=== PATIENT | male | born 1930 | race Caucasian/White ===

== ENCOUNTER → 2017-01-29 | Outpatient (CLI) | payer MEDICARE, OTHER, BC ==
[~2017-01-29] MED LIST: ASPI1TAB69 PO; ATEN50TA PO; FURO1TAB62 PO; IMDU60TA PO; NITR400A5 SL; PLAV75TA29 PO; PROS5TAB PO; ROSU40 PO; TAMS5CAP PO; ZETI10TA5 PO
[2017-01-29 17:28] LABS: HEMATOCRIT 41.2 % (39.0-51.0); MEAN CELL VOLUME 83.6 FL (80.0-100.0); MEAN CORPUSCULAR HEMOGLOBIN 26.5 PG (27.0-34.0); MEAN CORPUSCULAR HGB CONC 31.7 % (32.0-36.0); PLATELET COUNT 149 TH/MM3 (150-450); RED BLOOD COUNT 4.93 MIL/MM3 (4.50-5.90); RED CELL DISTRIBUTION WIDTH 15.9 % (11.6-17.2); REVIEW FLAG FINAL; WHITE BLOOD COUNT 8.9 TH/MM3 (4.0-11.0)
[2017-01-29 17:52] LABS: ALKALINE PHOSPHATASE 72 U/L (45-117); ALT (GPT) 33 U/L (12-78); ANION GAP 9 MEQ/L (5-15); AST (GOT) 29 U/L (15-37); BICARBONATE 31.2 MEQ/L (21.0-32.0); BLOOD UREA NITROGEN 16 MG/DL (7-18); CHLORIDE 101 MEQ/L (98-107); GLOMERULAR FILTRATION RATE 66 ML/MIN (>89); GLUCOSE,FASTING 76 MG/DL (74-99); HDL CHOLESTEROL 45.6 MG/DL (40.0-60.0); LDL CHOLESTEROL 113 MG/DL (0-99); LDL CHOLESTEROL DIRECT 117 MG/DL (0-99); POTASSIUM 4.6 MEQ/L (3.5-5.1); SODIUM (NA) 141 MEQ/L (136-145); TOTAL BILIRUBIN ADULT 0.5 MG/DL (0.2-1.0)
== END ==
LOC: PLAB 11:47
PROVIDERS: ATTEND Internal Medicine
DX: Z13.9 Encounter for screening, unspecified (principal)
CPT/HCPCS: 36415; 80053; 80061; 83721; 85027

== ENCOUNTER → 2017-05-28 | Outpatient (CLI) | payer MEDICARE, OTHER, BC ==
[2017-05-28 13:33] LABS: ALT (GPT) 29 U/L (12-78); ANION GAP 9 MEQ/L (5-15); AST (GOT) 25 U/L (15-37); BICARBONATE 29.9 MEQ/L (21.0-32.0); BLOOD UREA NITROGEN 19 MG/DL (7-18); CHLORIDE 101 MEQ/L (98-107); GLOMERULAR FILTRATION RATE 57 ML/MIN (>89); GLUCOSE,FASTING 76 MG/DL (74-99); MEAN CELL VOLUME 85.9 FL (80.0-100.0); MEAN CORPUSCULAR HEMOGLOBIN 28.2 PG (27.0-34.0); MEAN CORPUSCULAR HGB CONC 32.8 % (32.0-36.0); PLATELET COUNT 164 TH/MM3 (150-450); POTASSIUM 4.2 MEQ/L (3.5-5.1); RED BLOOD COUNT 4.19 MIL/MM3 (4.50-5.90); RED CELL DISTRIBUTION WIDTH 16.8 % (11.6-17.2); REVIEW FLAG FINAL; SODIUM (NA) 140 MEQ/L (136-145); WHITE BLOOD COUNT 9.3 TH/MM3 (4.0-11.0)
[2017-05-28 13:35] LABS: ALKALINE PHOSPHATASE 64 U/L (45-117); HDL CHOLESTEROL 47.8 MG/DL (40.0-60.0); LDL CHOLESTEROL 80 MG/DL (0-99); LDL CHOLESTEROL DIRECT 94 MG/DL (0-99); TOTAL BILIRUBIN ADULT 0.5 MG/DL (0.2-1.0)
== END ==
LOC: PLAB 10:18
PROVIDERS: ATTEND Internal Medicine
DX: I25.10 Atherosclerotic heart disease of native coronary artery without angina pectoris (principal); I10 Essential (primary) hypertension; E78.5 Hyperlipidemia, unspecified
CPT/HCPCS: 36415; 80053; 80061; 83721; 85027

== ENCOUNTER 2017-09-26 20:44 | Inpatient (IN) | payer MEDICARE, BC ==
[~2017-09-26] VITALS: Ht 190.5 cm; Wt 70.5 kg
[~2017-09-26 20:44] MED LIST changes: +EZET10 PO; -ZETI10TA5 PO
[2017-09-26 20:48] VITALS: BP 170/70; PULSE 80; RESP 16; O2SAT 95
[2017-09-26 20:59] VITALS: O2SAT 95
[2017-09-26 21:00] VITALS: BP 142/63; PULSE 78; RESP 16; O2SAT 95
[2017-09-26] MEDS ORDERED: ceFAZolin 2 GM PREMIX 50 ML IV ONE (21:00)
[2017-09-26] MEDS ORDERED: DIPHTH/TETANUS/ACEL PERTUSSIS (BOOSTER) 0.5 ML VIAL/PFS IM ONE (21:00)
[2017-09-26] MEDS ORDERED: SODIUM CHLORIDE 0.9% FLUSH 10 ML FLUSH IVF PRN (21:00)
[2017-09-26] MEDS ORDERED: ASPI-516 CHEW (21:06)
[2017-09-26] MEDS ORDERED: OMEP10CA PO (21:06)
[2017-09-26] MEDS ORDERED: ISOS120T PO (21:06)
[2017-09-26] MEDS ORDERED: AMLO2.5T PO (21:06)
[2017-09-26] MEDS ORDERED: RANE1000 PO (21:06)
[2017-09-26] MEDS ORDERED: METO1TAB43 PO (21:06)
--- NOTE | 2017-09-26 21:10 | PD ---
HPI Chief Complaint: Neuro Symptoms/ Deficits Time Seen by Provider: 20:54 Travel History International Travel<30 days: No Contact w/Intl Traveler<30days: No Traveled to known affect area: No History of Present Illness HPI The patient is an 87 year old male who presents to the [facility] emergency department with a history of reportedly falling on Saturday evening. The patient reports that he tripped and fell. The patient hit the right side of his head. The patient denies having a loss of consciousness. The patient's son -in-law is a physician and did examine him and Steri-Strip a laceration along the right mosque. The patient is on Plavix due to a history of coronary artery disease. The patient developed significant bruising along the right side of his face. The patient also has developed bruising to the right shoulder and medial left leg. According to the family the patient was last seen normal this morning. The patient this afternoon seemed to be more sleepy than usual. Then in the early evening the patient began to have slurred speech. The patient refused transport to this facility initially, however finally he did agree to be transported. The patient en route to this facility reportedly had an episode of what appeared to be seizure activity with twitching of the right sided of his mouth and decreased level of consciousness, with inability to communicate for approximate 45 seconds. The patient had no reported postictal state. No loss of bowel or bladder control. No tongue biting. The patient's blood sugar prior to arrival was 126. The patient's family reports that his gait appears to be unsteady, however he has not had any other focal weakness. The patient's heart rate was reportedly in the 80s and a sinus rhythm. On review of systems otherwise, the patient arrives awake and alert. The patient denies having any recent fevers, cough, congestion, neck pain, chest pain, shortness of breath, abdominal pain, vomiting, diarrhea, urinary symptoms, one- sided weakness, numbness or tingling to his extremities. [facility] Past Medical History Narrative Medical The patient's past medical history is significant for spinal stenosis, history of coronary artery disease, history of arthritis, hypertension, hyperlipidemia, history of atrial fibrillation, history of prior myocardial infarction, history of prostate hypertrophy Arthritis: Yes (SP. 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) Headaches: No Hepatitis: No Hiatal Hernia: No Hypertension: Yes Immune Disorder: No Implanted Vascular Access Dvce: Yes Musculoskeletal: Yes (ARTHRITIS) Neurologic: No Psychiatric: No Reproductive: No Respiratory: No Integumentary: No Immunizations Current: No Migraines: No Myocardial Infarction: Yes Radiation Therapy: No Seizures: No Thyroid Disease: No Past Surgical History Narrative Surgical The patient's past surgical history is significant for an appendectomy, cholecystectomy, TURP, coronary artery bypass grafting 2, cardiac catheterization with stent placement, carotid endarterectomy, cataract surgery, inguinal hernia repair. Abdominal Surgery: Yes (CHOLECYSTECTOMY, APPY) AICD: No Appendectomy: Yes Cardiac Surgery: Yes (CABG X2, CARDIAC STENT PLACEMENT 2008) Cholecystectomy: Yes Coronary Artery Bypass Graft: Yes (1997, 1981) Ear Surgery: No Endocrine Surgery: No Eye Surgery: Yes (CATARACT X2) Genitourinary Surgery: Yes (RIGHT INGUNIAL HERNIA REPAIR) Gynecologic Surgery: No Joint Replacement: No Neurologic Surgery: No Oral Surgery: No Pacemaker: No Thoracic Surgery: Yes (CABG) Other Surgery: Yes (RIGHT CAROTIC ENDARTERECTOMY 2008) Social History Alcohol Use: No Tobacco Use: No (QUIT 40 YRS. AGO) Substance Use: No Allergies-Medications (Allergen,Severity, Reaction): Coded Allergies: acetaminophen (Unverified Allergy, Severe, VOMITING, 05/14/17) oxycodone (Unverified Allergy, Severe, VOMITING, 05/14/17) zolpidem (Unverified Allergy, Severe, 09/26/17) Reported Meds & Prescriptions Reported Meds & Active Scripts Active Proscar (Finasteride) 5 Mg Tab 5 Mg PO DAILY Do not crush. Reported Omeprazole 10 Mg Cap 10 Mg PO DAILY Amlodipine (Amlodipine Besylate) 2.5 Mg Tab 2.5 Mg PO DAILY Ranexa ER 12 HR (Ranolazine) 1,000 Mg Tab 1,000 Mg PO BID Aspirin 81 Mg Chew 81 Mg CHEW DAILY Metoprolol Succinate ER 24 HR (Metoprolol Succinate) 100 Mg Tab 100 Mg PO DAILY Zetia (Ezetimibe) 10 Mg Tab 10 Mg PO DAILY Plavix (Clopidogrel Bisulfate) 75 Mg Tab 75 Mg PO DAILY Lasix (Furosemide) 20 Mg Tab 20 Mg PO DAILY Imdur (Isosorbide Mononitrate) 60 Mg Tab 60 Mg PO BID Crestor (Rosuvastatin Calcium) 40 Mg Tab 40 Mg PO DAILY Nitroglycerin Lingual [place] (Nitroglycerin) 400 Mcg/Act [place] 1 [place] SL DIRECTED PRN ONE SPRAY NEEDED FOR CHEST PAIN, MAY REPEAT EVERY FIVE MINUTES FOR A TOTAL OF 3 DOSES OR CALL 911 IF NO RELIEF Review of Systems Except as stated in HPI: all other systems reviewed are Neg General / Constitutional: No: Fever Eyes: No: Visual changes HENT: Positive: Headaches, No: Neck Stiffness, Neck Pain Cardiovascular: No: Chest Pain or Discomfort Respiratory: No: Shortness of Breath Gastrointestinal: No: Abdominal Pain Genitourinary: No: Dysuria Musculoskeletal: No: Pain Skin: No Rash Neurologic: Positive: Coordination Problem, Headache, Change in Mentation, Slurred Speech, Seizures, No: Weakness, Focal Abnormalities, Sensory Disturbance Psychiatric: No: Depression Endocrine: No: Polydipsia Hematologic/Lymphatic: No: Easy Bruising Physical Exam Narrative General: The patient is a well-developed well-nourished male that appears to be in no acute distress. Head and Neck exam: Head is noted to have Steri-Strips in place along the right mosque. The patient is noted to have ecchymosis along the right mosque and down the right side of his face. Eyes: EOMI, pupils are equal round and reactive to light. The patient is noted to have a small subconjunctival hemorrhage involving the right thigh. Nose: Midline septum with pink mucous membranes Mouth: Dentition unremarkable. Moist mucus membranes. Posterior oropharynx is not erythematous. No tonsillar hypertrophy. Uvula midline. Airway patent. Neck: No palpable lymphadenopathy. No nuchal rigidity. No thyromegaly. No spinous process tenderness to palpation. No step-off or crepitus. Cardiovascular: Regular rate and rhythm without murmurs, gallops, or rubs. Lungs: Clear to auscultation bilaterally. No wheezes, rhonchi, or rales. Abdomen: Soft, without tenderness to palpation in all 4 quadrants of the abdomen. No guarding, rebound, or rigidity. Negative [place] sign. Extremities: No clubbing, cyanosis, or edema. 2+ pulses in all 4 extremities. The patient is noted to have bruising over the right lateral deltoid area. Patient has no tenderness on palpation. No crepitus. Full range of motion of the shoulder and arm. The patient additionally is noted to have a hematoma that is warm to the medial aspect of the left leg above the ankle. The patient denies having any ankle pain. The patient denies having any bony tenderness on palpation. There is no crepitus. There is no other deformity. Back: No spinous process tenderness to palpation. No costovertebral angle tenderness to palpation. Neurologic Exam: The patient appears to have some deviation of his tongue to the left side that is mild, mild left sided facial droop. The patient has no slurred speech initially on arrival on my examination. The patient has no evidence of aphasia and is able to name areas objects around the room. Strength is 5/5 in all 4 extremities. No sensory deficits noted. Skin Exam: No rashes are noted. Skin is warm and dry. Data Data Last Documented VS Vital Signs Date Time Temp Pulse Resp B/P (MAP) Pulse Ox O2 Delivery O2 Flow Rate FiO2 09/26/17 21:40 16 09/26/17 21:34 82 178/78 (111) 95 Room Air Orders Orders Ct Brain W/O Iv Contrast(Rout) (09/26/17 20:55) Ct Cerv Spine W/O Contrast (09/26/17 20:55) Ct Facial Bones W/O Iv Cont (09/26/17 20:55) I-Stat Profile (09/26/17 20:56) I-Stat Creatinine (09/26/17 20:56) Complete Blood Count With Diff (09/26/17 20:56) Prothrombin Time / Inr (Pt) (09/26/17 20:56) Act Partial Throm Time (Ptt) (09/26/17 20:56) Type And Screen (09/26/17 20:56) Fibrinogen (09/26/17 20:56) Urinalysis - C+S If Indicated (09/26/17 20:56) Chest, Single Ap (09/26/17 20:56) Iv Access Insert/Monitor (09/26/17 20:56) Ecg Monitoring (09/26/17 20:56) Oximetry (09/26/17 20:56) Oxygen Administration (09/26/17 20:56) Cefazolin 2 Gm Premix (Ancef 2 Gm Premix (09/26/17 21:00) Ywpb-Qpf-Qowzmw (Booster) Inj (Boostrix (09/26/17 21:00) Sodium Chloride 0.9% Flush (Ns Flush) (09/26/17 21:00) Nitroglycerin Sl (Nitrostat Sl) (09/26/17 21:30) Nitroglycerin 2% Oint (Nitroglycerin 2% (09/26/17 21:30) Ondansetron Inj (Zofran Inj) (09/26/17 21:30) Admit Order (Ed Use Only) (09/26/17 21:38) Ckmb (Isoenzyme) Profile (09/26/17 21:20) Hepatic Functional Panel (09/26/17 21:20) Magnesium (Mg) (09/26/17 21:20) Troponin I (09/26/17 21:20) Labs Laboratory Tests Test 09/26/17 21:20 White Blood Count 11.8 TH/MM3 Red Blood Count 4.77 MIL/MM3 Hemoglobin 12.7 GM/DL Bedside Hemoglobin 12.9 G/DL Hematocrit 39.2 % Bedside Hematocrit 38.0 % Mean Corpuscular Volume 82.0 FL Mean Corpuscular Hemoglobin 26.7 PG Mean Corpuscular Hemoglobin Concent 32.6 % Red Cell Distribution Width 16.8 % Platelet Count 168 TH/MM3 Mean Platelet Volume 7.9 FL Neutrophils (%) (Auto) 82.5 % Lymphocytes (%) (Auto) 10.2 % Monocytes (%) (Auto) 6.9 % Eosinophils (%) (Auto) 0.1 % Basophils (%) (Auto) 0.3 % Neutrophils # (Auto) 9.8 TH/MM3 Lymphocytes # (Auto) 1.2 TH/MM3 Monocytes # (Auto) 0.8 TH/MM3 Eosinophils # (Auto) 0.0 TH/MM3 Basophils # (Auto) 0.0 TH/MM3 CBC Comment DIFF FINAL Differential Comment Prothrombin Time 10.9 SEC Prothromb Time International Ratio 1.1 RATIO Activated Partial Thromboplast Time 31.7 SEC Fibrinogen 496 mg/dL Bedside Sodium 139 MMOL/L Bedside Potassium 4.4 MMOL/L Bedside Chloride 102 MMOL/L Bedside Blood Urea Nitrogen 19 MG/DL Bedside Creatinine 1.0 MG/DL Bedside Glucose 128 MG/DL Magnesium Level 1.9 MG/DL Total Bilirubin 0.6 MG/DL Direct Bilirubin 0.2 MG/DL Indirect Bilirubin 0.4 MG/DL Aspartate Amino Transf (AST/SGOT) 27 U/L Alanine Aminotransferase (ALT/SGPT) 29 U/L Alkaline Phosphatase 78 U/L Total Creatine Kinase 39 U/L Troponin I LESS THAN 0.02 NG/ML Total Protein 7.6 GM/DL Albumin 3.1 GM/DL MDM Medical Decision Making Medical Screen Exam Complete: Yes Emergency Medical Condition: Yes Medical Record Reviewed: Yes Interpretation(s) Last Impressions Chest X-Ray 09/26/[id number] Signed Impressions: Service Date/Time: August 21:37 - CONCLUSION: Slight opacity at the lateral left lung base may be postoperative scarring. Awaiting comparison exams to be retrieved from the archive Laurent Stanley MD Head CT [id number] Signed Impressions: Service Date/Time: August 21:08 - CONCLUSION: Right- sided subdural hematoma with slight subfalcine midline shift and ventricular compression. No evidence of bony calvarial or facial injury. Laurent Stanley MD Differential Diagnosis Intracranial hemorrhage, versus cervical spine injury, versus facial bone fracture Narrative Course During the course of the patients emergency department visit, the patients history, examination, and differential diagnosis were reviewed with the patient. The patient was placed on a bus driver/monitor with oximetry and frequent blood pressure monitoring. The patient had IV access obtained and blood work sent for analysis. A CT scan of the head, neck, facial bones was ordered. The patient had an ECG done on arrival. The patient's ECG reveals a sinus rhythm heart rate of 80, voltage criteria are met for LVH, QRS duration is 89 ms, QTC [address] segment elevation. The patient was initially provided Ancef 2 g IV. The patient reports that his tetanus was last updated within the last year. While the patient was over in CT obtaining a CT scan of the head, neck, facial bones, the patient began to have chest pain. The patient was given sublingual nitroglycerin every 5 minutes 3 when necessary chest pain, nitroglycerin 1 inch to the chest wall. The patients laboratory studies were reviewed and remarkable for a white count of 11.8, hemoglobin 12.7, platelets 168 with 82.5 neutrophils, i-STAT reveals a sodium of 139, potassium 4.4, BUN 19, creatinine 1.0, glucose 128, liver function tests within normal limits, CPK 79, troponin I less than 0.02, PT 10.9 , PTT 31.7, fibrinogen 496. Radiology studies were reviewed and remarkable for a chest x-ray that shows slight opacity at the lateral left lung base which may be postoperative scarring , awaiting comparison exams to be retrieved from archives according to the reading radiologist. CT scan of the brain shows a right-sided subdural hematoma with slight subfalcine midline shift intraventricular compression, no evidence of bony calvarial or facial injury. A call was urgently placed out to the neurosurgeon on-call.To regarding this patient's case. He will see the patient in consultation. I additionally spoke to the chief medical physicist on-call, regarding this patient's case, Dr. Vilchis. She did come down and see the patient in the emergency department. The patients results were discussed with the patient, including the plan of care. I explained that further testing and/ or monitoring is indicated based on the patients history, examination, and/ or laboratory findings. Therefore, I recommended admission for additional evaluation. The patient expressed understanding and was agreeable with this plan. The patient was admitted to the hospital in critical condition and sent to a bed under the care of the chief medical physicist service. Critical Care Narrative Aggregate critical care time was 35 minutes. Time to perform other separately billable procedures was not included in the critical care time. My time did not include minutes spent treating any other patients simultaneously or on activities that did not directly contribute to the patient's treatment. The services I provided to this patient were to treat and/or prevent clinically significant deterioration that could result in: Respiratory failure requiring intubation, versus progressive neurologic disability I provided critical care services requiring my management, as noted below: Chart data review, documentation time, medication orders and management, vital sign assessments/reviewing monitor data, ordering and reviewing lab tests, ordering and interpreting/reviewing x-rays and diagnostic studies, care of the patient and discussion of the patient with the admitting physicians. Physician Communication Physician Communication The patient's case including history, pertinent physical examination findings, and laboratory studies were discussed with Dr. Grady at approximately 9:[address] Vilchis at approximately 9:45 PM. It was agreed that the patient would be admitted to the chief medical physicist service. Diagnosis Primary Impression: Subdural hematoma, post-traumatic Qualified Codes: S06.5X0A - Traumatic subdural hemorrhage without loss of consciousness, initial encounter Admitting Information Admitting Physician Requests: Admit Yary Neves MD Sep 26, 2017 21:10
[2017-09-26] MEDS ORDERED: NITROGLYCERIN 2% OINT 1 GM PACKET TOPICAL ONE (21:30)
[2017-09-26] MEDS ORDERED: ONDANSETRON HCL 4 MG/2 ML VIAL IV ONE (21:30)
[2017-09-26] MEDS: NITROGLYCERIN 0.4 MG SL 25 TABS/BTL SL PRN ×2 (21:32→21:37)
[2017-09-26 21:34] VITALS: BP 178/78; PULSE 82; RESP 16; O2SAT 95
--- NOTE | 2017-09-26 21:38 | RADRPT ---
EXAM DATE/TIME: 09/26/2017 21:08 [facility] COMPARISON: No previous studies available for comparison. INDICATIONS : Trauma fall two days ago. Patient altered. RADIATION DOSE: 56.35 CTDIvol (mGy) MEDICAL HISTORY : Cardiovascular disease. SURGICAL HISTORY : None. ENCOUNTER: Initial ACUITY: 2 days PAIN SCALE: 6/10 LOCATION: cranial TECHNIQUE: Multiple contiguous axial images were obtained of the head. Using automated exposure control and adj ustment of the mA and/or kV according to patient size, radiation dose was kept as low as reasonably a chievable to obtain optimal diagnostic quality images. DICOM format image data is available electro nically for review and comparison. FINDINGS: There is a thin subdural hematoma layering over the convexities on the right with maximum thickness i n the temporal region of about 14 mm. There is peritentorial blood also present, more abundant on the right than the left. There slight compressive deformity of the right lateral ventricle and slight kumar bfalcine midline shift on the order of 4-5 mm. The basal cisterns and foramen magnum are patent. Ther e is no evidence of parenchymal hematoma or parenchymal edema present. There is no evidence of subara chnoid hemorrhage. There is nothing to suggest acute infarction or underlying brain mass. The calvarium is intact. The orbits are seen in their entirety and much of the facial bony structures are visualized and there is no evidence of injury. The sinuses and mastoids are clear. CONCLUSION: Right-sided subdural hematoma with slight subfalcine midline shift and ventricular compression. No evidence of bony calvarial or facial injury. Laurent Stanley MD on September 26, 2017 at 21:32 Board Certified Radiologist. This report was verified electronically.
[2017-09-26 21:42] VITALS: BP 120/58; PULSE 82; RESP 16; O2SAT 96
[2017-09-26 21:51] LABS: AUTOMATED NEUTROPHIL # 9.8 TH/MM3 (1.8-7.7); BASOPHIL % 0.3 % (0.0-2.0); EOSINOPHIL % 0.1 % (0.0-4.0); HEMATOCRIT 39.2 % (39.0-51.0); HEMOGLOBIN 12.7 GM/DL (13.0-17.0); LYMPH % 10.2 % (9.0-44.0); LYMPHOCYTE # 1.2 TH/MM3 (1.0-4.8); MEAN CORPUSCULAR HEMOGLOBIN 26.7 PG (27.0-34.0); MEAN CORPUSCULAR HGB CONC 32.6 % (32.0-36.0); MEAN PLATELET VOLUME 7.9 FL (7.0-11.0); MONO % 6.9 % (0.0-8.0); MONOCYTE # 0.8 TH/MM3 (0-0.9); NEUT % 82.5 % (16.0-70.0); PLATELET COUNT 168 TH/MM3 (150-450); RED BLOOD COUNT 4.77 MIL/MM3 (4.50-5.90); RED CELL DISTRIBUTION WIDTH 16.8 % (11.6-17.2); WHITE BLOOD COUNT 11.8 TH/MM3 (4.0-11.0)
--- NOTE | 2017-09-26 21:56 | RADRPT ---
EXAM DATE/TIME: 09/26/2017 21:37 [facility] COMPARISON: No previous studies available for comparison. INDICATIONS : Shortness of breath after fall. MEDICAL HISTORY : Cardiovascular disease. SURGICAL HISTORY : CABG. ENCOUNTER: Initial ACUITY: 1 day PAIN SCORE: 0/10 LOCATION: Bilateral chest FINDINGS: There is slight parenchymal opacity at the lateral left lung base. Right lung is grossly clear. There is no evidence of hemothorax or pneumothorax. Cardiomediastinal contours are satisfactory. There is been previous sternotomy and CABG. Skeletal structures appear grossly intact. CONCLUSION: Slight opacity at the lateral left lung base may be postoperative scarring. Awaiting comparison exams to be retrieved from the archive Laurent Stanley MD on September 26, 2017 at 21:52 Board Certified Radiologist. This report was verified electronically.
[2017-09-26] MEDS ORDERED: CALCIUM GLUCONATE INJ 1 GM in SODIUM CHLORIDE 0.9% INJ 100 ML IV PRN (22:00)
[2017-09-26] MEDS ORDERED: BISACODYL 10 MG SUPP RECTAL PRN ×2 (22:00)
[2017-09-26] MEDS ORDERED: SENNOSIDES 8.6 MG TAB PO PRN ×2 (22:00)
[2017-09-26] MEDS ORDERED: CHLORHEXIDINE GLUCONATE 2 % 1 PACK (2 CLOTHS) TOP PRN (22:00)
[2017-09-26] MEDS ORDERED: levETIRAcetam INJ 100 ML IV ONE ×2 (22:00)
[2017-09-26] MEDS ORDERED: RESP: ALBUTEROL 2.5 MG/3 ML NEB (PRN) INH (22:00)
[2017-09-26] MEDS ORDERED: LACTULOSE SYRUP 20 GM/30 ML CUP PO PRN ×2 (22:00)
[2017-09-26] MEDS ORDERED: MAGNESIUM SULFATE INJ 2 GM in SODIUM CHLORIDE 0.9% INJ 100 ML IV PRN (22:00)
[2017-09-26] MEDS ORDERED: ALUMINUM/MAGNESIUM/SIMETH 30 ML CUP PO PRN (22:00)
[2017-09-26] MEDS ORDERED: POTASSIUM CHLOR 20 MEQ PREMIX 100 ML IV PRN (22:00)
[2017-09-26] MEDS ORDERED: LABETALOL HCL 100 MG/20 ML VIAL IV PUSH PRN ×2 (22:00→22:30)
[2017-09-26] MEDS ORDERED: SODIUM CHLORIDE 0.9% FLUSH 10 ML FLUSH IV FLUSH PRN ×2 (22:00)
[2017-09-26] MEDS ORDERED: MAGNESIUM HYDROXIDE SUSP 30 ML CUP PO PRN ×2 (22:00)
[2017-09-26] MEDS ORDERED: levETIRAcetam INJ 500 MG in SODIUM CHLORIDE 0.9% INJ 100 ML IV SCH (22:00)
[2017-09-26] MEDS ORDERED: ONDANSETRON HCL 4 MG/2 ML VIAL IV PUSH PRN ×2 (22:00)
[2017-09-26] MEDS ORDERED: cloNIDine HCL 0.1 MG TAB PO PRN (22:00)
[2017-09-26] MEDS ORDERED: MISCELLANEOUS NURSING INFORMATION XX SCH (22:00)
[2017-09-26 22:04] VITALS: BP 140/63; PULSE 80; RESP 16; O2SAT 98
[2017-09-26 22:08] LABS: INTERNATIONAL NORMALIZED RATIO 1.1 RATIO; PROTHROMBIN TIME - PATIENT 10.9 SEC (9.8-11.6)
[2017-09-26 22:14] LABS: ALBUMIN 3.1 GM/DL (3.4-5.0); ALT (GPT) 29 U/L (12-78); AST (GOT) 27 U/L (15-37); DIRECT BILIRUBIN ADULT 0.2 MG/DL (0.0-0.2); MAGNESIUM 1.9 MG/DL (1.5-2.5)
--- NOTE | 2017-09-26 22:15 | HHI.HP ---
HPI Service Critical Care Medicine Primary Care Physician Ezekiel Toribio MD Admission Diagnosis Subdural hematoma s/p fall Diagnosis: (1) Subdural hematoma, post-traumatic (2) Lumbar spinal stenosis Diagnosis: Secondary (3) Leukocytosis Diagnosis: Secondary (4) BPH (benign prostatic hypertrophy) with urinary obstruction Diagnosis: Secondary (5) PAD (peripheral artery disease) (6) CAD (coronary artery disease) (7) S/P CABG x 2 Diagnosis: Secondary (8) HTN (hypertension) Diagnosis: Secondary (9) HLD (hyperlipidemia) Diagnosis: Secondary (10) Simple partial seizures Diagnosis: Principal Travel History International Travel<30 Days: No Contact w/Intl Traveler <30 Da: No Traveled to Known Affected Are: No History of Present Illness 87-year-old male with past medical history of hypertension, hyperlipidemia, coronary artery disease with prior CABG and PCI with ongoing daily angina, carotid artery stenosis with bilat CEA, PAD, prior tobacco abuse who presents to [facility] ED after a fall that occurred the evening of 09/24/17. He hit his head on a wooden walkaway. There was no LOC and mental status was normal afterwards. He did have a R forehead laceration and immediately developed bruising of his forehead, R orbit, right lower face. Steristrips were applied to laceration by son-in-law. This afternoon pt became more confused and had slurred speech. EVAC was called and he was felt to have some mild tongue deviation to the left. He had about 45 seconds of left sided facial twitching that resolved spontaneously.He had several additional episodes of this while I was assessing him in the ED. He is alert and able to follow commands during this, appears c/w simple partial seizure. CT brain demonstrates Right sided subdural hematoma. The maximal thickness is 1.4 cm. He is on ASA/Plavix but did not take them today. Not on anticoagulation. He has h/ o CAD with prior stent and CABG that is not amenable to further intervention. He has ongoing angina and uses NTG spray numerous times a day. He was complaining of chest pressure and requesting NTG. He now states chest pain is resolved after NTG patch and NTG SL. Review of Systems Constitutional: DENIES: Fever Respiratory: DENIES: Wheezing Cardiovascular: DENIES: Chest pain Gastrointestinal: DENIES: Abdominal pain, Vomiting Hematologic/lymphatic: COMPLAINS OF: Bruising Neurologic: COMPLAINS OF: Headache Psychiatric: COMPLAINS OF: Anxiety Past Family Social History Allergies: Coded Allergies: oxycodone (Unverified Allergy, Severe, VOMITING, 05/14/17) zolpidem (Unverified Allergy, Severe, 09/26/17) ibuprofen (Verified Allergy, Mild, 09/27/17) Past Medical History Hypertension HLD Coronary artery disease with prior CABG and PTCA Angina GERD PAD with bilateral iliac stenosis Spinal stenosis BPH Bilateral Carotid stenosis He had a prior cardiac 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 Past Surgical History TURP x2 Dr. 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 Physical Exam Vital Signs Vital Signs Date Time Temp Pulse Resp B/P (MAP) Pulse Ox O2 Delivery O2 Flow Rate FiO2 09/26/17 21:34 82 16 178/78 (111) 95 Room Air 09/26/17 21:00 78 16 142/63 (89) 95 Room Air 09/26/17 20:59 95 Room Air 09/26/17 20:54 79 16 95 Room Air 09/26/17 20:48 80 16 170/70 (103) 95 Physical Exam GENERAL: Elderly male who is sitting up in ED stretcher, alert and talkative. Makes jokes but it's at times confused. SKIN: Warm and dry. Steri-Strips in place on right forehead. Ecchymosis overlying right forehead, right orbit, right cheek HEAD: Normocephalic. EYES: Pupils equal and round, 3 mm reactive.. Subconjunctival hemorrhage of lateral bulbar conjunctiva of the right eye. ENT: No nasal bleeding or discharge. Mucous membranes pink and moist. NECK: Trachea midline. No JVD. CARDIOVASCULAR: Regular rate and rhythm. 2/6 systolic murmur LLSB/apex. RESPIRATORY: No accessory muscle use. Clear to auscultation. Breath sounds equal bilaterally. GASTROINTESTINAL: Abdomen soft, non-tender, nondistended. bowel sounds present. MUSCULOSKELETAL: Extremities without clubbing, cyanosis, or edema. Ecchymosis over left anterior tibia. NEUROLOGICAL: Awake and alert, confused at times but oriented x4. L facial droop. Dysarthric speech. Intermittent twitching of left side of face, mouth and chin. EOMI. Tongue midline. No pronator drift. Sensation intact. Strength 5/ 5. No clonus Laboratory Laboratory Tests Test 09/26/17 21:20 White Blood Count 11.8 Red Blood Count 4.77 Hemoglobin 12.7 Bedside Hemoglobin 12.9 Hematocrit 39.2 Bedside Hematocrit 38.0 Mean Corpuscular Volume 82.0 Mean Corpuscular Hemoglobin 26.7 Mean Corpuscular Hemoglobin Concent 32.6 Red Cell Distribution Width 16.8 Platelet Count 168 Mean Platelet Volume 7.9 Neutrophils (%) (Auto) 82.5 Lymphocytes (%) (Auto) 10.2 Monocytes (%) (Auto) 6.9 Eosinophils (%) (Auto) 0.1 Basophils (%) (Auto) 0.3 Neutrophils # (Auto) 9.8 Lymphocytes # (Auto) 1.2 Monocytes # (Auto) 0.8 Eosinophils # (Auto) 0.0 Basophils # (Auto) 0.0 CBC Comment DIFF FINAL Differential Comment Bedside Sodium 139 Bedside Potassium 4.4 Bedside Chloride 102 Bedside Blood Urea Nitrogen 19 Bedside Creatinine 1.0 Bedside Glucose 128 Magnesium Level 1.9 Direct Bilirubin 0.2 Aspartate Amino Transf (AST/SGOT) 27 Alanine Aminotransferase (ALT/SGPT) 29 Albumin 3.1 Caprini VTE Risk Assessment Caprini VTE Risk Assessment: Mod/High Risk (score >= 2) VTE Pharm Contraindication: Intracranial lesions (subdural) Caprini Risk Assessment Model Point Value = 1 Point Value = 2 Point Value = 3 Point Value = 5 Age 41-60 Minor surgery BMI > 25 kg/m2 Swollen legs Varicose veins or History of unexplained or recurrent spontaneous Oral contraceptives or hormone replacement Sepsis (< 1 month) Serious lung disease, including pneumonia (< 1 month) Abnormal pulmonary function Acute myocardial infarction Congestive heart failure (< 1 month) History of inflammatory bowel disease Medical patient at bed rest Age 61-74 Arthroscopic surgery Major open surgery (> 45 min) Laparoscopic surgery (> 45 min) Malignancy Confined to bed (> 72 hours) Immobilizing plaster cast Central venous access Age >= 75 History of VTE Family history of VTE Factor V Leiden Prothrombin [id number] Lupus anticoagulant Anticardiolipin antibodies Elevated serum homocysteine Heparin-induced thrombocytopenia Other congenital or acquired thrombophilia Stroke (< 1 month) Elective arthroplasty Hip, pelvis, or leg fracture Acute spinal cord injury (< 1 month) Prophylaxis Regimen Total Risk Factor Score Risk Level Prophylaxis Regimen 0-1 Low Early ambulation 2 Moderate Order ONE of the following: *Sequential Compression Device (SCD) *Heparin 5000 units SQ BID 3-4 Higher Order ONE of the following medications: *Heparin 5000 units SQ TID *Enoxaparin/Lovenox 40 mg SQ daily (WT < 150 kg, CrCl > 30 mL/min) *Enoxaparin/Lovenox 30 mg SQ daily (WT < 150 kg, CrCl > 10-29 mL/min) *Enoxaparin/Lovenox 30 mg SQ BID (WT < 150 kg, CrCl > 30 mL/min) AND/OR *Sequential Compression Device (SCD) 5 or more Highest Order ONE of the following medications: *Heparin 5000 units SQ TID (Preferred with Epidurals) *Enoxaparin/Lovenox 40 mg SQ daily (WT < 150 kg, CrCl > 30 mL/min) *Enoxaparin/Lovenox 30 mg SQ daily (WT < 150 kg, CrCl > 10-29 mL/min) *Enoxaparin/Lovenox 30 mg SQ BID (WT < 150 kg, CrCl > 30 mL/min) AND *Sequential Compression Device (SCD) Assessment and Plan Problem List: (1) Subdural hematoma, post-traumatic ICD Code: S06.5X9A - Traumatic subdural hemorrhage with loss of consciousness of unspecified duration, initial encounter Status: Acute (2) CAD (coronary artery disease) ICD Code: I25.10 - Atherosclerotic heart disease of [place] coronary artery without angina pectoris Status: Chronic (3) HTN (hypertension) ICD Code: I10 - Essential (primary) hypertension Status: Chronic (4) HLD (hyperlipidemia) ICD Code: E78.5 - Hyperlipidemia, unspecified Status: Chronic (5) Simple partial seizures ICD Code: G40.109 - Localization-related (focal) (partial) symptomatic epilepsy and epileptic syndromes with simple partial seizures, not intractable, without status epilepticus Status: Acute (6) PAD (peripheral artery disease) ICD Code: I73.9 - Peripheral vascular disease, unspecified Status: Chronic (7) Lumbar spinal stenosis ICD Code: M48.06 - Spinal stenosis of lumbar region Status: Acute (8) BPH (benign prostatic hypertrophy) with urinary obstruction ICD Code: N13.8 - Other obstructive and reflux uropathy; N40.1 - Benign prostatic hyperplasia with urinary obstruction Status: Chronic (9) S/P CABG x 2 ICD Code: Z95.1 - Presence of aortocoronary bypass graft Status: Chronic (10) GERD (gastroesophageal reflux disease) ICD Code: K21.9 - Gastro-esophageal reflux disease without esophagitis Status: Chronic Assessment and Plan NEURO: R subdural hematoma, maximum 1.4 cm, 2-3 mm shift Simple partial seizure Fall Lumbar spinal stenosis Monitor neurocheck q1 hour Keppra 1 gram IV and then [address] brain in morning. Hopefully will improve while avoiding operative intervention as his multiple medical comorbidities pose risk. Fentanyl prn pain Obtain EEG Neurology consulted. Neurosurgery consulted, Dr. Grady CT Cspine - negative fracture CT face - neg fracture. RESP: Prior history of tobacco abuse Incentive spirometry every hour awake Check chest x-ray CV: CAD with prior CABG and PTCA HTN Hyperlipidemia Patient has chronic angina and habitual use of NTG spray. Obtain NTG spray from pharmacy. NTG patch. Resume home meds when able to swallow, nurse unable to do eval so far due to Imdur 60 mg po bid , Ranexa 1000 mg po bid when able to swallow Metoprolol succinate 100 daily Norvasc 2.5 mg daily. Statin/Zetia EKG no acute changes. Troponin is negative, we'll trend. S[employer] R[employer] Le[employer] Repairer is Dr. Chavez. GI: GERD h/o cholecystectomy, appendectomy h/o inguinal hernia repair NPO. Bedside swallow eval and advanced diet when appropriate. Continue PPI FEN/RENAL: BPH Urinary retention Patient had difficulty voiding. Urinary retention 1100, Howard placed. Renal function normal. Monitor BMP. Monitor electrolytes Proscar 5 mg po daily when able to take po. ID: Mild leukocytosis is likely reactive. Afebrile. UA negative. Monitor for signs and symptoms of infection. HEME: Mild chronic anemia Does not require transfusion at this time. He was not on any anticoagulant therapy. ENDO: Glucose is at target <185. PROPH: SCDs for DVT prophylaxis. Pharmacologic DVT prophylaxis is contraindicated due to acute subdural hematoma. Protonix 40 mg IV daily for stress ulcer prophylaxis and history of GERD on PPI at home. ACCESS: Peripheral IV providing adequate access at this time Patient's daughter and Dr. Gonzales updated. Discussed with Dr. Nevse. Level 3 H and P Problem Qualifiers (1) Subdural hematoma, post-traumatic: Qualified Codes: S06.5X0A - Traumatic subdural hemorrhage without loss of consciousness, initial encounter (2) HTN (hypertension): Qualified Codes: I10 - Essential (primary) hypertension La Vilchis MD Sep 26, 2017 22:15
[2017-09-26 22:18] LABS: ALKALINE PHOSPHATASE 78 U/L (45-117); INDIRECT BILIRUBIN 0.4 MG/DL (0.0-0.8); TOTAL BILIRUBIN ADULT 0.6 MG/DL (0.2-1.0); TOTAL PROTEIN 7.6 GM/DL (6.4-8.2); TROPONIN I LESS THAN 0.02 NG/ML (0.02-0.05)
[2017-09-26] MEDS ORDERED: hydrALAZINE HCL 20 MG/ML VIAL IV PUSH PRN (22:30)
[2017-09-26] MEDS: SODIUM CHLOR 0.9% 1000 ML INJ 1,000 ML IV SCH (22:32)
[2017-09-26] MEDS ORDERED: NITROGLYCERIN 0.4 MG SL 25 TABS/BTL SL ONE (23:00)
[2017-09-26] MEDS: NITROGLYCERIN 400 MCG/SPRAY 4.9 GM BOTTLE SL PRN (23:28)
[2017-09-26] MEDS: CHLORHEXIDINE GLUCONATE 2 % 1 PACK (2 CLOTHS) TOP SCH (23:38)
[2017-09-27] VITALS (14 sets, daily range): BP systolic 120–165; BP diastolic 56–75; PULSE 64–92; RESP 21–29; TEMP 97.7–101.5; O2SAT 92–100
[2017-09-27 03:29] LABS: BILIRUBIN, URINE NEG (NEG); BLOOD, URINE NEG (NEG); CALCIUM OXALATE CRYSTALS,URINE RARE /hpf; GLUCOSE,URINE NEG (NEG); KETONE, URINE TRACE mg/dL (NEG); MUCUS URINE FEW /lpf (OCC); NITRITE,URINE NEG (NEG); PH, URINE 5.5 (5.0-8.5); URINE COLOR YELLOW (YELLW/STRAW); URINE LEUKOCYTE ESTERASE NEG (NEG)
[2017-09-27 03:41] LABS: AUTOMATED NEUTROPHIL # 9.4 TH/MM3 (1.8-7.7); BASOPHIL # 0.1 TH/MM3 (0-0.2); BASOPHIL % 0.5 % (0.0-2.0); EOSINOPHIL % 0.1 % (0.0-4.0); HEMOGLOBIN 12.2 GM/DL (13.0-17.0); LYMPH % 11.4 % (9.0-44.0); LYMPHOCYTE # 1.4 TH/MM3 (1.0-4.8); MEAN CORPUSCULAR HEMOGLOBIN 26.2 PG (27.0-34.0); MEAN PLATELET VOLUME 7.3 FL (7.0-11.0); MONO % 9.4 % (0.0-8.0); MONOCYTE # 1.1 TH/MM3 (0-0.9); NEUT % 78.6 % (16.0-70.0); PLATELET COUNT 157 TH/MM3 (150-450); RED BLOOD COUNT 4.64 MIL/MM3 (4.50-5.90); RED CELL DISTRIBUTION WIDTH 16.6 % (11.6-17.2)
[2017-09-27 04:24] LABS: BICARBONATE 27.6 MEQ/L (21.0-32.0); CALCIUM 9.2 MG/DL (8.5-10.1); CREATININE 1.03 MG/DL (0.60-1.30)
--- NOTE | 2017-09-27 05:03 | RADRPT ---
EXAM DATE/TIME: 09/27/2017 04:12 [facility] COMPARISON: No previous studies available for comparison. INDICATIONS : Trauma, fall. RADIATION DOSE: 25.38 CTDIvol (mGy) MEDICAL HISTORY : Non-responsive. SURGICAL HISTORY : Non-responsive. ENCOUNTER: Initial ACUITY: 1 day PAIN SCALE: Non-responsive LOCATION: neck TECHNIQUE: Volumetric scanning of the cervical spine was performed. Multiplanar reconstructions in the sagittal, coronal and oblique axial planes were performed. Using automated exposure control and adjustment o f the mA and/or kV according to patient size, radiation dose was kept as low as reasonably achievable to obtain optimal diagnostic quality images. DICOM format image data is available electronically f or review and comparison. FINDINGS: VERTEBRAE: Normal vertebral body height. ALIGNMENT: No evidence of subluxation. C2-C3: The bony spinal canal is normal in size. No evidence of disc bulge or herniation. The neural forami na are bilaterally patent. C3-C4: Bilateral facet arthrosis. No evidence of focal disc protrusion. Central canal normal diameter. Neura l foraminal diameters within normal limits. C4-C5: Moderate right-sided facet arthrosis. Mild right neural foraminal narrowing. Central canal diameter w ithin normal limits. C5-C6: Moderate bilateral facet arthrosis with mild bilateral neural foraminal narrowing. Central canal diam eter within normal limits. C6-C7: The bony spinal canal is normal in size. No evidence of disc bulge or herniation. The neural forami na are bilaterally patent. C7-T1: The bony spinal canal is normal in size. No evidence of disc bulge or herniation. The neural forami na are bilaterally patent. CONCLUSION: No evidence of fracture. Multilevel degenerative findings. Caden Guadarrama MD on September 27, 2017 at 4:57 Board Certified Radiologist. This report was verified electronically.
--- NOTE | 2017-09-27 05:07 | RADRPT ---
EXAM DATE/TIME: 09/27/2017 04:13 [facility] COMPARISON: CT BRAIN W/O CONTRAST, September 26, 2017, 21:08. INDICATIONS : Trauma, fall. Follow up subdural. RADIATION DOSE: 56.35 CTDIvol (mGy) ; Patient motion MEDICAL HISTORY : Non-responsive. SURGICAL HISTORY : Non-responsive. ENCOUNTER: Initial ACUITY: 1 day PAIN SCALE: Non-responsive LOCATION: cranial TECHNIQUE: Multiple contiguous axial images were obtained of the head. Using automated exposure control and adj ustment of the mA and/or kV according to patient size, radiation dose was kept as low as reasonably a chievable to obtain optimal diagnostic quality images. DICOM format image data is available electro nically for review and comparison. FINDINGS: Right-sided frontal, parietal, temporal extra-axial hemorrhage is again seen. No significant interval change. Again measuring 9 mm in thickness at the parietal level and 14 mm at the temporal level. Ext ra-axial hemorrhage also seen along the tentorium. 4 mm right to left midline shift. No new areas of hemorrhage identified. CONCLUSION: No significant interval change in prominent right-sided subdural extra-axial hemorrhage. Caden Guadarrama MD on September 27, 2017 at 5:01 Board Certified Radiologist. This report was verified electronically.
--- NOTE | 2017-09-27 05:12 | RADRPT ---
EXAM DATE/TIME: 09/27/2017 04:14 [facility] COMPARISON: CT BRAIN W/O CONTRAST, November 30, 2013, 9:44. INDICATIONS : Trauma, fall. RADIATION DOSE: 26.35 CTDIvol (mGy) ; Patient motion MEDICAL HISTORY : Non-responsive. SURGICAL HISTORY : Non-responsive. ENCOUNTER: Initial ACUITY: 1 day PAIN SCORE: Non-responsive LOCATION: facial TECHNIQUE: Volumetric scanning of the facial bones was performed. Using automated exposure control and adjustme nt of the mA and/or kV according to patient size, radiation dose was kept as low as reasonably achiev able to obtain optimal diagnostic quality images. DICOM format image data is available electronicall y for review and comparison. FINDINGS: No evidence of fracture. Mild mucosal thickening of the right maxillary sinus, bilateral ethmoid sinuses, and right sphenoid s inus. Bilateral intraorbital masses are identified adjacent to the extraocular muscles. This finding is als o seen on the prior CT brain of 11/30/2013. Globes are round and symmetric. Orbits are intact. CONCLUSION: 1. No evidence of fracture. 2. Bilateral mass like soft tissue densities in the orbits bilaterally may represent dilated veins. T his is a chronic finding as it was also present on the prior study of 11/30/2013. 3. Mild maxillary, ethmoid, and sphenoid sinusitis. Caden Guadarrama MD on September 27, 2017 at 5:06 Board Certified Radiologist. This report was verified electronically.
[2017-09-27] MEDS: PANTOPRAZOLE SODIUM 40 MG VIAL IV PUSH SCH (06:00)
[2017-09-27 06:06] LABS: TROPONIN I 0.2 NG/ML (0.02-0.05)
[2017-09-27] MEDS ORDERED: DOCUSATE SODIUM 50 MG/SENNA 8.6 MG TAB PO SCH (09:00)
[2017-09-27] MEDS: ISOSORBIDE MONONITRATE 60 MG TAB PO SCH ×2 (09:00→20:21)
[2017-09-27] MEDS: RANOLAZINE 500 MG EXTENDED RELEASE TAB PO SCH ×2 (09:00→20:22)
[2017-09-27] MEDS ORDERED: SODIUM CHLORIDE 0.9% FLUSH 10 ML FLUSH IV FLUSH SCH (09:00)
[2017-09-27] MEDS: SODIUM CHLORIDE 0.9% FLUSH 10 ML FLUSH IV FLUSH SCH ×2 (09:00→20:21)
[2017-09-27] MEDS ORDERED: FAMOTIDINE 20 MG TAB PO SCH (09:00)
[2017-09-27] MEDS ORDERED: FAMOTIDINE 20 MG/2 ML VIAL IV PUSH SCH (09:00)
[2017-09-27] MEDS: FUROSEMIDE 20 MG TAB PO SCH (09:14)
[2017-09-27] MEDS: EZETIMIBE 10 MG TAB PO SCH (09:14)
[2017-09-27] MEDS: ATORVASTATIN 80 MG TAB PO SCH (09:14)
[2017-09-27] MEDS: amLODIPine BESYLATE 5 MG TAB PO SCH (09:15)
[2017-09-27] MEDS: DOCUSATE SODIUM 50 MG/SENNA 8.6 MG TAB PO SCH ×2 (09:15→20:22)
[2017-09-27] MEDS: levETIRAcetam INJ 500 MG in SODIUM CHLORIDE 0.9% INJ 100 ML IV SCH ×2 (09:15→20:21)
[2017-09-27] MEDS: FINASTERIDE 5 MG TAB PO SCH (09:15)
--- NOTE | 2017-09-27 09:39 | MB ---
cc: ESPINOZA BURGESS M.D., SOUHIEL MD BLACK,BLUE MILLER DATE OF CONSULTATION 09/27/2017 REASON FOR CONSULTATION Right subdural hemorrhage. HISTORY OF PRESENT ILLNESS This is an 87-year-old gentleman who apparently fell on 09/24/2017 and suffered a right forehead area laceration which was Steri-Stripped at home. Yesterday afternoon he started noticing slurred speech and also was more confused and noticed a left-sided facial twitching which resolved spontaneously. He was brought into the emergency room and work-up including a CT scan of the head revealed a right hemisphere acute subdural hemorrhage, maximal thickness in the middle fossa 1.4 cm, and lesser thickness in the frontoparietal area. There is a mild midline shift of about 3 mm [id number]. The patient was started on Keppra and overnight did not have any further seizures. He is lethargic but arouses and verbalizes his name and follows simple commands. A follow-up CT scan this morning does not reveal any progression of this right-sided subdural hemorrhage and no re-bleed is noted. CT of the cervical spine is negative for any fractures with positive multilevel degenerative changes. PAST MEDICAL HISTORY 1. Coronary artery disease with a history of coronary artery bypass grafting and angioplasty. 2. Angina. 3. Peripheral vaso-occlusive disease with bilateral iliac stenosis. 4. Bilateral carotid stenosis. 5. Spinal stenosis which limits his ambulatory status and contributes to his unsteadiness according to his son-in-law, Dr. Gonzales. 6. Hyperlipidemia. 7. Gastroesophageal reflux. 8. TURP x2. 9. Bilateral carotid endarterectomy. 10.Cholecystectomy. 11.Bilateral hernia repair. SOCIAL HISTORY He is a former smoker, quit 20 years ago; prior to that smoked a pack a day for 40 years. He quit alcohol 35 years ago. ALLERGIES 1. ACETAMINOPHEN. 2. OXYCODONE. 3. ZOLPIDEM. MEDICATIONS Medications prior to admission include: 1. Amlodipine. 2. Aspirin. 3. Plavix. 4. Zetia. 5. Proscar. 6. Lasix. 7. Isosorbide. 8. Metoprolol. 9. Nitroglycerin sublingual tablets p.r.n. 10.Omeprazole. 11.Ranexa. 12.Crestor. REVIEW OF SYSTEMS A review of systems cannot be reliably obtained since he is lethargic and only responds to simple commands; cannot relate much of a history. FAMILY HISTORY Unremarkable. LABORATORY STUDIES White blood cell count 12, hemoglobin 12.2, platelet count 157. PT 10.9, INR 1.1, PTT 31.7. Fibrinogen 496. Sodium 140, potassium 4.1, BUN 17, creatinine 1.03, glucose 121. PHYSICAL EXAMINATION VITAL SIGNS: Temperature 97.7, pulse 92, respiratory rate 24, blood pressure 145/66. Oxygen saturation is 92% on three liters nasal cannula. HEAD: He has right forehead and periorbital extensive ecchymosis along with involving the face. Steri-Strips are in place on the eyebrow area. NECK: No significant guarding, rigidity or tenderness with movement. CHEST: Clear to auscultation bilaterally. HEART: Regular rate and rhythm. Systolic ejection murmur. ABDOMEN: Soft, nontender. No hepatosplenomegaly with positive bowel sounds. EXTREMITIES: No cyanosis or edema. There is some ecchymosis noted on the left lower extremity. SKIN: Warm and dry with Steri-Strips in place on the right forehead. Right periorbital and cheek ecchymosis along with left strickland ecchymosis. GENERAL: This is an elderly gentleman who is lying in bed and prefers to keep his eyes closed but will open them to verbal stimulation temporarily. He has dysarthric speech but will verbalize his name and follow simple commands. EARS, NOSE, AND THROAT: No nasal drainage with moist mucous membranes. NEUROLOGIC: He is lethargic but arouses verbally. He will state his name, but not oriented to date or location. Pupils are equal and reactive. He has a mild left facial droop. There is dysarthric speech. Follows simple commands. He moves all four extremities with relatively good strength. Equivocal Babinski. IMPRESSION Moderate right hemisphere acute subdural hemorrhage with mild mass effect and midline shift. Follow-up CT scan is stable with no further progression of this subdural hemorrhage overnight. This is an elderly patient with significant medical co-morbidities, in particular cardiac and peripheral vascular disease and a poor baseline functional status related to spinal stenosis and peripheral vascular disease. PLAN I reviewed the CT scan findings with Dr. Gonzales last evening and given that the patient's follow-up CT scan is stable we have recommended continued nonsurgical management. Will need to have another discussion with the patient's family whether he has any advanced directives and how aggressive we need to be with his care should his neurologic symptoms decline further and whether they would want to proceed with ventilator support or surgical intervention. At this point the plan is for conservative management and supportive care. He has been started on Keppra for seizure prophylaxis and will also order an EEG to rule out any epileptic focus. His condition obviously is critical with a guarded prognosis. MD FELICE Resendiz/CHAGO /8:10 AM /8:56 AM REYNA
[2017-09-27] MEDS: METOPROLOL SUCCINATE 50 MG EXTENDED RELEASE TAB PO SCH (10:28)
[2017-09-27] MEDS: SODIUM CHLOR 0.9% 1000 ML INJ 1,000 ML IV SCH (13:53)
[2017-09-27] MEDS: ACETAMINOPHEN 1000 MG/100 ML 100 ML IV PRN (13:53)
[2017-09-27] MEDS: METOPROLOL TARTRATE 5 MG/5 ML VIAL IV PUSH SCH ×2 (13:57→20:21)
[2017-09-27] MEDS ORDERED: METOPROLOL TARTRATE 5 MG/5 ML VIAL IV PUSH ONE (18:15)
--- NOTE | 2017-09-27 18:22 | HHI.CCPN ---
Subjective Remarks/Hospital Course Diagnosis: (1) Subdural hematoma, post-traumatic (2) Lumbar spinal stenosis Diagnosis: Secondary (3) Leukocytosis Diagnosis: Secondary (4) BPH (benign prostatic hypertrophy) with urinary obstruction Diagnosis: Secondary (5) PAD (peripheral artery disease) (6) CAD (coronary artery disease) (7) S/P CABG x 2 Diagnosis: Secondary (8) HTN (hypertension) Diagnosis: Secondary (9) HLD (hyperlipidemia) Diagnosis: Secondary (10) Simple partial seizures Diagnosis: Principal History of Present Illness 87-year-old male with past medical history of hypertension, hyperlipidemia, coronary artery disease with prior CABG and PCI with ongoing daily angina, carotid artery stenosis with bilat CEA, PAD, prior tobacco abuse who presents to [facility] after a fall that occurred the evening of 09/24/17. He hit his head on a wooden walkaway. There was no LOC and mental status was normal afterwards. He did have a R forehead laceration and immediately developed bruising of his forehead, R orbit, right lower face. Steristrips were applied to laceration by son-in-law. This afternoon pt became more confused and had slurred speech. EVAC was called and he was felt to have some mild tongue deviation to the left. He had about 45 seconds of left sided facial twitching that resolved spontaneously.He had several additional episodes of this while I was assessing him in the ED. He is alert and able to follow commands during this, appears c/w simple partial seizure. CT brain demonstrates Right sided subdural hematoma. The maximal thickness is 1.4 cm. He is on ASA/Plavix but did not take them today. Not on anticoagulation. He has h/ o CAD with prior stent and CABG that is not amenable to further intervention. He has ongoing angina and uses NTG spray numerous times a day. He was complaining of chest pressure and requesting NTG. He now states chest pain is resolved after NTG patch and NTG SL. 09/27: Chest pain has resolved. Lengthy discussion with his . Trop elevated , clearly NSTEMI. Well documented history of diffuse coronary artery disease. At this point he is not a candidate for anticoagulation or intervention due to acute subdural bleed. We will slow his heart rate with additional beta jennifer and try to ride this episode out. No perfect solutions but he is pain free now with heart rate control. Objective Vital Signs Date Time Temp Pulse Resp B/P (MAP) Pulse Ox O2 Delivery O2 Flow Rate FiO2 09/27/17 16:00 100.6 76 25 120/58 (78) 95 09/27/17 08:44 Nasal Cannula 2.00 09/27/17 07:00 100 Intake and Output 09/27/17 09/27/17 09/28/17 08:00 16:00 00:00 Intake Total 450 ml Output Total 1150 ml 750 ml Balance -700 ml -750 ml Result Diagram: 09/27/17 0321 09/27/17 0321 Other Results Laboratory Tests Test 09/27/17 06:05 Blood Gas Puncture Site RT RADIAL Blood Gas Patient Temperature 98.6 Blood Gas HCO3 25 mmol/L (22-26) Blood Gas Base Excess 1.3 mmol/L (-2-2) Blood Gas Oxygen Saturation 95 % (90-100) Arterial Blood pH 7.42 (7.380-7.420) Arterial Blood Partial Pressure CO2 39 mmHg (38-42) Arterial Blood Partial Pressure O2 96 mmHg (61-120) Arterial Blood Oxygen Content 16.1 Vol % (12.0-20.0) Arterial Blood Carboxyhemoglobin 1.6 % (0-4) Arterial Blood Methemoglobin 1.4 % (0-2) Blood Gas Hemoglobin 12.1 G/DL (12.0-16.0) Oxygen Delivery Device NASAL CANNULA Blood Gas Liter Flow 3 L/M Objective Remarks GENERAL: Elderly male. SKIN: Warm and dry. Steri-Strips in place on right forehead. Ecchymosis overlying right forehead, right orbit, right cheek HEAD: Normocephalic. EYES: Pupils equal and round, 3 mm reactive.. Subconjunctival hemorrhage of lateral bulbar conjunctiva of the right eye. ENT: No nasal bleeding or discharge. Mucous membranes pink and moist. NECK: Trachea midline. No JVD. CARDIOVASCULAR: Regular rate and rhythm. 2/6 systolic murmur LLSB/apex. Rtae 72. RESPIRATORY: No accessory muscle use. Clear to auscultation. Breath sounds equal bilaterally. GASTROINTESTINAL: Abdomen soft, non-tender, nondistended. bowel sounds present. MUSCULOSKELETAL: Extremities without clubbing, cyanosis, or edema. Ecchymosis over left anterior tibia. NEUROLOGICAL: Confused. L facial droop. Dysarthric speech. Intermittent twitching of left side of face has stopped. EOMI. Tongue midline. Strength 5/5. Protects airway well. A/P Problem List: (1) Subdural hematoma, post-traumatic ICD Code: S06.5X9A - Traumatic subdural hemorrhage with loss of consciousness of unspecified duration, initial encounter Status: Acute (2) CAD (coronary artery disease) ICD Code: I25.10 - Atherosclerotic heart disease of [place] coronary artery without angina pectoris Status: Chronic (3) HTN (hypertension) ICD Code: I10 - Essential (primary) hypertension Status: Chronic (4) HLD (hyperlipidemia) ICD Code: E78.5 - Hyperlipidemia, unspecified Status: Chronic (5) Simple partial seizures ICD Code: G40.109 - Localization-related (focal) (partial) symptomatic epilepsy and epileptic syndromes with simple partial seizures, not intractable, without status epilepticus Status: Acute (6) PAD (peripheral artery disease) ICD Code: I73.9 - Peripheral vascular disease, unspecified Status: Chronic (7) Lumbar spinal stenosis ICD Code: M48.06 - Spinal stenosis of lumbar region Status: Acute (8) BPH (benign prostatic hypertrophy) with urinary obstruction ICD Code: N13.8 - Other obstructive and reflux uropathy; N40.1 - Benign prostatic hyperplasia with urinary obstruction Status: Acute (9) S/P CABG x 2 ICD Code: Z95.1 - Presence of aortocoronary bypass graft Status: Chronic (10) GERD (gastroesophageal reflux disease) ICD Code: K21.9 - Gastro-esophageal reflux disease without esophagitis Status: Chronic Assessment and Plan NEURO: R subdural hematoma, maximum 1.4 cm, 2-3 mm shift Simple partial seizure Fall Lumbar spinal stenosis Monitor neurocheck q1 hour Keppra 1 gram IV and then [address] brain in morning. Hopefully will improve while avoiding operative intervention as his multiple medical comorbidities pose risk. Fentanyl prn pain Obtain EEG Neurology consulted. Neurosurgery consulted, Dr. Grady CT Cspine - negative fracture CT face - neg fracture. RESP: Prior history of tobacco abuse Incentive spirometry every hour awake Check chest x-ray CV: CAD with prior CABG and PTCA HTN Hyperlipidemia Patient has chronic angina and habitual use of NTG spray. Obtain NTG spray from pharmacy. NTG patch. Resume home meds when able to swallow, nurse unable to do eval so far due to Imdur 60 mg po bid , Ranexa 1000 mg po bid when able to swallow Metoprolol succinate 100 daily Norvasc 2.5 mg daily. Statin/Zetia EKG no acute changes. Troponin is negative, we'll trend. Manager Testing is Dr. Chavez. GI: GERD h/o cholecystectomy, appendectomy h/o inguinal hernia repair NPO. Bedside swallow eval and advanced diet when appropriate. Continue PPI FEN/RENAL: BPH Urinary retention Patient had difficulty voiding. Urinary retention 1100, Howard placed. Renal function normal. Monitor BMP. Monitor electrolytes Proscar 5 mg po daily when able to take po. ID: Mild leukocytosis is likely reactive. Afebrile. UA negative. Monitor for signs and symptoms of infection. HEME: Mild chronic anemia Does not require transfusion at this time. He was not on any anticoagulant therapy. ENDO: Glucose is at target <185. PROPH: SCDs for DVT prophylaxis. Pharmacologic DVT prophylaxis is contraindicated due to acute subdural hematoma. Protonix 40 mg IV daily for stress ulcer prophylaxis and history of GERD on PPI at home. ACCESS: Peripheral IV providing adequate access at this time Overall impression: Difficult situation. Medical management for angina. Follow neurological exam closely. High risk patient for any procedure. Problem Qualifiers (1) Subdural hematoma, post-traumatic: Qualified Codes: S06.5X0A - Traumatic subdural hemorrhage without loss of consciousness, initial encounter (2) HTN (hypertension): Qualified Codes: I10 - Essential (primary) hypertension Tra Hopper MD Sep 27, 2017 18:22
--- NOTE | 2017-09-27 21:14 | MG ---
cc: VERONICA COMER M.D. Lab No: [id number] Date: 1930 Age: 87 Sex: M Race: REFERRING: Ysabel. ROOM: 1301. Awake at times with photic done. CT right sided subdural hematoma. An 87-year-old who fell and hit his head on Keppra, Norvasc, Imdur, Zetia, Lipitor, Toprol, Protonix. DESCRIPTION OF RECORD: Some minor artifact seen but overall 4 Hz background. There is a lot of eye movement artifact. EKG looks to be sinus. Photic stimulation, questionable driving response. IMPRESSION: Abnormal EEG due to moderate slowing noted with encephalopathic process. No gross epileptiform features were observed. Clinical correlation. MD JAH Quinones/LIZANDRO /7:40 PM /8:57 PM
[2017-09-28] VITALS (11 sets, daily range): BP systolic 103–131; BP diastolic 54–88; PULSE 62–98; RESP 18–26; TEMP 98.2–99.9; O2SAT 96–100
[2017-09-28] MEDS: METOPROLOL TARTRATE 5 MG/5 ML VIAL IV PUSH SCH ×4 (03:20→20:04)
[2017-09-28] MEDS: SODIUM CHLOR 0.9% 1000 ML INJ 1,000 ML IV SCH ×2 (03:20→16:48)
[2017-09-28] MEDS: CHLORHEXIDINE GLUCONATE 2 % 1 PACK (2 CLOTHS) TOP SCH (03:20)
[2017-09-28] MEDS: PANTOPRAZOLE SODIUM 40 MG VIAL IV PUSH SCH (05:59)
[2017-09-28] MEDS: SODIUM CHLORIDE 0.9% FLUSH 10 ML FLUSH IV FLUSH SCH ×2 (09:00→20:04)
[2017-09-28] MEDS: levETIRAcetam INJ 500 MG in SODIUM CHLORIDE 0.9% INJ 100 ML IV SCH ×2 (09:06→20:03)
--- NOTE | 2017-09-28 09:30 | HHI.NSPN ---
(Power Dickerson) History Chief Complaint: Slight headache (Power Dickerson) Interval History 09/27: This is an 87-year-old gentleman who apparently fell on 2016 and suffered a right forehead area laceration which was Steri-Stripped at home. Yesterday afternoon he started noticing slurred speech and also was more confused and noticed a left-sided facial twitching which resolved spontaneously. He was brought into the emergency room and work-up including a CT scan of the head revealed a right hemisphere acute subdural hemorrhage, maximal thickness in the middle fossa 1.4 cm, and lesser thickness in the frontoparietal area. There is a mild midline shift of about 3 mm right-to- left. The patient was started on Keppra and overnight did not have any further seizures. He is lethargic but arouses and verbalizes his name and follows simple commands. A follow-up CT scan this morning does not reveal any progression of this right-sided subdural hemorrhage and no re-bleed is noted. CT of the cervical spine is negative for any fractures with positive multilevel degenerative changes. 09/28: When seen this morning the patient has his eyes closed but opens them to voice. His speech is essentially clear and he interacts. After answering the first orientation question he adds "for the 50th time" to his response to the remainder of the questions. He does say he has a slight headache but had no other complaints. He moves all extremities without any difficulty and his muscle strength and sensation are normal. Nursing states that the patient is doing better than yesterday. Nursing also reports that the patient does become agitated and curses at staff because he wants to drink but failed his swallow exam yesterday. He is to have another swallow evaluation today. (Power Dickerson) Exam Results 09/26/17 09/26/17 09/27/17 09/27/17 09/28/17 09/28/17 06:00 18:00 06:00 18:00 06:00 18:00 Intake Total 500 ml 840 ml Output Total 1150 ml 750 ml 425 ml Balance -650 ml -750 ml 415 ml Intake IV Total 500 ml 840 ml Output Urine Total 1150 ml 750 ml 425 ml Bladder Scan Volume Amount 660 ml Vital Signs Date Time Temp Pulse Resp B/P (MAP) Pulse Ox O2 Delivery O2 Flow Rate FiO2 09/28/17 07:00 Nasal Cannula 2.00 09/28/17 04:00 66 09/28/17 04:00 99.5 64 21 120/57 (78) 100 09/28/17 00:00 99.9 62 19 117/54 (75) 100 09/27/17 21:02 98 Nasal Cannula 3.00 09/27/17 20:00 66 09/27/17 20:00 Nasal Cannula 2.00 09/27/17 20:00 100.2 64 21 121/56 (77) 97 09/27/17 18:00 65 09/27/17 16:00 100.6 76 25 120/58 (78) 95 09/27/17 16:00 76 09/27/17 14:00 75 09/27/17 12:00 71 09/27/17 12:00 101.5 71 21 146/63 (90) 97 09/27/17 10:00 92 09/27/17 08:44 100 Nasal Cannula 2.00 09/27/17 08:00 71 09/27/17 08:00 100.0 71 29 165/73 (103) 100 09/27/17 07:00 3.00 100 09/27/17 06:00 89 09/27/17 04:00 92 09/27/17 04:00 97.7 92 24 145/66 (92) 92 09/27/17 03:35 90 09/27/17 02:00 89 09/27/17 00:00 99.2 87 21 144/75 (98) 94 09/27/17 00:00 87 09/27/17 00:00 87 09/26/17 23:18 09/26/17 22:04 80 16 140/63 (88) 98 Nasal Cannula 2.00 09/26/17 21:43 92 Nasal Cannula 2.00 09/26/17 21:42 82 16 120/58 (78) 96 Nasal Cannula 2.00 09/26/17 21:40 16 09/26/17 21:34 82 16 178/78 (111) 95 Room Air 09/26/17 21:00 78 16 142/63 (89) 95 Room Air 09/26/17 20:59 95 Room Air 09/26/17 20:54 79 16 95 Room Air 09/26/17 20:48 80 16 170/70 (103) 95 (Power Dickerson) Physical Examination GENERAL: Eyes closed but opens to voice, interacts but does become somewhat agitated (adds "for the 50th time" when asked questions), affect somewhat flat, no apparent distress. SKIN: Right-sided facial & periorbital ecchymosis, abrasion/laceration w/intact steri-strips right lateral orbit. HEENT: Right-sided facial & periorbital ecchymosis, abrasion/laceration w/ intact steri-strips right lateral orbit. Face appears symmetrical. PERRLA 2 mm brisk, EOMI. No otorrhea or rhinorrhea. MMM & pink, tongue midline to protrusion. MUSCULOSKELETAL: MARAVILLA w/o difficulty, no evident clubbing or deformity. NEUROLOGICAL: Initially eyes closed but opens to voice, after that awake & alert. Oriented to person & year, states September and at [facility]. Speech clear & essentially appropriate. Follows simple commands w/o difficulty. CN II-XII grossly intact. Sensation intact to light touch. Motor strength is 5/5 to all major flexion & extension muscle groups. (Power Dickerson) Lab, Micro, Other Results Recent Impressions Head CT 09/27/17 0600 Signed Impressions: Service Date/Time: Wednesday, September 27, 2017 04:13 - CONCLUSION: No significant interval change in prominent right-sided subdural extra-axial hemorrhage. Caden Guadarrama MD Chest X-Ray [id number] Signed Impressions: Service Date/Time: August 21:37 - CONCLUSION: Slight opacity at the lateral left lung base may be postoperative scarring. Awaiting comparison exams to be retrieved from the archive Laurent Stanley MD Maxillofacial CT [id number] Signed Impressions: Service Date/Time: Wednesday, September 27, 2017 04:14 - CONCLUSION: 1. No evidence of fracture. 2. Bilateral mass like soft tissue densities in the orbits bilaterally may represent dilated veins. This is a chronic finding as it was also present on the prior study of 11/30/2013. 3. Mild maxillary, ethmoid, and sphenoid sinusitis. Caden Guadarrama MD Head CT [id number] Signed Impressions: Service Date/Time: August 21:08 - CONCLUSION: Right- sided subdural hematoma with slight subfalcine midline shift and ventricular compression. No evidence of bony calvarial or facial injury. Laurent Stanley MD Cervical Spine CT [id number] Signed Impressions: Service Date/Time: Wednesday, September 27, 2017 04:12 - CONCLUSION: No evidence of fracture. Multilevel degenerative findings. Caden Guadarrama MD Laboratory Tests Test 09/26/17 21:20 09/27/17 02:52 09/27/17 03:21 09/27/17 05:23 White Blood Count 11.8 TH/MM3 12.0 TH/MM3 Red Blood Count 4.77 MIL/MM3 4.64 MIL/MM3 Hemoglobin 12.7 GM/DL 12.2 GM/DL Bedside Hemoglobin 12.9 G/DL Hematocrit 39.2 % 38.0 % Bedside Hematocrit 38.0 % Mean Corpuscular Volume 82.0 FL 82.0 FL Mean Corpuscular Hemoglobin 26.7 PG 26.2 PG Mean Corpuscular Hemoglobin Concent 32.6 % 32.0 % Red Cell Distribution Width 16.8 % 16.6 % Platelet Count 168 TH/MM3 157 TH/MM3 Mean Platelet Volume 7.9 FL 7.3 FL Neutrophils (%) (Auto) 82.5 % 78.6 % Lymphocytes (%) (Auto) 10.2 % 11.4 % Monocytes (%) (Auto) 6.9 % 9.4 % Eosinophils (%) (Auto) 0.1 % 0.1 % Basophils (%) (Auto) 0.3 % 0.5 % Neutrophils # (Auto) 9.8 TH/MM3 9.4 TH/MM3 Lymphocytes # (Auto) 1.2 TH/MM3 1.4 TH/MM3 Monocytes # (Auto) 0.8 TH/MM3 1.1 TH/MM3 Eosinophils # (Auto) 0.0 TH/MM3 0.0 TH/MM3 Basophils # (Auto) 0.0 TH/MM3 0.1 TH/MM3 CBC Comment DIFF FINAL DIFF FINAL Differential Comment Prothrombin Time 10.9 SEC Prothromb Time International Ratio 1.1 RATIO Activated Partial Thromboplast Time 31.7 SEC Fibrinogen 496 mg/dL Bedside Sodium 139 MMOL/L Bedside Potassium 4.4 MMOL/L Bedside Chloride 102 MMOL/L Bedside Blood Urea Nitrogen 19 MG/DL Bedside Creatinine 1.0 MG/DL Bedside Glucose 128 MG/DL Magnesium Level 1.9 MG/DL Total Bilirubin 0.6 MG/DL Direct Bilirubin 0.2 MG/DL Indirect Bilirubin 0.4 MG/DL Aspartate Amino Transf (AST/SGOT) 27 U/L Alanine Aminotransferase (ALT/SGPT) 29 U/L Alkaline Phosphatase 78 U/L Total Creatine Kinase 39 U/L Troponin I LESS THAN 0.02 NG/ML 0.20 NG/ML Total Protein 7.6 GM/DL Albumin 3.1 GM/DL Urine Color YELLOW Urine Turbidity CLEAR Urine pH 5.5 Urine Specific [place] 1.020 Urine Protein 30 mg/dL Urine Glucose (UA) NEG mg/dL Urine Ketones TRACE mg/dL Urine Occult Blood NEG Urine Nitrite NEG Urine Bilirubin NEG Urine Urobilinogen LESS THAN 2.0 MG/DL Urine Leukocyte Esterase NEG Urine WBC 1 /hpf Urine Calcium Oxalate Crystals RARE /hpf Urine Mucus FEW /lpf Microscopic Urinalysis Comment CULT NOT INDICATED Blood Urea Nitrogen 17 MG/DL Creatinine 1.03 MG/DL Random Glucose 121 MG/DL Calcium Level 9.2 MG/DL Sodium Level 140 MEQ/L Potassium Level 4.1 MEQ/L Chloride Level 103 MEQ/L Carbon Dioxide Level 27.6 MEQ/L Anion Gap 9 MEQ/L Estimat Glomerular Filtration Rate 69 ML/MIN Nasal Screen MRSA (PCR) MRSA NOT DETECTED Test 09/27/17 06:05 09/27/17 11:11 09/27/17 16:57 Blood Gas Puncture Site RT RADIAL Blood Gas Patient Temperature 98.6 Blood Gas HCO3 25 mmol/L Blood Gas Base Excess 1.3 mmol/L Blood Gas Oxygen Saturation 95 % Arterial Blood pH 7.42 Arterial Blood Partial Pressure CO2 39 mmHg Arterial Blood Partial Pressure O2 96 mmHg Arterial Blood Oxygen Content 16.1 Vol % Arterial Blood Carboxyhemoglobin 1.6 % Arterial Blood Methemoglobin 1.4 % Blood Gas Hemoglobin 12.1 G/DL Oxygen Delivery Device NASAL CANNULA Blood Gas Liter Flow 3 L/M Troponin I 6.46 NG/ML 11.90 NG/ML (Power Dickerson) Medical Decision Making Impression and Plan Impression: Moderate right hemisphere acute subdural hemorrhage with mild mass effect and midline shift. Follow-up CT scan is stable with no further progression of this subdural hemorrhage overnight. This is an elderly patient with significant medical co-morbidities, in particular cardiac and peripheral vascular disease and a poor baseline functional status related to spinal stenosis and peripheral vascular disease. Patient is doing well overall and with improved neurological status. EEG abnormal due to moderate slowing w/encephalopathic process but no gross epileptiform features. Plan: Plan of care discussed with patient & Nursing. Primary management per Employee Development Manager. Conservative management since repeat CT brain yesterday was stable. Neuro checks. Stat CT brain for any worsening of neuro status. Mechanical DVT prophylaxis. Hold pharmacologic DVT prophylaxis. Stress ulcer prophylaxis. Levetiracetam for seizure prophylaxis. (Power Dickerson) Attending Statement The exam, history, and the medical decision-making described in the above note were completed with the assistance of the mid-level provider. I reviewed and agree with the findings presented. I attest that I had a [id number] encounter with the patient on the same day, and personally performed and documented my assessment and findings in the medical record. On my examination this morning, the patient remains awake and alert. distress Respirations clear to auscultation Cardiac regular without murmur Abdomen soft nontender Moderate right facial and periorbital ecchymosis with minimal edema Awake and alert Oriented X 3 Speech is somewhat slow but clear Conversant and appropriate Follow simple commands well Answers questions appropriately Reasonable judgment and insight Recent and remote memory are intact No evidence of anxiety or depression Pupils are equal and reactive to accommodation. Extra-ocular movements, visual kunz to confrontation, facial sensorimotor, tongue, palate, sternocleidomastoid testing, hearing to finger rub testing, and bilateral shoulder shrug are all intact. Sensation is intact to light touch in all extremities Strength normal major flexion and extension groups all extremities Fabian's absent bilaterally No ankle clonus Plantar responses absent bilateral Fine motor movements intact upper extremities 09/27/17 CT scan head images reviewed by the undersigned. The study reveals approximately 9 mm acute right frontotemporal subdural hematoma with 3 mm midline shift. Relatively stable from prior study. Discussed with patient Treatment options discussed. He wishes to continue conservative treatment and observation for the subdural hematoma. 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 Continue intensive care neurologic checks On Keppra for seizure prophylaxis (Jorje Rhodes MD) Power Dickerson Sep 28, 2017 09:30 Jorje Rhodes MD Sep 28, 2017 14:19
--- NOTE | 2017-09-28 10:00 | HHI.CCPN ---
Subjective Remarks/Hospital Course Diagnosis: (1) Subdural hematoma, post-traumatic (2) Lumbar spinal stenosis Diagnosis: Secondary (3) Leukocytosis Diagnosis: Secondary (4) BPH (benign prostatic hypertrophy) with urinary obstruction Diagnosis: Secondary (5) PAD (peripheral artery disease) (6) CAD (coronary artery disease) (7) S/P CABG x 2 Diagnosis: Secondary (8) HTN (hypertension) Diagnosis: Secondary (9) HLD (hyperlipidemia) Diagnosis: Secondary (10) Simple partial seizures Diagnosis: Principal History of Present Illness 87-year-old male with past medical history of hypertension, hyperlipidemia, coronary artery disease with prior CABG and PCI with ongoing daily angina, carotid artery stenosis with bilat CEA, PAD, prior tobacco abuse who presents to [facility] after a fall that occurred the evening of 09/24/17. He hit his head on a wooden walkaway. There was no LOC and mental status was normal afterwards. He did have a R forehead laceration and immediately developed bruising of his forehead, R orbit, right lower face. Steristrips were applied to laceration by son-in-law. This afternoon pt became more confused and had slurred speech. EVAC was called and he was felt to have some mild tongue deviation to the left. He had about 45 seconds of left sided facial twitching that resolved spontaneously.He had several additional episodes of this while I was assessing him in the ED. He is alert and able to follow commands during this, appears c/w simple partial seizure. CT brain demonstrates Right sided subdural hematoma. The maximal thickness is 1.4 cm. He is on ASA/Plavix but did not take them today. Not on anticoagulation. He has h/ o CAD with prior stent and CABG that is not amenable to further intervention. He has ongoing angina and uses NTG spray numerous times a day. He was complaining of chest pressure and requesting NTG. He now states chest pain is resolved after NTG patch and NTG SL. 09/27: Chest pain has resolved. Lengthy discussion with his . Trop elevated , clearly NSTEMI. Well documented history of diffuse coronary artery disease. At this point he is not a candidate for anticoagulation or intervention due to acute subdural bleed. We will slow his heart rate with additional beta jennifer and try to ride this episode out. No perfect solutions but he is pain free now with heart rate control. 12/30: No chest pain for > 24 hours. More alert and conversant today. Will get PT to start working with him. Objective Vital Signs Date Time Temp Pulse Resp B/P (MAP) Pulse Ox O2 Delivery O2 Flow Rate FiO2 09/28/17 08:00 99.3 84 18 131/88 (102) 99 09/28/17 07:00 Nasal Cannula 2.00 09/27/17 07:00 100 Intake and Output 09/28/17 09/28/17 09/29/17 08:00 16:00 00:00 Intake Total 840 ml Output Total 425 ml Balance 415 ml Result Diagram: 09/27/17 0321 09/27/17 0321 Objective Remarks GENERAL: Elderly male. SKIN: Warm and dry. Steri-Strips in place on right forehead. Ecchymosis overlying right forehead, right orbit, right cheek HEAD: Normocephalic. EYES: Pupils equal and round, 3 mm reactive.. Subconjunctival hemorrhage of lateral bulbar conjunctiva of the right eye. ENT: No nasal bleeding or discharge. Mucous membranes pink and moist. NECK: Trachea midline. No JVD. CARDIOVASCULAR: Regular rate and rhythm. 2/6 systolic murmur LLSB/apex. Rate 70s. RESPIRATORY: No accessory muscle use. Clear to auscultation. Breath sounds equal bilaterally. GASTROINTESTINAL: Abdomen soft, non-tender, nondistended. bowel sounds present. MUSCULOSKELETAL: Extremities without clubbing, cyanosis, or edema. Resolving ecchymosis over left anterior tibia. NEUROLOGICAL: Less confused. Mild L facial droop. Improved speech. Intermittent twitching of left side of face has stopped. EOMI. Tongue midline. Strength 5/5. Protects airway well. A/P Problem List: (1) Subdural hematoma, post-traumatic ICD Code: S06.5X9A - Traumatic subdural hemorrhage with loss of consciousness of unspecified duration, initial encounter Status: Acute (2) CAD (coronary artery disease) ICD Code: I25.10 - Atherosclerotic heart disease of [place] coronary artery without angina pectoris Status: Chronic (3) HTN (hypertension) ICD Code: I10 - Essential (primary) hypertension Status: Chronic (4) HLD (hyperlipidemia) ICD Code: E78.5 - Hyperlipidemia, unspecified Status: Chronic (5) Simple partial seizures ICD Code: G40.109 - Localization-related (focal) (partial) symptomatic epilepsy and epileptic syndromes with simple partial seizures, not intractable, without status epilepticus Status: Acute (6) PAD (peripheral artery disease) ICD Code: I73.9 - Peripheral vascular disease, unspecified Status: Chronic (7) Lumbar spinal stenosis ICD Code: M48.06 - Spinal stenosis of lumbar region Status: Acute (8) BPH (benign prostatic hypertrophy) with urinary obstruction ICD Code: N13.8 - Other obstructive and reflux uropathy; N40.1 - Benign prostatic hyperplasia with urinary obstruction Status: Acute (9) S/P CABG x 2 ICD Code: Z95.1 - Presence of aortocoronary bypass graft Status: Chronic (10) GERD (gastroesophageal reflux disease) ICD Code: K21.9 - Gastro-esophageal reflux disease without esophagitis Status: Chronic Assessment and Plan NEURO: R subdural hematoma, maximum 1.4 cm, 2-3 mm shift Simple partial seizure Fall Lumbar spinal stenosis Monitor neurocheck q1 hour Keppra 1 gram IV and then [address] brain in morning. Hopefully will improve while avoiding operative intervention as his multiple medical comorbidities pose risk. Fentanyl prn pain Obtain EEG Neurology consulted. Neurosurgery consulted, Dr. Grady CT Cspine - negative fracture CT face - neg fracture. RESP: Prior history of tobacco abuse Incentive spirometry every hour awake Check chest x-ray CV: CAD with prior CABG and PTCA HTN Hyperlipidemia Patient has chronic angina and habitual use of NTG spray. Obtain NTG spray from pharmacy. NTG patch. Resume home meds when able to swallow, nurse unable to do eval so far due to Imdur 60 mg po bid , Ranexa 1000 mg po bid when able to swallow Metoprolol succinate 100 daily Norvasc 2.5 mg daily. Statin/Zetia EKG no acute changes. Troponin is negative, we'll trend. Technology Sales Representative is Dr. Chavez. GI: GERD h/o cholecystectomy, appendectomy h/o inguinal hernia repair NPO. Bedside swallow eval and advanced diet when appropriate. Continue PPI FEN/RENAL: BPH Urinary retention Patient had difficulty voiding. Urinary retention 1100, Howard placed. Renal function normal. Monitor BMP. Monitor electrolytes Proscar 5 mg po daily when able to take po. ID: Mild leukocytosis is likely reactive. Afebrile. UA negative. Monitor for signs and symptoms of infection. HEME: Mild chronic anemia Does not require transfusion at this time. He was not on any anticoagulant therapy. ENDO: Glucose is at target <185. PROPH: SCDs for DVT prophylaxis. Pharmacologic DVT prophylaxis is contraindicated due to acute subdural hematoma. Protonix 40 mg IV daily for stress ulcer prophylaxis and history of GERD on PPI at home. ACCESS: Peripheral IV providing adequate access at this time Overall impression: Difficult situation. Medical management for angina. Follow neurological exam closely. High risk patient for any procedure. No chest pain and improved mentation. Problem Qualifiers (1) Subdural hematoma, post-traumatic: Qualified Codes: S06.5X0A - Traumatic subdural hemorrhage without loss of consciousness, initial encounter (2) HTN (hypertension): Qualified Codes: I10 - Essential (primary) hypertension Tra Hopper MD Sep 28, 2017 10:00
[2017-09-28 10:55] LABS: INTERNATIONAL NORMALIZED RATIO 1.1 RATIO; PROTHROMBIN TIME - PATIENT 11.4 SEC (9.8-11.6)
[2017-09-28] MEDS: DOCUSATE SODIUM 50 MG/SENNA 8.6 MG TAB PO SCH ×2 (12:07→20:04)
[2017-09-28] MEDS: FINASTERIDE 5 MG TAB PO SCH (12:07)
[2017-09-28] MEDS: RANOLAZINE 500 MG EXTENDED RELEASE TAB PO SCH ×2 (12:07→20:03)
[2017-09-28] MEDS: EZETIMIBE 10 MG TAB PO SCH (12:07)
[2017-09-28] MEDS: ISOSORBIDE MONONITRATE 60 MG TAB PO SCH ×2 (12:07→20:03)
[2017-09-28] MEDS: amLODIPine BESYLATE 5 MG TAB PO SCH (12:07)
[2017-09-28] MEDS: FUROSEMIDE 20 MG TAB PO SCH (12:08)
[2017-09-28] MEDS: METOPROLOL SUCCINATE 50 MG EXTENDED RELEASE TAB PO SCH (12:08)
[2017-09-28] MEDS: ATORVASTATIN 80 MG TAB PO SCH (12:08)
[2017-09-28] MEDS: HALOPERIDOL LACTATE 5 MG/ML AMP IV PUSH PRN ×2 (16:16→23:40)
[2017-09-28 19:56] LABS: MAGNESIUM 1.9 MG/DL (1.5-2.5)
[2017-09-29] VITALS (14 sets, daily range): BP systolic 94–121; BP diastolic 52–62; PULSE 81–102; RESP 15–22; TEMP 98.4–98.9; O2SAT 96–100
[2017-09-29] MEDS: METOPROLOL TARTRATE 5 MG/5 ML VIAL IV PUSH SCH ×4 (01:25→19:27)
[2017-09-29] MEDS: CHLORHEXIDINE GLUCONATE 2 % 1 PACK (2 CLOTHS) TOP SCH (02:20)
[2017-09-29] MEDS: HALOPERIDOL LACTATE 5 MG/ML AMP IV PUSH PRN (04:06)
[2017-09-29] MEDS: NITROGLYCERIN 400 MCG/SPRAY 4.9 GM BOTTLE SL PRN ×2 (04:29→19:21)
[2017-09-29] MEDS: PANTOPRAZOLE SODIUM 40 MG VIAL IV PUSH SCH (05:54)
[2017-09-29 05:57] LABS: BICARBONATE 27.3 MEQ/L (21.0-32.0); CALCIUM 7.9 MG/DL (8.5-10.1); CREATININE 0.96 MG/DL (0.60-1.30)
[2017-09-29] MEDS: SODIUM CHLOR 0.9% 1000 ML INJ 1,000 ML IV SCH ×2 (06:04→21:30)
[2017-09-29] MEDS: levETIRAcetam INJ 500 MG in SODIUM CHLORIDE 0.9% INJ 100 ML IV SCH ×2 (08:28→19:28)
[2017-09-29] MEDS: SODIUM CHLORIDE 0.9% FLUSH 10 ML FLUSH IV FLUSH SCH ×2 (08:29→19:28)
[2017-09-29] MEDS: METOPROLOL SUCCINATE 50 MG EXTENDED RELEASE TAB PO SCH (08:29)
[2017-09-29] MEDS: ATORVASTATIN 80 MG TAB PO SCH (08:30)
[2017-09-29] MEDS: FINASTERIDE 5 MG TAB PO SCH (08:30)
[2017-09-29] MEDS: RANOLAZINE 500 MG EXTENDED RELEASE TAB PO SCH ×2 (08:30→19:28)
[2017-09-29] MEDS: FUROSEMIDE 20 MG TAB PO SCH (08:30)
[2017-09-29] MEDS: EZETIMIBE 10 MG TAB PO SCH (08:30)
[2017-09-29] MEDS: ISOSORBIDE MONONITRATE 60 MG TAB PO SCH ×2 (08:31→19:28)
[2017-09-29] MEDS: DOCUSATE SODIUM 50 MG/SENNA 8.6 MG TAB PO SCH ×2 (08:31→19:28)
[2017-09-29] MEDS: amLODIPine BESYLATE 5 MG TAB PO SCH (08:31)
--- NOTE | 2017-09-29 08:31 | HHI.CCPN ---
Subjective Remarks/Hospital Course Diagnosis: (1) Subdural hematoma, post-traumatic (2) Lumbar spinal stenosis Diagnosis: Secondary (3) Leukocytosis Diagnosis: Secondary (4) BPH (benign prostatic hypertrophy) with urinary obstruction Diagnosis: Secondary (5) PAD (peripheral artery disease) (6) CAD (coronary artery disease) (7) S/P CABG x 2 Diagnosis: Secondary (8) HTN (hypertension) Diagnosis: Secondary (9) HLD (hyperlipidemia) Diagnosis: Secondary (10) Simple partial seizures Diagnosis: Principal History of Present Illness 87-year-old male with past medical history of hypertension, hyperlipidemia, coronary artery disease with prior CABG and PCI with ongoing daily angina, carotid artery stenosis with bilat CEA, PAD, prior tobacco abuse who presents to [facility] after a fall that occurred the evening of 09/24/17. He hit his head on a wooden walkaway. There was no LOC and mental status was normal afterwards. He did have a R forehead laceration and immediately developed bruising of his forehead, R orbit, right lower face. Steristrips were applied to laceration by son-in-law. This afternoon pt became more confused and had slurred speech. EVAC was called and he was felt to have some mild tongue deviation to the left. He had about 45 seconds of left sided facial twitching that resolved spontaneously.He had several additional episodes of this while I was assessing him in the ED. He is alert and able to follow commands during this, appears c/w simple partial seizure. CT brain demonstrates Right sided subdural hematoma. The maximal thickness is 1.4 cm. He is on ASA/Plavix but did not take them today. Not on anticoagulation. He has h/ o CAD with prior stent and CABG that is not amenable to further intervention. He has ongoing angina and uses NTG spray numerous times a day. He was complaining of chest pressure and requesting NTG. He now states chest pain is resolved after NTG patch and NTG SL. 09/27: Chest pain has resolved. Lengthy discussion with his . Trop elevated , clearly NSTEMI. Well documented history of diffuse coronary artery disease. At this point he is not a candidate for anticoagulation or intervention due to acute subdural bleed. We will slow his heart rate with additional beta jennifer and try to ride this episode out. No perfect solutions but he is pain free now with heart rate control. 12/30: No chest pain for > 24 hours. More alert and conversant today. Will get PT to start working with him. 09/29: Agitated again last night. Did not respond to haloperidol, will try Geodon if recurs. Sleeping now. Receiving lopressor PO and IV to keep heart rate down. Episode SVT last night - family concerned because of recent enzyme spill. Again, inoperable diffuse CAD and chronic angina. Objective Vital Signs Date Time Temp Pulse Resp B/P (MAP) Pulse Ox O2 Delivery O2 Flow Rate FiO2 09/29/17 07:49 98 Nasal Cannula 2.00 09/29/17 06:00 98 09/29/17 04:00 98.9 17 94/55 (68) 09/27/17 07:00 100 Intake and Output 09/29/17 09/29/17 09/30/17 08:00 16:00 00:00 Intake Total 1813 ml Output Total 550 ml Balance 1263 ml Result Diagram: 09/27/17 0321 09/29/17 0400 Objective Remarks GENERAL: Elderly male. SKIN: Warm and dry. Steri-Strips in place on right forehead. Ecchymosis overlying right forehead, right orbit, right cheek HEAD: Normocephalic. EYES: Pupils equal and round, 2 mm reactive. Subconjunctival hemorrhage of lateral bulbar conjunctiva of the right eye. ENT: No nasal bleeding or discharge. Mucous membranes pink and moist. NECK: Trachea midline. No JVD. Airway widely patent. CARDIOVASCULAR: Regular rate and rhythm. Rate 90s with frequent PMB. RESPIRATORY: No accessory muscle use. Clear to auscultation. Breath sounds equal bilaterally. GASTROINTESTINAL: Abdomen soft, non-tender, nondistended. bowel sounds present. MUSCULOSKELETAL: Extremities without clubbing, cyanosis, or edema. Resolving ecchymosis over left anterior tibia. NEUROLOGICAL: Sleeping now. Mild L facial droop. Intermittent twitching of left side of face has stopped. Protects airway well. A/P Problem List: (1) Subdural hematoma, post-traumatic ICD Code: S06.5X9A - Traumatic subdural hemorrhage with loss of consciousness of unspecified duration, initial encounter Status: Acute (2) CAD (coronary artery disease) ICD Code: I25.10 - Atherosclerotic heart disease of [place] coronary artery without angina pectoris Status: Chronic (3) HTN (hypertension) ICD Code: I10 - Essential (primary) hypertension Status: Chronic (4) HLD (hyperlipidemia) ICD Code: E78.5 - Hyperlipidemia, unspecified Status: Chronic (5) Simple partial seizures ICD Code: G40.109 - Localization-related (focal) (partial) symptomatic epilepsy and epileptic syndromes with simple partial seizures, not intractable, without status epilepticus Status: Acute (6) PAD (peripheral artery disease) ICD Code: I73.9 - Peripheral vascular disease, unspecified Status: Chronic (7) Lumbar spinal stenosis ICD Code: M48.06 - Spinal stenosis of lumbar region Status: Acute (8) BPH (benign prostatic hypertrophy) with urinary obstruction ICD Code: N13.8 - Other obstructive and reflux uropathy; N40.1 - Benign prostatic hyperplasia with urinary obstruction Status: Acute (9) S/P CABG x 2 ICD Code: Z95.1 - Presence of aortocoronary bypass graft Status: Chronic (10) GERD (gastroesophageal reflux disease) ICD Code: K21.9 - Gastro-esophageal reflux disease without esophagitis Status: Chronic Assessment and Plan NEURO: R subdural hematoma, maximum 1.4 cm, 2-3 mm shift Simple partial seizure Fall Lumbar spinal stenosis Monitor neurocheck q1 hour Keppra 1 gram IV and then [address] brain in morning. Hopefully will improve while avoiding operative intervention as his multiple medical comorbidities pose risk. Fentanyl prn pain Obtain EEG Neurology consulted. Neurosurgery consulted, Dr. Grady CT Cspine - negative fracture CT face - neg fracture. Tolerated thin liquids yesterday but trouble swallowing today. Thick is fine. RESP: Prior history of tobacco abuse Incentive spirometry every hour awake Check chest x-ray CV: CAD with prior CABG and PTCA HTN Hyperlipidemia Patient has chronic angina and habitual use of NTG spray. Obtain NTG spray from pharmacy. NTG patch. Resume home meds when able to swallow, nurse unable to do eval so far due to Imdur 60 mg po bid , Ranexa 1000 mg po bid when able to swallow Metoprolol succinate 100 daily Norvasc 2.5 mg daily. Statin/Zetia EKG no acute changes. Troponin is negative, we'll trend. Distresser is Dr. Chavez -> consulted. GI: GERD h/o cholecystectomy, appendectomy h/o inguinal hernia repair NPO. Bedside swallow eval and advanced diet when appropriate. Continue PPI FEN/RENAL: BPH Urinary retention Patient had difficulty voiding. Urinary retention 1100, Howard placed. Renal function normal. Monitor BMP. Monitor electrolytes Proscar 5 mg po daily when able to take po. ID: Mild leukocytosis is likely reactive. Afebrile. UA negative. Monitor for signs and symptoms of infection. HEME: Mild chronic anemia Does not require transfusion at this time. He was not on any anticoagulant therapy. ENDO: Glucose is at target <185. PROPH: SCDs for DVT prophylaxis. Pharmacologic DVT prophylaxis is contraindicated due to acute subdural hematoma. Protonix 40 mg IV daily for stress ulcer prophylaxis and history of GERD on PPI at home. ACCESS: Peripheral IV providing adequate access at this time Overall impression: Difficult situation. Medical management for angina. Follow neurological exam closely. High risk patient for any procedure. No chest pain and improved mentation, but continued severe agitation at night. Problem Qualifiers (1) Subdural hematoma, post-traumatic: Qualified Codes: S06.5X0A - Traumatic subdural hemorrhage without loss of consciousness, initial encounter (2) HTN (hypertension): Qualified Codes: I10 - Essential (primary) hypertension Tra Hopper MD Sep 29, 2017 08:31
--- NOTE | 2017-09-29 08:54 | HHI.NSPN ---
(Power Dickerson) History Chief Complaint: None (Power Dickerson) Interval History 09/27: This is an 87-year-old gentleman who apparently fell on 2016 and suffered a right forehead area laceration which was Steri-Stripped at home. Yesterday afternoon he started noticing slurred speech and also was more confused and noticed a left-sided facial twitching which resolved spontaneously. He was brought into the emergency room and work-up including a CT scan of the head revealed a right hemisphere acute subdural hemorrhage, maximal thickness in the middle fossa 1.4 cm, and lesser thickness in the frontoparietal area. There is a mild midline shift of about 3 mm right-to- left. The patient was started on Keppra and overnight did not have any further seizures. He is lethargic but arouses and verbalizes his name and follows simple commands. A follow-up CT scan this morning does not reveal any progression of this right-sided subdural hemorrhage and no re-bleed is noted. CT of the cervical spine is negative for any fractures with positive multilevel degenerative changes. 09/28: When seen this morning the patient has his eyes closed but opens them to voice. His speech is essentially clear and he interacts. After answering the first orientation question he adds "for the 50th time" to his response to the remainder of the questions. He does say he has a slight headache but had no other complaints. He moves all extremities without any difficulty and his muscle strength and sensation are normal. Nursing states that the patient is doing better than yesterday. Nursing also reports that the patient does become agitated and curses at staff because he wants to drink but failed his swallow exam yesterday. He is to have another swallow evaluation today. 09/29: The patient is asleep this morning when seen. He does briefly arouse to voice and answers questions and interacts, but quickly dozes back off. He is noted to have multiple unifocal PVCs. Nursing reports that the patient was up all night and did require haloperidol due to agitation. This morning Nursing spoke with the Pulp Maker who changed the patient to ziprasidone. She reported that the digital sales director reported the patient choked and coughed while drinking water but this morning she reported the patient did well with Ensure. Therefore she was going to thicken his thin liquids. She also reported that at shift change last night the patient went into ventricular tachycardia and the patient' s Debrander had been consulted. He is receiving oral and intravenous metoprolol due to the tachycardia. He does deny any headache, dizziness or nausea. (Power Dickerson) Exam Results 09/27/17 09/27/17 09/28/17 09/28/17 09/29/17 09/29/17 06:00 18:00 06:00 18:00 06:00 18:00 Intake Total 500 ml 840 ml 400 ml 1813 ml Output Total 1150 ml 750 ml 425 ml 410 ml 550 ml Balance -650 ml -750 ml 415 ml -10 ml 1263 ml Intake Oral 400 ml 300 ml IV Total 500 ml 840 ml 1513 ml Output Urine Total 1150 ml 750 ml 425 ml 410 ml 550 ml Bladder Scan Volume Amount 660 ml Vital Signs Date Time Temp Pulse Resp B/P (MAP) Pulse Ox O2 Delivery O2 Flow Rate FiO2 09/29/17 07:49 98 Nasal Cannula 2.00 09/29/17 07:00 100 Nasal Cannula 09/29/17 06:00 98 09/29/17 04:00 98.9 101 17 94/55 (68) 99 09/29/17 04:00 94 09/29/17 02:00 99 09/29/17 00:00 93 09/29/17 00:00 98.7 100 18 101/62 (75) 97 09/28/17 22:00 98 09/28/17 20:11 100 2.00 09/28/17 20:00 82 09/28/17 20:00 98.9 82 21 103/56 (72) 100 09/28/17 19:15 100 Nasal Cannula 2.00 09/28/17 18:00 72 09/28/17 16:00 98.2 75 25 112/65 (81) 96 09/28/17 16:00 72 09/28/17 14:00 68 09/28/17 13:40 24 09/28/17 12:00 99.1 86 26 124/61 (82) 98 09/28/17 12:00 86 09/28/17 10:00 84 09/28/17 08:00 99.3 84 18 131/88 (102) 99 09/28/17 08:00 69 09/28/17 07:00 Nasal Cannula 2.00 09/28/17 04:00 66 09/28/17 04:00 99.5 64 21 120/57 (78) 100 09/28/17 00:00 99.9 62 19 117/54 (75) 100 09/27/17 21:02 98 Nasal Cannula 3.00 09/27/17 20:00 66 09/27/17 20:00 Nasal Cannula 2.00 09/27/17 20:00 100.2 64 21 121/56 (77) 97 09/27/17 18:00 65 09/27/17 16:00 100.6 76 25 120/58 (78) 95 09/27/17 16:00 76 09/27/17 14:00 75 09/27/17 12:00 71 09/27/17 12:00 101.5 71 21 146/63 (90) 97 09/27/17 10:00 92 09/27/17 08:44 100 Nasal Cannula 2.00 09/27/17 08:00 71 09/27/17 08:00 100.0 71 29 165/73 (103) 100 09/27/17 07:00 3.00 100 09/27/17 06:00 89 09/27/17 04:00 92 09/27/17 04:00 97.7 92 24 145/66 (92) 92 09/27/17 03:35 90 09/27/17 02:00 89 09/27/17 00:00 99.2 87 21 144/75 (98) 94 09/27/17 00:00 87 09/27/17 00:00 87 09/26/17 23:18 09/26/17 22:04 80 16 140/63 (88) 98 Nasal Cannula 2.00 09/26/17 21:43 92 Nasal Cannula 2.00 09/26/17 21:42 82 16 120/58 (78) 96 Nasal Cannula 2.00 09/26/17 21:40 16 09/26/17 21:34 82 16 178/78 (111) 95 Room Air 09/26/17 21:00 78 16 142/63 (89) 95 Room Air 09/26/17 20:59 95 Room Air 09/26/17 20:54 79 16 95 Room Air 09/26/17 20:48 80 16 170/70 (103) 95 (Power Dickerson) Physical Examination GENERAL: Asleep but briefly awakens to voice and interacts. Quickly drifts back off to sleep. No apparent distress. SKIN: Right-sided facial & periorbital ecchymosis, abrasion/laceration w/intact steri-strips right lateral orbit. HEENT: Right-sided facial & periorbital ecchymosis, abrasion/laceration w/ intact steri-strips right lateral orbit. Face appears symmetrical. PERRLA 2 mm brisk, EOMI. MUSCULOSKELETAL: MARAVILLA w/o difficulty, no evident clubbing or deformity. NEUROLOGICAL: Asleep, briefly opens eyes to voice and interacts briefly but quickly drifts back off to sleep. Does appear to be appropriate. Speech clear. Follows simple commands w/o difficulty. Motor strength appears to be 5/5 to all major flexion & extension muscle groups but limited evaluation due to patient being sleepy and not participating fully. (Power Dickerson) Lab, Micro, Other Results Recent Impressions Head CT 09/27/17 0600 Signed Impressions: Service Date/Time: Wednesday, September 27, 2017 04:13 - CONCLUSION: No significant interval change in prominent right-sided subdural extra-axial hemorrhage. Caden Guadarrama MD Chest X-Ray 09/26/172055 Signed Impressions: Service Date/Time: August 21:37 - CONCLUSION: Slight opacity at the lateral left lung base may be postoperative scarring. Awaiting comparison exams to be retrieved from the archive Laurent Stanley MD Maxillofacial CT 09/26/172054 Signed Impressions: Service Date/Time: Wednesday, September 27, 2017 04:14 - CONCLUSION: 1. No evidence of fracture. 2. Bilateral mass like soft tissue densities in the orbits bilaterally may represent dilated veins. This is a chronic finding as it was also present on the prior study of 11/30/2013. 3. Mild maxillary, ethmoid, and sphenoid sinusitis. Caden Guadarrama MD Head CT [id number]/26/172054 Signed Impressions: Service Date/Time: August 21:08 - CONCLUSION: Right- sided subdural hematoma with slight subfalcine midline shift and ventricular compression. No evidence of bony calvarial or facial injury. Laurent Stanley MD Cervical Spine CT 09/26/172054 Signed Impressions: Service Date/Time: Wednesday, September 27, 2017 04:12 - CONCLUSION: No evidence of fracture. Multilevel degenerative findings. Caden Guadarrama MD Laboratory Tests Test 09/26/17 21:20 09/27/17 02:52 09/27/17 03:21 09/27/17 05:23 White Blood Count 11.8 TH/MM3 12.0 TH/MM3 Red Blood Count 4.77 MIL/MM3 4.64 MIL/MM3 Hemoglobin 12.7 GM/DL 12.2 GM/DL Bedside Hemoglobin 12.9 G/DL Hematocrit 39.2 % 38.0 % Bedside Hematocrit 38.0 % Mean Corpuscular Volume 82.0 FL 82.0 FL Mean Corpuscular Hemoglobin 26.7 PG 26.2 PG Mean Corpuscular Hemoglobin Concent 32.6 % 32.0 % Red Cell Distribution Width 16.8 % 16.6 % Platelet Count 168 TH/MM3 157 TH/MM3 Mean Platelet Volume 7.9 FL 7.3 FL Neutrophils (%) (Auto) 82.5 % 78.6 % Lymphocytes (%) (Auto) 10.2 % 11.4 % Monocytes (%) (Auto) 6.9 % 9.4 % Eosinophils (%) (Auto) 0.1 % 0.1 % Basophils (%) (Auto) 0.3 % 0.5 % Neutrophils # (Auto) 9.8 TH/MM3 9.4 TH/MM3 Lymphocytes # (Auto) 1.2 TH/MM3 1.4 TH/MM3 Monocytes # (Auto) 0.8 TH/MM3 1.1 TH/MM3 Eosinophils # (Auto) 0.0 TH/MM3 0.0 TH/MM3 Basophils # (Auto) 0.0 TH/MM3 0.1 TH/MM3 CBC Comment DIFF FINAL DIFF FINAL Differential Comment Prothrombin Time 10.9 SEC Prothromb Time International Ratio 1.1 RATIO Activated Partial Thromboplast Time 31.7 SEC Fibrinogen 496 mg/dL Bedside Sodium 139 MMOL/L Bedside Potassium 4.4 MMOL/L Bedside Chloride 102 MMOL/L Bedside Blood Urea Nitrogen 19 MG/DL Bedside Creatinine 1.0 MG/DL Bedside Glucose 128 MG/DL Magnesium Level 1.9 MG/DL Total Bilirubin 0.6 MG/DL Direct Bilirubin 0.2 MG/DL Indirect Bilirubin 0.4 MG/DL Aspartate Amino Transf (AST/SGOT) 27 U/L Alanine Aminotransferase (ALT/SGPT) 29 U/L Alkaline Phosphatase 78 U/L Total Creatine Kinase 39 U/L Troponin I LESS THAN 0.02 NG/ML 0.20 NG/ML Total Protein 7.6 GM/DL Albumin 3.1 GM/DL Urine Color YELLOW Urine Turbidity CLEAR Urine pH 5.5 Urine Specific [place] 1.020 Urine Protein 30 mg/dL Urine Glucose (UA) NEG mg/dL Urine Ketones TRACE mg/dL Urine Occult Blood NEG Urine Nitrite NEG Urine Bilirubin NEG Urine Urobilinogen LESS THAN 2.0 MG/DL Urine Leukocyte Esterase NEG Urine WBC 1 /hpf Urine Calcium Oxalate Crystals RARE /hpf Urine Mucus FEW /lpf Microscopic Urinalysis Comment CULT NOT INDICATED Blood Urea Nitrogen 17 MG/DL Creatinine 1.03 MG/DL Random Glucose 121 MG/DL Calcium Level 9.2 MG/DL Sodium Level 140 MEQ/L Potassium Level 4.1 MEQ/L Chloride Level 103 MEQ/L Carbon Dioxide Level 27.6 MEQ/L Anion Gap 9 MEQ/L Estimat Glomerular Filtration Rate 69 ML/MIN Nasal Screen MRSA (PCR) MRSA NOT DETECTED Test 09/27/17 06:05 09/27/17 11:11 09/27/17 16:57 09/28/17 10:30 Blood Gas Puncture Site RT RADIAL Blood Gas Patient Temperature 98.6 Blood Gas HCO3 25 mmol/L Blood Gas Base Excess 1.3 mmol/L Blood Gas Oxygen Saturation 95 % Arterial Blood pH 7.42 Arterial Blood Partial Pressure CO2 39 mmHg Arterial Blood Partial Pressure O2 96 mmHg Arterial Blood Oxygen Content 16.1 Vol % Arterial Blood Carboxyhemoglobin 1.6 % Arterial Blood Methemoglobin 1.4 % Blood Gas Hemoglobin 12.1 G/DL Oxygen Delivery Device NASAL CANNULA Blood Gas Liter Flow 3 L/M Troponin I 6.46 NG/ML 11.90 NG/ML Prothrombin Time 11.4 SEC Prothromb Time International Ratio 1.1 RATIO Test 09/28/17 19:00 09/29/17 04:00 Potassium Level 3.7 MEQ/L 4.0 MEQ/L Magnesium Level 1.9 MG/DL Blood Urea Nitrogen 25 MG/DL Creatinine 0.96 MG/DL Random Glucose 176 MG/DL Calcium Level 7.9 MG/DL Sodium Level 142 MEQ/L Chloride Level 107 MEQ/L Carbon Dioxide Level 27.3 MEQ/L Anion Gap 8 MEQ/L Estimat Glomerular Filtration Rate 74 ML/MIN (Power Dickerson) Medical Decision Making Impression and Plan Impression: Moderate right hemisphere acute subdural hemorrhage with mild mass effect and midline shift. Follow-up CT scan is stable with no further progression of this subdural hemorrhage overnight. This is an elderly patient with significant medical co-morbidities, in particular cardiac and peripheral vascular disease and a poor baseline functional status related to spinal stenosis and peripheral vascular disease. Patient seems to be doing well but is very drowsy secondary to being up all night and medication. Reviewed labs for today. Interval improvement in GFR. EEG abnormal due to moderate slowing w/encephalopathic process but no gross epileptiform features. Plan: Plan of care discussed with Nursing. Primary management per Pulp Maker. Conservative management since repeat CT brain yesterday was stable. Neuro checks. Stat CT brain for any worsening of neuro status. Mechanical DVT prophylaxis. Hold pharmacologic DVT prophylaxis. Stress ulcer prophylaxis. Levetiracetam for seizure prophylaxis. (Power Dickerson) Attending Statement The exam, history, and the medical decision-making described in the above note were completed with the assistance of the mid-level provider. I reviewed and agree with the findings presented. I attest that I had a [id number] encounter with the patient on the same day, and personally performed and documented my assessment and findings in the medical record. On my examination: 11/28/2016, patient awake and relatively alert Exhibits mild to moderate agitation and confusion. Follows a few simple commands Moderate extraocular movements-conjugate Moves all extremities with moderate strength, intermittent to command Overall no significant change in mental status or neurologic function over the past couple of days Stable right subdural hematoma with mild mass effect on most recent imaging study Plan follow-up CT scan (Jorje Rhodes MD) Power Dickerson Sep 29, 2017 08:54 Jorje Rhodes MD Oct 03, 2017 19:53
[2017-09-29] MEDS ORDERED: POTASSIUM CHLOR 20 MEQ PREMIX 100 ML IV ONE (09:00)
[2017-09-29] MEDS ORDERED: MAGNESIUM SULFATE 1 GM PREMIX 100 ML IV ONE (09:00)
[2017-09-29] MEDS: ZIPRASIDONE MESYLATE 20 MG VIAL IM PRN ×2 (09:35→19:30)
--- NOTE | 2017-09-29 12:47 | EKG ---
Date Performed: 09/27/2017 Time Performed: 15:53:12 PTAGE: 87 years EKG: Sinus rhythm with PAC(s). Lead(s) unsuitable for analysis: V3 Inferior/lateral ST-T changes may be due to myocard ial ischemia Compared to prior tracing no significant change Abnormal ECG PREVIOUS TRACING : 08/31/2014 07.47 DOCTOR: Kelton Neves Interpretating Date/Time 09/29/2017 12:45:07
--- NOTE | 2017-09-29 13:29 | EKG ---
Date Performed: 09/28/2017 Time Performed: 19:22:24 PTAGE: 87 years EKG: Atrial fibrillation with paroxysmal idioventricular rhythm or aberrant ventricular conducti on. Left ventricular hypertrophy Extensive ST-T changes are probably due to ventricular hypertrophy A bnormal ECG PREVIOUS TRACING : 09/27/2017 15.53 Compared to the previous tracing, now appears to have RBBB other than the cheesh-na beats DOCTOR: Naldo Garcia Interpretating Date/Time 09/29/2017 13:27:59
--- NOTE | 2017-09-29 14:32 | MB ---
cc: ELSI OSHEA DO DATE OF CONSULTATION: 09/29/2017. IMPRESSION: 1. Traumatic right-sided subdural hematoma. 2. Questionable history of seizures, now on Keppra. 3. Atherosclerotic heart disease, history of coronary bypass grafting surgery in the 1980s with redo in the . He has also had percutaneous coronary intervention since that time with intracoronary stents. 4. Peripheral vascular disease. 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 5. He has chronic angina. According to his daughter, he uses sublingual nitroglycerin daily. According to his , he uses multiple doses when he is in bed at night. 6. Esophageal reflux disease. 7. Spinal stenosis. 8. Prostatism. 9. Advanced age. 10. Gait instability. 11. Hypertension. 12. Dyslipidemia. RECOMMENDATIONS: 1.Continue home medications. 2. Continue neurosurgical evaluation and follow-up. 3. At this point in time, he is not a candidate for any invasive procedures from a cardiac point of view, I would recommend medical therapy. CLINICAL DATA: Mr. Velázquez is an 87-year-old male who was admitted on the with apparently slurred speech, altered mental status and confusion. Paramedics were called. He was diagnosed as having a right subdural hematoma. Apparently over the holiday, he tripped and fell on the evening of September 24 and hit his head on a walkway. He had no loss of consciousness. He had no palpitations or chest pain at the time. He apparently had Steri-Strips applied but then developed neurological changes two days later. He has no previous history of seizure or stroke. He has a history of atherosclerotic heart disease as noted above. He has chronic angina which sounds as if it may be unstable in pattern and risk factors include hypertension, dyslipidemia, peripheral vascular disease and no definite history of diabetes. He has no definite history of congestive heart failure or cardiac arrhythmias according to his family. It is unclear if he has had recent followup. PAST SURGICAL HISTORY: His past surgical history includes: 1. A transurethral resection of the prostate. 2. Bilateral carotid endarterectomies. 3. Cholecystectomy. 4. Bilateral herniorrhaphies. 5. Coronary artery bypass grafting surgery with redo. 6. No previous history of seizure, stroke, TIA. There is no history of COPD or significant lung disease. 7. He does have a history of reflux esophagitis. 8. No history of liver disease. 9. No history of any renal failure. 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 MEDICATIONS: His medications at the time of admission included : 1. Plavix 75 daily. 2. Ranexa 1 gram twice a day. 3. 10 milligrams daily. 4. Rosuvastatin 40 daily. 5. Imdur 60 twice a day. 6. Nitro spray which he uses daily. 7. Metoprolol 100 daily. 8. Norvasc 2.5 daily. 9. Aspirin 81 daily. 10. Furosemide 20 daily. 11. Omeprazole dosage unknown. 12. Finasteride 5 milligrams daily. REVIEW OF SYSTEMS: A review of systems is not obtainable. He apparently is sedentary, has gait instability and has daily anginal symptoms. PHYSICAL EXAMINATION: GENERAL: The physical exam demonstrates a sedated male who does not wake up as I examine him. VITAL SIGNS: The patient is in sinus rhythm with frequent ectopy. Last blood pressure 116/58, afebrile, heart rate is in the 80 range. HEAD, EYES, EARS, NOSE, THROAT: He has as large ecchymotic area over his right forehead which is dissecting down to his right lower jaw. Anicteric sclerae, bilateral carotid bruits. LUNGS: Auscultation of the lungs demonstrates rhonchi anteriorly and laterally. CARDIAC: Regular rate and rhythm with frequent extrasystoles. No S3 noted. There is a 2/6 systolic ejection murmur. ABDOMEN: The abdomen is soft and nontender. EXTREMITIES: Free of cyanosis, clubbing, edema. Peripheral pulses are faintly palpable. EKGs: A 12-lead electrocardiogram demonstrates atrial fibrillation with complete right bundle branch block and diffuse S-T-T changes. EKG is dated 09/28/2017. An EKG on 09/27 demonstrated apparent sinus rhythm and sinus arrhythmia with artifact. EKG on the demonstrated a normal sinus rhythm with a left ventricular hypertrophy. The patient has subsequently developed a new right bundle branch block. PERTINENT LABORATORY DATA: White cell count of 11,800, hematocrit 39%, platelet count 168. Most recent lytes: 144.1, 328 with a BUN of 17 and creatinine of 1, random glucose of 121. Troponin is elevated at 0.2 to as high as 11.9 suggesting a NSTEMI. DISCUSSION: This is an 87-year-old with a traumatic subdural hematoma. He has a new onset right bundle branch block, new onset of atrial fibrillation, elevated troponins with a history of previous coronary artery bypass grafting surgery and percutaneous coronary intervention. At this point in time, the patient will be treated medically. His aspirin should be restarted as soon as this is acceptable to neurosurgery. DO MERLE Ramirez/LIZANDRO /1:24 PM /2:03 PM
[2017-09-30] VITALS (15 sets, daily range): BP systolic 112–134; BP diastolic 55–79; PULSE 75–153; RESP 18–24; TEMP 97.8–98.9; O2SAT 95–99
[2017-09-30] MEDS: METOPROLOL TARTRATE 5 MG/5 ML VIAL IV PUSH SCH ×4 (02:32→20:37)
[2017-09-30] MEDS: METOPROLOL TARTRATE 5 MG/5 ML VIAL IV PUSH PRN ×3 (03:20→03:30)
[2017-09-30] MEDS: CHLORHEXIDINE GLUCONATE 2 % 1 PACK (2 CLOTHS) TOP SCH ×2 (04:00→22:13)
[2017-09-30] MEDS: PANTOPRAZOLE SODIUM 40 MG VIAL IV PUSH SCH (05:31)
[2017-09-30 05:37] LABS: BICARBONATE 25.6 MEQ/L (21.0-32.0); CREATININE 0.75 MG/DL (0.60-1.30)
[2017-09-30] MEDS: FUROSEMIDE 20 MG TAB PO SCH (08:08)
[2017-09-30] MEDS: ISOSORBIDE MONONITRATE 60 MG TAB PO SCH ×2 (08:08→20:37)
[2017-09-30] MEDS: RANOLAZINE 500 MG EXTENDED RELEASE TAB PO SCH ×2 (08:09→20:37)
[2017-09-30] MEDS: METOPROLOL SUCCINATE 50 MG EXTENDED RELEASE TAB PO SCH (08:09)
[2017-09-30] MEDS: FINASTERIDE 5 MG TAB PO SCH (08:09)
[2017-09-30] MEDS: DOCUSATE SODIUM 50 MG/SENNA 8.6 MG TAB PO SCH ×2 (08:09→20:37)
[2017-09-30] MEDS: EZETIMIBE 10 MG TAB PO SCH (08:09)
[2017-09-30] MEDS: ATORVASTATIN 80 MG TAB PO SCH (08:09)
[2017-09-30] MEDS: amLODIPine BESYLATE 5 MG TAB PO SCH (08:09)
[2017-09-30] MEDS: SODIUM CHLORIDE 0.9% FLUSH 10 ML FLUSH IV FLUSH SCH ×2 (08:10→20:36)
[2017-09-30] MEDS: levETIRAcetam INJ 500 MG in SODIUM CHLORIDE 0.9% INJ 100 ML IV SCH ×2 (08:10→20:36)
--- NOTE | 2017-09-30 09:47 | HHI.CCPN ---
Subjective Remarks/Hospital Course 87-year-old male with past medical history of hypertension, hyperlipidemia, coronary artery disease with prior CABG and PCI with ongoing daily angina, carotid artery stenosis with bilat CEA, PAD, prior tobacco abuse who [place] [facility] [place] that occurred the evening of 09/24/17. He hit his head on a wooden walkaway. There was no LOC and mental status was normal afterwards. He did have a R forehead laceration and immediately developed bruising of his forehead, R orbit, right lower face. Steristrips were applied to laceration by son-in-law. This afternoon pt became more confused and had slurred speech. EVAC was called and he was felt to have some mild tongue deviation to the left. He had about 45 seconds of left sided facial twitching that resolved spontaneously.He had several additional episodes of this while I was assessing him in the ED. He is alert and able to follow commands during this, appears c/w simple partial seizure. CT brain demonstrates Right sided subdural hematoma. The maximal thickness is 1.4 cm. He is on ASA/Plavix but did not take them today. Not on anticoagulation. He has h/ o CAD with prior stent and CABG that is not amenable to further intervention. He has ongoing angina and uses NTG spray numerous times a day. He was complaining of chest pressure and requesting NTG. He now states chest pain is resolved after NTG patch and NTG SL. 09/27: Chest pain has resolved. Lengthy discussion with his . Trop elevated , clearly NSTEMI. Well documented history of diffuse coronary artery disease. At this point he is not a candidate for anticoagulation or intervention due to acute subdural bleed. We will slow his heart rate with additional beta jennifer and try to ride this episode out. No perfect solutions but he is pain free now with heart rate control. 09/28: No chest pain for > 24 hours. More alert and conversant today. Will get PT to start working with him. 09/29: Agitated again last night. Did not respond to haloperidol, will try Geodon if recurs. Sleeping now. Receiving lopressor PO and IV to keep heart rate down. Episode SVT last night - family concerned because of recent enzyme spill. Again, inoperable diffuse CAD and chronic angina. 09/30: Placed on Precedex for agitation. Responds to Geodon. Episode of SVT overnight. Oriented to person and place. CT head 09/27: Prominent right subdural hemorrhage. Cleared by Dr. Head for ASA 81 mg day Objective Vital Signs Date Time Temp Pulse Resp B/P (MAP) Pulse Ox O2 Delivery O2 Flow Rate FiO2 09/30/17 08:40 99 Nasal Cannula 2.00 09/30/17 06:00 89 09/30/17 04:00 97.8 20 117/76 (90) 09/27/17 07:00 100 Intake and Output 09/30/17 09/30/17 10/01/17 08:00 16:00 00:00 Output Total 550 ml Balance -550 ml Result Diagram: 09/27/17 0321 09/30/17 0509 Objective Remarks GENERAL: Elderly male. SKIN: Warm and dry. Steri-Strips in place on right forehead. Ecchymosis overlying right forehead, right orbit, right cheek HEAD: Normocephalic. EYES: Pupils equal and round, 2 mm reactive. Subconjunctival hemorrhage of lateral bulbar conjunctiva of the right eye. ENT: No nasal bleeding or discharge. NECK: Trachea midline. No JVD. Airway widely patent. CARDIOVASCULAR: Regular rate and rhythm. RBBB on monitor RESPIRATORY: No accessory muscle use. Clear to auscultation. Breath sounds equal bilaterally. GASTROINTESTINAL: Abdomen soft, non-tender, nondistended. bowel sounds present. MUSCULOSKELETAL: Extremities without clubbing, cyanosis, or edema. Resolving ecchymosis over left anterior tibia. NEUROLOGICAL: Mild L facial droop. Moving all extremities. Intermittent twitching of left side of face has stopped. Protecting airway well. A/P Problem List: (1) Subdural hematoma, post-traumatic ICD Code: S06.5X9A - Traumatic subdural hemorrhage with loss of consciousness of unspecified duration, initial encounter Status: Acute (2) CAD (coronary artery disease) ICD Code: I25.10 - Atherosclerotic heart disease of [place] coronary artery without angina pectoris Status: Chronic (3) HTN (hypertension) ICD Code: I10 - Essential (primary) hypertension Status: Chronic (4) HLD (hyperlipidemia) ICD Code: E78.5 - Hyperlipidemia, unspecified Status: Chronic (5) Simple partial seizures ICD Code: G40.109 - Localization-related (focal) (partial) symptomatic epilepsy and epileptic syndromes with simple partial seizures, not intractable, without status epilepticus Status: Acute (6) PAD (peripheral artery disease) ICD Code: I73.9 - Peripheral vascular disease, unspecified Status: Chronic (7) Lumbar spinal stenosis ICD Code: M48.06 - Spinal stenosis of lumbar region Status: Acute (8) BPH (benign prostatic hypertrophy) with urinary obstruction ICD Code: N13.8 - Other obstructive and reflux uropathy; N40.1 - Benign prostatic hyperplasia with urinary obstruction Status: Acute (9) S/P CABG x 2 ICD Code: Z95.1 - Presence of aortocoronary bypass graft Status: Chronic (10) GERD (gastroesophageal reflux disease) ICD Code: K21.9 - Gastro-esophageal reflux disease without esophagitis Status: Chronic Assessment and Plan NEURO: R subdural hematoma, maximum 1.4 cm, 2-3 mm shift Encephalopathy/delirium Simple partial seizure Fall Lumbar spinal stenosis Monitor neurocheck q1 hour s/p Keppra 1 gram IV and then [address] brain 09/27 Stable SDH Hopefully will improve while avoiding operative intervention as his multiple medical comorbidities pose risk. Fentanyl prn pain, Neurology consulted. EEG 09/27 no sz Neurosurgery consulted, Dr. Grady CT Cspine - negative fracture CT face - neg fracture. Tolerated thin liquids yesterday but trouble swallowing today. Thick is fine. Precedex Geodon for agitation RESP: Prior history of tobacco abuse Incentive spirometry every hour awake Aggressive pulmonary toilet CV: CAD with prior CABG and PTCA NSTEMI HTN Hyperlipidemia Patient has chronic angina and habitual use of NTG spray. Obtain NTG spray from pharmacy. NTG patch. Resume home meds when able to swallow, nurse unable to do eval so far due to Imdur 60 mg po bid , Ranexa 1000 mg po bid when able to swallow Metoprolol succinate 100 daily Norvasc 2.5 mg daily. Statin/Zetia Troponin peaked at 11.[address] Chavez -> consulted. ASA 81 mg day cleared by Dr. Head 09/30/17 GI: GERD h/o cholecystectomy, appendectomy h/o inguinal hernia repair NPO. Bedside swallow eval and advanced diet when appropriate. Continue PPI FEN/RENAL: BPH Urinary retention Patient had difficulty voiding. Urinary retention 1100, Howard placed. Renal function normal. Monitor BMP. Monitor electrolytes Proscar 5 mg po daily when able to take po. ID: Mild leukocytosis is likely reactive. Afebrile. UA negative. Monitor for signs and symptoms of infection. HEME: Mild chronic anemia Does not require transfusion at this time. He was not on any anticoagulant therapy. ENDO: Glucose is at target <185. PROPH: SCDs for DVT prophylaxis. Pharmacologic DVT prophylaxis is contraindicated due to acute subdural hematoma. Protonix 40 mg IV daily for stress ulcer prophylaxis and history of GERD on PPI at home. ACCESS: Peripheral IV providing adequate access at this time Overall impression: Difficult situation. Medical management for angina. Follow neurological exam closely. High risk patient for any procedure. SVT overnight. Baby aspirin cleared by Dr. Head Problem Qualifiers (1) Subdural hematoma, post-traumatic: Qualified Codes: S06.5X0A - Traumatic subdural hemorrhage without loss of consciousness, initial encounter (2) HTN (hypertension): Qualified Codes: I10 - Essential (primary) hypertension Alejandro Mancilla MD Sep 30, 2017 09:47
--- NOTE | 2017-09-30 10:05 | HHI.NSPN ---
(Ai Mackenzie) Note Status Status: Progress Note (Ai Mackenzie) Interval History Interval History 09/27: This is an 87-year-old gentleman who apparently fell on 2016 and suffered a right forehead area laceration which was Steri-Stripped at home. Yesterday afternoon he started noticing slurred speech and also was more confused and noticed a left-sided facial twitching which resolved spontaneously. He was brought into the emergency room and work-up including a CT scan of the head revealed a right hemisphere acute subdural hemorrhage, maximal thickness in the middle fossa 1.4 cm, and lesser thickness in the frontoparietal area. There is a mild midline shift of about 3 mm right-to- left. The patient was started on Keppra and overnight did not have any further seizures. He is lethargic but arouses and verbalizes his name and follows simple commands. A follow-up CT scan this morning does not reveal any progression of this right-sided subdural hemorrhage and no re-bleed is noted. CT of the cervical spine is negative for any fractures with positive multilevel degenerative changes. 09/28: When seen this morning the patient has his eyes closed but opens them to voice. His speech is essentially clear and he interacts. After answering the first orientation question he adds "for the 50th time" to his response to the remainder of the questions. He does say he has a slight headache but had no other complaints. He moves all extremities without any difficulty and his muscle strength and sensation are normal. Nursing states that the patient is doing better than yesterday. Nursing also reports that the patient does become agitated and curses at staff because he wants to drink but failed his swallow exam yesterday. He is to have another swallow evaluation today. 09/29: The patient is asleep this morning when seen. He does briefly arouse to voice and answers questions and interacts, but quickly dozes back off. He is noted to have multiple unifocal PVCs. Nursing reports that the patient was up all night and did require haloperidol due to agitation. This morning Nursing spoke with the Vibratory Pile Driver who changed the patient to ziprasidone. She reported that the wholesale parts salesperson reported the patient choked and coughed while drinking water but this morning she reported the patient did well with Ensure. Therefore she was going to thicken his thin liquids. She also reported that at shift change last night the patient went into ventricular tachycardia and the patient' s Serology Teacher had been consulted. He is receiving oral and intravenous metoprolol due to the tachycardia. He does deny any headache, dizziness or nausea. 09/30/17: neuro check stable overnight, awake, alert, moves all four extremities. (Ai Mackenzie) Labs, Micro, & Vital Signs Results Date Time Temp Pulse Resp B/P (MAP) Pulse Ox O2 Delivery O2 Flow Rate FiO2 09/30/17 08:40 99 Nasal Cannula 2.00 09/30/17 07:00 98 Nasal Cannula 2.00 09/30/17 06:00 89 09/30/17 04:00 94 09/30/17 04:00 97.8 92 20 117/76 (90) 98 09/30/17 03:13 153 09/30/17 02:00 105 09/30/17 00:00 98 09/30/17 00:00 97.9 102 18 118/55 (76) 95 09/29/17 22:00 94 09/29/17 20:00 98.9 94 15 111/52 (71) 98 09/29/17 20:00 98 09/29/17 19:00 96 Nasal Cannula 2.00 09/29/17 18:00 88 09/29/17 16:00 83 09/29/17 16:00 98.5 81 22 113/61 (78) 99 09/29/17 14:00 99 09/29/17 12:00 91 09/29/17 12:00 98.7 90 18 121/56 (77) 98 Constitutional Vital Signs Date Time Temp Pulse Resp B/P (MAP) Pulse Ox O2 Delivery O2 Flow Rate FiO2 09/30/17 08:40 99 Nasal Cannula 2.00 09/30/17 07:00 98 Nasal Cannula 2.00 09/30/17 06:00 89 09/30/17 04:00 94 09/30/17 04:00 97.8 92 20 117/76 (90) 98 09/30/17 03:13 153 09/30/17 02:00 105 09/30/17 00:00 98 09/30/17 00:00 97.9 102 18 118/55 (76) 95 09/29/17 22:00 94 09/29/17 20:00 98.9 94 15 111/52 (71) 98 09/29/17 20:00 98 09/29/17 19:00 96 Nasal Cannula 2.00 09/29/17 18:00 88 09/29/17 16:00 83 09/29/17 16:00 98.5 81 22 113/61 (78) 99 09/29/17 14:00 99 09/29/17 12:00 91 09/29/17 12:00 98.7 90 18 121/56 (77) 98 (Ai Mackenzie) Review of Systems Neurologic: DENIES: Headache (Ai Mackenzie) Physical Exam Awake, alert, watching TV. Speech is fluent. Follows few simple commands. Oriented to name. Right-sided facial & periorbital ecchymosis CN: pupils 3 mm bilaterally reactive, gross EOMs intact Motor: moves all four extremities against gravity Neck: soft, supple (Ai Mackenzie) Mr Serrano is alert, awake and oriented to place and person. His speech is fluent. Cranial nerve examination: pupils to be equal, round and reactive to light. Extra-ocular movements are intact. Facial motor and sensory function are normal and symmetrical. Gross hearing appears intact. Sternocleidomastoid and trapezius muscles are symmetrical. Other cranial nerves are intact. Neck is soft and supple with a good range of motion without pain. Muscle strength. he moves weakly all muscle groups of both upper and lower extremities. Sensory examination is intact to light touch and pin prick in both the upper and lower extremities. Deep tendon reflexes are symmetrical in both upper and lower extremities. There is a bilateral plantar flexion response. Cerebellar examination is unremarkable (Krishna Head MD) Medications Current Medications Current Medications Medications (Trade) Dose Ordered Sig/Deann Route PRN Reason Start Time Stop Time Status Last Admin Dose Admin Nitroglycerin (Nitrostat Sl) 0.4 mg Q5M PRN SL CHEST PAIN 09/26/17 21:30 09/26/17 21:37 Levetriacetam 500 mg/Sodium Chloride 105 ml @ 420 mls/hr Q12HR IV 09/27/17 09:00 09/30/17 08:10 Lorazepam (Ativan Inj) 1 mg Q1H PRN IV PUSH SEIZURES 09/26/17 22:00 Al Hydrox/Mg Hydrox/Simethicone (Mag-Al Plus Susp Liq) 30 ml Q6H PRN PO DYSPEPSIA 09/26/17 22:00 Calcium Gluconate 1 gm/Sodium Chloride 110 ml @ 110 mls/hr UNSCH PRN IV SEE LABEL COMMENTS 09/26/17 22:00 Potassium Chloride 100 ml @ 50 mls/hr UNSCH PRN IV POTASSIUM LESS THAN 4 09/26/17 22:00 Magnesium Sulfate 2 gm/Sodium Chloride 104 ml @ 100 mls/hr UNSCH PRN IV MAGNESIUM LESS THAN 2 09/26/17 22:00 Clonidine (Catapres) 0.1 mg Q6H PRN PO SYS BP GREATER THAN 170 MMHG 09/26/17 22:00 Senna/Docusate Sodium (Ellie-Colace) 1 tab BID PO 09/27/17 09:00 09/30/17 08:09 Sodium Chloride 1,000 ml @ 70 mls/hr [id number] IV 09/26/17 22:00 09/29/17 21:30 Sodium Chloride (NS Flush) 2 ml UNSCH PRN IV FLUSH FLUSH AFTER USING IV ACCESS 09/26/17 22:00 Sodium Chloride (NS Flush) 2 ml BID IV FLUSH 09/27/17 09:00 09/29/17 19:28 Ondansetron HCl (Zofran Inj) 4 mg Q6H PRN IV PUSH NAUSEA OR VOMITING 09/26/17 22:00 09/28/17 10:32 Albuterol Sulfate (Albuterol Neb) 2.5 mg Q2HR NEB PRN INH SOB/WHEEZING 09/26/17 22:00 Miscellaneous Information 1 Q361D XX 09/26/17 22:00 Chlorhexidine Gluconate (Chlorhexidine 2% Cloth) 3 pack Taper DAILY@04 TOP 09/27/17 04:00 09/23/18 03:59 Chlorhexidine Gluconate (Chlorhexidine 2% Cloth) 3 pack UNSCH PRN TOP HYGIENIC CARE 09/26/17 22:00 Magnesium Hydroxide (Milk Of Magnesia Liq) 30 ml Q12H PRN PO Mild constipation 09/26/17 22:00 Sennosides (Senokot) 17.2 mg Q12H PRN PO Moderate constipation 09/26/17 22:00 Bisacodyl (Dulcolax Supp) 10 mg DAILY PRN RECTAL SEVERE CONSITIPATION 09/26/17 22:00 Lactulose (Lactulose Liq) 30 ml DAILY PRN PO SEVERE CONSITIPATION 09/26/17 22:00 Ranolazine (Ranexa) 1,000 mg BID PO 09/27/17 09:00 09/30/17 08:09 Labetalol HCl (Trandate Inj) 10 mg Q6H PRN IV PUSH SBP >160 09/26/17 22:30 09/28/17 19:01 Hydralazine HCl (Apresoline Inj) 10 mg Q6H PRN IV PUSH SBP >160 09/26/17 22:30 Fentanyl Citrate (fentaNYL INJ) 25 mcg Q2H PRN IV PUSH MOD/SEVERE PAIN 09/26/17 22:45 09/29/17 03:11 Isosorbide Mononitrate (Imdur) 60 mg BID PO 09/27/17 09:00 09/30/17 08:08 Nitroglycerin (Nitrolingual Sl Gypsum) 1 spray Q5M PRN SL CHEST PAIN 09/26/17 23:15 09/29/17 19:21 Finasteride (Proscar) 5 mg DAILY PO 09/27/17 09:00 09/30/17 08:09 Pantoprazole Sodium (Protonix Inj) 40 mg Q24H IV PUSH 09/27/17 06:00 09/30/17 05:31 Amlodipine Besylate (Norvasc) 2.5 mg DAILY PO 09/27/17 09:00 09/30/17 08:09 EZETIMIBE (Zetia) 10 mg DAILY PO 09/27/17 09:00 09/30/17 08:09 Furosemide (Lasix) 20 mg DAILY PO 09/27/17 09:00 09/30/17 08:08 Metoprolol Succinate (Toprol Xl) 100 mg DAILY PO 09/27/17 09:00 09/30/17 08:09 Atorvastatin Calcium (Lipitor) 80 mg DAILY PO 09/27/17 09:00 09/30/17 08:09 Acetaminophen 100 ml @ 400 mls/hr Q6H PRN IV Temp > 100. 09/27/17 13:00 09/27/17 13:53 Metoprolol Tartrate (Lopressor Inj) 5 mg Q6H IV PUSH 09/27/17 14:00 09/30/17 08:08 Ziprasidone (Geodon Inj) 10 mg Q6H PRN IM AGITATION 09/29/17 08:30 09/29/17 19:30 Metoprolol Tartrate (Lopressor Inj) 5 mg Q5M PRN IV PUSH SEE LABEL COMMENTS 09/30/17 03:30 09/30/17 03:30 Aspirin (Aspirin Chew) 81 mg DAILY CHEW 09/30/17 10:00 (Ai Mackenzie) Current Medications Current Medications Cefazolin Sodium/ Dextrose 50 ml @ 100 mls/hr STAT ONCE IV Last administered on 09/26/17 21:11; Start 09/26/17 at 21:00; Stop 09/26/17 at 21:29; Status DC Diphtheria/ Tetanus/Acell Pertussis (Boostrix Inj) 0.5 ml ONCE ONCE IM ; Start 09/26/17 at 21:00; Stop 09/26/17 at 21:01; Status DC Sodium Chloride (NS Flush) 2 ml UNSCH PRN IVF FLUSH AFTER USING IV ACCESS; Start 09/26/17 at 21:00; Stop 09/26/17 at 22:25; Status DC Nitroglycerin (Nitrostat Sl) 0.4 mg Q5M PRN SL CHEST PAIN Last administered on 09/26/17 21:37; Start 09/26/17 at 21:30 Nitroglycerin (Nitroglycerin 2% Oint) 1 inch ONCE ONCE TOPICAL Last administered on 09/26/17 21:32; Start 09/26/17 at 21:30; Stop 09/26/17 at 21 :31; Status DC Ondansetron HCl (Zofran Inj) 4 mg ONCE ONCE IV Last administered on 21:45; Start 09/26/17 at 21:30; Stop 09/26/17 at 21:31; Status DC Levetriacetam 100 ml @ 400 mls/hr BOLUS ONCE IV Last administered on 22:32; Start 09/26/17 at 22:00; Stop 09/26/17 at 22:14; Status DC Levetriacetam 500 mg/Sodium Chloride 105 ml @ 420 mls/hr Q12HR IV Last administered on 09/30/17at 08:10; Start 09/27/17 at 09:00 Sodium Chloride (NS Flush) 2 ml UNSCH PRN IV FLUSH FLUSH AFTER USING IV ACCESS ; Start 09/26/17 at 22:00; Stop 09/26/17 at 22:25; Status DC Sodium Chloride (NS Flush) 2 ml BID IV FLUSH ; Start 09/27/17 at 09:00; Stop 09/27/17 at 09:00; Status DC Levetriacetam 500 mg/Sodium Chloride 105 ml @ 400 mls/hr Q12H IV ; Start 09/26 at 22:00; Status UNV Lorazepam (Ativan Inj) 1 mg Q1H PRN IV PUSH SEIZURES; Start 09/26/17 at 22:00 Al Hydrox/Mg Hydrox/Simethicone (Mag-Al Plus Susp Liq) 30 ml Q6H PRN PO DYSPEPSIA; Start 09/26/17 at 22:00 Ondansetron HCl (Zofran Inj) 4 mg Q6H PRN IV PUSH NAUSEA OR VOMITING; Start at 22:00; Stop 09/26/17 at 22:25; Status DC Calcium Gluconate 1 gm/Sodium Chloride 110 ml @ 110 mls/hr UNSCH PRN IV SEE LABEL COMMENTS; Start 09/26/17 at 22:00 Potassium Chloride 100 ml @ 50 mls/hr UNSCH PRN IV POTASSIUM LESS THAN 4; Start 09/26/17 at 22:00 Magnesium Sulfate 2 gm/Sodium Chloride 104 ml @ 100 mls/hr UNSCH PRN IV MAGNESIUM LESS THAN 2; Start 09/26/17 at 22:00 Labetalol HCl (Trandate Inj) 10 mg Q1H PRN IV PUSH SYS BP GREATER THAN 170 MMHG ; Start 09/26/17 at 22:00; Stop 09/26/17 at 23:14; Status DC Clonidine (Catapres) 0.1 mg Q6H PRN PO SYS BP GREATER THAN 170 MMHG; Start at 22:00 Senna/Docusate Sodium (Ellie-Colace) 1 tab BID PO Last administered on 09/30/17at 08:09; Start 09/27/17 at 09:00 Magnesium Hydroxide (Milk Of Magnesia Liq) 30 ml Q12H PRN PO Mild constipation ; Start 09/26/17 at 22:00; Stop 09/26/17 at 22:25; Status DC Sennosides (Senokot) 17.2 mg Q12H PRN PO Moderate constipation; Start at 22:00; Stop 09/26/17 at 22:25; Status DC Bisacodyl (Dulcolax Supp) 10 mg DAILY PRN RECTAL SEVERE CONSITIPATION; Start 09/26/17 at 22:00; Stop 09/26/17 at 22:25; Status DC Lactulose (Lactulose Liq) 30 ml DAILY PRN PO SEVERE CONSITIPATION; Start 09/26 at 22:00; Stop 09/26/17 at 22:25; Status DC Levetriacetam 100 ml @ 400 mls/hr BOLUS ONCE IV ; Start 09/26/17 at 22:00; Stop 09/26/17 at 22:14; Status UNV Sodium Chloride 1,000 ml @ 70 mls/hr [id number] IV Last administered on 21:30; Start 09/26/17 at 22:00 Sodium Chloride (NS Flush) 2 ml UNSCH PRN IV FLUSH FLUSH AFTER USING IV ACCESS ; Start 09/26/17 at 22:00 Sodium Chloride (NS Flush) 2 ml BID IV FLUSH Last administered on 09/29/17 19 :28; Start 09/27/17 at 09:00 Famotidine (Pepcid Inj) 20 mg Q12HR IV PUSH ; Start 09/27/17 at 09:00; Stop at 09:00; Status DC Famotidine (Pepcid) 20 mg Q12HR PO ; Start 09/27/17 at 09:00; Stop 09/27/17 at 09:00; Status DC Ondansetron HCl (Zofran Inj) 4 mg Q6H PRN IV PUSH NAUSEA OR VOMITING Last administered on 09/28/17 10:32; Start 09/26/17 at 22:00 Albuterol Sulfate (Albuterol Neb) 2.5 mg Q2HR NEB PRN INH SOB/WHEEZING; Start 09/26/17 at 22:00 Miscellaneous Information 1 Q361D XX ; Start 09/26/17 at 22:00 Chlorhexidine Gluconate (Chlorhexidine 2% Cloth) 3 pack Taper DAILY@04 TOP ; Start 09/27/17 at 04:00; Stop 09/23/18 at 03:59 Chlorhexidine Gluconate (Chlorhexidine 2% Cloth) 3 pack UNSCH PRN TOP HYGIENIC CARE; Start 09/26/17 at 22:00 Senna/Docusate Sodium (Ellie-Colace) 1 tab BID PO ; Start 09/27/17 at 09:00; Stop 09/27/17 at 09:00; Status DC Magnesium Hydroxide (Milk Of Magnesia Liq) 30 ml Q12H PRN PO Mild constipation ; Start 09/26/17 at 22:00 Sennosides (Senokot) 17.2 mg Q12H PRN PO Moderate constipation; Start at 22:00 Bisacodyl (Dulcolax Supp) 10 mg DAILY PRN RECTAL SEVERE CONSITIPATION; Start 09/26/17 at 22:00 Lactulose (Lactulose Liq) 30 ml DAILY PRN PO SEVERE CONSITIPATION; Start 09/26 at 22:00 Ranolazine (Ranexa) 1,000 mg BID PO Last administered on 09/30/17at 08:09; Start 09/27/17 at 09:00 Labetalol HCl (Trandate Inj) 10 mg Q6H PRN IV PUSH SBP >160 Last administered on 09/28/17 19:01; Start 09/26/17 at 22:30 Hydralazine HCl (Apresoline Inj) 10 mg Q6H PRN IV PUSH SBP >160; Start at 22:30 Fentanyl Citrate (fentaNYL INJ) 25 mcg Q2H PRN IV PUSH MOD/SEVERE PAIN Last administered on 09/29/17 03:11; Start 09/26/17 at 22:45 Isosorbide Mononitrate (Imdur) 60 mg BID PO Last administered on 09/30/17at 08:08 ; Start 09/27/17 at 09:00 Nitroglycerin (Nitrostat Sl) 0.4 mg ONCE ONCE SL Last administered on 23:05; Start 09/26/17 at 23:00; Stop 09/26/17 at 23:12; Status DC Nitroglycerin (Nitrolingual Sl Gypsum) 1 spray Q5M PRN SL CHEST PAIN Last administered on 09/29/17 19:21; Start 09/26/17 at 23:15 Fentanyl Citrate (fentaNYL INJ) 50 mcg ONCE ONCE IV PUSH ; Start 09/27/17 at 02:45; Stop 09/27/17 at 02:47; Status DC Finasteride (Proscar) 5 mg DAILY PO Last administered on 09/30/17 08:09; Start 09/27/17 at 09:00 Pantoprazole Sodium (Protonix Inj) 40 mg Q24H IV PUSH Last administered on 05:31; Start 09/27/17 at 06:00 Amlodipine Besylate (Norvasc) 2.5 mg DAILY PO Last administered on 09/30/17 08: 09; Start 09/27/17 at 09:00 EZETIMIBE (Zetia) 10 mg DAILY PO Last administered on 09/30/17 08:09; Start at 09:00 Furosemide (Lasix) 20 mg DAILY PO Last administered on 09/30/17 08:08; Start 09/27/17 at 09:00 Metoprolol Succinate (Toprol Xl) 100 mg DAILY PO Last administered on 09/30/17 08:09; Start 09/27/17 at 09:00 Atorvastatin Calcium (Lipitor) 80 mg DAILY PO Last administered on 09/30/17 08: 09; Start 09/27/17 at 09:00 Acetaminophen 100 ml @ 400 mls/hr Q6H PRN IV Temp > 100. Last administered on 09/27/17 13:53; Start 09/27/17 at 13:00 Metoprolol Tartrate (Lopressor Inj) 5 mg Q6H IV PUSH Last administered on 08:08; Start 09/27/17 at 14:00 Metoprolol Tartrate (Lopressor Inj) 5 mg STAT ONCE IV PUSH Last administered on 09/27/17 18:10; Start 09/27/17 at 18:15; Stop 09/27/17 at 18:16; Status DC Haloperidol Lactate (Haldol Inj) 3 mg Q4H PRN IV PUSH Agitation Last administered on 09/29/17 04:06; Start 09/28/17 at 16:00; Stop 09/29/17 at 08 :24; Status DC Ziprasidone (Geodon Inj) 10 mg Q6H PRN IM AGITATION Last administered on 19:30; Start 09/29/17 at 08:30 Potassium Chloride 100 ml @ 50 mls/hr BOLUS ONCE IV Last administered on 10:30; Start 09/29/17 at 09:00; Stop 09/29/17 at 10:59; Status DC Magnesium Sulfate/ Dextrose 100 ml @ 100 mls/hr ONCE ONCE IV Last administered on 09/29/17 09:35; Start 09/29/17 at 09:00; Stop 09/29/17 at 09 :59; Status DC Metoprolol Tartrate (Lopressor Inj) 5 mg Q5M PRN IV PUSH SEE LABEL COMMENTS Last administered on 09/30/17at 03:30; Start 09/30/17 at 03:30 Aspirin (Aspirin Chew) 81 mg DAILY CHEW Last administered on 09/30/17at 11:37; Start 09/30/17 at 10:00 (Krishna Head MD) Medical Decision Making MDM Remarks 87 y/o male with moderate right acute subdural hemorrhage with mild mass effect and midline shift. Follow-up CT scan is stable. Neuro examination stable. EEG abnormal due to moderate slowing w/encephalopathic process but no gross epileptiform features History of CAD with prior CABG and PTCA NSTEMI (Ai Mackenzie) Plan Plan Remarks cont current care ok to start low dose aspirin from NRS standpoint, cont therapy cont neuro checks Dr. Adilene Mancilla (Ai Mackenzie) Attending Statement Neuro. Continue neuro checks in a serial fashion. Continue nonoperative treatment for SDH Myocardial infarction. CAD with prior CABG and PTCA. Continue non interventional treatment. Started on ASA. 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 Continue aggressive pulmonary toilette, nasotracheal suction, and breathing treatments with nebulizers. Daily PT and OT Prior history of tobacco abuse Incentive spirometry every hour awake HTN. he has chronic angina and habitual use of NTG spray. Obtain NTG spray from pharmacy. NTG patch. Imdur 60 mg po bid , Ranexa 1000 mg po bid when able to swallow Metoprolol succinate 100 daily Norvasc 2.5 mg daily. Hyperlipidemia. Continue Statin/Zetia Troponin peaked at 11.[address] Chavez -> consulted. ASA 81 mg day cleared by Dr. Head 09/30/17 GERD, h/o cholecystectomy, appendectomy NPO. Bedside swallow eval and advanced diet when appropriate. Urinary retention. Patient had difficulty voiding. Urinary retention 1100, Howard placed. Renal function normal. Monitor BMP. Monitor electrolytes Proscar 5 mg po daily when able to take po. Renal. Continue to monitor closely urine output, BUN and creatinine Mild chronic anemia. Monitor. Does not require transfusion at this time. Endocrine. Continue to Monitor serial Acu checks and SSI as needed in detail ID Mild leukocytosis is likely reactive. Afebrile. Continue to monitor for signs of infection Continue Protonix for stress ulcer prophylaxis Continue Andrés hose and SCD's for DVT prophylaxis Discussed with Dr Mancilla The exam, history, and the medical decision-making described in the above note were completed with the assistance of the mid-level provider. I reviewed and agree with the findings presented. I attest that I had a [id number] encounter with the patient on the same day, and personally performed and documented my assessment and findings in the medical record. (Krishna Head MD) Ai Mackenzie Sep 30, 2017 10:05 Krishna Head MD Sep 30, 2017 11:53
[2017-09-30] MEDS: ASPIRIN 81 MG CHEW TAB CHEW SCH (11:37)
[2017-09-30] MEDS: ZIPRASIDONE MESYLATE 20 MG VIAL IM PRN ×2 (14:02→20:36)
[2017-09-30] MEDS: SODIUM CHLOR 0.9% 1000 ML INJ 1,000 ML IV SCH (14:57)
[2017-10-01] VITALS (14 sets, daily range): BP systolic 101–155; BP diastolic 60–79; PULSE 77–120; RESP 20–24; TEMP 98–98.9; O2SAT 93–100
[2017-10-01] MEDS: METOPROLOL TARTRATE 5 MG/5 ML VIAL IV PUSH SCH (02:00)
[2017-10-01] MEDS: SODIUM CHLOR 0.9% 1000 ML INJ 1,000 ML IV SCH (02:06)
--- NOTE | 2017-10-01 05:03 | RADRPT ---
EXAM DATE/TIME: 10/01/2017 04:19 [facility] COMPARISON: CT BRAIN W/O CONTRAST, September 27, 2017, 4:13. INDICATIONS : ?Follow up hemorrhage. RADIATION DOSE: 36.84 CTDIvol (mGy) MEDICAL HISTORY : Cardiovascular disease. Hypertension. SURGICAL HISTORY : Carotid endarterectomy. CABGAppendectomy.GB ENCOUNTER: Subsequent ACUITY: 3 days PAIN SCALE: Non-responsive LOCATION: cranial TECHNIQUE: Multiple contiguous axial images were obtained of the head. Using automated exposure control and adj ustment of the mA and/or kV according to patient size, radiation dose was kept as low as reasonably a chievable to obtain optimal diagnostic quality images. DICOM format image data is available electro nically for review and comparison. FINDINGS: Again seen is a subdural hemorrhage involving the right. This extends over all of the cerebral hemisp heres on the right but is thickest overlying the temporal lobe. It measures 14-15 mm at this location . It tracks along the top of the tentorium. No intraparenchymal or subarachnoid hemorrhage observed. No intraventricular hemorrhage. Mass effect is seen upon the right lateral ventricle with 4 mm of rig ht to left midline shift. This is stable. CONCLUSION: 1. Stable large right subdural hematoma with 4 mm of midline shift. Vaughn Rust Jr., MD on October 01, 2017 at 4:59 Board Certified Radiologist. This report was verified electronically.
--- NOTE | 2017-10-01 05:41 | RADRPT ---
EXAM DATE/TIME: 10/01/2017 04:40 [facility] COMPARISON: CHEST SINGLE AP, September 26, 2017, 21:37. INDICATIONS : Shortness of breath. MEDICAL HISTORY : Hypertension. Cardiovascular disease. SURGICAL HISTORY : CABG. ENCOUNTER: Subsequent ACUITY: 4 - 6 days PAIN SCORE: Non-responsive. LOCATION: Bilateral chest FINDINGS: A single portable frontal view of the chest shows development of an infiltrate within the left base. Right lung is clear. No effusions. Heart is at the upper limits of normal in terms of size. Median st ernotomy wires. CONCLUSION: New left lower lobe infiltrate. Vaughn Rust Jr., MD on October 01, 2017 at 5:38 Board Certified Radiologist. This report was verified electronically.
[2017-10-01] MEDS: PANTOPRAZOLE SODIUM 40 MG VIAL IV PUSH SCH (06:10)
--- NOTE | 2017-10-01 07:18 | HHI.CCPN ---
Subjective Remarks/Hospital Course 87-year-old male with past medical history of hypertension, hyperlipidemia, coronary artery disease with prior CABG and PCI with ongoing daily angina, carotid artery stenosis with bilat CEA, PAD, prior tobacco abuse who presents to [facility] after a fall that occurred the evening of 09/24/17. He hit his head on a wooden walkaway. There was no LOC and mental status was normal afterwards. He did have a R forehead laceration and immediately developed bruising of his forehead, R orbit, right lower face. Steristrips were applied to laceration by son-in-law. This afternoon pt became more confused and had slurred speech. EVAC was called and he was felt to have some mild tongue deviation to the left. He had about 45 seconds of left sided facial twitching that resolved spontaneously.He had several additional episodes of this while I was assessing him in the ED. He is alert and able to follow commands during this, appears c/w simple partial seizure. CT brain demonstrates Right sided subdural hematoma. The maximal thickness is 1.4 cm. He is on ASA/Plavix but did not take them today. Not on anticoagulation. He has h/ o CAD with prior stent and CABG that is not amenable to further intervention. He has ongoing angina and uses NTG spray numerous times a day. He was complaining of chest pressure and requesting NTG. He now states chest pain is resolved after NTG patch and NTG SL. 09/27: Chest pain has resolved. Lengthy discussion with his . Trop elevated , clearly NSTEMI. Well documented history of diffuse coronary artery disease. At this point he is not a candidate for anticoagulation or intervention due to acute subdural bleed. We will slow his heart rate with additional beta jennifer and try to ride this episode out. No perfect solutions but he is pain free now with heart rate control. 09/28: No chest pain for > 24 hours. More alert and conversant today. Will get PT to start working with him. 09/29: Agitated again last night. Did not respond to haloperidol, will try Geodon if recurs. Sleeping now. Receiving lopressor PO and IV to keep heart rate down. Episode SVT last night - family concerned because of recent enzyme spill. Again, inoperable diffuse CAD and chronic angina. 09/30: Placed on Precedex for agitation. Responds to Geodon. Episode of SVT overnight. Oriented to person and place. CT head 09/27: Prominent right subdural hemorrhage. Cleared by Dr. Head for ASA 81 mg day 10/01: Oriented to person and place. Intermittent agitation improving, off Precedex. Chest x-ray showed today shows left lower lobe infiltrate which may be chronic. CT of the head shows stable large right subdural hemorrhage with persistent 4 mm midline shift Objective Vital Signs Date Time Temp Pulse Resp B/P (MAP) Pulse Ox O2 Delivery O2 Flow Rate FiO2 10/01/17 06:00 95 10/01/17 04:00 98.9 20 116/68 (84) 99 09/30/17 19:46 Nasal Cannula 2.00 09/27/17 07:00 100 Intake and Output 10/01/17 10/01/17 10/02/17 08:00 16:00 00:00 Intake Total 200 ml Output Total 400 ml Balance -200 ml Result Diagram: 09/27/17 0321 09/30/17 0509 Objective Remarks GENERAL: Elderly male. SKIN: Warm and dry. Steri-Strips in place on right forehead. Ecchymosis overlying right forehead, right orbit, right cheek HEAD: Normocephalic. EYES: Pupils equal and round, 2 mm reactive. Subconjunctival hemorrhage of lateral bulbar conjunctiva of the right eye. ENT: No nasal bleeding or discharge. NECK: Trachea midline. No JVD. Airway widely patent. CARDIOVASCULAR: Atrial fibrillation rate controlled. RBBB on monitor RESPIRATORY: No accessory muscle use. Clear to auscultation. Breath sounds equal bilaterally. GASTROINTESTINAL: Abdomen soft, non-tender, nondistended. bowel sounds present. MUSCULOSKELETAL: Extremities without clubbing, cyanosis, or edema. Resolving ecchymosis over left anterior tibia. NEUROLOGICAL: Mild L facial droop. Moving all extremities. Intermittent twitching of left side of face resolved. Protecting airway well. A/P Problem List: (1) Subdural hematoma, post-traumatic ICD Code: S06.5X9A - Traumatic subdural hemorrhage with loss of consciousness of unspecified duration, initial encounter Status: Acute (2) CAD (coronary artery disease) ICD Code: I25.10 - Atherosclerotic heart disease of [place] coronary artery without angina pectoris Status: Chronic (3) HTN (hypertension) ICD Code: I10 - Essential (primary) hypertension Status: Chronic (4) HLD (hyperlipidemia) ICD Code: E78.5 - Hyperlipidemia, unspecified Status: Chronic (5) Simple partial seizures ICD Code: G40.109 - Localization-related (focal) (partial) symptomatic epilepsy and epileptic syndromes with simple partial seizures, not intractable, without status epilepticus Status: Acute (6) PAD (peripheral artery disease) ICD Code: I73.9 - Peripheral vascular disease, unspecified Status: Chronic (7) Lumbar spinal stenosis ICD Code: M48.06 - Spinal stenosis of lumbar region Status: Acute (8) BPH (benign prostatic hypertrophy) with urinary obstruction ICD Code: N13.8 - Other obstructive and reflux uropathy; N40.1 - Benign prostatic hyperplasia with urinary obstruction Status: Acute (9) S/P CABG x 2 ICD Code: Z95.1 - Presence of aortocoronary bypass graft Status: Chronic (10) GERD (gastroesophageal reflux disease) ICD Code: K21.9 - Gastro-esophageal reflux disease without esophagitis Status: Chronic Assessment and Plan NEURO: R subdural hematoma, maximum 1.4 cm, 2-3 mm shift Encephalopathy/delirium improving Simple partial seizure s/p Fall Lumbar spinal stenosis Monitor neurocheck q1 hour s/p Keppra 1 gram IV and then 500 IV q12 -cahnge to PO Repeat CT brain 09/27, 10/01/17 Stable SDH Fentanyl prn pain, EEG 09/[address] Grady, Dr. Head following CT Cspine - negative fracture, CT face - neg fracture. Off Precedex, Geodon for agitation RESP: Prior history of tobacco abuse Incentive spirometry every hour awake, Add EzPAP q6 DuoNeb q6 ORN Aggressive pulmonary toilet CV: CAD with prior CABG and PTCA NSTEMI Atrial fibrillation rate controlled HTN Hyperlipidemia Patient has chronic angina and habitual use of NTG spray. Obtain NTG spray from pharmacy. NTG patch. Resumed Imdur 60 mg po bid , Ranexa 1000 mg po bid. Metoprolol succinate 100 daily. Norvasc 2.5 mg daily. Statin/Zetia Troponin peaked at 11.[address] Chavez -> consulted. Started ASA 81 mg day cleared by Dr. Head 09/30/17 GI: GERD h/o cholecystectomy, appendectomy h/o inguinal hernia repair NPO. Bedside swallow eval and advanced diet when appropriate. Continue PPI FEN/RENAL: BPH Urinary retention Patient had difficulty voiding. Urinary retention 1100, Howard placed. Renal function normal. Monitor BMP. Monitor electrolytes Proscar 5 mg po daily when able to take po. ID: Mild leukocytosis is likely reactive. Afebrile. UA negative. Monitor for signs and symptoms of infection. HEME: Mild chronic anemia Does not require transfusion at this time. He was not on any anticoagulant therapy. ENDO: Glucose is at target <185. PROPH: SCDs for DVT prophylaxis. Pharmacologic DVT prophylaxis is contraindicated due to acute subdural hematoma. Protonix 40 mg IV daily for stress ulcer prophylaxis and history of GERD on PPI at home. ACCESS: Peripheral IV providing adequate access at this time Overall impression: Medical management for angina/NSTEMI. Follow neurological exam closely. High risk patient for any procedure. Baby aspirin cleared by Dr. Head. Family requesting DC home. Await neurosurgery input, PT/OT input Problem Qualifiers (1) Subdural hematoma, post-traumatic: Qualified Codes: S06.5X0A - Traumatic subdural hemorrhage without loss of consciousness, initial encounter (2) HTN (hypertension): Qualified Codes: I10 - Essential (primary) hypertension Alejandro Mancilla MD Oct 01, 2017 07:18
[2017-10-01 07:26] LABS: AUTOMATED NEUTROPHIL # 7.2 TH/MM3 (1.8-7.7); BASOPHIL # 0.1 TH/MM3 (0-0.2); BASOPHIL % 0.7 % (0.0-2.0); EOSINOPHIL # 0.1 TH/MM3 (0-0.4); EOSINOPHIL % 1.3 % (0.0-4.0); HEMATOCRIT 32.3 % (39.0-51.0); HEMOGLOBIN 10.7 GM/DL (13.0-17.0); LYMPH % 9.8 % (9.0-44.0); LYMPHOCYTE # 0.9 TH/MM3 (1.0-4.8); MEAN CELL VOLUME 81.5 FL (80.0-100.0); MEAN CORPUSCULAR HEMOGLOBIN 26.9 PG (27.0-34.0); MEAN PLATELET VOLUME 7.4 FL (7.0-11.0); MONO % 8.5 % (0.0-8.0); MONOCYTE # 0.8 TH/MM3 (0-0.9); NEUT % 79.7 % (16.0-70.0); PLATELET COUNT 136 TH/MM3 (150-450); RED BLOOD COUNT 3.96 MIL/MM3 (4.50-5.90); RED CELL DISTRIBUTION WIDTH 16.6 % (11.6-17.2)
[2017-10-01 07:32] LABS: INTERNATIONAL NORMALIZED RATIO 1.1 RATIO; PROTHROMBIN TIME - PATIENT 11.6 SEC (9.8-11.6)
[2017-10-01 07:44] LABS: AST (GOT) 181 U/L (15-37); BICARBONATE 29.4 MEQ/L (21.0-32.0); BLOOD UREA NITROGEN 15 MG/DL (7-18); CALCIUM 7.8 MG/DL (8.5-10.1); CHLORIDE 107 MEQ/L (98-107); CREATININE 0.69 MG/DL (0.60-1.30); GLOMERULAR FILTRATION RATE 109 ML/MIN (>89); GLUCOSE,RANDOM 118 MG/DL (74-106); MAGNESIUM 1.9 MG/DL (1.5-2.5); SODIUM (NA) 141 MEQ/L (136-145)
[2017-10-01 07:45] LABS: ALT (GPT) 170 U/L (12-78)
[2017-10-01 07:47] LABS: ALKALINE PHOSPHATASE 136 U/L (45-117); TOTAL BILIRUBIN ADULT 0.8 MG/DL (0.2-1.0)
[2017-10-01] MEDS ORDERED: METOPROLOL TARTRATE 5 MG/5 ML VIAL IV PUSH PRN (08:00)
[2017-10-01] MEDS: RANOLAZINE 500 MG EXTENDED RELEASE TAB PO SCH ×2 (08:04→20:12)
[2017-10-01] MEDS: FUROSEMIDE 20 MG TAB PO SCH (08:04)
[2017-10-01] MEDS: ISOSORBIDE MONONITRATE 60 MG TAB PO SCH ×2 (08:05→20:10)
[2017-10-01] MEDS: PANTOPRAZOLE SOD 40 MG DELAYED RELEASE TAB PO SCH (08:05)
[2017-10-01] MEDS: EZETIMIBE 10 MG TAB PO SCH (08:05)
[2017-10-01] MEDS: levETIRAcetam 500 MG TAB PO SCH ×2 (08:05→20:10)
[2017-10-01] MEDS: ATORVASTATIN 80 MG TAB PO SCH (08:05)
[2017-10-01] MEDS: ASPIRIN 81 MG CHEW TAB CHEW SCH (08:05)
[2017-10-01] MEDS: FINASTERIDE 5 MG TAB PO SCH (08:05)
[2017-10-01] MEDS: amLODIPine BESYLATE 5 MG TAB PO SCH (08:06)
[2017-10-01] MEDS: DOCUSATE SODIUM 50 MG/SENNA 8.6 MG TAB PO SCH ×2 (08:07→20:12)
[2017-10-01] MEDS: SODIUM CHLORIDE 0.9% FLUSH 10 ML FLUSH IV FLUSH SCH ×2 (08:07→20:12)
--- NOTE | 2017-10-01 08:23 | PD.CARD.PN ---
Subjective Subjective Remarks Improving. No major complaints. Stable angina. No SOB. Wants to go home today. Objective Medications Current Medications Medications (Trade) Dose Ordered Sig/Deann Route Start Time Stop Time Status Last Admin (Nitrostat Sl) 0.4 mg Q5M PRN SL 09/26/17 21:30 09/26/17 21:37 (Ativan Inj) 1 mg Q1H PRN IV PUSH 09/26/17 22:00 (Mag-Al Plus Susp Liq) 30 ml Q6H PRN PO 09/26/17 22:00 Calcium Gluconate 1 gm/Sodium Chloride 110 ml @ 110 mls/hr UNSCH PRN IV 09/26/17 22:00 Potassium Chloride 100 ml @ 50 mls/hr UNSCH PRN IV 09/26/17 22:00 Magnesium Sulfate 2 gm/Sodium Chloride 104 ml @ 100 mls/hr UNSCH PRN IV 09/26/17 22:00 (Catapres) 0.1 mg Q6H PRN PO 09/26/17 22:00 (Ellie-Colace) 1 tab BID PO 09/27/17 09:00 09/30/17 20:37 (NS Flush) 2 ml UNSCH PRN IV FLUSH 09/26/17 22:00 (NS Flush) 2 ml BID IV FLUSH 09/27/17 09:00 10/01/17 08:07 (Zofran Inj) 4 mg Q6H PRN IV PUSH 09/26/17 22:00 09/28/17 10:32 Miscellaneous Information 1 Q361D XX 09/26/17 22:00 (Chlorhexidine 2% Cloth) 3 pack Taper DAILY@04 TOP 09/27/17 04:00 09/23/18 03:59 (Chlorhexidine 2% Cloth) 3 pack UNSCH PRN TOP 09/26/17 22:00 (Milk Of Magnesia Liq) 30 ml Q12H PRN PO 09/26/17 22:00 (Senokot) 17.2 mg Q12H PRN PO 09/26/17 22:00 (Dulcolax Supp) 10 mg DAILY PRN RECTAL 09/26/17 22:00 (Lactulose Liq) 30 ml DAILY PRN PO 09/26/17 22:00 (Ranexa) 1,000 mg BID PO 09/27/17 09:00 1/2/18 08:04 (Trandate Inj) 10 mg Q6H PRN IV PUSH 09/26/17 22:30 09/28/17 19:01 (Apresoline Inj) 10 mg Q6H PRN IV PUSH 09/26/17 22:30 (fentaNYL INJ) 25 mcg Q2H PRN IV PUSH 09/26/17 22:45 09/29/17 03:11 (Nitrolingual Sl [place]) 1 spray Q5M PRN SL 09/26/17 23:15 09/29/17 19:21 (Proscar) 5 mg DAILY PO 09/27/17 09:00 10/01/17 08:05 (Norvasc) 2.5 mg DAILY PO 09/27/17 09:00 10/01/17 08:06 (Zetia) 10 mg DAILY PO 09/27/17 09:00 10/01/17 08:05 (Lasix) 20 mg DAILY PO 09/27/17 09:00 10/01/17 08:04 (Lipitor) 80 mg DAILY PO 09/27/17 09:00 10/01/17 08:05 Acetaminophen 100 ml @ 400 mls/hr Q6H PRN IV 09/27/17 13:00 09/27/17 13:53 (Geodon Inj) 10 mg Q6H PRN IM 09/29/17 08:30 09/30/17 20:36 (Aspirin Chew) 81 mg DAILY CHEW 09/30/17 10:00 10/01/17 08:05 (Keppra) 500 mg Q12HR PO 10/01/17 09:00 10/01/17 08:05 (Protonix) 40 mg DAILY PO 10/01/17 09:00 10/01/17 08:05 (Duoneb Neb) 1 ampule Q2HR NEB PRN NEB 10/01/17 07:15 (Lopressor Inj) 5 mg Q6H PRN IV PUSH 10/01/17 08:00 (Tenormin) 100 mg Q12HR PO 10/01/17 09:00 UNV (Imdur) 120 mg BID PO 10/01/17 09:00 UNV Vital Signs / I&O Vital Signs Date Time Temp Pulse Resp B/P (MAP) Pulse Ox O2 Delivery O2 Flow Rate FiO2 10/01/17 06:00 95 10/01/17 04:00 88 10/01/17 04:00 98.9 96 20 116/68 (84) 99 10/01/17 02:00 100 10/01/17 00:00 103 10/01/17 00:00 98.9 103 20 125/79 (94) 93 09/30/17 22:00 99 09/30/17 20:00 88 09/30/17 20:00 98.9 88 20 123/67 (85) 97 09/30/17 19:46 97 Nasal Cannula 2.00 09/30/17 19:00 97 Nasal Cannula 2.00 09/30/17 18:00 90 09/30/17 16:00 100 09/30/17 16:00 98.8 100 24 134/79 (97) 99 09/30/17 14:00 75 09/30/17 12:00 90 09/30/17 12:00 98.3 90 22 112/59 (76) 99 09/30/17 10:00 89 09/30/17 08:40 99 Nasal Cannula 2.00 I/O 09/30/17 09/30/17 09/30/17 10/01/17 10/01/17 10/01/17 07:00 15:00 23:00 07:00 15:00 23:00 Intake Total 600 ml 200 ml 220 ml Output Total 550 ml 675 ml 400 ml Balance -550 ml -75 ml -200 ml 220 ml Intake Oral 600 ml 200 ml IV Total 220 ml Output Urine Total 550 ml 675 ml 400 ml # Bowel Movements 1 0 Physical Exam VSS, afebrile. Eccymosis right side of face and forehead. No JVD Lungs: CTA Heart: Irreg, S1, S2, no murmur. Ext: No C/C/E, well perfused. Neuro: Non-focal. Laboratory Laboratory Tests Test 10/01/17 07:15 White Blood Count 9.0 TH/MM3 Red Blood Count 3.96 MIL/MM3 Hemoglobin 10.7 GM/DL Hematocrit 32.3 % Mean Corpuscular Volume 81.5 FL Mean Corpuscular Hemoglobin 26.9 PG Mean Corpuscular Hemoglobin Concent 33.0 % Red Cell Distribution Width 16.6 % Platelet Count 136 TH/MM3 Mean Platelet Volume 7.4 FL Neutrophils (%) (Auto) 79.7 % Lymphocytes (%) (Auto) 9.8 % Monocytes (%) (Auto) 8.5 % Eosinophils (%) (Auto) 1.3 % Basophils (%) (Auto) 0.7 % Neutrophils # (Auto) 7.2 TH/MM3 Lymphocytes # (Auto) 0.9 TH/MM3 Monocytes # (Auto) 0.8 TH/MM3 Eosinophils # (Auto) 0.1 TH/MM3 Basophils # (Auto) 0.1 TH/MM3 CBC Comment DIFF FINAL Differential Comment Prothrombin Time 11.6 SEC Prothromb Time International Ratio 1.1 RATIO Blood Urea Nitrogen 15 MG/DL Creatinine 0.69 MG/DL Random Glucose 118 MG/DL Total Protein 6.0 GM/DL Albumin 2.0 GM/DL Calcium Level 7.8 MG/DL Magnesium Level 1.9 MG/DL Alkaline Phosphatase 136 U/L Aspartate Amino Transf (AST/SGOT) 181 U/L Alanine Aminotransferase (ALT/SGPT) 170 U/L Total Bilirubin 0.8 MG/DL Sodium Level 141 MEQ/L Potassium Level 4.1 MEQ/L Chloride Level 107 MEQ/L Carbon Dioxide Level 29.4 MEQ/L Anion Gap 5 MEQ/L Estimat Glomerular Filtration Rate 109 ML/MIN Imaging Last [address] 10/01/17599 Signed Impressions: Service Date/Time: Sunday, October 01, 2017 04:19 - CONCLUSION: 1. Stable large right subdural hematoma with 4 mm of midline shift. Vaughn Rust Jr., MD Chest X-Ray 10/01/17599 Signed Impressions: Service Date/Time: Sunday, October 01, 2017 04:40 - CONCLUSION: New left lower lobe infiltrate. Vaughn Rust Jr., MD Assessment and Plan Problem List: (1) Subdural hematoma, post-traumatic ICD Codes: S06.5X9A - Traumatic subdural hemorrhage with loss of consciousness of unspecified duration, initial encounter Status: Acute (2) Type 2 myocardial infarction ICD Codes: I21.A1 - Myocardial infarction type 2 (3) Paroxysmal atrial fibrillation ICD Codes: I48.0 - Paroxysmal atrial fibrillation (4) Hypercholesteremia ICD Codes: E78.00 - Pure hypercholesterolemia, unspecified (5) Statin intolerance ICD Codes: Z78.9 - Other specified health status (6) Family history of class III angina pectoris ICD Codes: Z82.49 - Family history of ischemic heart disease and other diseases of the circulatory system (7) NSTEMI (non-ST elevated myocardial infarction) ICD Codes: I21.4 - Non-ST elevation (NSTEMI) myocardial infarction (8) HTN (hypertension) ICD Codes: I10 - Essential (primary) hypertension Status: Chronic (9) CAD (coronary artery disease) ICD Codes: I25.10 - Atherosclerotic heart disease of [place] coronary artery without angina pectoris Status: Chronic (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 Afib rate controlled. Will switch meds back to his home meds and doses as tolerates. See orders. Code Status Full Discussed Condition With Discussed findings and plans with patient and staffing manager. Would continue conservative management from cardiac standpoint for now. Will avoid more aggressive anticoagulation or antiplatelet therapy for now. Fall risk and currently contraindicated due to ICB. Increase activity as tolerates. Following with you. Problem Qualifiers (1) Subdural hematoma, post-traumatic: Qualified Codes: S06.5X0A - Traumatic subdural hemorrhage without loss of consciousness, initial encounter (2) HTN (hypertension): Qualified Codes: I10 - Essential (primary) hypertension Ariel Wiley MD Oct 01, 2017 08:22
[2017-10-01] MEDS ORDERED: ISOSORBIDE MONONITRATE 60 MG TAB PO ONE (08:30)
--- NOTE | 2017-10-01 08:55 | HHI.NSPN ---
(Power Dickerson) History Chief Complaint: None (Power Dickerson) Interval History 09/27: This is an 87-year-old gentleman who apparently fell on 2016 and suffered a right forehead area laceration which was Steri-Stripped at home. Yesterday afternoon he started noticing slurred speech and also was more confused and noticed a left-sided facial twitching which resolved spontaneously. He was brought into the emergency room and work-up including a CT scan of the head revealed a right hemisphere acute subdural hemorrhage, maximal thickness in the middle fossa 1.4 cm, and lesser thickness in the frontoparietal area. There is a mild midline shift of about 3 mm right-to- left. The patient was started on Keppra and overnight did not have any further seizures. He is lethargic but arouses and verbalizes his name and follows simple commands. A follow-up CT scan this morning does not reveal any progression of this right-sided subdural hemorrhage and no re-bleed is noted. CT of the cervical spine is negative for any fractures with positive multilevel degenerative changes. 09/28: When seen this morning the patient has his eyes closed but opens them to voice. His speech is essentially clear and he interacts. After answering the first orientation question he adds "for the 50th time" to his response to the remainder of the questions. He does say he has a slight headache but had no other complaints. He moves all extremities without any difficulty and his muscle strength and sensation are normal. Nursing states that the patient is doing better than yesterday. Nursing also reports that the patient does become agitated and curses at staff because he wants to drink but failed his swallow exam yesterday. He is to have another swallow evaluation today. 09/29: The patient is asleep this morning when seen. He does briefly arouse to voice and answers questions and interacts, but quickly dozes back off. He is noted to have multiple unifocal PVCs. Nursing reports that the patient was up all night and did require haloperidol due to agitation. This morning Nursing spoke with the Pulp Machine Operator who changed the patient to ziprasidone. She reported that the rn shift mgr reported the patient choked and coughed while drinking water but this morning she reported the patient did well with Ensure. Therefore she was going to thicken his thin liquids. She also reported that at shift change last night the patient went into ventricular tachycardia and the patient' s Software Application Tester had been consulted. He is receiving oral and intravenous metoprolol due to the tachycardia. He does deny any headache, dizziness or nausea. 09/30/17: neuro check stable overnight, awake, alert, moves all four extremities. 10/01: This morning the patient was seen in the [facility] with [facility] Therapy using a wheeled walker for ambulation. He was bent over and had a shuffling gait. When seen he was in the chair and readily interacted. He denied any headache, dizziness or nausea. (Power Dickerson) Exam Results 09/29/17 09/29/17 09/30/17 09/30/17 10/01/17 10/01/17 06:00 18:00 06:00 18:00 06:00 18:00 Intake Total 2733 ml 600 ml 200 ml 220 ml Output Total 1550 ml 1225 ml 400 ml Balance 1183 ml -625 ml -200 ml 220 ml Intake Oral 920 ml 600 ml 200 ml IV Total 1813 ml 220 ml Output Urine Total 1550 ml 1225 ml 400 ml # Bowel Movements 0 1 0 Vital Signs Date Time Temp Pulse Resp B/P (MAP) Pulse Ox O2 Delivery O2 Flow Rate FiO2 10/01/17 06:00 95 10/01/17 04:00 88 10/01/17 04:00 98.9 96 20 116/68 (84) 99 10/01/17 02:00 100 10/01/17 00:00 103 10/01/17 00:00 98.9 103 20 125/79 (94) 93 09/30/17 22:00 99 09/30/17 20:00 88 09/30/17 20:00 98.9 88 20 123/67 (85) 97 09/30/17 19:46 97 Nasal Cannula 2.00 09/30/17 19:00 97 Nasal Cannula 2.00 09/30/17 18:00 90 09/30/17 16:00 100 09/30/17 16:00 98.8 100 24 134/79 (97) 99 09/30/17 14:00 75 09/30/17 12:00 90 09/30/17 12:00 98.3 90 22 112/59 (76) 99 09/30/17 10:00 89 09/30/17 08:40 99 Nasal Cannula 2.00 09/30/17 08:00 98.1 92 18 120/65 (83) 99 09/30/17 08:00 92 09/30/17 07:00 98 Nasal Cannula 2.00 09/30/17 06:00 89 09/30/17 04:00 94 09/30/17 04:00 97.8 92 20 117/76 (90) 98 09/30/17 03:13 153 09/30/17 02:00 105 09/30/17 00:00 98 09/30/17 00:00 97.9 102 18 118/55 (76) 95 09/29/17 22:00 94 09/29/17 20:00 98.9 94 15 111/52 (71) 98 09/29/17 20:00 98 09/29/17 19:00 96 Nasal Cannula 2.00 09/29/17 19:00 96 Nasal Cannula 2.00 09/29/17 18:00 88 09/29/17 16:00 83 09/29/17 16:00 98.5 81 22 113/61 (78) 99 09/29/17 14:00 99 09/29/17 12:00 91 09/29/17 12:00 98.7 90 18 121/56 (77) 98 09/29/17 10:00 85 09/29/17 08:00 98.4 100 20 116/58 (77) 100 09/29/17 08:00 102 09/29/17 07:49 98 Nasal Cannula 2.00 09/29/17 07:00 100 Nasal Cannula 09/29/17 06:00 98 09/29/17 04:00 98.9 101 17 94/55 (68) 99 09/29/17 04:00 94 09/29/17 02:00 99 09/29/17 00:00 93 09/29/17 00:00 98.7 100 18 101/62 (75) 97 09/28/17 22:00 98 09/28/17 20:11 100 2.00 09/28/17 20:00 82 09/28/17 20:00 98.9 82 21 103/56 (72) 100 09/28/17 19:15 100 Nasal Cannula 2.00 09/28/17 18:00 72 09/28/17 16:00 98.2 75 25 112/65 (81) 96 09/28/17 16:00 72 09/28/17 14:00 68 09/28/17 13:40 24 09/28/17 12:00 99.1 86 26 124/61 (82) 98 09/28/17 12:00 86 09/28/17 10:00 84 (Power Dickerson) Physical Examination GENERAL: Awake and readily interacts. Flat affect. No apparent distress. HEENT: Right-sided facial & periorbital ecchymosis, abrasion/laceration & swelling to right lateral orbit. Face appears symmetrical. PERRLA 2 mm brisk, EOMI. MUSCULOSKELETAL: MARAVILLA w/o difficulty, no evident clubbing or deformity. NEUROLOGICAL: Awake & fairly alert, oriented to person, place & time. Speech essentially clear & appropriate. Follows simple commands w/o difficulty. CN II-XII appear grossly intact. Sensation intact to light touch to all extremities. Motor strength appears to be 4+ to 5/5 to all major flexion & extension muscle groups. (Power Dickerson) Lab, Micro, Other Results This practitioner reviewed the CT brain images completed today and compared with those from . The right-sided SDH is essentially stable with a 4 mm midline shift. Recent Impressions Head CT 10/01/17599 Signed Impressions: Service Date/Time: Sunday, October 01, 2017 04:19 - CONCLUSION: 1. Stable large right subdural hematoma with 4 mm of midline shift. Vaughn Rust Jr., MD Chest X-Ray 10/01/17599 Signed Impressions: Service Date/Time: Sunday, October 01, 2017 04:40 - CONCLUSION: New left lower lobe infiltrate. Vaughn Rust Jr., MD Laboratory Tests Test 09/28/17 10:30 09/28/17 19:00 09/29/17 04:00 09/30/17 05:09 Prothrombin Time 11.4 SEC Prothromb Time International Ratio 1.1 RATIO Potassium Level 3.7 MEQ/L 4.0 MEQ/L 4.2 MEQ/L Magnesium Level 1.9 MG/DL Blood Urea Nitrogen 25 MG/DL 19 MG/DL Creatinine 0.96 MG/DL 0.75 MG/DL Random Glucose 176 MG/DL 133 MG/DL Calcium Level 7.9 MG/DL 8.0 MG/DL Sodium Level 142 MEQ/L 140 MEQ/L Chloride Level 107 MEQ/L 108 MEQ/L Carbon Dioxide Level 27.3 MEQ/L 25.6 MEQ/L Anion Gap 8 MEQ/L 6 MEQ/L Estimat Glomerular Filtration Rate 74 ML/MIN 99 ML/MIN Test 10/01/17 07:15 White Blood Count 9.0 TH/MM3 Red Blood Count 3.96 MIL/MM3 Hemoglobin 10.7 GM/DL Hematocrit 32.3 % Mean Corpuscular Volume 81.5 FL Mean Corpuscular Hemoglobin 26.9 PG Mean Corpuscular Hemoglobin Concent 33.0 % Red Cell Distribution Width 16.6 % Platelet Count 136 TH/MM3 Mean Platelet Volume 7.4 FL Neutrophils (%) (Auto) 79.7 % Lymphocytes (%) (Auto) 9.8 % Monocytes (%) (Auto) 8.5 % Eosinophils (%) (Auto) 1.3 % Basophils (%) (Auto) 0.7 % Neutrophils # (Auto) 7.2 TH/MM3 Lymphocytes # (Auto) 0.9 TH/MM3 Monocytes # (Auto) 0.8 TH/MM3 Eosinophils # (Auto) 0.1 TH/MM3 Basophils # (Auto) 0.1 TH/MM3 CBC Comment DIFF FINAL Differential Comment Prothrombin Time 11.6 SEC Prothromb Time International Ratio 1.1 RATIO Blood Urea Nitrogen 15 MG/DL Creatinine 0.69 MG/DL Random Glucose 118 MG/DL Total Protein 6.0 GM/DL Albumin 2.0 GM/DL Calcium Level 7.8 MG/DL Magnesium Level 1.9 MG/DL Alkaline Phosphatase 136 U/L Aspartate Amino Transf (AST/SGOT) 181 U/L Alanine Aminotransferase (ALT/SGPT) 170 U/L Total Bilirubin 0.8 MG/DL Sodium Level 141 MEQ/L Potassium Level 4.1 MEQ/L Chloride Level 107 MEQ/L Carbon Dioxide Level 29.4 MEQ/L Anion Gap 5 MEQ/L Estimat Glomerular Filtration Rate 109 ML/MIN (Power Dickerson) Medical Decision Making Impression and Plan Impression: Moderate right hemisphere acute subdural hemorrhage with mild mass effect and midline shift. Follow-up CT scan is stable with no further progression of this subdural hemorrhage overnight. This is an elderly patient with significant medical co-morbidities, in particular cardiac and peripheral vascular disease and a poor baseline functional status related to spinal stenosis and peripheral vascular disease. Patient doing well and appears neurologically intact. Reviewed labs for today. Resolution of leukocytosis. Interval drop in haemoglobin. Thrombocytopenia. Elevated transaminases & alk phos. EEG abnormal due to moderate slowing w/encephalopathic process but no gross epileptiform features. CT brain images today demonstrates that the right-sided SDH is essentially stable with a 4 mm midline shift. Plan: Plan of care discussed with Nursing. Primary management per Pulp Machine Operator. Conservative management since repeat CT brain yesterday was stable. Neuro checks. Stat CT brain for any worsening of neuro status. Mechanical DVT prophylaxis. Hold pharmacologic DVT prophylaxis. Stress ulcer prophylaxis. Levetiracetam for seizure prophylaxis. Okay for aspirin 81 mg daily from NSGY's perspective. Cardiology recommends continuing conservative management and avoid aggressive anticoagulation or antiplatelet therapy due to fall risk and ICH. (Power Dickerson) Attending Statement The exam, history, and the medical decision-making described in the above note were completed with the assistance of the mid-level provider. I reviewed and agree with the findings presented. I attest that I had a [id number] encounter with the patient on the same day, and personally performed and documented my assessment and findings in the medical record. On my examination 10/01/2017, the patient is relatively awake and alert. He ambulates for short distance with moderate assistance. Speech is somewhat slow but clear. Exhibits mild agitation and mild to moderate effusion Follows a few simple commands Extraocular movements intact Moves all extremities well 10/01/17 CT scan head was stable right frontotemporal region subdural hematoma with mild mass effect. Continuing intensive care neuro checks Discussed with family (Jorje Rhodes MD) Power Dickerson Oct 01, 2017 08:55 Jorje Rhodes MD Oct 03, 2017 19:55
[2017-10-01] MEDS ORDERED: ATENOLOL 100 MG TAB PO SCH (09:00)
[2017-10-01] MEDS ORDERED: METOPROLOL SUCCINATE 50 MG EXTENDED RELEASE TAB PO SCH (09:00)
[2017-10-01] MEDS: RESP: ALBUTEROL 2.5 MG/IPRATROPIUM 0.5 MG NEB (PRN) NEB ×2 (10:18→20:43)
[2017-10-01] MEDS ORDERED: FUROSEMIDE 40 MG/4 ML VIAL IV PUSH ONE (10:30)
[2017-10-01] MEDS ORDERED: ALBUMIN 25% INJ 100 ML IV ONE (11:00)
[2017-10-01] MEDS ORDERED: LORazepam 0.5 MG TAB PO ONE (13:00)
[2017-10-01] MEDS: LORazepam 2 MG/ML VIAL IV PUSH PRN ×2 (15:02→21:00)
[2017-10-01] MEDS: ATENOLOL 50 MG TAB PO SCH (20:12)
[2017-10-01] MEDS ORDERED: ISOSORBIDE MONONITRATE 60 MG TAB PO SCH (21:00)
[2017-10-01] MEDS: ZIPRASIDONE MESYLATE 20 MG VIAL IM PRN ×2 (21:30→23:00)
[2017-10-02] VITALS (13 sets, daily range): BP systolic 90–141; BP diastolic 51–71; PULSE 63–86; RESP 18–24; TEMP 97.6–100.7; O2SAT 94–100
[2017-10-02] MEDS: CHLORHEXIDINE GLUCONATE 2 % 1 PACK (2 CLOTHS) TOP SCH (03:21)
[2017-10-02] MEDS: NITROGLYCERIN 0.4 MG SL 25 TABS/BTL SL PRN (08:30)
--- NOTE | 2017-10-02 08:56 | PD.CARD.PN ---
Subjective Subjective Remarks Lethargic today. No major complaints. Stable angina. No SOB. Wants to go home. Objective Medications Current Medications Medications (Trade) Dose Ordered Sig/Deann Route Start Time Stop Time Status Last Admin (Nitrostat Sl) 0.4 mg Q5M PRN SL 09/26/17 21:30 09/26/17 21:37 (Ativan Inj) 1 mg Q1H PRN IV PUSH 09/26/17 22:00 10/01/17 21:00 (Mag-Al Plus Susp Liq) 30 ml Q6H PRN PO 09/26/17 22:00 Calcium Gluconate 1 gm/Sodium Chloride 110 ml @ 110 mls/hr UNSCH PRN IV 09/26/17 22:00 Potassium Chloride 100 ml @ 50 mls/hr UNSCH PRN IV 09/26/17 22:00 Magnesium Sulfate 2 gm/Sodium Chloride 104 ml @ 100 mls/hr UNSCH PRN IV 09/26/17 22:00 (Catapres) 0.1 mg Q6H PRN PO 09/26/17 22:00 (Ellie-Colace) 1 tab BID PO 09/27/17 09:00 10/01/17 20:12 (NS Flush) 2 ml UNSCH PRN IV FLUSH 09/26/17 22:00 (NS Flush) 2 ml BID IV FLUSH 09/27/17 09:00 10/01/17 20:12 (Zofran Inj) 4 mg Q6H PRN IV PUSH 09/26/17 22:00 09/28/17 10:32 Miscellaneous Information 1 Q361D XX 09/26/17 22:00 (Chlorhexidine 2% Cloth) Taper DAILY@04 TOP 09/27/17 04:00 09/23/18 03:59 (Chlorhexidine 2% Cloth) 3 pack UNSCH PRN TOP 09/26/17 22:00 (Milk Of Magnesia Liq) 30 ml Q12H PRN PO 09/26/17 22:00 (Senokot) 17.2 mg Q12H PRN PO 09/26/17 22:00 (Dulcolax Supp) 10 mg DAILY PRN RECTAL 09/26/17 22:00 (Lactulose Liq) 30 ml DAILY PRN PO 09/26/17 22:00 (Ranexa) 1,000 mg BID PO 09/27/17 09:00 10/01/17 20:12 (Apresoline Inj) 10 mg Q6H PRN IV PUSH 09/26/17 22:30 (fentaNYL INJ) 25 mcg Q2H PRN IV PUSH 09/26/17 22:45 09/29/17 03:11 (Nitrolingual Sl [place]) 1 spray Q5M PRN SL 09/26/17 23:15 09/29/17 19:21 (Proscar) 5 mg DAILY PO 09/27/17 09:00 10/01/17 08:05 (Norvasc) 2.5 mg DAILY PO 09/27/17 09:00 10/01/17 08:06 (Zetia) 10 mg DAILY PO 09/27/17 09:00 10/01/17 08:05 (Lasix) 20 mg DAILY PO 09/27/17 09:00 10/01/17 08:04 (Lipitor) 80 mg DAILY PO 09/27/17 09:00 10/01/17 08:05 Acetaminophen 100 ml @ 400 mls/hr Q6H PRN IV 09/27/17 13:00 09/27/17 13:53 (Geodon Inj) 10 mg Q6H PRN IM 09/29/17 08:30 10/01/17 23:00 (Aspirin Chew) 81 mg DAILY CHEW 09/30/17 10:00 10/01/17 08:05 (Keppra) 500 mg Q12HR PO 10/01/17 09:00 10/01/17 20:10 (Protonix) 40 mg DAILY PO 10/01/17 09:00 10/01/17 08:05 (Duoneb Neb) 1 ampule Q2HR NEB PRN NEB 10/01/17 07:15 10/01/17 20:43 (Lopressor Inj) 5 mg Q6H PRN IV PUSH 10/01/17 08:00 10/01/17 13:41 (Tenormin) 50 mg Q12HR PO 10/01/17 21:00 10/01/17 20:12 (Imdur) 60 mg BID PO 10/01/17 21:00 10/01/17 20:10 Vital Signs / I&O Vital Signs Date Time Temp Pulse Resp B/P (MAP) Pulse Ox O2 Delivery O2 Flow Rate FiO2 10/02/17 08:24 94 Nasal Cannula 3.00 10/02/17 07:00 92 Nasal Cannula 3.00 10/02/17 06:00 79 10/02/17 04:00 98.4 79 24 141/71 (94) 97 10/02/17 04:00 79 10/02/17 00:00 72 10/02/17 00:00 98.9 72 24 102/58 (73) 99 10/01/17 22:00 77 10/01/17 20:00 98.0 100 23 155/72 (99) 100 10/01/17 19:50 95 Nasal Cannula 3.00 10/01/17 19:33 Nasal Cannula 3.00 10/01/17 18:00 95 10/01/17 16:00 120 10/01/17 16:00 98.0 120 24 118/76 (90) 97 10/01/17 14:00 98 10/01/17 12:00 98.1 96 21 101/60 (74) 95 10/01/17 12:00 96 10/01/17 10:18 96 Nasal Cannula 2.00 10/01/17 10:00 84 I/O 10/01/17 10/01/17 10/01/17 10/02/17 10/02/17 10/02/17 07:00 15:00 23:00 07:00 15:00 23:00 Intake Total 200 ml 320 ml 400 ml Output Total 400 ml 2125 ml 500 ml Balance -200 ml 320 ml -1725 ml -500 ml Intake Oral 200 ml 400 ml IV Total 320 ml Output Urine Total 400 ml 2125 ml 500 ml Bladder Scan Volume Amount 660 ml # Bowel Movements 0 1 0 Physical Exam VSS, afebrile. Eccymosis right side of face and forehead. No JVD Lungs: CTA Heart: Irreg, S1, S2, no murmur. Ext: No C/C/E, well perfused. Neuro: Non-focal. Laboratory Laboratory Tests Test 10/01/17 19:38 Potassium Level 3.8 MEQ/L Magnesium Level 2.0 MG/DL Imaging Telemetry: NSR with PAC's today. Last [address] 10/01/17 0600 Signed Impressions: Service Date/Time: Sunday, October 01, 2017 04:19 - CONCLUSION: 1. Stable large right subdural hematoma with 4 mm of midline shift. Vaughn Rust Jr., MD Chest X-Ray 10/01/17 0600 Signed Impressions: Service Date/Time: Sunday, October 01, 2017 04:40 - CONCLUSION: New left lower lobe infiltrate. Vaughn Rust Jr., MD Assessment and Plan Problem List: (1) Subdural hematoma, post-traumatic ICD Codes: S06.5X9A - Traumatic subdural hemorrhage with loss of consciousness of unspecified duration, initial encounter Status: Acute (2) Type 2 myocardial infarction ICD Codes: I21.A1 - Myocardial infarction type 2 (3) Paroxysmal atrial fibrillation ICD Codes: I48.0 - Paroxysmal atrial fibrillation Status: Resolved (4) Hypercholesteremia ICD Codes: E78.00 - Pure hypercholesterolemia, unspecified (5) Statin intolerance ICD Codes: Z78.9 - Other specified health status (6) Family history of class III angina pectoris ICD Codes: Z82.49 - Family history of ischemic heart disease and other diseases of the circulatory system (7) NSTEMI (non-ST elevated myocardial infarction) ICD Codes: I21.4 - Non-ST elevation (NSTEMI) myocardial infarction (8) HTN (hypertension) ICD Codes: I10 - Essential (primary) hypertension Status: Chronic (9) CAD (coronary artery disease) ICD Codes: I25.10 - Atherosclerotic heart disease of [place] coronary artery without angina pectoris Status: Chronic (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 NSR today. CV stable. Continue ASA but witholding anticoagulation for now due to recent ICB. Increase activity. OK for discharge from cardiac standpoint. May need interval inpatient rehab vs home health. Code Status Full Discussed Condition With Patient and full time staff interpreter. Problem Qualifiers (1) Subdural hematoma, post-traumatic: Qualified Codes: S06.5X0A - Traumatic subdural hemorrhage without loss of consciousness, initial encounter (2) HTN (hypertension): Qualified Codes: I10 - Essential (primary) hypertension Ariel Wiley MD Oct 02, 2017 08:56
[2017-10-02] MEDS: SODIUM CHLORIDE 0.9% FLUSH 10 ML FLUSH IV FLUSH SCH ×2 (09:00→21:20)
[2017-10-02] MEDS: amLODIPine BESYLATE 5 MG TAB PO SCH (09:00)
[2017-10-02] MEDS: levETIRAcetam 500 MG TAB PO SCH ×3 (09:00→22:11)
[2017-10-02] MEDS: ATENOLOL 50 MG TAB PO SCH (09:00)
[2017-10-02] MEDS: RANOLAZINE 500 MG EXTENDED RELEASE TAB PO SCH ×3 (09:01→21:20)
[2017-10-02] MEDS: PANTOPRAZOLE SOD 40 MG DELAYED RELEASE TAB PO SCH (09:01)
[2017-10-02] MEDS: FUROSEMIDE 20 MG TAB PO SCH (09:01)
[2017-10-02] MEDS: FINASTERIDE 5 MG TAB PO SCH (09:01)
[2017-10-02] MEDS: EZETIMIBE 10 MG TAB PO SCH (09:01)
[2017-10-02] MEDS: ISOSORBIDE MONONITRATE 60 MG TAB PO SCH (09:01)
[2017-10-02] MEDS: ASPIRIN 81 MG CHEW TAB CHEW SCH (09:01)
[2017-10-02] MEDS: ATORVASTATIN 80 MG TAB PO SCH (09:02)
[2017-10-02] MEDS: DOCUSATE SODIUM 50 MG/SENNA 8.6 MG TAB PO SCH ×3 (09:02→21:20)
[2017-10-02 09:25] LABS: AUTOMATED NEUTROPHIL # 9.9 TH/MM3 (1.8-7.7); BASOPHIL % 0.3 % (0.0-2.0); EOSINOPHIL % 0.3 % (0.0-4.0); HEMATOCRIT 32.7 % (39.0-51.0); HEMOGLOBIN 10.7 GM/DL (13.0-17.0); LYMPH % 6.3 % (9.0-44.0); LYMPHOCYTE # 0.7 TH/MM3 (1.0-4.8); MEAN CELL VOLUME 81.5 FL (80.0-100.0); MEAN CORPUSCULAR HEMOGLOBIN 26.7 PG (27.0-34.0); MEAN CORPUSCULAR HGB CONC 32.8 % (32.0-36.0); MEAN PLATELET VOLUME 7.7 FL (7.0-11.0); MONO % 8.2 % (0.0-8.0); MONOCYTE # 0.9 TH/MM3 (0-0.9); NEUT % 84.9 % (16.0-70.0); PLATELET COUNT 173 TH/MM3 (150-450); RED BLOOD COUNT 4.01 MIL/MM3 (4.50-5.90); RED CELL DISTRIBUTION WIDTH 16.9 % (11.6-17.2); WHITE BLOOD COUNT 11.6 TH/MM3 (4.0-11.0)
--- NOTE | 2017-10-02 09:32 | RADRPT ---
EXAM DATE/TIME: 10/02/2017 08:26 [facility] COMPARISON: CHEST SINGLE AP, October 01, 2017, 4:40. INDICATIONS : Difficulty breathing. MEDICAL HISTORY : Cardiovascular disease. Hypertension. SURGICAL HISTORY : Carotid endarterectomy. CABG. Appendectomy. ENCOUNTER: Subsequent ACUITY: 4 - 6 days PAIN SCORE: Non-responsive. LOCATION: Bilateral chest FINDINGS: Median sternotomy wires are noted status post cardiac surgery. The a small left pleural effusion is n oted. Scattered patchy infiltrates are noted bilaterally and are slightly worse than on the previous examination. The heart is stable. Degenerative changes and scoliosis of the thoracic spine are noted. CONCLUSION: 1. Slight interval worsening of the scattered patchy infiltrates bilaterally. 2. Small left pleural effusion. Marlon Mann MD on October 02, 2017 at 9:28 Board Certified Radiologist. This report was verified electronically.
[2017-10-02 09:45] LABS: ALBUMIN 2.6 GM/DL (3.4-5.0); ALT (GPT) 180 U/L (12-78); AST (GOT) 151 U/L (15-37); BICARBONATE 30.2 MEQ/L (21.0-32.0); BLOOD UREA NITROGEN 23 MG/DL (7-18); CALCIUM 8.2 MG/DL (8.5-10.1); CHLORIDE 104 MEQ/L (98-107); CREATININE 0.99 MG/DL (0.60-1.30); GLOMERULAR FILTRATION RATE 72 ML/MIN (>89); GLUCOSE,RANDOM 122 MG/DL (74-106); MAGNESIUM 2.1 MG/DL (1.5-2.5); SODIUM (NA) 141 MEQ/L (136-145)
[2017-10-02 09:54] LABS: ALKALINE PHOSPHATASE 173 U/L (45-117); TOTAL BILIRUBIN ADULT 1.4 MG/DL (0.2-1.0); TOTAL PROTEIN 6.8 GM/DL (6.4-8.2)
[2017-10-02] MEDS: ACETAMINOPHEN 1000 MG/100 ML 100 ML IV PRN (10:22)
--- NOTE | 2017-10-02 11:40 | HHI.NSPN ---
(iA Mackenzie) Note Status Status: Progress Note (Ai Mackenzie) Interval History Interval History 09/27: This is an 87-year-old gentleman who apparently fell on 2016 and suffered a right forehead area laceration which was Steri-Stripped at home. Yesterday afternoon he started noticing slurred speech and also was more confused and noticed a left-sided facial twitching which resolved spontaneously. He was brought into the emergency room and work-up including a CT scan of the head revealed a right hemisphere acute subdural hemorrhage, maximal thickness in the middle fossa 1.4 cm, and lesser thickness in the frontoparietal area. There is a mild midline shift of about 3 mm right-to- left. The patient was started on Keppra and overnight did not have any further seizures. He is lethargic but arouses and verbalizes his name and follows simple commands. A follow-up CT scan this morning does not reveal any progression of this right-sided subdural hemorrhage and no re-bleed is noted. CT of the cervical spine is negative for any fractures with positive multilevel degenerative changes. 09/28: When seen this morning the patient has his eyes closed but opens them to voice. His speech is essentially clear and he interacts. After answering the first orientation question he adds "for the 50th time" to his response to the remainder of the questions. He does say he has a slight headache but had no other complaints. He moves all extremities without any difficulty and his muscle strength and sensation are normal. Nursing states that the patient is doing better than yesterday. Nursing also reports that the patient does become agitated and curses at staff because he wants to drink but failed his swallow exam yesterday. He is to have another swallow evaluation today. 09/29: The patient is asleep this morning when seen. He does briefly arouse to voice and answers questions and interacts, but quickly dozes back off. He is noted to have multiple unifocal PVCs. Nursing reports that the patient was up all night and did require haloperidol due to agitation. This morning Nursing spoke with the Manager Enrollment who changed the patient to ziprasidone. She reported that the cheesemaker helper reported the patient choked and coughed while drinking water but this morning she reported the patient did well with Ensure. Therefore she was going to thicken his thin liquids. She also reported that at shift change last night the patient went into ventricular tachycardia and the patient' s Welding Process Engineer had been consulted. He is receiving oral and intravenous metoprolol due to the tachycardia. He does deny any headache, dizziness or nausea. 09/30/17: neuro check stable overnight, awake, alert, moves all four extremities. 10/02/17: drowsy following sedation for restless last night. follows simple commands. (Ai Mackenzie) Labs, Micro, & Vital Signs Results Date Time Temp Pulse Resp B/P (MAP) Pulse Ox O2 Delivery O2 Flow Rate FiO2 10/02/17 10:00 70 10/02/17 08:24 94 Nasal Cannula 3.00 10/02/17 08:00 80 10/02/17 08:00 97.9 86 22 130/60 (83) 97 10/02/17 07:00 92 Nasal Cannula 3.00 10/02/17 06:00 79 10/02/17 04:00 98.4 79 24 141/71 (94) 97 10/02/17 04:00 79 10/02/17 00:00 72 10/02/17 00:00 98.9 72 24 102/58 (73) 99 10/01/17 22:00 77 10/01/17 20:00 98.0 100 23 155/72 (99) 100 10/01/17 19:50 95 Nasal Cannula 3.00 10/01/17 19:33 Nasal Cannula 3.00 10/01/17 18:00 95 10/01/17 16:00 120 10/01/17 16:00 98.0 120 24 118/76 (90) 97 10/01/17 14:00 98 10/01/17 12:00 98.1 96 21 101/60 (74) 95 10/01/17 12:00 96 Constitutional Vital Signs Date Time Temp Pulse Resp B/P (MAP) Pulse Ox O2 Delivery O2 Flow Rate FiO2 10/02/17 10:00 70 10/02/17 08:24 94 Nasal Cannula 3.00 10/02/17 08:00 80 10/02/17 08:00 97.9 86 22 130/60 (83) 97 10/02/17 07:00 92 Nasal Cannula 3.00 10/02/17 06:00 79 10/02/17 04:00 98.4 79 24 141/71 (94) 97 10/02/17 04:00 79 10/02/17 00:00 72 10/02/17 00:00 98.9 72 24 102/58 (73) 99 10/01/17 22:00 77 10/01/17 20:00 98.0 100 23 155/72 (99) 100 10/01/17 19:50 95 Nasal Cannula 3.00 10/01/17 19:33 Nasal Cannula 3.00 10/01/17 18:00 95 10/01/17 16:00 120 10/01/17 16:00 98.0 120 24 118/76 (90) 97 10/01/17 14:00 98 10/01/17 12:00 98.1 96 21 101/60 (74) 95 10/01/17 12:00 96 (Ai Mackenzie) Review of Systems ROS Limitations: Clinical Condition Neurologic: DENIES: Headache (Ai Mackenzie) Physical Exam Mildly drowsy, received sedation last night for restlessness. Follows few simple commands. Oriented to name only. Right-sided facial & periorbital ecchymosis CN: pupils 3 mm bilaterally reactive, gross EOMs intact Motor: moves all four extremities against gravity grossly symmetrically Cerebellar: cannot assess due to clinical condition Sensory: reports intact to light touch x 4 Neck: soft, supple (Ai Mackenzie) Mr. Fam is mildly sedated for restlessness. Follows few simple commands. Oriented to name only. Righ facial & periorbital ecchymosis CN: pupils 3 mm bilaterally reactive, gross EOMs intact Motor: moves all four extremities against gravity grossly symmetrically Cerebellar: cannot assess due to clinical condition Sensory: reports intact to light touch x 4 cerebellar exam is very limited (Krishna Head MD) Medications Current Medications Current Medications Medications (Trade) Dose Ordered Sig/Deann Route PRN Reason Start Time Stop Time Status Last Admin Dose Admin Nitroglycerin (Nitrostat Sl) 0.4 mg Q5M PRN SL CHEST PAIN 09/26/17 21:30 10/02/17 08:30 Lorazepam (Ativan Inj) 1 mg Q1H PRN IV PUSH SEIZURES 09/26/17 22:00 10/01/17 21:00 Al Hydrox/Mg Hydrox/Simethicone (Mag-Al Plus Susp Liq) 30 ml Q6H PRN PO DYSPEPSIA 09/26/17 22:00 Calcium Gluconate 1 gm/Sodium Chloride 110 ml @ 110 mls/hr UNSCH PRN IV SEE LABEL COMMENTS 09/26/17 22:00 Potassium Chloride 100 ml @ 50 mls/hr UNSCH PRN IV POTASSIUM LESS THAN 4 09/26/17 22:00 Magnesium Sulfate 2 gm/Sodium Chloride 104 ml @ 100 mls/hr UNSCH PRN IV MAGNESIUM LESS THAN 2 09/26/17 22:00 Clonidine (Catapres) 0.1 mg Q6H PRN PO SYS BP GREATER THAN 170 MMHG 09/26/17 22:00 Senna/Docusate Sodium (Ellie-Colace) 1 tab BID PO 09/27/17 09:00 10/02/17 09:02 Sodium Chloride (NS Flush) 2 ml UNSCH PRN IV FLUSH FLUSH AFTER USING IV ACCESS 09/26/17 22:00 Sodium Chloride (NS Flush) 2 ml BID IV FLUSH 09/27/17 09:00 10/01/17 20:12 Ondansetron HCl (Zofran Inj) 4 mg Q6H PRN IV PUSH NAUSEA OR VOMITING 09/26/17 22:00 09/28/17 10:32 Miscellaneous Information 1 Q361D XX 09/26/17 22:00 Chlorhexidine Gluconate (Chlorhexidine 2% Cloth) Taper DAILY@04 TOP 09/27/17 04:00 09/23/18 03:59 Chlorhexidine Gluconate (Chlorhexidine 2% Cloth) 3 pack UNSCH PRN TOP HYGIENIC CARE 09/26/17 22:00 Magnesium Hydroxide (Milk Of Magnesia Liq) 30 ml Q12H PRN PO Mild constipation 09/26/17 22:00 Sennosides (Senokot) 17.2 mg Q12H PRN PO Moderate constipation 09/26/17 22:00 Bisacodyl (Dulcolax Supp) 10 mg DAILY PRN RECTAL SEVERE CONSITIPATION 09/26/17 22:00 Lactulose (Lactulose Liq) 30 ml DAILY PRN PO SEVERE CONSITIPATION 09/26/17 22:00 Ranolazine (Ranexa) 1,000 mg BID PO 09/27/17 09:00 10/02/17 09:01 Hydralazine HCl (Apresoline Inj) 10 mg Q6H PRN IV PUSH SBP >160 09/26/17 22:30 Fentanyl Citrate (fentaNYL INJ) 25 mcg Q2H PRN IV PUSH MOD/SEVERE PAIN 09/26/17 22:45 09/29/17 03:11 Nitroglycerin (Nitrolingual Sl Townley) 1 spray Q5M PRN SL CHEST PAIN 09/26/17 23:15 09/29/17 19:21 Finasteride (Proscar) 5 mg DAILY PO 09/27/17 09:00 10/02/17 09:01 Amlodipine Besylate (Norvasc) 2.5 mg DAILY PO 09/27/17 09:00 10/02/17 09:00 EZETIMIBE (Zetia) 10 mg DAILY PO 09/27/17 09:00 10/02/17 09:01 Furosemide (Lasix) 20 mg DAILY PO 09/27/17 09:00 10/02/17 09:01 Atorvastatin Calcium (Lipitor) 80 mg DAILY PO 09/27/17 09:00 10/02/17 09:02 Acetaminophen 100 ml @ 400 mls/hr Q6H PRN IV Temp > 100. 09/27/17 13:00 10/02/17 10:22 Ziprasidone (Geodon Inj) 10 mg Q6H PRN IM AGITATION 09/29/17 08:30 10/01/17 23:00 Aspirin (Aspirin Chew) 81 mg DAILY CHEW 09/30/17 10:00 10/02/17 09:01 Levetriacetam (Keppra) 500 mg Q12HR PO 10/01/17 09:00 10/02/17 09:00 Pantoprazole Sodium (Protonix) 40 mg DAILY PO 10/01/17 09:00 10/02/17 09:01 Albuterol/ Ipratropium (Duoneb Neb) 1 ampule Q2HR NEB PRN NEB SHORTNESS OF BREATH 10/01/17 07:15 10/01/17 20:43 Metoprolol Tartrate (Lopressor Inj) 5 mg Q6H PRN IV PUSH RAPID HEART RATE 10/01/17 08:00 10/01/17 13:41 Atenolol (Tenormin) 50 mg Q12HR PO 10/01/17 21:00 10/02/17 09:00 Isosorbide Mononitrate (Imdur) 60 mg BID PO 10/01/17 21:00 10/02/17 09:01 (Ai Mackenzie) Current Medications Current Medications Cefazolin Sodium/ Dextrose 50 ml @ 100 mls/hr STAT ONCE IV Last administered on 09/26/17 21:11; Start 09/26/17 at 21:00; Stop 09/26/17 at 21:29; Status DC Diphtheria/ Tetanus/Acell Pertussis (Boostrix Inj) 0.5 ml ONCE ONCE IM ; Start 09/26/17 at 21:00; Stop 09/26/17 at 21:01; Status DC Sodium Chloride (NS Flush) 2 ml UNSCH PRN IVF FLUSH AFTER USING IV ACCESS; Start 09/26/17 at 21:00; Stop 09/26/17 at 22:25; Status DC Nitroglycerin (Nitrostat Sl) 0.4 mg Q5M PRN SL CHEST PAIN Last administered on 10/02/17 08:30; Start 09/26/17 at 21:30 Nitroglycerin (Nitroglycerin 2% Oint) 1 inch ONCE ONCE TOPICAL Last administered on 09/26/17 21:32; Start 09/26/17 at 21:30; Stop 09/26/17 at 21 :31; Status DC Ondansetron HCl (Zofran Inj) 4 mg ONCE ONCE IV Last administered on 21:45; Start 09/26/17 at 21:30; Stop 09/26/17 at 21:31; Status DC Levetriacetam 100 ml @ 400 mls/hr BOLUS ONCE IV Last administered on 22:32; Start 09/26/17 at 22:00; Stop 09/26/17 at 22:14; Status DC Levetriacetam 500 mg/Sodium Chloride 105 ml @ 420 mls/hr Q12HR IV Last administered on 09/30/17at 20:36; Start 09/27/17 at 09:00; Stop 10/01/17 at 07:12 ; Status DC Sodium Chloride (NS Flush) 2 ml UNSCH PRN IV FLUSH FLUSH AFTER USING IV ACCESS ; Start 09/26/17 at 22:00; Stop 09/26/17 at 22:25; Status DC Sodium Chloride (NS Flush) 2 ml BID IV FLUSH ; Start 09/27/17 at 09:00; Stop 09/27/17 at 09:00; Status DC Levetriacetam 500 mg/Sodium Chloride 105 ml @ 400 mls/hr Q12H IV ; Start 09/26 at 22:00; Status UNV Lorazepam (Ativan Inj) 1 mg Q1H PRN IV PUSH SEIZURES Last administered on at 21:00; Start 09/26/17 at 22:00; Stop 10/02/17 at 12:39; Status DC Al Hydrox/Mg Hydrox/Simethicone (Mag-Al Plus Susp Liq) 30 ml Q6H PRN PO DYSPEPSIA; Start 09/26/17 at 22:00 Ondansetron HCl (Zofran Inj) 4 mg Q6H PRN IV PUSH NAUSEA OR VOMITING; Start at 22:00; Stop 09/26/17 at 22:25; Status DC Calcium Gluconate 1 gm/Sodium Chloride 110 ml @ 110 mls/hr UNSCH PRN IV SEE LABEL COMMENTS; Start 09/26/17 at 22:00 Potassium Chloride 100 ml @ 50 mls/hr UNSCH PRN IV POTASSIUM LESS THAN 4; Start 09/26/17 at 22:00 Magnesium Sulfate 2 gm/Sodium Chloride 104 ml @ 100 mls/hr UNSCH PRN IV MAGNESIUM LESS THAN 2; Start 09/26/17 at 22:00 Labetalol HCl (Trandate Inj) 10 mg Q1H PRN IV PUSH SYS BP GREATER THAN 170 MMHG ; Start 09/26/17 at 22:00; Stop 09/26/17 at 23:14; Status DC Clonidine (Catapres) 0.1 mg Q6H PRN PO SYS BP GREATER THAN 170 MMHG; Start at 22:00 Senna/Docusate Sodium (Ellie-Colace) 1 tab BID PO Last administered on 10/02/17at 09:02; Start 09/27/17 at 09:00 Magnesium Hydroxide (Milk Of Magnesia Liq) 30 ml Q12H PRN PO Mild constipation ; Start 09/26/17 at 22:00; Stop 09/26/17 at 22:25; Status DC Sennosides (Senokot) 17.2 mg Q12H PRN PO Moderate constipation; Start at 22:00; Stop 09/26/17 at 22:25; Status DC Bisacodyl (Dulcolax Supp) 10 mg DAILY PRN RECTAL SEVERE CONSITIPATION; Start 09/26/17 at 22:00; Stop 09/26/17 at 22:25; Status DC Lactulose (Lactulose Liq) 30 ml DAILY PRN PO SEVERE CONSITIPATION; Start 09/26 at 22:00; Stop 09/26/17 at 22:25; Status DC Levetriacetam 100 ml @ 400 mls/hr BOLUS ONCE IV ; Start 09/26/17 at 22:00; Stop 09/26/17 at 22:14; Status UNV Sodium Chloride 1,000 ml @ 70 mls/hr [id number] IV Last administered on 09/30/17at 14:57; Start 09/26/17 at 22:00; Stop 10/01/17 at 07:21; Status DC Sodium Chloride (NS Flush) 2 ml UNSCH PRN IV FLUSH FLUSH AFTER USING IV ACCESS ; Start 09/26/17 at 22:00 Sodium Chloride (NS Flush) 2 ml BID IV FLUSH Last administered on 10/03/17at 21: 00; Start 09/27/17 at 09:00 Famotidine (Pepcid Inj) 20 mg Q12HR IV PUSH ; Start 09/27/17 at 09:00; Stop at 09:00; Status DC Famotidine (Pepcid) 20 mg Q12HR PO ; Start 09/27/17 at 09:00; Stop 09/27/17 at 09:00; Status DC Ondansetron HCl (Zofran Inj) 4 mg Q6H PRN IV PUSH NAUSEA OR VOMITING Last administered on 09/28/17t 10:32; Start 09/26/17 at 22:00 Albuterol Sulfate (Albuterol Neb) 2.5 mg Q2HR NEB PRN INH SOB/WHEEZING; Start 09/26/17 at 22:00; Stop 10/01/17 at 07:32; Status DC Miscellaneous Information 1 Q361D XX ; Start 09/26/17 at 22:00 Chlorhexidine Gluconate (Chlorhexidine 2% Cloth) Taper DAILY@04 TOP ; Start at 04:00; Stop 09/23/18 at 03:59 Chlorhexidine Gluconate (Chlorhexidine 2% Cloth) 3 pack UNSCH PRN TOP HYGIENIC CARE; Start 09/26/17 at 22:00 Senna/Docusate Sodium (Ellie-Colace) 1 tab BID PO ; Start 09/27/17 at 09:00; Stop 09/27/17 at 09:00; Status DC Magnesium Hydroxide (Milk Of Magnesia Liq) 30 ml Q12H PRN PO Mild constipation ; Start 09/26/17 at 22:00 Sennosides (Senokot) 17.2 mg Q12H PRN PO Moderate constipation; Start at 22:00 Bisacodyl (Dulcolax Supp) 10 mg DAILY PRN RECTAL SEVERE CONSITIPATION; Start 09/26/17 at 22:00 Lactulose (Lactulose Liq) 30 ml DAILY PRN PO SEVERE CONSITIPATION; Start 09/26 at 22:00 Ranolazine (Ranexa) 1,000 mg BID PO Last administered on 10/02/17at 09:01; Start 09/27/17 at 09:00 Labetalol HCl (Trandate Inj) 10 mg Q6H PRN IV PUSH SBP >160 Last administered on 09/28/17 19:01; Start 09/26/17 at 22:30; Stop 10/01/17 at 08:14; Status DC Hydralazine HCl (Apresoline Inj) 10 mg Q6H PRN IV PUSH SBP >160; Start at 22:30 Fentanyl Citrate (fentaNYL INJ) 25 mcg Q2H PRN IV PUSH MOD/SEVERE PAIN Last administered on 09/29/17 03:11; Start 09/26/17 at 22:45; Status Future Hold Isosorbide Mononitrate (Imdur) 60 mg BID PO Last administered on 10/01/17at 08:05 ; Start 09/27/17 at 09:00; Stop 10/01/17 at 08:13; Status DC Nitroglycerin (Nitrostat Sl) 0.4 mg ONCE ONCE SL Last administered on 23:05; Start 09/26/17 at 23:00; Stop 09/26/17 at 23:12; Status DC Nitroglycerin (Nitrolingual Sl [place]) 1 spray Q5M PRN SL CHEST PAIN Last administered on 09/29/17 19:21; Start 09/26/17 at 23:15 Fentanyl Citrate (fentaNYL INJ) 50 mcg ONCE ONCE IV PUSH ; Start 09/27/17 at 02:45; Stop 09/27/17 at 02:47; Status DC Finasteride (Proscar) 5 mg DAILY PO Last administered on 10/02/17 09:01; Start 09/27/17 at 09:00 Pantoprazole Sodium (Protonix Inj) 40 mg Q24H IV PUSH Last administered on 06:10; Start 09/27/17 at 06:00; Stop 10/01/17 at 07:14; Status DC Amlodipine Besylate (Norvasc) 2.5 mg DAILY PO Last administered on 10/02/17 09: 00; Start 09/27/17 at 09:00; Status Future Hold EZETIMIBE (Zetia) 10 mg DAILY PO Last administered on 10/02/17 09:01; Start at 09:00 Furosemide (Lasix) 20 mg DAILY PO Last administered on 10/02/17 09:01; Start 09/27/17 at 09:00; Status Future hold Metoprolol Succinate (Toprol Xl) 100 mg DAILY PO Last administered on 09/30/17 08:09; Start 09/27/17 at 09:00; Stop 10/01/17 at 07:51; Status DC Atorvastatin Calcium (Lipitor) 80 mg DAILY PO Last administered on 10/02/17 09: 02; Start 09/27/17 at 09:00 Acetaminophen 100 ml @ 400 mls/hr Q6H PRN IV Temp > 100. Last administered on 10/02/17 10:22; Start 09/27/17 at 13:00 Metoprolol Tartrate (Lopressor Inj) 5 mg Q6H IV PUSH Last administered on 20:37; Start 09/27/17 at 14:00; Stop 10/01/17 at 07:50; Status DC Metoprolol Tartrate (Lopressor Inj) 5 mg STAT ONCE IV PUSH Last administered on 09/27/17 18:10; Start 09/27/17 at 18:15; Stop 09/27/17 at 18:16; Status DC Haloperidol Lactate (Haldol Inj) 3 mg Q4H PRN IV PUSH Agitation Last administered on 09/29/17 04:06; Start 09/28/17 at 16:00; Stop 09/29/17 at 08 :24; Status DC Ziprasidone (Geodon Inj) 10 mg Q6H PRN IM AGITATION Last administered on 22:16; Start 09/29/17 at 08:30; Stop 10/03/17 at 09:06; Status DC Potassium Chloride 100 ml @ 50 mls/hr BOLUS ONCE IV Last administered on 10:30; Start 09/29/17 at 09:00; Stop 09/29/17 at 10:59; Status DC Magnesium Sulfate/ Dextrose 100 ml @ 100 mls/hr ONCE ONCE IV Last administered on 09/29/17 09:35; Start 09/29/17 at 09:00; Stop 09/29/17 at 09 :59; Status DC Metoprolol Tartrate (Lopressor Inj) 5 mg Q5M PRN IV PUSH SEE LABEL COMMENTS Last administered on 09/30/17 03:30; Start 09/30/17 at 03:30; Stop 10/01/17 at 07: 57; Status DC Aspirin (Aspirin Chew) 81 mg DAILY CHEW Last administered on 10/02/17 09:01; Start 09/30/17 at 10:00 Levetriacetam (Keppra) 500 mg Q12HR PO Last administered on 10/02/17 22:11; Start 10/01/17 at 09:00; Status Future Hold Pantoprazole Sodium (Protonix) 40 mg DAILY PO Last administered on 10/02/17 09: 01; Start 10/01/17 at 09:00 Albuterol/ Ipratropium (Duoneb Neb) 1 ampule Q2HR NEB PRN NEB SHORTNESS OF BREATH Last administered on 1/4/18at 01:12; Start 10/01/17 at 07:15 Metoprolol Tartrate (Lopressor Inj) 5 mg Q6H PRN IV PUSH RAPID HEART RATE Last administered on 10/01/17at 13:41; Start 10/01/17 at 08:00; Stop 10/02/17 at 12:39; Status DC Metoprolol Succinate (Toprol Xl) 150 mg DAILY PO Last administered on 10/01/17at 08:07; Start 10/01/17 at 09:00; Stop 10/01/17 at 09:00; Status DC Atenolol (Tenormin) 100 mg Q12HR PO ; Start 10/01/17 at 09:00; Stop 10/01/17 at 10 :19; Status DC Isosorbide Mononitrate (Imdur) 120 mg BID PO ; Start 10/01/17 at 21:00; Stop 10/01 at 21:00; Status DC Isosorbide Mononitrate (Imdur) 60 mg ONCE ONCE PO ; Start 10/01/17 at 08:30; Stop 10/01/17 at 08:31; Status DC Atenolol (Tenormin) 50 mg Q12HR PO Last administered on 10/02/17at 09:00; Start 10/01/17 at 21:00; Stop 10/02/17 at 12:35; Status DC Isosorbide Mononitrate (Imdur) 60 mg BID PO Last administered on 10/02/17at 09:01 ; Start 10/01/17 at 21:00; Stop 10/02/17 at 12:35; Status DC Furosemide (Lasix Inj) 40 mg ONCE ONCE IV PUSH Last administered on 10/01/17at 11:04; Start 10/01/17 at 10:30; Stop 10/01/17 at 10:39; Status DC Albumin Human 100 ml @ 100 mls/hr NOW ONCE IV Last administered on 10/01/17at 11:04; Start 10/01/17 at 11:00; Stop 10/01/17 at 11:59; Status DC Lorazepam (Ativan) 0.25 mg NOW ONCE PO Last administered on 10/01/17at 13:42; Start 10/01/17 at 13:00; Stop 10/01/17 at 13:01; Status DC Piperacillin Sod/ Tazobactam Sod 100 ml @ 200 mls/hr Q6HR IV Last administered on 10/04/17at 05:46; Start 10/02/17 at 13:00 Atenolol (Tenormin) 25 mg Q12HR PO ; Start 10/02/17 at 21:00; Stop 10/03/17 at 08: 34; Status DC Isosorbide Mononitrate (Imdur) 30 mg BID PO ; Start 10/02/17 at 21:00 Lorazepam (Ativan Inj) 1 mg Q2H PRN IV PUSH SEIZURES; Start 10/02/17 at 12:45; Stop 10/03/17 at 09:06; Status DC Metoprolol Tartrate (Lopressor Inj) 2.5 mg Q6H PRN IV PUSH RAPID HEART RATE; Start 10/02/17 at 14:00 Albuterol/ Ipratropium (Duoneb Neb) 1 ampule Q6HR NEB NEB Last administered on 10/04/17at 03:50; Start 10/02/17 at 16:00 Albuterol Sulfate (Albuterol Neb) 2.5 mg Q2HR NEB PRN NEB WHEEZING; Start at 22:00 Furosemide (Lasix Inj) 20 mg ONCE ONCE IV PUSH Last administered on 10/03/17at 02:36; Start 10/03/17 at 02:15; Stop 10/03/17 at 02:16; Status DC Atenolol (Tenormin) 50 mg Q12HR PO ; Start 10/03/17 at 09:00; Status Future Hold Furosemide (Lasix Inj) 20 mg ONCE ONCE IV PUSH Last administered on 10/03/17at 09:53; Start 10/03/17 at 09:00; Stop 10/03/17 at 09:15; Status DC Methylprednisolone Sodium Succinate (SoluMEDROL INJ) 80 mg ONCE ONCE IV PUSH Last administered on 10/03/17at 09:52; Start 10/03/17 at 09:00; Stop 10/03/17 at 09: 15; Status DC Methylprednisolone Sodium Succinate (SoluMEDROL INJ) 40 mg Q12HR IV PUSH Last administered on 10/03/17at 21:51; Start 10/03/17 at 18:00 Budesonide/ Formoterol Fumarate (Symbicort 160-4.5 Mcg Inh) 2 puff Q12HR INH Last administered on 10/03/17at 21:50; Start 10/03/17 at 09:00 Lorazepam (Ativan Inj) 0.5 mg Q2H PRN IV PUSH SEIZURES; Start 10/03/17 at 10:45 Ziprasidone (Geodon Inj) 5 mg Q6H PRN IM AGITATION Last administered on at 01:18; Start 10/03/17 at 14:30 Levetriacetam 500 mg/Sodium Chloride 105 ml @ 420 mls/hr Q12HR IV Last administered on 10/03/17at 21:51; Start 10/03/17 at 21:00 Metoprolol Tartrate (Lopressor Inj) 5 mg Q6H IV PUSH Last administered on at 03:39; Start 10/03/17 at 21:00 (Krishna Head MD) Medical Decision Making MDM Remarks 87 y/o male with moderate right acute subdural hemorrhage with mild mass effect and midline shift. Follow-up CT scan is stable. Neuro examination stable. EEG abnormal due to moderate slowing w/encephalopathic process but no gross epileptiform features History of CAD with prior CABG and PTCA NSTEMI (Ai Mackenzie) Plan Plan Remarks cont current care ok to start low dose aspirin from NRS standpoint, cont therapy cont close neuro checks (Ai Mackenzie) Attending Statement Neuro. Continue neuro checks. Continue nonoperative treatment for SDH. Unchanged. Myocardial infarction. CAD with prior CABG and PTCA. Continue non interventional treatment. Started on ASA. Pulmonary. Continue aggressive pulmonary toilette, nasotracheal suction, and breathing treatments with nebulizers. Daily PT and OT Prior history of tobacco abuse Incentive spirometry every hour awake HTN. he has chronic angina and habitual use of NTG spray. Obtain NTG spray from pharmacy. NTG patch. Imdur 60 mg po bid , Ranexa 1000 mg po bid when able to swallow Metoprolol succinate 100 daily Norvasc 2.5 mg daily. Hyperlipidemia. Continue Statin/Zetia Troponin peaked at 11.[address] Chavez -> consulted. ASA 81 mg day cleared by Dr. Head 09/30/17 GERD, h/o cholecystectomy, appendectomy NPO. Bedside swallow eval and advanced diet when appropriate. Urinary retention. Patient had difficulty voiding. Urinary retention 1100, Howard placed. Renal function normal. Monitor BMP. Monitor electrolytes Proscar 5 mg po daily when able to take po. Renal. Continue to monitor closely urine output, BUN and creatinine Mild chronic anemia. Monitor. Does not require transfusion at this time. Endocrine. Continue to Monitor serial Acu checks and SSI as needed in detail ID Mild leukocytosis is likely reactive. Afebrile. Continue to monitor for signs of infection Continue Protonix for stress ulcer prophylaxis Continue Andrés hose and SCD's for DVT prophylaxis Discussed with Dr Mancilla The exam, history, and the medical decision-making described in the above note were completed with the assistance of the mid-level provider. I reviewed and agree with the findings presented. I attest that I had a [id number] encounter with the patient on the same day, and personally performed and documented my assessment and findings in the medical record. (Krishna Head MD) Ai Mackenzie Oct 02, 2017 11:40 Krishna Head MD Oct 04, 2017 10:05
--- NOTE | 2017-10-02 12:32 | HHI.CCPN ---
Subjective Remarks/Hospital Course 87-year-old male with past medical history of hypertension, hyperlipidemia, coronary artery disease with prior CABG and PCI with ongoing daily angina, carotid artery stenosis with bilat CEA, PAD, prior tobacco abuse who presents to [facility] after a fall that occurred the evening of 09/24/17. He hit his head on a wooden walkaway. There was no LOC and mental status was normal afterwards. He did have a R forehead laceration and immediately developed bruising of his forehead, R orbit, right lower face. Steristrips were applied to laceration by son-in-law. This afternoon pt became more confused and had slurred speech. EVAC was called and he was felt to have some mild tongue deviation to the left. He had about 45 seconds of left sided facial twitching that resolved spontaneously.He had several additional episodes of this while I was assessing him in the ED. He is alert and able to follow commands during this, appears c/w simple partial seizure. CT brain demonstrates Right sided subdural hematoma. The maximal thickness is 1.4 cm. He is on ASA/Plavix but did not take them today. Not on anticoagulation. He has h/ o CAD with prior stent and CABG that is not amenable to further intervention. He has ongoing angina and uses NTG spray numerous times a day. He was complaining of chest pressure and requesting NTG. He now states chest pain is resolved after NTG patch and NTG SL. 09/27: Chest pain has resolved. Lengthy discussion with his . Trop elevated , clearly NSTEMI. Well documented history of diffuse coronary artery disease. At this point he is not a candidate for anticoagulation or intervention due to acute subdural bleed. We will slow his heart rate with additional beta jennifer and try to ride this episode out. No perfect solutions but he is pain free now with heart rate control. 09/28: No chest pain for > 24 hours. More alert and conversant today. Will get PT to start working with him. 09/29: Agitated again last night. Did not respond to haloperidol, will try Geodon if recurs. Sleeping now. Receiving lopressor PO and IV to keep heart rate down. Episode SVT last night - family concerned because of recent enzyme spill. Again, inoperable diffuse CAD and chronic angina. 09/30: Placed on Precedex for agitation. Responds to Geodon. Episode of SVT overnight. Oriented to person and place. CT head 09/27: Prominent right subdural hemorrhage. Cleared by Dr. Head for ASA 81 mg day 10/01: Oriented to person and place. Intermittent agitation improving, off Precedex. Chest x-ray showed today shows left lower lobe infiltrate which may be chronic. CT of the head shows stable large right subdural hemorrhage with persistent 4 mm midline shift 10/02: More lethargic today, low grade fever. Hypotension receiving 1 L normal saline bolus. White count slightly increased chest x-ray showing infiltrates. Panculture Zosyn started Objective Vital Signs Date Time Temp Pulse Resp B/P (MAP) Pulse Ox O2 Delivery O2 Flow Rate FiO2 10/02/17 12:00 100.7 76 23 90/51 (64) 98 10/02/17 08:24 Nasal Cannula 3.00 Intake and Output 10/02/17 10/02/17 10/03/17 08:00 16:00 00:00 Output Total 500 ml Balance -500 ml Result Diagram: 10/02/17 0900 10/02/17 0900 Objective Remarks GENERAL: Elderly male, lethargic SKIN: Warm and dry. Steri-Strips in place on right forehead. Ecchymosis overlying right forehead, right orbit, right cheek HEAD: Normocephalic. EYES: Pupils equal and round, 2 mm reactive. Subconjunctival hemorrhage of lateral bulbar conjunctiva of the right eye. ENT: No nasal bleeding or discharge. NECK: Trachea midline. No JVD. Airway widely patent. CARDIOVASCULAR: Atrial fibrillation rate controlled. RBBB on monitor RESPIRATORY: No accessory muscle use. Breath sounds equal bilaterally. Few basilar crackles GASTROINTESTINAL: Abdomen soft, non-tender, nondistended. bowel sounds present. MUSCULOSKELETAL: Extremities without clubbing, cyanosis, or edema. Resolving ecchymosis over left anterior tibia. NEUROLOGICAL: Lethargic, Mild L facial droop. Moving all extremities. Following commands x4 but very weak A/P Problem List: (1) Subdural hematoma, post-traumatic ICD Code: S06.5X9A - Traumatic subdural hemorrhage with loss of consciousness of unspecified duration, initial encounter Status: Acute (2) CAD (coronary artery disease) ICD Code: I25.10 - Atherosclerotic heart disease of [place] coronary artery without angina pectoris Status: Chronic (3) HTN (hypertension) ICD Code: I10 - Essential (primary) hypertension Status: Chronic (4) HLD (hyperlipidemia) ICD Code: E78.5 - Hyperlipidemia, unspecified Status: Chronic (5) Simple partial seizures ICD Code: G40.109 - Localization-related (focal) (partial) symptomatic epilepsy and epileptic syndromes with simple partial seizures, not intractable, without status epilepticus Status: Acute (6) PAD (peripheral artery disease) ICD Code: I73.9 - Peripheral vascular disease, unspecified Status: Chronic (7) Lumbar spinal stenosis ICD Code: M48.06 - Spinal stenosis of lumbar region Status: Acute (8) BPH (benign prostatic hypertrophy) with urinary obstruction ICD Code: N13.8 - Other obstructive and reflux uropathy; N40.1 - Benign prostatic hyperplasia with urinary obstruction Status: Acute (9) S/P CABG x 2 ICD Code: Z95.1 - Presence of aortocoronary bypass graft Status: Chronic (10) GERD (gastroesophageal reflux disease) ICD Code: K21.9 - Gastro-esophageal reflux disease without esophagitis Status: Chronic Assessment and Plan NEURO: R subdural hematoma, maximum 1.4 cm, 2-3 mm shift Worsening encephalopathy Simple partial seizure s/p Fall Lumbar spinal stenosis Worsening encephalopathy. Most likely metabolic. Monitor neurocheck q1 hour s/p Keppra 1 gram IV and then 500 IV q12. EEG 09/[address] brain 09/27, 10/01/17 Stable SDH Fentanyl prn pain, Neurosurgery Dr. Grady, Dr. Head covering CT C-spine - negative fracture, CT face - neg fracture. Geodon for agitation, Ativan when necessary for seizures RESP: Prior history of tobacco abuse Probable HCAP Panculture, start Zosyn Incentive spirometry every hour awake, EzPAP q6 DuoNeb q6 PRN Aggressive pulmonary toilet CV: NSTEMI Hypotension CAD with prior CABG and PTCA Atrial fibrillation rate controlled HTN Hyperlipidemia Getting 1L NS bolus for hypotension Patient has chronic angina and habitual use of NTG spray. Resumed Imdur 60 mg po bid , Ranexa 1000 mg po bid. Metoprolol succinate 100 daily-changed to atenolol 50 mg BID. Norvasc 2.5 mg daily. ALL ANTIHYPERTENSIVES except beta blockers placed on hold due to hypotension Statin/Zetia Troponin peaked at 11.[address] Barretella Started ASA 81 mg day cleared by Dr. Head 09/30/17 Echo pending GI: GERD h/o cholecystectomy, appendectomy h/o inguinal hernia repair Diet per speech rec Continue PPI FEN/RENAL: BPH Urinary retention Patient had difficulty voiding. Howard placed. Renal function normal. Monitor BMP. Monitor electrolytes Proscar 5 mg po daily when able to take po. ID: Probable HCAP Sepsis Mild leukocytosis Panculture, start Zosyn UA negative. HEME: Mild chronic anemia Does not require transfusion at this time. He was not on any anticoagulant therapy. ENDO: Glucose is at target <185. PROPH: SCDs for DVT prophylaxis. Pharmacologic DVT prophylaxis is contraindicated due to acute subdural hematoma. Protonix 40 mg IV daily for stress ulcer prophylaxis and history of GERD on PPI at home. ACCESS: Peripheral IV providing adequate access at this time Overall impression: Medical management for angina/NSTEMI. Follow neurological exam closely. High risk patient for any procedure. Baby aspirin cleared by Dr. Head. Family requesting DC home. Await neurosurgery input, PT/OT input CCT 35 MIN I discussed extensively with Dr. bae. Patient has acute subdural hemorrhage and acute NV. Now complicated by probable pneumonia and early sepsis. Prognosis is guarded. I recommend continuing aggressive treatment, but I do not think he'll benefit from intubation and CPR. Encouraged family to consider DNR status Problem Qualifiers (1) Subdural hematoma, post-traumatic: Qualified Codes: S06.5X0A - Traumatic subdural hemorrhage without loss of consciousness, initial encounter (2) HTN (hypertension): Qualified Codes: I10 - Essential (primary) hypertension Alejandro Mancilla MD Oct 02, 2017 12:32
[2017-10-02] MEDS ORDERED: LORazepam 2 MG/ML VIAL IV PUSH PRN (12:45)
[2017-10-02] MEDS: RESP: ALBUTEROL 2.5 MG/IPRATROPIUM 0.5 MG NEB (PRN) NEB ×2 (13:30→21:46)
[2017-10-02] MEDS: PIPERACIL-TAZO 4.5 GM PREMIX 100 ML IV SCH ×3 (13:35→23:49)
[2017-10-02] MEDS ORDERED: METOPROLOL TARTRATE 5 MG/5 ML VIAL IV PUSH PRN (14:00)
--- NOTE | 2017-10-02 16:32 | ECHRPT ---
Indication: HEART FAILURE CONCLUSIONS Normal left ventricular size. Wall thickness is measured at the upper limits of normal. The left ventricular systolic function is low normal with an estimated ejection fraction in the rang e of 50%. The left atrial size is xyhm-fk-ulzsaounkz dilated. Moderate thickening of the mitral valve leaflets. Mitral annular calcification is present. Moderate mitral valve regurgitation. Aortic valve sclerosis is present. Mild aortic valve regurgitation. BP: 135 / 60 HR: 84 Rhythm: MEASUREMENTS (Male / Female) Normal Values Technical Quality:Good 2D ECHO LV Diastolic Diameter PLAX 5.0 cm 4.2 - 5.9 / 3.9 - 5.3 cm LV Systolic Diameter PLAX 4.2 cm IVS Diastolic Thickness 1.2 cm 0.6 - 1.0 / 0.6 - 0.9 cm LVPW Diastolic Thickness 0.7 cm 0.6 - 1.0 / 0.6 - 0.9 cm LV Relative Wall Thickness 0.4 LA Systolic Diameter LX 4.2 cm 3.0 - 4.0 / 2.7 - 3.8 cm LA Volume Index 66.5 cm/m 16 - 28 cm/m M-MODE Aortic Root Diameter MM 3.4 cm AV Cusp Separation MM 2.0 cm DOPPLER AI Peak Velocity 288.0 cm/s AI Peak Gradient 33.2 mmHg AI Pressure Half Time 365.0 ms MV Peak Velocity 131.0 cm/s MV Peak Gradient 6.9 mmHg MV Mean Velocity 65.4 cm/s MV Mean Gradient 2.0 mmHg MR Peak Velocity 513.0 cm/s MR Peak Gradient 105.3 mmHg Mitral E Point Velocity 65.6 cm/s Mitral A Point Velocity 56.8 cm/s Mitral E to A Ratio 1.2 TR Peak Velocity 319.0 cm/s TR Peak Gradient 40.7 mmHg FINDINGS LEFT VENTRICLE Normal left ventricular size. Wall thickness is measured at the upper limits of normal. The left ventricular systolic function is low normal with an estimated ejection fraction in the rang e of 50%. RIGHT VENTRICLE Normal right ventricular size and systolic function. LEFT ATRIUM The left atrial size is myve-fv-somzcdiaor dilated. RIGHT ATRIUM The right atrial size is normal. ATRIAL SEPTUM Normal atrial septal thickness without atrial level shunting by limited color doppler interrogation. AORTA The aortic root and proximal ascending aorta are normal in size on limited imaging. MITRAL VALVE Moderate thickening of the mitral valve leaflets. Mitral annular calcification is present. Moderate mitral valve regurgitation. AORTIC VALVE Aortic valve sclerosis is present. Mild aortic valve regurgitation. TRICUSPID VALVE Structurally normal tricuspid valve. No tricuspid valve stenosis or regurgitation. PULMONARY VALVE The pulmonary valve is not well visualized. VESSELS The inferior vena cava is normal in size. PERICARDIUM No pericardial effusion. Alessio Fernandez MD (Electronically Signed) Final Date:02 October 2017 16:31
[2017-10-02] MEDS: RESP: ALBUTEROL 2.5 MG/IPRATROPIUM 0.5 MG NEB (SCH) NEB (19:57)
[2017-10-02] MEDS: ISOSORBIDE MONONITRATE 30 MG TAB PO SCH ×2 (21:00→21:20)
[2017-10-02] MEDS: ATENOLOL 25 MG TAB PO SCH ×2 (21:00→21:21)
[2017-10-02] MEDS ORDERED: RESP: ALBUTEROL 2.5 MG/3 ML NEB (PRN) NEB (22:00)
[2017-10-02] MEDS: ZIPRASIDONE MESYLATE 20 MG VIAL IM PRN (22:16)
[2017-10-03] VITALS (14 sets, daily range): BP systolic 118–161; BP diastolic 58–95; PULSE 76–110; RESP 22–28; TEMP 96.8–98.5; O2SAT 85–97
[2017-10-03] MEDS: RESP: ALBUTEROL 2.5 MG/IPRATROPIUM 0.5 MG NEB (PRN) NEB (01:12)
[2017-10-03] MEDS ORDERED: FUROSEMIDE 20 MG/2 ML VIAL IV PUSH ONE ×2 (02:15→09:00)
[2017-10-03] MEDS: RESP: ALBUTEROL 2.5 MG/IPRATROPIUM 0.5 MG NEB (SCH) NEB ×4 (03:05→19:35)
[2017-10-03] MEDS: CHLORHEXIDINE GLUCONATE 2 % 1 PACK (2 CLOTHS) TOP SCH (04:00)
[2017-10-03] MEDS: PIPERACIL-TAZO 4.5 GM PREMIX 100 ML IV SCH ×3 (05:35→17:42)
--- NOTE | 2017-10-03 06:07 | RADRPT ---
EXAM DATE/TIME: 10/03/2017 04:45 [facility] COMPARISON: CHEST SINGLE AP, October 02, 2017, 8:26. INDICATIONS : Respiratory disease. MEDICAL HISTORY : Cardiovascular disease. Hypertension. SURGICAL HISTORY : Carotid endarterectomy. CABG. Appendectomy. ENCOUNTER: Subsequent ACUITY: 1 week PAIN SCORE: Non-responsive. LOCATION: Bilateral chest FINDINGS: A single portable frontal view of the chest is oblique towards the patient's left. The chin soft tiss ues obscure the left apex. Heart is at the upper limits of normal in terms of size. Small left pleura l effusion with left lower lobe infiltrate is unchanged. Right basilar consolidation is stable. CONCLUSION: Stable exam with left effusion and bibasilar infiltrates. Vaughn Rust Jr., MD on October 03, 2017 at 6:05 Board Certified Radiologist. This report was verified electronically.
[2017-10-03 06:28] LABS: ALBUMIN 2.6 GM/DL (3.4-5.0); ALKALINE PHOSPHATASE 184 U/L (45-117); ALT (GPT) 166 U/L (12-78); AST (GOT) 121 U/L (15-37); BICARBONATE 30.8 MEQ/L (21.0-32.0); BLOOD UREA NITROGEN 24 MG/DL (7-18); CALCIUM 8.5 MG/DL (8.5-10.1); CHLORIDE 104 MEQ/L (98-107); CREATININE 1.07 MG/DL (0.60-1.30); GLOMERULAR FILTRATION RATE 66 ML/MIN (>89); GLUCOSE,RANDOM 140 MG/DL (74-106); MAGNESIUM 2.3 MG/DL (1.5-2.5); SODIUM (NA) 142 MEQ/L (136-145); TOTAL BILIRUBIN ADULT 1.3 MG/DL (0.2-1.0); TOTAL PROTEIN 7.3 GM/DL (6.4-8.2)
[2017-10-03 07:19] LABS: AUTOMATED NEUTROPHIL # 11.9 TH/MM3 (1.8-7.7); BASOPHIL % 0.3 % (0.0-2.0); EOSINOPHIL # 0.1 TH/MM3 (0-0.4); EOSINOPHIL % 0.4 % (0.0-4.0); HEMATOCRIT 38.3 % (39.0-51.0); HEMOGLOBIN 12.2 GM/DL (13.0-17.0); LYMPH % 4.6 % (9.0-44.0); LYMPHOCYTE # 0.6 TH/MM3 (1.0-4.8); MEAN CELL VOLUME 82.8 FL (80.0-100.0); MEAN CORPUSCULAR HEMOGLOBIN 26.4 PG (27.0-34.0); MEAN CORPUSCULAR HGB CONC 31.9 % (32.0-36.0); MEAN PLATELET VOLUME 7.7 FL (7.0-11.0); MONO % 8.3 % (0.0-8.0); MONOCYTE # 1.1 TH/MM3 (0-0.9); NEUT % 86.4 % (16.0-70.0); PLATELET COUNT 178 TH/MM3 (150-450); RED BLOOD COUNT 4.63 MIL/MM3 (4.50-5.90); WHITE BLOOD COUNT 13.7 TH/MM3 (4.0-11.0)
[2017-10-03 08:56] LABS: BANDS 1 % (0-6); LYMPHOCYTES 3 % (9-44); METAMYELOCYTES 1 % (0-1); MONOCYTES 10 % (0-8); NEUTROPHIL # MANUAL DIFF 11.9 TH/MM3 (1.8-7.7); OVALOCYTES 1+ (NORMAL); POLYS (SEG NEUTROPHILS) 85 % (16-70)
[2017-10-03] MEDS: ISOSORBIDE MONONITRATE 30 MG TAB PO SCH ×2 (09:00→21:00)
[2017-10-03] MEDS: BUDESONIDE-FORMOTEROL 160/4.5 MCG INHALER INH SCH ×2 (09:00→21:50)
[2017-10-03] MEDS: SODIUM CHLORIDE 0.9% FLUSH 10 ML FLUSH IV FLUSH SCH ×2 (09:00→21:00)
[2017-10-03] MEDS: ATORVASTATIN 80 MG TAB PO SCH (09:00)
[2017-10-03] MEDS: PANTOPRAZOLE SOD 40 MG DELAYED RELEASE TAB PO SCH (09:00)
[2017-10-03] MEDS: FINASTERIDE 5 MG TAB PO SCH (09:00)
[2017-10-03] MEDS ORDERED: methylPREDNISolone SOD SUCC 125 MG/2 ML VIAL IV PUSH ONE (09:00)
[2017-10-03] MEDS: EZETIMIBE 10 MG TAB PO SCH (09:00)
[2017-10-03] MEDS ORDERED: ATENOLOL 25 MG TAB PO SCH (09:00)
[2017-10-03] MEDS: RANOLAZINE 500 MG EXTENDED RELEASE TAB PO SCH ×2 (09:00→21:00)
[2017-10-03] MEDS: levETIRAcetam 500 MG TAB PO SCH (09:00)
[2017-10-03] MEDS: DOCUSATE SODIUM 50 MG/SENNA 8.6 MG TAB PO SCH ×2 (09:00→21:00)
[2017-10-03] MEDS: ASPIRIN 81 MG CHEW TAB CHEW SCH (09:00)
--- NOTE | 2017-10-03 09:13 | HHI.CCPN ---
Subjective Remarks/Hospital Course 87-year-old male with past medical history of hypertension, hyperlipidemia, coronary artery disease with prior CABG and PCI with ongoing daily angina, carotid artery stenosis with bilat CEA, PAD, prior tobacco abuse who presents to [facility] [place] [facility] after a fall that occurred the evening of 09/24/17. He hit his head on a wooden walkaway. There was no LOC and mental status was normal afterwards. He did have a R forehead laceration and immediately developed bruising of his forehead, R orbit, right lower face. Steristrips were applied to laceration by son-in-law. This afternoon pt became more confused and had slurred speech. EVAC was called and he was felt to have some mild tongue deviation to the left. He had about 45 seconds of left sided facial twitching that resolved spontaneously.He had several additional episodes of this while I was assessing him in the ED. He is alert and able to follow commands during this, appears c/w simple partial seizure. CT brain demonstrates Right sided subdural hematoma. The maximal thickness is 1.4 cm. He is on ASA/Plavix but did not take them today. Not on anticoagulation. He has h/ o CAD with prior stent and CABG that is not amenable to further intervention. He has ongoing angina and uses NTG spray numerous times a day. He was complaining of chest pressure and requesting NTG. He now states chest pain is resolved after NTG patch and NTG SL. 09/27: Chest pain has resolved. Lengthy discussion with his . Trop elevated , clearly NSTEMI. Well documented history of diffuse coronary artery disease. At this point he is not a candidate for anticoagulation or intervention due to acute subdural bleed. We will slow his heart rate with additional beta jennifer and try to ride this episode out. No perfect solutions but he is pain free now with heart rate control. 09/28: No chest pain for > 24 hours. More alert and conversant today. Will get PT to start working with him. 09/29: Agitated again last night. Did not respond to haloperidol, will try Geodon if recurs. Sleeping now. Receiving lopressor PO and IV to keep heart rate down. Episode SVT last night - family concerned because of recent enzyme spill. Again, inoperable diffuse CAD and chronic angina. 09/30: Placed on Precedex for agitation. Responds to Geodon. Episode of SVT overnight. Oriented to person and place. CT head 09/27: Prominent right subdural hemorrhage. Cleared by Dr. Head for ASA 81 mg day 10/01: Oriented to person and place. Intermittent agitation improving, off Precedex. Chest x-ray showed today shows left lower lobe infiltrate which may be chronic. CT of the head shows stable large right subdural hemorrhage with persistent 4 mm midline shift 10/02: More lethargic today, low grade fever. Hypotension receiving 1 L normal saline bolus. White count slightly increased chest x-ray showing infiltrates. Panculture Zosyn started 10/03: Lethargic, chest exam reveals bilateral wheezing. Received Lasix at about 2 AM today, additional 20 mg of Lasix ordered. Start IV Solu-Medrol 60 mg 1 and 40 every 12 along with Symbicort and scheduled DuoNeb. Continue Zosyn. Prognosis guarded, discussed with son -in -law Dr. Gonzales. Echo shows EF 50%, but with moderate MR, actual EF is most likely less likely Objective Vital Signs Date Time Temp Pulse Resp B/P (MAP) Pulse Ox O2 Delivery O2 Flow Rate FiO2 10/03/17 08:00 85 10/03/17 08:00 98.1 24 144/65 (91) 93 10/03/17 07:00 Nasal Cannula 3.00 Intake and Output 10/03/17 10/03/17 10/04/17 08:00 16:00 00:00 Intake Total 250 ml Output Total 1000 ml Balance -750 ml Result Diagram: 10/03/17 0530 10/03/17 0530 Objective Remarks GENERAL: Elderly male, lethargic SKIN: Warm and dry. Steri-Strips in place on right forehead. Ecchymosis overlying right forehead, right orbit, right cheek HEAD: Normocephalic. EYES: Pupils equal and round, 2 mm reactive. Subconjunctival hemorrhage of lateral bulbar conjunctiva of the right eye. ENT: No nasal bleeding or discharge. NECK: Trachea midline. No JVD. Airway widely patent. CARDIOVASCULAR: Atrial fibrillation rate controlled. RBBB on monitor RESPIRATORY: + ve accessory muscle use. Breath sounds equal bilaterally, basilar crackles and bilateral wheezing GASTROINTESTINAL: Abdomen soft, non-tender, nondistended. bowel sounds present. MUSCULOSKELETAL: Extremities without clubbing, cyanosis, or edema. Resolving ecchymosis over left anterior tibia. NEUROLOGICAL: Lethargic, Mild L facial droop. Moving all extremities. Following commands x4 but remains extremely weak A/P Problem List: (1) Subdural hematoma, post-traumatic ICD Code: S06.5X9A - Traumatic subdural hemorrhage with loss of consciousness of unspecified duration, initial encounter Status: Acute (2) CAD (coronary artery disease) ICD Code: I25.10 - Atherosclerotic heart disease of [place] coronary artery without angina pectoris Status: Chronic (3) HTN (hypertension) ICD Code: I10 - Essential (primary) hypertension Status: Chronic (4) HLD (hyperlipidemia) ICD Code: E78.5 - Hyperlipidemia, unspecified Status: Chronic (5) Simple partial seizures ICD Code: G40.109 - Localization-related (focal) (partial) symptomatic epilepsy and epileptic syndromes with simple partial seizures, not intractable, without status epilepticus Status: Acute (6) PAD (peripheral artery disease) ICD Code: I73.9 - Peripheral vascular disease, unspecified Status: Chronic (7) Lumbar spinal stenosis ICD Code: M48.06 - Spinal stenosis of lumbar region Status: Acute (8) BPH (benign prostatic hypertrophy) with urinary obstruction ICD Code: N13.8 - Other obstructive and reflux uropathy; N40.1 - Benign prostatic hyperplasia with urinary obstruction Status: Acute (9) S/P CABG x 2 ICD Code: Z95.1 - Presence of aortocoronary bypass graft Status: Chronic (10) GERD (gastroesophageal reflux disease) ICD Code: K21.9 - Gastro-esophageal reflux disease without esophagitis Status: Chronic Assessment and Plan NEURO: R subdural hematoma, maximum 1.4 cm, 2-3 mm shift Worsening encephalopathy Simple partial seizure s/p Fall Lumbar spinal stenosis Worsening encephalopathy. Most likely metabolic. Patient remains lethargic Monitor neurocheck q1 hour s/p Keppra 1 gram IV and then 500 IV q12. EEG 09/[address] brain 09/27, 10/01/17 Stable SDH Fentanyl prn pain, Geodon for agitation, Ativan when necessary for seizures Neurosurgery Dr. Grady, Dr. Head covering CT C-spine - negative fracture, CT face - neg fracture. RESP: Respiratory insufficiency COPD exacerbation Prior history of tobacco abuse Probable HCAP Continue Zosyn Start IV Solu Medrol 60 mg 1 and 40 every 12, start Symbicort Incentive spirometry every hour awake, EzPAP q6 DuoNeb q6 scheduled and PRN Aggressive pulmonary toilet CV: NSTEMI Hypotension Congestive heart failure CAD with prior CABG and PTCA Atrial fibrillation rate controlled HTN Hyperlipidemia Resume IV Lasix, EF 50%, probably less with moderate MR Patient has chronic angina and habitual use of NTG spray. ALL ANTIHYPERTENSIVES except beta blockers placed on hold due to hypotension ( Imdur 60 mg po bid , Ranexa 1000 mg po bid. Atenolol 50 mg BID. Norvasc 2.5 mg daily) Statin/Zetia Troponin peaked at 11.[address] Chavez ASA 81 mg day cleared by Dr. Head 09/30/17 GI: GERD h/o cholecystectomy, appendectomy h/o inguinal hernia repair Diet per speech rec Continue PPI FEN/RENAL: BPH Urinary retention Patient had difficulty voiding. Howard placed. Renal function normal. Monitor BMP. Monitor electrolytes Proscar 5 mg po daily when able to take po. ID: HCAP Sepsis Mild leukocytosis Continue Zosyn, follow cultures UA negative. HEME: Mild chronic anemia Does not require transfusion at this time. He was not on any anticoagulant therapy. ENDO: Glucose is at target <185. PROPH: SCDs for DVT prophylaxis. Pharmacologic DVT prophylaxis is contraindicated due to acute subdural hematoma. Protonix 40 mg IV daily for stress ulcer prophylaxis and history of GERD on PPI at home. ACCESS: Peripheral IV providing adequate access at this time Overall impression: Medical management for angina/NSTEMI. Follow neurological exam closely. High risk patient for any procedure. Baby aspirin cleared by Dr. Head. Family requesting DC home. Await neurosurgery input, PT/OT input CCT 35 MIN Patient has acute subdural hemorrhage and acute [place]. Now complicated by probable pneumonia and early sepsis. Developing CHF Prognosis is guarded. I recommend continuing aggressive treatment, DNR now. If no improvement in next few days consider comfort measures Problem Qualifiers (1) Subdural hematoma, post-traumatic: Qualified Codes: S06.5X0A - Traumatic subdural hemorrhage without loss of consciousness, initial encounter (2) HTN (hypertension): Qualified Codes: I10 - Essential (primary) hypertension Alejandro Mancilla MD Oct 03, 2017 09:13
--- NOTE | 2017-10-03 09:18 | HHI.NSPN ---
(JaylaPower) History Chief Complaint: Unable to obtain due to patient's clinical condition. (Steve Dickersontorito DUNNE) Interval History 09/27: This is an 87-year-old gentleman who apparently fell on 2016 and suffered a right forehead area laceration which was Steri-Stripped at home. Yesterday afternoon he started noticing slurred speech and also was more confused and noticed a left-sided facial twitching which resolved spontaneously. He was brought into the emergency room and work-up including a CT scan of the head revealed a right hemisphere acute subdural hemorrhage, maximal thickness in the middle fossa 1.4 cm, and lesser thickness in the frontoparietal area. There is a mild midline shift of about 3 mm right-to- left. The patient was started on Keppra and overnight did not have any further seizures. He is lethargic but arouses and verbalizes his name and follows simple commands. A follow-up CT scan this morning does not reveal any progression of this right-sided subdural hemorrhage and no re-bleed is noted. CT of the cervical spine is negative for any fractures with positive multilevel degenerative changes. 09/28: When seen this morning the patient has his eyes closed but opens them to voice. His speech is essentially clear and he interacts. After answering the first orientation question he adds "for the 50th time" to his response to the remainder of the questions. He does say he has a slight headache but had no other complaints. He moves all extremities without any difficulty and his muscle strength and sensation are normal. Nursing states that the patient is doing better than yesterday. Nursing also reports that the patient does become agitated and curses at staff because he wants to drink but failed his swallow exam yesterday. He is to have another swallow evaluation today. 09/29: The patient is asleep this morning when seen. He does briefly arouse to voice and answers questions and interacts, but quickly dozes back off. He is noted to have multiple unifocal PVCs. Nursing reports that the patient was up all night and did require haloperidol due to agitation. This morning Nursing spoke with the Cable Television Technician who changed the patient to ziprasidone. She reported that the nightclub manager reported the patient choked and coughed while drinking water but this morning she reported the patient did well with Ensure. Therefore she was going to thicken his thin liquids. She also reported that at shift change last night the patient went into ventricular tachycardia and the patient' s Hose Maker had been consulted. He is receiving oral and intravenous metoprolol due to the tachycardia. He does deny any headache, dizziness or nausea. 09/30/17: neuro check stable overnight, awake, alert, moves all four extremities. 10/01: This morning the patient was seen in the [facility] with Physical Therapy using a wheeled walker for ambulation. He was bent over and had a shuffling gait. When seen he was in the chair and readily interacted. He denied any headache, dizziness or nausea. 10/02/17: drowsy following sedation for restless last night. follows simple commands. 10/03: Patient with eyes open and appears in moderate distress due to tachypnea. Nursing reports that the patient was made a DNR yesterday by the family and that the Cable Television Technician has seen the patient and ordered medications and treatments for the patient. Nursing reported that yesterday the patient did get up and ambulate to the bathroom with assistance. He looks much worse today per Nursing. The patient did follow commands to squeeze this practitioner's hands but did not follow any other commands. He only moved the lower extremities to noxious stimulation. (Power Dickerson) System Review Comments Unable to obtain due to patient's clinical condition. (Power Dickerson) Exam Results 10/01/17 10/01/17 10/02/17 10/02/17 10/03/17 10/03/17 05:59 17:59 05:59 17:59 05:59 17:59 Intake Total 800 ml 320 ml 400 ml 200 ml 1100 ml 150 ml Output Total 1075 ml 2125 ml 500 ml 350 ml 1000 ml Balance -275 ml 320 ml -1725 ml -300 ml 750 ml -850 ml Intake Oral 800 ml 400 ml 500 ml 50 ml IV Total 320 ml 200 ml 600 ml 100 ml Output Urine Total 1075 ml 2125 ml 500 ml 350 ml 1000 ml Bladder Scan Volume Amount 660 ml # Bowel Movements 1 1 0 1 0 Vital Signs Date Time Temp Pulse Resp B/P (MAP) Pulse Ox O2 Delivery O2 Flow Rate FiO2 10/03/17 08:00 85 10/03/17 08:00 98.1 87 24 144/65 (91) 93 10/03/17 07:00 93 Nasal Cannula 3.00 10/03/17 06:00 82 10/03/17 04:00 82 10/03/17 04:00 98.1 82 28 161/68 (99) 95 10/03/17 02:00 80 10/03/17 00:00 76 10/03/17 00:00 96.8 76 26 118/58 (78) 94 10/02/17 22:00 74 10/02/17 20:00 97.6 64 22 126/59 (81) 99 10/02/17 20:00 64 10/02/17 19:58 100 Nasal Cannula 3.00 10/02/17 19:00 97 Nasal Cannula 3.00 10/02/17 18:00 63 10/02/17 16:00 64 10/02/17 16:00 98.0 68 18 136/60 (85) 98 10/02/17 14:00 68 10/02/17 12:00 100.7 76 23 90/51 (64) 98 10/02/17 12:00 66 10/02/17 10:00 70 10/02/17 08:24 94 Nasal Cannula 3.00 10/02/17 08:00 80 10/02/17 08:00 97.9 86 22 130/60 (83) 97 10/02/17 07:00 92 Nasal Cannula 3.00 10/02/17 06:00 79 10/02/17 04:00 98.4 79 24 141/71 (94) 97 10/02/17 04:00 79 10/02/17 00:00 72 10/02/17 00:00 98.9 72 24 102/58 (73) 99 10/01/17 22:00 77 10/01/17 20:00 98.0 100 23 155/72 (99) 100 10/01/17 19:50 95 Nasal Cannula 3.00 10/01/17 19:33 Nasal Cannula 3.00 10/01/17 18:00 95 10/01/17 16:00 120 10/01/17 16:00 98.0 120 24 118/76 (90) 97 10/01/17 14:00 98 10/01/17 12:00 98.1 96 21 101/60 (74) 95 10/01/17 12:00 96 10/01/17 10:18 96 Nasal Cannula 2.00 10/01/17 10:00 84 10/01/17 08:00 100 10/01/17 08:00 98.4 100 22 135/60 (85) 98 10/01/17 07:00 96 Nasal Cannula 2.00 10/01/17 06:00 95 10/01/17 04:00 88 10/01/17 04:00 98.9 96 20 116/68 (84) 99 10/01/17 02:00 100 10/01/17 00:00 103 10/01/17 00:00 98.9 103 20 125/79 (94) 93 09/30/17 22:00 99 09/30/17 20:00 88 09/30/17 20:00 98.9 88 20 123/67 (85) 97 09/30/17 19:46 97 Nasal Cannula 2.00 09/30/17 19:00 97 Nasal Cannula 2.00 09/30/17 18:00 90 09/30/17 16:00 100 09/30/17 16:00 98.8 100 24 134/79 (97) 99 09/30/17 14:00 75 09/30/17 12:00 90 09/30/17 12:00 98.3 90 22 112/59 (76) 99 09/30/17 10:00 89 (Power Dickerson) Physical Examination GENERAL: Eyes open, moderate distress due to tachypnea. HEENT: Right-sided facial & periorbital ecchymosis evolving, abrasion/ laceration to right lateral orbit. Face appears symmetrical. PERRLA 3 mm brisk. MUSCULOSKELETAL: No evident clubbing or deformity. NEUROLOGICAL: Awake & interacts to command. Nonverbal. Follows some simple commands. Did squeeze this practitioner's hands to command, no other extremity movement to command. Did withdraw BLE to noxious stimulation. (Power Dickerson) Lab, Micro, Other Results Recent Impressions Chest X-Ray 10/03/17 0600 Signed Impressions: Service Date/Time: September 04:45 - CONCLUSION: Stable exam with left effusion and bibasilar infiltrates. Vaughn Rust Jr., MD Chest X-Ray 10/02/17 0000 Signed Impressions: Service Date/Time: Monday, October 02, 2017 08:26 - CONCLUSION: 1. Slight interval worsening of the scattered patchy infiltrates bilaterally. 2. Small left pleural effusion. Marlon Mann MD Head CT 10/01/17 0600 Signed Impressions: Service Date/Time: Sunday, October 01, 2017 04:19 - CONCLUSION: 1. Stable large right subdural hematoma with 4 mm of midline shift. Vaughn Rust Jr., MD Chest X-Ray 10/01/17 0600 Signed Impressions: Service Date/Time: Sunday, October 01, 2017 04:40 - CONCLUSION: New left lower lobe infiltrate. Vaughn Rust Jr., MD Laboratory Tests Test 10/01/17 07:15 10/01/17 19:38 10/02/17 09:00 10/03/17 05:30 White Blood Count 9.0 TH/MM3 11.6 TH/MM3 13.7 TH/MM3 Red Blood Count 3.96 MIL/MM3 4.01 MIL/MM3 4.63 MIL/MM3 Hemoglobin 10.7 GM/DL 10.7 GM/DL 12.2 GM/DL Hematocrit 32.3 % 32.7 % 38.3 % Mean Corpuscular Volume 81.5 FL 81.5 FL 82.8 FL Mean Corpuscular Hemoglobin 26.9 PG 26.7 PG 26.4 PG Mean Corpuscular Hemoglobin Concent 33.0 % 32.8 % 31.9 % Red Cell Distribution Width 16.6 % 16.9 % 17.0 % Platelet Count 136 TH/MM3 173 TH/MM3 178 TH/MM3 Mean Platelet Volume 7.4 FL 7.7 FL 7.7 FL Neutrophils (%) (Auto) 79.7 % 84.9 % 86.4 % Lymphocytes (%) (Auto) 9.8 % 6.3 % 4.6 % Monocytes (%) (Auto) 8.5 % 8.2 % 8.3 % Eosinophils (%) (Auto) 1.3 % 0.3 % 0.4 % Basophils (%) (Auto) 0.7 % 0.3 % 0.3 % Neutrophils # (Auto) 7.2 TH/MM3 9.9 TH/MM3 11.9 TH/MM3 Lymphocytes # (Auto) 0.9 TH/MM3 0.7 TH/MM3 0.6 TH/MM3 Monocytes # (Auto) 0.8 TH/MM3 0.9 TH/MM3 1.1 TH/MM3 Eosinophils # (Auto) 0.1 TH/MM3 0.0 TH/MM3 0.1 TH/MM3 Basophils # (Auto) 0.1 TH/MM3 0.0 TH/MM3 0.0 TH/MM3 CBC Comment DIFF FINAL DIFF FINAL AUTO DIFF Differential Comment Prothrombin Time 11.6 SEC Prothromb Time International Ratio 1.1 RATIO Blood Urea Nitrogen 15 MG/DL 23 MG/DL 24 MG/DL Creatinine 0.69 MG/DL 0.99 MG/DL 1.07 MG/DL Random Glucose 118 MG/DL 122 MG/DL 140 MG/DL Total Protein 6.0 GM/DL 6.8 GM/DL 7.3 GM/DL Albumin 2.0 GM/DL 2.6 GM/DL 2.6 GM/DL Calcium Level 7.8 MG/DL 8.2 MG/DL 8.5 MG/DL Magnesium Level 1.9 MG/DL 2.0 MG/DL 2.1 MG/DL 2.3 MG/DL Alkaline Phosphatase 136 U/L 173 U/L 184 U/L Aspartate Amino Transf (AST/SGOT) 181 U/L 151 U/L 121 U/L Alanine Aminotransferase (ALT/SGPT) 170 U/L 180 U/L 166 U/L Total Bilirubin 0.8 MG/DL 1.4 MG/DL 1.3 MG/DL Sodium Level 141 MEQ/L 141 MEQ/L 142 MEQ/L Potassium Level 4.1 MEQ/L 3.8 MEQ/L 4.0 MEQ/L 4.3 MEQ/L Chloride Level 107 MEQ/L 104 MEQ/L 104 MEQ/L Carbon Dioxide Level 29.4 MEQ/L 30.2 MEQ/L 30.8 MEQ/L Anion Gap 5 MEQ/L 7 MEQ/L 7 MEQ/L Estimat Glomerular Filtration Rate 109 ML/MIN 72 ML/MIN 66 ML/MIN Hematology Comments (Power Dickerson) Medical Decision Making Impression and Plan Impression: Moderate right hemisphere acute subdural hemorrhage with mild mass effect and midline shift. Follow-up CT scan is stable with no further progression of this subdural hemorrhage overnight. This is an elderly patient with significant medical co-morbidities, in particular cardiac and peripheral vascular disease and a poor baseline functional status related to spinal stenosis and peripheral vascular disease. Patient with deterioration, increased respiratory effort with decreased neurological status. . Reviewed labs for today. Interval increases in leukocytosis. Interval improvement in haemoglobin. Interval increase in alk phos w/interval improvement in transaminases. EEG abnormal due to moderate slowing w/encephalopathic process but no gross epileptiform features. CT brain images demonstrates that the right-sided SDH is essentially stable with a 4 mm midline shift. Plan: Plan of care discussed with Nursing. Primary management per Cable Television Technician. Conservative management since repeat CT brain was stable. Neuro checks. Stat CT brain for any worsening of neuro status. Mechanical DVT prophylaxis. Hold pharmacologic DVT prophylaxis. Stress ulcer prophylaxis. Levetiracetam for seizure prophylaxis. Okay for aspirin 81 mg daily from NSGY's perspective. Cardiology recommends continuing conservative management and avoid aggressive anticoagulation or antiplatelet therapy due to fall risk and ICH. (Power Dickerson) Attending Statement The exam, history, and the medical decision-making described in the above note were completed with the assistance of the mid-level provider. I reviewed and agree with the findings presented. I attest that I had a [id number] encounter with the patient on the same day, and personally performed and documented my assessment and findings in the medical record. On my examination 10/03/2017, the patient is in bed. Nursing staff indicates that he has been much less responsive since last night. He was agitated last night and received medication for sedation. However he does not really been any more alert this morning. He has only mild opening of his eyes to voice and sternal rub. Mildly disconjugate oculocephalic movements. He localizes to deep pain with right greater than left upper extremity without significant movement left lower extremity to deep pain. His respirations are a little shallow, upper airway congestion. Irregular cardiac rhythm Abdomen soft without obvious tenderness. I discussed with family today. He seems to have left hemiparesis on examination today, certainly much less alert. I am concerned that he may have had an ischemic event or stroke or possibly some recurrent hemorrhage. I advised an MRI would be most helpful for imaging. This was initially ordered however the nursing staff called prior to initiation of the order, stated that the family did not really want him to go through an MRI, and had decided not to proceed with any further aggressive treatment anyway. (Jorje Rhodes MD) Power Dickerson Oct 03, 2017 09:18 Jorje Rhodes MD Oct 03, 2017 19:59
--- NOTE | 2017-10-03 09:32 | PD.CARD.PN ---
Subjective Subjective Remarks Weaker and more lethargic today. Follows some commands but trouble verbalizing. Mild respiratory distress. Denies CP. Had episode of hypotension yesterday responded to IVF. His PO meds adjusted. Low grade fever. Objective Medications Current Medications Medications (Trade) Dose Ordered Sig/Deann Route Start Time Stop Time Status Last Admin (Nitrostat Sl) 0.4 mg Q5M PRN SL 09/26/17 21:30 10/02/17 08:30 (Mag-Al Plus Susp Liq) 30 ml Q6H PRN PO 09/26/17 22:00 Calcium Gluconate 1 gm/Sodium Chloride 110 ml @ 110 mls/hr UNSCH PRN IV 09/26/17 22:00 Potassium Chloride 100 ml @ 50 mls/hr UNSCH PRN IV 09/26/17 22:00 Magnesium Sulfate 2 gm/Sodium Chloride 104 ml @ 100 mls/hr UNSCH PRN IV 09/26/17 22:00 (Catapres) 0.1 mg Q6H PRN PO 09/26/17 22:00 (Ellie-Colace) 1 tab BID PO 09/27/17 09:00 10/02/17 09:02 (NS Flush) 2 ml UNSCH PRN IV FLUSH 09/26/17 22:00 (NS Flush) 2 ml BID IV FLUSH 09/27/17 09:00 10/02/17 21:20 (Zofran Inj) 4 mg Q6H PRN IV PUSH 09/26/17 22:00 09/28/17 10:32 Miscellaneous Information 1 Q361D XX 09/26/17 22:00 (Chlorhexidine 2% Cloth) Taper DAILY@04 TOP 09/27/17 04:00 09/23/18 03:59 (Chlorhexidine 2% Cloth) 3 pack UNSCH PRN TOP 09/26/17 22:00 (Milk Of Magnesia Liq) 30 ml Q12H PRN PO 09/26/17 22:00 (Senokot) 17.2 mg Q12H PRN PO 09/26/17 22:00 (Dulcolax Supp) 10 mg DAILY PRN RECTAL 09/26/17 22:00 (Lactulose Liq) 30 ml DAILY PRN PO 09/26/17 22:00 (Ranexa) 1,000 mg BID PO 09/27/17 09:00 10/02/17 09:01 (Apresoline Inj) 10 mg Q6H PRN IV PUSH 09/26/17 22:30 (fentaNYL INJ) 25 mcg Q2H PRN IV PUSH 09/26/17 22:45 Future Hold 09/29/17 03:11 (Nitrolingual Sl [place]) 1 spray Q5M PRN SL 09/26/17 23:15 09/29/17 19:21 (Proscar) 5 mg DAILY PO 09/27/17 09:00 10/02/17 09:01 (Norvasc) 2.5 mg DAILY PO 09/27/17 09:00 Future Hold 10/02/17 09:00 (Zetia) 10 mg DAILY PO 09/27/17 09:00 10/02/17 09:01 (Lasix) 20 mg DAILY PO 09/27/17 09:00 Future hold 10/02/17 09:01 (Lipitor) 80 mg DAILY PO 09/27/17 09:00 10/02/17 09:02 Acetaminophen 100 ml @ 400 mls/hr Q6H PRN IV 09/27/17 13:00 10/02/17 10:22 (Aspirin Chew) 81 mg DAILY CHEW 09/30/17 10:00 10/02/17 09:01 (Keppra) 500 mg Q12HR PO 10/01/17 09:00 10/02/17 22:11 (Protonix) 40 mg DAILY PO 10/01/17 09:00 10/02/17 09:01 (Duoneb Neb) 1 ampule Q2HR NEB PRN NEB 10/01/17 07:15 10/03/17 01:12 Piperacillin Sod/ Tazobactam Sod 100 ml @ 200 mls/hr Q6HR IV 10/02/17 13:00 10/03/17 05:35 (Imdur) 30 mg BID PO 10/02/17 21:00 (Lopressor Inj) 2.5 mg Q6H PRN IV PUSH 10/02/17 14:00 (Duoneb Neb) 1 ampule Q6HR NEB NEB 10/02/17 16:00 10/03/17 09:14 (Albuterol Neb) 2.5 mg Q2HR NEB PRN NEB 10/02/17 22:00 (Tenormin) 50 mg Q12HR PO 10/03/17 09:00 (SoluMEDROL INJ) 40 mg Q12HR IV PUSH 10/03/17 18:00 (Symbicort 160-4.5 Mcg Inh) 2 puff Q12HR INH 10/03/17 09:00 (Ativan Inj) 0.5 mg Q2H PRN IV PUSH 10/03/17 10:45 (Geodon Inj) 5 mg Q6H PRN IM 10/03/17 14:30 Vital Signs / I&O Vital Signs Date Time Temp Pulse Resp B/P (MAP) Pulse Ox O2 Delivery O2 Flow Rate FiO2 10/03/17 09:14 92 Nasal Cannula 3.00 10/03/17 08:00 85 10/03/17 08:00 98.1 87 24 144/65 (91) 93 10/03/17 07:00 93 Nasal Cannula 3.00 10/03/17 06:00 82 10/03/17 04:00 82 10/03/17 04:00 98.1 82 28 161/68 (99) 95 10/03/17 02:00 80 10/03/17 00:00 76 10/03/17 00:00 96.8 76 26 118/58 (78) 94 10/02/17 22:00 74 10/02/17 20:00 97.6 64 22 126/59 (81) 99 10/02/17 20:00 64 10/02/17 19:58 100 Nasal Cannula 3.00 10/02/17 19:00 97 Nasal Cannula 3.00 10/02/17 18:00 63 10/02/17 16:00 64 10/02/17 16:00 98.0 68 18 136/60 (85) 98 10/02/17 14:00 68 10/02/17 12:00 100.7 76 23 90/51 (64) 98 10/02/17 12:00 66 10/02/17 10:00 70 I/O 10/02/17 10/02/17 10/02/17 10/03/17 10/03/17 10/03/17 07:00 15:00 23:00 07:00 15:00 23:00 Intake Total 100 ml 1100 ml 250 ml Output Total 500 ml 350 ml 1000 ml Balance -500 ml 100 ml 750 ml -750 ml Intake Oral 500 ml 50 ml IV Total 100 ml 600 ml 200 ml Output Urine Total 500 ml 350 ml 1000 ml # Bowel Movements 0 1 0 Physical Exam VSS, afebrile. Eccymosis right side of face and forehead. No JVD Lungs: scattered rhonchi and wheezes. Heart: Irreg, S1, S2, no murmur. Ext: No C/C/E, well perfused. Neuro: Non-focal. Laboratory Laboratory Tests Test 10/03/17 05:30 White Blood Count 13.7 TH/MM3 Red Blood Count 4.63 MIL/MM3 Hemoglobin 12.2 GM/DL Hematocrit 38.3 % Mean Corpuscular Volume 82.8 FL Mean Corpuscular Hemoglobin 26.4 PG Mean Corpuscular Hemoglobin Concent 31.9 % Red Cell Distribution Width 17.0 % Platelet Count 178 TH/MM3 Mean Platelet Volume 7.7 FL Neutrophils (%) (Auto) 86.4 % Lymphocytes (%) (Auto) 4.6 % Monocytes (%) (Auto) 8.3 % Eosinophils (%) (Auto) 0.4 % Basophils (%) (Auto) 0.3 % Neutrophils # (Auto) 11.9 TH/MM3 Lymphocytes # (Auto) 0.6 TH/MM3 Monocytes # (Auto) 1.1 TH/MM3 Eosinophils # (Auto) 0.1 TH/MM3 Basophils # (Auto) 0.0 TH/MM3 CBC Comment AUTO DIFF Differential Total Cells Counted 100 Neutrophils % (Manual) 85 % Band Neutrophils % 1 % Lymphocytes % 3 % Monocytes % 10 % Neutrophils # (Manual) 11.9 TH/MM3 Metamyelocytes 1 % Differential Comment FINAL DIFF MANUAL Platelet Estimate NORMAL Platelet Morphology Comment NORMAL Ovalocytes 1+ Hematology Comments Blood Urea Nitrogen 24 MG/DL Creatinine 1.07 MG/DL Random Glucose 140 MG/DL Total Protein 7.3 GM/DL Albumin 2.6 GM/DL Calcium Level 8.5 MG/DL Magnesium Level 2.3 MG/DL Alkaline Phosphatase 184 U/L Aspartate Amino Transf (AST/SGOT) 121 U/L Alanine Aminotransferase (ALT/SGPT) 166 U/L Total Bilirubin 1.3 MG/DL Sodium Level 142 MEQ/L Potassium Level 4.3 MEQ/L Chloride Level 104 MEQ/L Carbon Dioxide Level 30.8 MEQ/L Anion Gap 7 MEQ/L Estimat Glomerular Filtration Rate 66 ML/MIN Imaging Last 24 hours Impressions Chest X-Ray 10/03/17 0600 Signed Impressions: Service Date/Time: September 04:45 - CONCLUSION: Stable exam with left effusion and bibasilar infiltrates. Vaughn Rust Jr., MD Assessment and Plan Problem List: (1) Subdural hematoma, post-traumatic ICD Codes: S06.5X9A - Traumatic subdural hemorrhage with loss of consciousness of unspecified duration, initial encounter Status: Acute (2) Type 2 myocardial infarction ICD Codes: I21.A1 - Myocardial infarction type 2 (3) Paroxysmal atrial fibrillation ICD Codes: I48.0 - Paroxysmal atrial fibrillation Status: Resolved (4) Hypercholesteremia ICD Codes: E78.00 - Pure hypercholesterolemia, unspecified (5) Statin intolerance ICD Codes: Z78.9 - Other specified health status (6) Family history of class III angina pectoris ICD Codes: Z82.49 - Family history of ischemic heart disease and other diseases of the circulatory system (7) NSTEMI (non-ST elevated myocardial infarction) ICD Codes: I21.4 - Non-ST elevation (NSTEMI) myocardial infarction (8) HTN (hypertension) ICD Codes: I10 - Essential (primary) hypertension Status: Chronic (9) CAD (coronary artery disease) ICD Codes: I25.10 - Atherosclerotic heart disease of [place] coronary artery without angina pectoris Status: Chronic (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 Increased WBC and low grade fever point to infection. Consider aspiration pneumonia or sepsis. Ech reviewed. EF 50% with moderate MR. He has not had any history of CHF but cannot exclude HFpEF. NSR [facility] PAC's today. Continue ASA but witholding anticoagulation for now due to recent ICB. Family has requested DNR status and I agree with this. I believe that would be the patients wishes. Agree with med adjustments, IV lasix and antibiotic therapy and supportive measures. Maximize his beta blockers and nitrates as tolerated by BP to help reduce chances of recurrent ischemia and rapid afib. Consider repeat swallowing study now. May need re-evaluation from neuro as well. Prognosis guarded. Dr. Whalen is covering me tomorrow. Code Status DNR Discussed Condition With Patient and staffing account manager. Problem Qualifiers (1) Subdural hematoma, post-traumatic: Qualified Codes: S06.5X0A - Traumatic subdural hemorrhage without loss of consciousness, initial encounter (2) HTN (hypertension): Qualified Codes: I10 - Essential (primary) hypertension Ariel Wiley MD Oct 03, 2017 09:32
[2017-10-03] MEDS ORDERED: LORazepam 2 MG/ML VIAL IV PUSH PRN (10:45)
[2017-10-03] MEDS: methylPREDNISolone SOD SUCC 40 MG/1 ML VIAL IV PUSH SCH ×2 (17:42→21:51)
[2017-10-03] MEDS: ZIPRASIDONE MESYLATE 20 MG VIAL IM PRN (19:01)
[2017-10-03] MEDS: METOPROLOL TARTRATE 5 MG/5 ML VIAL IV PUSH SCH (21:51)
[2017-10-03] MEDS: levETIRAcetam INJ 500 MG in SODIUM CHLORIDE 0.9% INJ 100 ML IV SCH (21:51)
[2017-10-04] VITALS (8 sets, daily range): BP systolic 126–167; BP diastolic 57–93; PULSE 76–112; RESP 23–26; TEMP 97.3–98.4; O2SAT 94–100
[2017-10-04] MEDS: PIPERACIL-TAZO 4.5 GM PREMIX 100 ML IV SCH ×3 (00:20→10:54)
[2017-10-04] MEDS: ZIPRASIDONE MESYLATE 20 MG VIAL IM PRN (01:18)
[2017-10-04] MEDS: CHLORHEXIDINE GLUCONATE 2 % 1 PACK (2 CLOTHS) TOP SCH (02:44)
[2017-10-04] MEDS: METOPROLOL TARTRATE 5 MG/5 ML VIAL IV PUSH SCH ×2 (03:39→10:57)
[2017-10-04] MEDS: RESP: ALBUTEROL 2.5 MG/IPRATROPIUM 0.5 MG NEB (SCH) NEB ×3 (03:50→15:44)
--- NOTE | 2017-10-04 05:13 | RADRPT ---
EXAM DATE/TIME: 10/04/2017 04:09 [facility] COMPARISON: CHEST SINGLE AP, October 03, 2017, 4:45. INDICATIONS : Respiratory disease. MEDICAL HISTORY : Cardiovascular disease. Hypertension. SURGICAL HISTORY : Carotid endarterectomy. CABG. Appendectomy. ENCOUNTER: Subsequent ACUITY: 1 week PAIN SCORE: Non-responsive. LOCATION: Bilateral chest FINDINGS: Single AP view of the chest. Bilateral lower lung zone predominant opacity and small bilateral pleura l effusions unchanged. Cardiomediastinal silhouette unchanged. CONCLUSION: No significant interval change. Caden Guadarrama MD on October 04, 2017 at 5:10 Board Certified Radiologist. This report was verified electronically.
[2017-10-04 05:38] LABS: BASOPHIL % 0.4 % (0.0-2.0); HEMATOCRIT 37.4 % (39.0-51.0); HEMOGLOBIN 12.2 GM/DL (13.0-17.0); LYMPH % 4.3 % (9.0-44.0); LYMPHOCYTE # 0.6 TH/MM3 (1.0-4.8); MEAN CELL VOLUME 82.5 FL (80.0-100.0); MEAN CORPUSCULAR HEMOGLOBIN 26.9 PG (27.0-34.0); MEAN CORPUSCULAR HGB CONC 32.6 % (32.0-36.0); MEAN PLATELET VOLUME 7.7 FL (7.0-11.0); MONO % 2.9 % (0.0-8.0); MONOCYTE # 0.4 TH/MM3 (0-0.9); NEUT % 92.4 % (16.0-70.0); PLATELET COUNT 217 TH/MM3 (150-450); RED BLOOD COUNT 4.53 MIL/MM3 (4.50-5.90); RED CELL DISTRIBUTION WIDTH 16.6 % (11.6-17.2)
[2017-10-04 05:55] LABS: ALBUMIN 2.5 GM/DL (3.4-5.0); ALKALINE PHOSPHATASE 168 U/L (45-117); ALT (GPT) 127 U/L (12-78); AST (GOT) 68 U/L (15-37); BICARBONATE 30.8 MEQ/L (21.0-32.0); BLOOD UREA NITROGEN 29 MG/DL (7-18); CALCIUM 9.1 MG/DL (8.5-10.1); CHLORIDE 103 MEQ/L (98-107); CREATININE 0.95 MG/DL (0.60-1.30); GLOMERULAR FILTRATION RATE 75 ML/MIN (>89); GLUCOSE,RANDOM 147 MG/DL (74-106); MAGNESIUM 2.3 MG/DL (1.5-2.5); SODIUM (NA) 144 MEQ/L (136-145); TOTAL BILIRUBIN ADULT 1.3 MG/DL (0.2-1.0); TOTAL PROTEIN 7.2 GM/DL (6.4-8.2)
--- NOTE | 2017-10-04 08:59 | HHI.NSPN ---
(Ai Mackenzie) Note Status Status: Progress Note (Ai Mackenzie) Interval History Interval History 09/27: This is an 87-year-old gentleman who apparently fell on 2016 and suffered a right forehead area laceration which was Steri-Stripped at home. Yesterday afternoon he started noticing slurred speech and also was more confused and noticed a left-sided facial twitching which resolved spontaneously. He was brought into the emergency room and work-up including a CT scan of the head revealed a right hemisphere acute subdural hemorrhage, maximal thickness in the middle fossa 1.4 cm, and lesser thickness in the frontoparietal area. There is a mild midline shift of about 3 mm right-to- left. The patient was started on Keppra and overnight did not have any further seizures. He is lethargic but arouses and verbalizes his name and follows simple commands. A follow-up CT scan this morning does not reveal any progression of this right-sided subdural hemorrhage and no re-bleed is noted. CT of the cervical spine is negative for any fractures with positive multilevel degenerative changes. 09/28: When seen this morning the patient has his eyes closed but opens them to voice. His speech is essentially clear and he interacts. After answering the first orientation question he adds "for the 50th time" to his response to the remainder of the questions. He does say he has a slight headache but had no other complaints. He moves all extremities without any difficulty and his muscle strength and sensation are normal. Nursing states that the patient is doing better than yesterday. Nursing also reports that the patient does become agitated and curses at staff because he wants to drink but failed his swallow exam yesterday. He is to have another swallow evaluation today. 09/29: The patient is asleep this morning when seen. He does briefly arouse to voice and answers questions and interacts, but quickly dozes back off. He is noted to have multiple unifocal PVCs. Nursing reports that the patient was up all night and did require haloperidol due to agitation. This morning Nursing spoke with the Foreign Service Teacher who changed the patient to ziprasidone. She reported that the hourly shift reported the patient choked and coughed while drinking water but this morning she reported the patient did well with Ensure. Therefore she was going to thicken his thin liquids. She also reported that at shift change last night the patient went into ventricular tachycardia and the patient' s Installer Technician had been consulted. He is receiving oral and intravenous metoprolol due to the tachycardia. He does deny any headache, dizziness or nausea. 09/30/17: neuro check stable overnight, awake, alert, moves all four extremities. 10/02/17: drowsy following sedation for restless last night. follows simple commands. 10/04/16: says he is doing well, he denies headaches, chest pain, nausea, vomiting , or focal weakness. (Ai Mackenzie) Labs, Micro, & Vital Signs Results Date Time Temp Pulse Resp B/P (MAP) Pulse Ox O2 Delivery O2 Flow Rate FiO2 10/04/17 08:32 97 Nasal Cannula 2.00 10/04/17 06:00 86 10/04/17 04:00 94 10/04/17 04:00 98.4 94 26 156/67 (96) 100 10/04/17 03:52 100 Nasal Cannula 5.00 10/04/17 02:00 76 10/04/17 00:00 97.3 103 24 167/93 (117) 98 10/04/17 00:00 103 10/03/17 22:00 92 10/03/17 20:00 102 10/03/17 20:00 98.1 102 22 161/95 (117) 85 10/03/17 19:35 97 Nasal Cannula 3.00 10/03/17 19:00 98 Nasal Cannula 3.00 10/03/17 18:00 95 10/03/17 16:00 110 10/03/17 16:00 97.7 99 24 121/67 (85) 93 10/03/17 14:00 96 10/03/17 12:00 78 10/03/17 12:00 98.5 79 22 138/64 (88) 95 10/03/17 10:00 79 10/03/17 09:14 92 Nasal Cannula 3.00 Constitutional Vital Signs Date Time Temp Pulse Resp B/P (MAP) Pulse Ox O2 Delivery O2 Flow Rate FiO2 10/04/17 08:32 97 Nasal Cannula 2.00 10/04/17 06:00 86 10/04/17 04:00 94 10/04/17 04:00 98.4 94 26 156/67 (96) 100 10/04/17 03:52 100 Nasal Cannula 5.00 10/04/17 02:00 76 10/04/17 00:00 97.3 103 24 167/93 (117) 98 10/04/17 00:00 103 10/03/17 22:00 92 10/03/17 20:00 102 10/03/17 20:00 98.1 102 22 161/95 (117) 85 10/03/17 19:35 97 Nasal Cannula 3.00 10/03/17 19:00 98 Nasal Cannula 3.00 10/03/17 18:00 95 10/03/17 16:00 110 10/03/17 16:00 97.7 99 24 121/67 (85) 93 10/03/17 14:00 96 10/03/17 12:00 78 10/03/17 12:00 98.5 79 22 138/64 (88) 95 10/03/17 10:00 79 10/03/17 09:14 92 Nasal Cannula 3.00 (Ai Mackenzie) Review of Systems Neurologic: DENIES: Headache (Ai Mackenzie) Physical Exam Awake, eyes open and watching TV. Confused but mildly converse. Follows few simple commands, slow to follow. Oriented to name only. Right-sided facial & periorbital ecchymosis, ecchymoses to right side of face CN: pupils 3 mm bilaterally reactive, gross EOMs intact Motor: moves all four extremities against gravity grossly symmetrically to command Cerebellar: cannot assess due to clinical condition Sensory: reports intact to light touch x 4 Neck: soft, supple (Ai Mackenzie) Mr. Fam is alert, awake. Follows few simple commands. Oriented to name only. Righ facial & periorbital ecchymosis CN: pupils 3 mm bilaterally reactive, gross EOMs intact Motor: moves all four extremities against gravity grossly symmetrically Cerebellar: cannot assess due to clinical condition Sensory: reports intact to light touch x 4 cerebellar exam is very limited (Krishna Head MD) Medications Current Medications Current Medications Medications (Trade) Dose Ordered Sig/Deann Route PRN Reason Start Time Stop Time Status Last Admin Dose Admin Nitroglycerin (Nitrostat Sl) 0.4 mg Q5M PRN SL CHEST PAIN 09/26/17 21:30 10/02/17 08:30 Al Hydrox/Mg Hydrox/Simethicone (Mag-Al Plus Susp Liq) 30 ml Q6H PRN PO DYSPEPSIA 09/26/17 22:00 Calcium Gluconate 1 gm/Sodium Chloride 110 ml @ 110 mls/hr UNSCH PRN IV SEE LABEL COMMENTS 09/26/17 22:00 Potassium Chloride 100 ml @ 50 mls/hr UNSCH PRN IV POTASSIUM LESS THAN 4 09/26/17 22:00 Magnesium Sulfate 2 gm/Sodium Chloride 104 ml @ 100 mls/hr UNSCH PRN IV MAGNESIUM LESS THAN 2 09/26/17 22:00 Clonidine (Catapres) 0.1 mg Q6H PRN PO SYS BP GREATER THAN 170 MMHG 09/26/17 22:00 Senna/Docusate Sodium (Ellie-Colace) 1 tab BID PO 09/27/17 09:00 10/02/17 09:02 Sodium Chloride (NS Flush) 2 ml UNSCH PRN IV FLUSH FLUSH AFTER USING IV ACCESS 09/26/17 22:00 Sodium Chloride (NS Flush) 2 ml BID IV FLUSH 09/27/17 09:00 10/03/17 21:00 Ondansetron HCl (Zofran Inj) 4 mg Q6H PRN IV PUSH NAUSEA OR VOMITING 09/26/17 22:00 09/28/17 10:32 Miscellaneous Information 1 Q361D XX 09/26/17 22:00 Chlorhexidine Gluconate (Chlorhexidine 2% Cloth) Taper DAILY@04 TOP 09/27/17 04:00 09/23/18 03:59 Chlorhexidine Gluconate (Chlorhexidine 2% Cloth) 3 pack UNSCH PRN TOP HYGIENIC CARE 09/26/17 22:00 Magnesium Hydroxide (Milk Of Magnesia Liq) 30 ml Q12H PRN PO Mild constipation 09/26/17 22:00 Sennosides (Senokot) 17.2 mg Q12H PRN PO Moderate constipation 09/26/17 22:00 Bisacodyl (Dulcolax Supp) 10 mg DAILY PRN RECTAL SEVERE CONSITIPATION 09/26/17 22:00 Lactulose (Lactulose Liq) 30 ml DAILY PRN PO SEVERE CONSITIPATION 09/26/17 22:00 Ranolazine (Ranexa) 1,000 mg BID PO 09/27/17 09:00 10/02/17 09:01 Hydralazine HCl (Apresoline Inj) 10 mg Q6H PRN IV PUSH SBP >160 09/26/17 22:30 Fentanyl Citrate (fentaNYL INJ) 25 mcg Q2H PRN IV PUSH MOD/SEVERE PAIN 09/26/17 22:45 Future Hold 09/29/17 03:11 Nitroglycerin (Nitrolingual Sl [place]) 1 spray Q5M PRN SL CHEST PAIN 09/26/17 23:15 09/29/17 19:21 Finasteride (Proscar) 5 mg DAILY PO 09/27/17 09:00 10/02/17 09:01 Amlodipine Besylate (Norvasc) 2.5 mg DAILY PO 09/27/17 09:00 Future Hold 10/02/17 09:00 EZETIMIBE (Zetia) 10 mg DAILY PO 09/27/17 09:00 10/02/17 09:01 Furosemide (Lasix) 20 mg DAILY PO 09/27/17 09:00 Future hold 10/02/17 09:01 Atorvastatin Calcium (Lipitor) 80 mg DAILY PO 09/27/17 09:00 10/02/17 09:02 Acetaminophen 100 ml @ 400 mls/hr Q6H PRN IV Temp > 100. 09/27/17 13:00 10/02/17 10:22 Aspirin (Aspirin Chew) 81 mg DAILY CHEW 09/30/17 10:00 10/02/17 09:01 Levetriacetam (Keppra) 500 mg Q12HR PO 10/01/17 09:00 Future Hold 10/02/17 22:11 Pantoprazole Sodium (Protonix) 40 mg DAILY PO 10/01/17 09:00 10/02/17 09:01 Albuterol/ Ipratropium (Duoneb Neb) 1 ampule Q2HR NEB PRN NEB SHORTNESS OF BREATH 10/01/17 07:15 10/03/17 01:12 Piperacillin Sod/ Tazobactam Sod 100 ml @ 200 mls/hr Q6HR IV 10/02/17 13:00 10/04/17 05:46 Isosorbide Mononitrate (Imdur) 30 mg BID PO 10/02/17 21:00 Metoprolol Tartrate (Lopressor Inj) 2.5 mg Q6H PRN IV PUSH RAPID HEART RATE 10/02/17 14:00 Albuterol/ Ipratropium (Duoneb Neb) 1 ampule Q6HR NEB NEB 10/02/17 16:00 10/04/17 03:50 Albuterol Sulfate (Albuterol Neb) 2.5 mg Q2HR NEB PRN NEB WHEEZING 10/02/17 22:00 Atenolol (Tenormin) 50 mg Q12HR PO 10/03/17 09:00 Future Hold Methylprednisolone Sodium Succinate (SoluMEDROL INJ) 40 mg Q12HR IV PUSH 10/03/17 18:00 10/03/17 21:51 Budesonide/ Formoterol Fumarate (Symbicort 160-4.5 Mcg Inh) 2 puff Q12HR INH 10/03/17 09:00 10/03/17 21:50 Lorazepam (Ativan Inj) 0.5 mg Q2H PRN IV PUSH SEIZURES 10/03/17 10:45 Ziprasidone (Geodon Inj) 5 mg Q6H PRN IM AGITATION 10/03/17 14:30 10/04/17 01:18 Levetriacetam 500 mg/Sodium Chloride 105 ml @ 420 mls/hr Q12HR IV 10/03/17 21:00 10/03/17 21:51 Metoprolol Tartrate (Lopressor Inj) 5 mg Q6H IV PUSH 10/03/17 21:00 10/04/17 03:39 (Ai Mackenzie) Current Medications Current Medications Cefazolin Sodium/ Dextrose 50 ml @ 100 mls/hr STAT ONCE IV Last administered on 09/26/17t 21:11; Start 09/26/17 at 21:00; Stop 09/26/17 at 21:29; Status DC Diphtheria/ Tetanus/Acell Pertussis (Boostrix Inj) 0.5 ml ONCE ONCE IM ; Start 09/26/17 at 21:00; Stop 09/26/17 at 21:01; Status DC Sodium Chloride (NS Flush) 2 ml UNSCH PRN IVF FLUSH AFTER USING IV ACCESS; Start 09/26/17 at 21:00; Stop 09/26/17 at 22:25; Status DC Nitroglycerin (Nitrostat Sl) 0.4 mg Q5M PRN SL CHEST PAIN Last administered on 10/02/17 08:30; Start 09/26/17 at 21:30 Nitroglycerin (Nitroglycerin 2% Oint) 1 inch ONCE ONCE TOPICAL Last administered on 09/26/17 21:32; Start 09/26/17 at 21:30; Stop 09/26/17 at 21 :31; Status DC Ondansetron HCl (Zofran Inj) 4 mg ONCE ONCE IV Last administered on 21:45; Start 09/26/17 at 21:30; Stop 09/26/17 at 21:31; Status DC Levetriacetam 100 ml @ 400 mls/hr BOLUS ONCE IV Last administered on 22:32; Start 09/26/17 at 22:00; Stop 09/26/17 at 22:14; Status DC Levetriacetam 500 mg/Sodium Chloride 105 ml @ 420 mls/hr Q12HR IV Last administered on 09/30/17at 20:36; Start 09/27/17 at 09:00; Stop 10/01/17 at 07:12 ; Status DC Sodium Chloride (NS Flush) 2 ml UNSCH PRN IV FLUSH FLUSH AFTER USING IV ACCESS ; Start 09/26/17 at 22:00; Stop 09/26/17 at 22:25; Status DC Sodium Chloride (NS Flush) 2 ml BID IV FLUSH ; Start 09/27/17 at 09:00; Stop 09/27/17 at 09:00; Status DC Levetriacetam 500 mg/Sodium Chloride 105 ml @ 400 mls/hr Q12H IV ; Start 09/26 at 22:00; Status UNV Lorazepam (Ativan Inj) 1 mg Q1H PRN IV PUSH SEIZURES Last administered on 21:00; Start 09/26/17 at 22:00; Stop 10/02/17 at 12:39; Status DC Al Hydrox/Mg Hydrox/Simethicone (Mag-Al Plus Susp Liq) 30 ml Q6H PRN PO DYSPEPSIA; Start 09/26/17 at 22:00 Ondansetron HCl (Zofran Inj) 4 mg Q6H PRN IV PUSH NAUSEA OR VOMITING; Start at 22:00; Stop 09/26/17 at 22:25; Status DC Calcium Gluconate 1 gm/Sodium Chloride 110 ml @ 110 mls/hr UNSCH PRN IV SEE LABEL COMMENTS; Start 09/26/17 at 22:00 Potassium Chloride 100 ml @ 50 mls/hr UNSCH PRN IV POTASSIUM LESS THAN 4; Start 09/26/17 at 22:00 Magnesium Sulfate 2 gm/Sodium Chloride 104 ml @ 100 mls/hr UNSCH PRN IV MAGNESIUM LESS THAN 2; Start 09/26/17 at 22:00 Labetalol HCl (Trandate Inj) 10 mg Q1H PRN IV PUSH SYS BP GREATER THAN 170 MMHG ; Start 09/26/17 at 22:00; Stop 09/26/17 at 23:14; Status DC Clonidine (Catapres) 0.1 mg Q6H PRN PO SYS BP GREATER THAN 170 MMHG; Start at 22:00 Senna/Docusate Sodium (Ellie-Colace) 1 tab BID PO Last administered on 10/02/17at 09:02; Start 09/27/17 at 09:00 Magnesium Hydroxide (Milk Of Magnesia Liq) 30 ml Q12H PRN PO Mild constipation ; Start 09/26/17 at 22:00; Stop 09/26/17 at 22:25; Status DC Sennosides (Senokot) 17.2 mg Q12H PRN PO Moderate constipation; Start at 22:00; Stop 09/26/17 at 22:25; Status DC Bisacodyl (Dulcolax Supp) 10 mg DAILY PRN RECTAL SEVERE CONSITIPATION; Start 09/26/17 at 22:00; Stop 09/26/17 at 22:25; Status DC Lactulose (Lactulose Liq) 30 ml DAILY PRN PO SEVERE CONSITIPATION; Start 09/26 at 22:00; Stop 09/26/17 at 22:25; Status DC Levetriacetam 100 ml @ 400 mls/hr BOLUS ONCE IV ; Start 09/26/17 at 22:00; Stop 09/26/17 at 22:14; Status UNV Sodium Chloride 1,000 ml @ 70 mls/hr [id number] IV Last administered on 09/30/17at 14:57; Start 09/26/17 at 22:00; Stop 10/01/17 at 07:21; Status DC Sodium Chloride (NS Flush) 2 ml UNSCH PRN IV FLUSH FLUSH AFTER USING IV ACCESS ; Start 09/26/17 at 22:00 Sodium Chloride (NS Flush) 2 ml BID IV FLUSH Last administered on 10/03/17at 21: 00; Start 09/27/17 at 09:00 Famotidine (Pepcid Inj) 20 mg Q12HR IV PUSH ; Start 09/27/17 at 09:00; Stop at 09:00; Status DC Famotidine (Pepcid) 20 mg Q12HR PO ; Start 09/27/17 at 09:00; Stop 09/27/17 at 09:00; Status DC Ondansetron HCl (Zofran Inj) 4 mg Q6H PRN IV PUSH NAUSEA OR VOMITING Last administered on 09/28/17t 10:32; Start 09/26/17 at 22:00 Albuterol Sulfate (Albuterol Neb) 2.5 mg Q2HR NEB PRN INH SOB/WHEEZING; Start 09/26/17 at 22:00; Stop 10/01/17 at 07:32; Status DC Miscellaneous Information 1 Q361D XX ; Start 09/26/17 at 22:00 Chlorhexidine Gluconate (Chlorhexidine 2% Cloth) Taper DAILY@04 TOP ; Start at 04:00; Stop 09/23/18 at 03:59 Chlorhexidine Gluconate (Chlorhexidine 2% Cloth) 3 pack UNSCH PRN TOP HYGIENIC CARE; Start 09/26/17 at 22:00 Senna/Docusate Sodium (Ellie-Colace) 1 tab BID PO ; Start 09/27/17 at 09:00; Stop 09/27/17 at 09:00; Status DC Magnesium Hydroxide (Milk Of Magnesia Liq) 30 ml Q12H PRN PO Mild constipation ; Start 09/26/17 at 22:00 Sennosides (Senokot) 17.2 mg Q12H PRN PO Moderate constipation; Start at 22:00 Bisacodyl (Dulcolax Supp) 10 mg DAILY PRN RECTAL SEVERE CONSITIPATION; Start 09/26/17 at 22:00 Lactulose (Lactulose Liq) 30 ml DAILY PRN PO SEVERE CONSITIPATION; Start 09/26 at 22:00 Ranolazine (Ranexa) 1,000 mg BID PO Last administered on 10/02/17 09:01; Start 09/27/17 at 09:00 Labetalol HCl (Trandate Inj) 10 mg Q6H PRN IV PUSH SBP >160 Last administered on 09/28/17 19:01; Start 09/26/17 at 22:30; Stop 10/01/17 at 08:14; Status DC Hydralazine HCl (Apresoline Inj) 10 mg Q6H PRN IV PUSH SBP >160; Start at 22:30 Fentanyl Citrate (fentaNYL INJ) 25 mcg Q2H PRN IV PUSH MOD/SEVERE PAIN Last administered on 09/29/17 03:11; Start 09/26/17 at 22:45; Status Future Hold Isosorbide Mononitrate (Imdur) 60 mg BID PO Last administered on 10/01/17 08:05 ; Start 09/27/17 at 09:00; Stop 10/01/17 at 08:13; Status DC Nitroglycerin (Nitrostat Sl) 0.4 mg ONCE ONCE SL Last administered on 23:05; Start 09/26/17 at 23:00; Stop 09/26/17 at 23:12; Status DC Nitroglycerin (Nitrolingual Sl [place]) 1 spray Q5M PRN SL CHEST PAIN Last administered on 09/29/17 19:21; Start 09/26/17 at 23:15 Fentanyl Citrate (fentaNYL INJ) 50 mcg ONCE ONCE IV PUSH ; Start 09/27/17 at 02:45; Stop 09/27/17 at 02:47; Status DC Finasteride (Proscar) 5 mg DAILY PO Last administered on 10/02/17 09:01; Start 09/27/17 at 09:00 Pantoprazole Sodium (Protonix Inj) 40 mg Q24H IV PUSH Last administered on 06:10; Start 09/27/17 at 06:00; Stop 10/01/17 at 07:14; Status DC Amlodipine Besylate (Norvasc) 2.5 mg DAILY PO Last administered on 10/02/17 09: 00; Start 09/27/17 at 09:00; Status Future Hold EZETIMIBE (Zetia) 10 mg DAILY PO Last administered on 10/02/17 09:01; Start at 09:00 Furosemide (Lasix) 20 mg DAILY PO Last administered on 10/02/17 09:01; Start 09/27/17 at 09:00; Status Future hold Metoprolol Succinate (Toprol Xl) 100 mg DAILY PO Last administered on 09/30/17 08:09; Start 09/27/17 at 09:00; Stop 10/01/17 at 07:51; Status DC Atorvastatin Calcium (Lipitor) 80 mg DAILY PO Last administered on 10/02/17 09: 02; Start 09/27/17 at 09:00 Acetaminophen 100 ml @ 400 mls/hr Q6H PRN IV Temp > 100. Last administered on 10/02/17 10:22; Start 09/27/17 at 13:00 Metoprolol Tartrate (Lopressor Inj) 5 mg Q6H IV PUSH Last administered on 20:37; Start 09/27/17 at 14:00; Stop 10/01/17 at 07:50; Status DC Metoprolol Tartrate (Lopressor Inj) 5 mg STAT ONCE IV PUSH Last administered on 09/27/17 18:10; Start 09/27/17 at 18:15; Stop 09/27/17 at 18:16; Status DC Haloperidol Lactate (Haldol Inj) 3 mg Q4H PRN IV PUSH Agitation Last administered on 09/29/17 04:06; Start 09/28/17 at 16:00; Stop 09/29/17 at 08 :24; Status DC Ziprasidone (Geodon Inj) 10 mg Q6H PRN IM AGITATION Last administered on 22:16; Start 09/29/17 at 08:30; Stop 10/03/17 at 09:06; Status DC Potassium Chloride 100 ml @ 50 mls/hr BOLUS ONCE IV Last administered on 10:30; Start 09/29/17 at 09:00; Stop 09/29/17 at 10:59; Status DC Magnesium Sulfate/ Dextrose 100 ml @ 100 mls/hr ONCE ONCE IV Last administered on 09/29/17 09:35; Start 09/29/17 at 09:00; Stop 09/29/17 at 09 :59; Status DC Metoprolol Tartrate (Lopressor Inj) 5 mg Q5M PRN IV PUSH SEE LABEL COMMENTS Last administered on 09/30/17at 03:30; Start 09/30/17 at 03:30; Stop 10/01/17 at 07: 57; Status DC Aspirin (Aspirin Chew) 81 mg DAILY CHEW Last administered on 10/02/17at 09:01; Start 09/30/17 at 10:00 Levetriacetam (Keppra) 500 mg Q12HR PO Last administered on 10/02/17at 22:11; Start 10/01/17 at 09:00; Status Future Hold Pantoprazole Sodium (Protonix) 40 mg DAILY PO Last administered on 10/02/17at 09: 01; Start 10/01/17 at 09:00 Albuterol/ Ipratropium (Duoneb Neb) 1 ampule Q2HR NEB PRN NEB SHORTNESS OF BREATH Last administered on 10/03/17at 01:12; Start 10/01/17 at 07:15 Metoprolol Tartrate (Lopressor Inj) 5 mg Q6H PRN IV PUSH RAPID HEART RATE Last administered on 10/01/17at 13:41; Start 10/01/17 at 08:00; Stop 10/02/17 at 12:39; Status DC Metoprolol Succinate (Toprol Xl) 150 mg DAILY PO Last administered on 10/01/17at 08:07; Start 10/01/17 at 09:00; Stop 10/01/17 at 09:00; Status DC Atenolol (Tenormin) 100 mg Q12HR PO ; Start 10/01/17 at 09:00; Stop 10/01/17 at 10 :19; Status DC Isosorbide Mononitrate (Imdur) 120 mg BID PO ; Start 10/01/17 at 21:00; Stop 10/01 at 21:00; Status DC Isosorbide Mononitrate (Imdur) 60 mg ONCE ONCE PO ; Start 10/01/17 at 08:30; Stop 10/01/17 at 08:31; Status DC Atenolol (Tenormin) 50 mg Q12HR PO Last administered on 10/02/17at 09:00; Start 10/01/17 at 21:00; Stop 10/02/17 at 12:35; Status DC Isosorbide Mononitrate (Imdur) 60 mg BID PO Last administered on 10/02/17at 09:01 ; Start 10/01/17 at 21:00; Stop 10/02/17 at 12:35; Status DC Furosemide (Lasix Inj) 40 mg ONCE ONCE IV PUSH Last administered on 10/01/17at 11:04; Start 10/01/17 at 10:30; Stop 10/01/17 at 10:39; Status DC Albumin Human 100 ml @ 100 mls/hr NOW ONCE IV Last administered on 10/01/17at 11:04; Start 10/01/17 at 11:00; Stop 10/01/17 at 11:59; Status DC Lorazepam (Ativan) 0.25 mg NOW ONCE PO Last administered on 10/01/17at 13:42; Start 10/01/17 at 13:00; Stop 10/01/17 at 13:01; Status DC Piperacillin Sod/ Tazobactam Sod 100 ml @ 200 mls/hr Q6HR IV Last administered on 10/04/17at 05:46; Start 10/02/17 at 13:00 Atenolol (Tenormin) 25 mg Q12HR PO ; Start 10/02/17 at 21:00; Stop 10/03/17 at 08: 34; Status DC Isosorbide Mononitrate (Imdur) 30 mg BID PO ; Start 10/02/17 at 21:00 Lorazepam (Ativan Inj) 1 mg Q2H PRN IV PUSH SEIZURES; Start 10/02/17 at 12:45; Stop 10/03/17 at 09:06; Status DC Metoprolol Tartrate (Lopressor Inj) 2.5 mg Q6H PRN IV PUSH RAPID HEART RATE; Start 10/02/17 at 14:00 Albuterol/ Ipratropium (Duoneb Neb) 1 ampule Q6HR NEB NEB Last administered on 10/04/17at 03:50; Start 10/02/17 at 16:00 Albuterol Sulfate (Albuterol Neb) 2.5 mg Q2HR NEB PRN NEB WHEEZING; Start at 22:00 Furosemide (Lasix Inj) 20 mg ONCE ONCE IV PUSH Last administered on 10/03/17at 02:36; Start 10/03/17 at 02:15; Stop 10/03/17 at 02:16; Status DC Atenolol (Tenormin) 50 mg Q12HR PO ; Start 10/03/17 at 09:00; Status Future Hold Furosemide (Lasix Inj) 20 mg ONCE ONCE IV PUSH Last administered on 10/03/17at 09:53; Start 10/03/17 at 09:00; Stop 10/03/17 at 09:15; Status DC Methylprednisolone Sodium Succinate (SoluMEDROL INJ) 80 mg ONCE ONCE IV PUSH Last administered on 10/03/17at 09:52; Start 10/03/17 at 09:00; Stop 10/03/17 at 09: 15; Status DC Methylprednisolone Sodium Succinate (SoluMEDROL INJ) 40 mg Q12HR IV PUSH Last administered on 10/03/17at 21:51; Start 10/03/17 at 18:00 Budesonide/ Formoterol Fumarate (Symbicort 160-4.5 Mcg Inh) 2 puff Q12HR INH Last administered on 10/03/17at 21:50; Start 10/03/17 at 09:00 Lorazepam (Ativan Inj) 0.5 mg Q2H PRN IV PUSH SEIZURES; Start 10/03/17 at 10:45 Ziprasidone (Geodon Inj) 5 mg Q6H PRN IM AGITATION Last administered on at 01:18; Start 10/03/17 at 14:30 Levetriacetam 500 mg/Sodium Chloride 105 ml @ 420 mls/hr Q12HR IV Last administered on 10/03/17at 21:51; Start 10/03/17 at 21:00 Metoprolol Tartrate (Lopressor Inj) 5 mg Q6H IV PUSH Last administered on at 03:39; Start 10/03/17 at 21:00 (Krishna Head MD) Medical Decision Making MDM Remarks 87 y/o male with moderate right acute subdural hemorrhage with mild mass effect and midline shift. Follow-up CT scan is stable. Neuro examination stable. EEG abnormal due to moderate slowing w/encephalopathic process but no gross epileptiform features History of CAD with prior CABG and PTCA NSTEMI (Ai Mackenzie) MDM Remarks Last 48 hours Impressions Chest X-Ray 10/04/17 0600 Signed Impressions: Service Date/Time: Wednesday, October 04, 2017 04:09 - CONCLUSION: No significant interval change. Caden Guadarrama MD Chest X-Ray 10/03/17 06 Signed Impressions: Service Date/Time: September 04:45 - CONCLUSION: Stable exam with left effusion and bibasilar infiltrates. Vaughn Rust Jr., MD (Krishna Head MD) Plan Plan Remarks stable neurological exam cont current care cont therapy and rehab efforts cont close neuro checks (Ai Mackenzie) Attending Statement Neuro. Continue neuro checks. Continue nonoperative treatmen. He will require impatient rehab Myocardial infarction. CAD with prior CABG and PTCA. Continue non interventional treatment. Started on ASA. Pulmonary. Continue aggressive pulmonary toilette, nasotracheal suction, and breathing treatments with nebulizers. Continue Daily PT and OT Prior history of tobacco abuse. Counseled Incentive spirometry every hour awake HTN. he has chronic angina and habitual use of NTG spray. Obtain NTG spray from pharmacy. NTG patch. Imdur 60 mg po bid , Ranexa 1000 mg po bid when able to swallow Metoprolol succinate 100 daily Norvasc 2.5 mg daily. Hyperlipidemia. Continue Statin/Zetia Troponin peaked at 11.[address] Chavez -> consulted. ASA 81 mg day cleared by Dr. Head 09/30/17 GERD, h/o cholecystectomy, appendectomy NPO. Bedside swallow eval and advanced diet when appropriate. Urinary retention. Patient had difficulty voiding. Urinary retention 1100, Howard placed. Renal function normal. Monitor BMP. Monitor electrolytes Proscar 5 mg po daily when able to take po. Renal. Continue to monitor closely urine output, BUN and creatinine Mild chronic anemia. Monitor. Does not require transfusion at this time. Endocrine. Continue to Monitor serial Acu checks and SSI as needed in detail ID Mild leukocytosis is likely reactive. Afebrile. Continue to monitor for signs of infection Continue Protonix for stress ulcer prophylaxis Continue Andrés hose and SCD's for DVT prophylaxis Discharge planing in progress The exam, history, and the medical decision-making described in the above note were completed with the assistance of the mid-level provider. I reviewed and agree with the findings presented. I attest that I had a [id number] encounter with the patient on the same day, and personally performed and documented my assessment and findings in the medical record. (Krishna Head MD) Ai Mackenzie Oct 04, 2017 08:59 Krishna Head MD Oct 04, 2017 10:05
[2017-10-04] MEDS: EZETIMIBE 10 MG TAB PO SCH (09:00)
[2017-10-04] MEDS: ATORVASTATIN 80 MG TAB PO SCH (09:00)
[2017-10-04] MEDS: FINASTERIDE 5 MG TAB PO SCH (09:00)
[2017-10-04] MEDS: DOCUSATE SODIUM 50 MG/SENNA 8.6 MG TAB PO SCH (09:00)
[2017-10-04] MEDS: PANTOPRAZOLE SOD 40 MG DELAYED RELEASE TAB PO SCH (09:00)
[2017-10-04] MEDS: ASPIRIN 81 MG CHEW TAB CHEW SCH (09:00)
[2017-10-04] MEDS: RANOLAZINE 500 MG EXTENDED RELEASE TAB PO SCH (09:00)
[2017-10-04] MEDS: FUROSEMIDE 20 MG TAB PO SCH (09:00)
[2017-10-04] MEDS: levETIRAcetam INJ 500 MG in SODIUM CHLORIDE 0.9% INJ 100 ML IV SCH (09:00)
[2017-10-04] MEDS: ISOSORBIDE MONONITRATE 30 MG TAB PO SCH (09:00)
[2017-10-04] MEDS ORDERED: MELATONIN 5 MG TAB PO PRN (10:00)
[2017-10-04] MEDS ORDERED: POTASSIUM PHOSPHATE MONOBASIC 500 MG TAB PO PRN (10:15)
[2017-10-04] MEDS ORDERED: MAGNESIUM SULFATE INJ 2 GM in SODIUM CHLORIDE 0.9% INJ 96 ML IV PRN (10:15)
[2017-10-04] MEDS ORDERED: POTASSIUM PHOSPHATE INJ 30 MMOL in SODIUM CHLOR 0.9% 250 ML INJ 250 ML IV PRN (10:15)
[2017-10-04] MEDS ORDERED: SODIUM PHOSPHATE INJ 30 MMOL in SODIUM CHLOR 0.9% 250 ML INJ 240 ML IV PRN (10:15)
[2017-10-04] MEDS ORDERED: POTASSIUM CHLOR 40 MEQ PREMIX 100 ML IV PRN ×2 (10:15)
[2017-10-04] MEDS ORDERED: POTASSIUM PHOSPHATE MONOBASIC 500 MG TAB PO/TUBE PRN (10:15)
[2017-10-04] MEDS ORDERED: POTASSIUM CHLORIDE 25 MEQ EFFERVESCENT TAB PO PRN (10:15)
[2017-10-04] MEDS ORDERED: POTASSIUM CHLOR 20 MEQ PREMIX 100 ML IV PRN ×2 (10:15)
[2017-10-04] MEDS ORDERED: MAGNESIUM OXIDE 400 MG TAB PO PRN (10:15)
[2017-10-04] MEDS ORDERED: FUROSEMIDE 20 MG/2 ML VIAL IV PUSH SCH (10:15)
[2017-10-04] MEDS ORDERED: MAGNESIUM SULFATE INJ 4 GM in SODIUM CHLORIDE 0.9% INJ 92 ML IV PRN (10:15)
[2017-10-04] MEDS: BUDESONIDE-FORMOTEROL 160/4.5 MCG INHALER INH SCH (10:51)
[2017-10-04] MEDS: methylPREDNISolone SOD SUCC 40 MG/1 ML VIAL IV PUSH SCH (10:53)
[2017-10-04] MEDS: SODIUM CHLORIDE 0.9% FLUSH 10 ML FLUSH IV FLUSH SCH (10:59)
[2017-10-04] MEDS: POTASSIUM CHLOR 20 MEQ PREMIX 100 ML IV SCH ×2 (11:00→13:35)
--- NOTE | 2017-10-04 12:36 | HHI.CCPN ---
Subjective Remarks/Hospital Course 87-year-old male with past medical history of hypertension, hyperlipidemia, coronary artery disease with prior CABG and PCI with ongoing daily angina, carotid artery stenosis with bilat CEA, PAD, prior tobacco abuse who presents to [facility] after a fall that occurred the evening of 09/24/17. He hit his head on a wooden walkaway. There was no LOC and mental status was normal afterwards. He did have a R forehead laceration and immediately developed bruising of his forehead, R orbit, right lower face. Steristrips were applied to laceration by son-in-law. This afternoon pt became more confused and had slurred speech. EVAC was called and he was felt to have some mild tongue deviation to the left. He had about 45 seconds of left sided facial twitching that resolved spontaneously.He had several additional episodes of this while I was assessing him in the ED. He is alert and able to follow commands during this, appears c/w simple partial seizure. CT brain demonstrates Right sided subdural hematoma. The maximal thickness is 1.4 cm. He is on ASA/Plavix but did not take them today. Not on anticoagulation. He has h/ o CAD with prior stent and CABG that is not amenable to further intervention. He has ongoing angina and uses NTG spray numerous times a day. He was complaining of chest pressure and requesting NTG. He now states chest pain is resolved after NTG patch and NTG SL. 09/27: Chest pain has resolved. Lengthy discussion with his . Trop elevated , clearly NSTEMI. Well documented history of diffuse coronary artery disease. At this point he is not a candidate for anticoagulation or intervention due to acute subdural bleed. We will slow his heart rate with additional beta jennifer and try to ride this episode out. No perfect solutions but he is pain free now with heart rate control. 09/28: No chest pain for > 24 hours. More alert and conversant today. Will get PT to start working with him. 09/29: Agitated again last night. Did not respond to haloperidol, will try Geodon if recurs. Sleeping now. Receiving lopressor PO and IV to keep heart rate down. Episode SVT last night - family concerned because of recent enzyme spill. Again, inoperable diffuse CAD and chronic angina. 09/30: Placed on Precedex for agitation. Responds to Geodon. Episode of SVT overnight. Oriented to person and place. CT head 09/27: Prominent right subdural hemorrhage. Cleared by Dr. Head for ASA 81 mg day 10/01: Oriented to person and place. Intermittent agitation improving, off Precedex. Chest x-ray showed today shows left lower lobe infiltrate which may be chronic. CT of the head shows stable large right subdural hemorrhage with persistent 4 mm midline shift 10/02: More lethargic today, low grade fever. Hypotension receiving 1 L normal saline bolus. White count slightly increased chest x-ray showing infiltrates. Panculture Zosyn started 10/03: Lethargic, chest exam reveals bilateral wheezing. Received Lasix at about 2 AM today, additional 20 mg of Lasix ordered. Start IV Solu-Medrol 60 mg 1 and 40 every 12 along with Symbicort and scheduled DuoNeb. Continue Zosyn. Prognosis guarded, discussed with son -in -law Dr. Gonzales. Echo shows EF 50%, but with moderate MR, actual EF is most likely less likely 10/04: More awake, alert. Oriented 3. Chest x-ray unchanged breathing more comfortably less wheezing. Initially failed swallow, but second attempt passed. D/W Dr. Gonzales. Will attempt transfer to [facility] today if bed available Objective Vital Signs Date Time Temp Pulse Resp B/P (MAP) Pulse Ox O2 Delivery O2 Flow Rate FiO2 10/04/17 08:32 97 Nasal Cannula 2.00 10/04/17 06:00 86 10/04/17 04:00 98.4 26 156/67 (96) Intake and Output 10/04/17 10/04/17 10/05/17 08:00 16:00 00:00 Intake Total 440 ml Output Total 525 ml Balance -85 ml Result Diagram: 10/04/17 0429 10/04/17 0429 Other Results Microbiology Date/Time Source Procedure Growth Status 10/02/17 13:00 Urine Catheterized Urine Urine Culture - Final NO GROWTH IN 48 HOURS. Complete Objective Remarks GENERAL: Elderly male, more awake SKIN: Warm and dry. Ecchymosis overlying right forehead, right orbit, right cheek HEAD: Normocephalic. EYES: Pupils equal and round, 2 mm reactive. Subconjunctival hemorrhage of lateral bulbar conjunctiva of the right eye. ENT: No nasal bleeding or discharge. NECK: Trachea midline. No JVD. Airway widely patent. CARDIOVASCULAR: Atrial fibrillation rate controlled. RBBB on monitor RESPIRATORY: + ve accessory muscle use. Breath sounds equal bilaterally, basilar crackles and wheezing improved GASTROINTESTINAL: Abdomen soft, non-tender, nondistended. bowel sounds present. MUSCULOSKELETAL: Extremities without clubbing, cyanosis, or edema. Resolving ecchymosis over left anterior tibia. NEUROLOGICAL: Mild L facial droop. Moving all extremities. Following commands x4 Overall improved level of copiousness A/P Problem List: (1) Subdural hematoma, post-traumatic ICD Code: S06.5X9A - Traumatic subdural hemorrhage with loss of consciousness of unspecified duration, initial encounter Status: Acute (2) CAD (coronary artery disease) ICD Code: I25.10 - Atherosclerotic heart disease of [place] coronary artery without angina pectoris Status: Chronic (3) HTN (hypertension) ICD Code: I10 - Essential (primary) hypertension Status: Chronic (4) HLD (hyperlipidemia) ICD Code: E78.5 - Hyperlipidemia, unspecified Status: Chronic (5) Simple partial seizures ICD Code: G40.109 - Localization-related (focal) (partial) symptomatic epilepsy and epileptic syndromes with simple partial seizures, not intractable, without status epilepticus Status: Acute (6) PAD (peripheral artery disease) ICD Code: I73.9 - Peripheral vascular disease, unspecified Status: Chronic (7) Lumbar spinal stenosis ICD Code: M48.06 - Spinal stenosis of lumbar region Status: Acute (8) BPH (benign prostatic hypertrophy) with urinary obstruction ICD Code: N13.8 - Other obstructive and reflux uropathy; N40.1 - Benign prostatic hyperplasia with urinary obstruction Status: Acute (9) S/P CABG x 2 ICD Code: Z95.1 - Presence of aortocoronary bypass graft Status: Chronic (10) GERD (gastroesophageal reflux disease) ICD Code: K21.9 - Gastro-esophageal reflux disease without esophagitis Status: Chronic Assessment and Plan NEURO: R subdural hematoma, maximum 1.4 cm, 2-3 mm shift Worsening encephalopathy Simple partial seizure s/p Fall Lumbar spinal stenosis Improving mentation. Minimize sedation Monitor neurocheck q1 hour s/p Keppra 1 gram IV and then 500 IV q12. EEG 09/27 no sz. Change to PO Repeat CT brain 09/27, 10/01/17 Stable SDH Fentanyl prn pain, Geodon for agitation, Ativan when necessary for seizures Neurosurgery Dr. Grady, Dr. Head covering CT C-spine - negative fracture, CT face - neg fracture. RESP: Respiratory insufficiency COPD exacerbation Prior history of tobacco abuse Probable HCAP Continue Zosyn for 7 days IV Solu Medrol 40 every 12, Continue Symbicort Incentive spirometry every hour awake, EzPAP q6 DuoNeb q6 scheduled and PRN Aggressive pulmonary toilet CV: NSTEMI Hypotension Congestive heart failure CAD with prior CABG and PTCA Atrial fibrillation rate controlled HTN Hyperlipidemia Resumed IV Lasix, EF 50%, probably less with moderate MR Patient has chronic angina and habitual use of NTG spray. ALL ANTIHYPERTENSIVES except beta blockers placed on hold due to hypotension ( Imdur 60 mg po bid , Ranexa 1000 mg po bid. Atenolol 50 mg BID. Norvasc 2.5 mg daily) Statin/Zetia Troponin peaked at 11.5 [facility] [address] [employer]er [address] Dr. Chavez ASA 81 mg day cleared by Dr. Head 09/30/17 GI: GERD h/o cholecystectomy, appendectomy h/o inguinal hernia repair Diet per speech rec Continue PPI FEN/RENAL: BPH Urinary retention Patient had difficulty voiding. Howard placed. Continue Howard for now and plan bladder training at Rehab Renal function normal. Monitor BMP. Monitor electrolytes Proscar 5 mg po daily when able to take po. ID: HCAP Sepsis Mild leukocytosis Continue Zosyn, follow cultures-totla 7days UA negative. HEME: Mild chronic anemia Does not require transfusion at this time. He was not on any anticoagulant therapy. ENDO: Glucose is at target <185. PROPH: SCDs for DVT prophylaxis. Pharmacologic DVT prophylaxis is contraindicated due to acute subdural hematoma. Protonix 40 mg IV daily for stress ulcer prophylaxis and history of GERD on PPI at home. ACCESS: Peripheral IV providing adequate access at this time Overall impression: Medical management for angina/NSTEMI. Follow neurological exam closely. High risk patient for any procedure. Baby aspirin cleared by Dr. Head. Family requesting DC home. Await neurosurgery input, PT/OT input Level 3 Interval improvement in mental status. Passed swallow eval, diet per speech recommendation. Transferred to [facility] Level 2 Problem Qualifiers (1) Subdural hematoma, post-traumatic: Qualified Codes: S06.5X0A - Traumatic subdural hemorrhage without loss of consciousness, initial encounter (2) HTN (hypertension): Qualified Codes: I10 - Essential (primary) hypertension Alejandro Mancilla MD Oct 04, 2017 12:36
[2017-10-04] MEDS ORDERED: POTASSIUM CHLORIDE 25 MEQ EFFERVESCENT TAB PO ONE (13:00)
[2017-10-04] MEDS ORDERED: ZOFR4TAB IV (13:39)
[2017-10-04] MEDS ORDERED: PRED20 PO (13:41)
[2017-10-04] MEDS ORDERED: IPRASOL INH ×2 (13:43)
--- NOTE | 2017-10-04 13:55 | HHI.DS ---
Discharge Summary Admission Date Sep 26, 2017 at 21:41 Admitting Diagnosis Subdural hematoma s/p fall (1) Subdural hematoma, post-traumatic ICD Code: S06.5X9A - Traumatic subdural hemorrhage with loss of consciousness of unspecified duration, initial encounter Diagnosis: Principal Status: Acute (2) NSTEMI (non-ST elevated myocardial infarction) ICD Code: I21.4 - Non-ST elevation (NSTEMI) myocardial infarction Diagnosis: Principal (3) Simple partial seizures ICD Code: G40.109 - Localization-related (focal) (partial) symptomatic epilepsy and epileptic syndromes with simple partial seizures, not intractable, without status epilepticus Diagnosis: Principal Status: Acute (4) Sepsis ICD Code: A41.9 - Sepsis, unspecified organism Diagnosis: Principal (5) HCAP (healthcare-associated pneumonia) ICD Code: J18.9 - Pneumonia, unspecified organism Diagnosis: Principal (6) Lumbar spinal stenosis ICD Code: M48.06 - Spinal stenosis of lumbar region Diagnosis: Secondary Status: Acute (7) Leukocytosis ICD Code: D72.829 - Leukocytosis Diagnosis: Secondary Status: Acute (8) BPH (benign prostatic hypertrophy) with urinary obstruction ICD Code: N13.8 - Other obstructive and reflux uropathy; N40.1 - Benign prostatic hyperplasia with urinary obstruction Diagnosis: Secondary Status: Acute (9) PAD (peripheral artery disease) ICD Code: I73.9 - Peripheral vascular disease, unspecified Diagnosis: Secondary Status: Chronic (10) CAD (coronary artery disease) ICD Code: I25.10 - Atherosclerotic heart disease of [place] coronary artery without angina pectoris Diagnosis: Secondary Status: Chronic (11) S/P CABG x 2 ICD Code: Z95.1 - Presence of aortocoronary bypass graft Diagnosis: Secondary Status: Chronic (12) HTN (hypertension) ICD Code: I10 - Essential (primary) hypertension Diagnosis: Secondary Status: Chronic (13) HLD (hyperlipidemia) ICD Code: E78.5 - Hyperlipidemia, unspecified Diagnosis: Secondary Status: Chronic (14) Hypercholesteremia ICD Code: E78.00 - Pure hypercholesterolemia, unspecified Diagnosis: Secondary (15) Paroxysmal atrial fibrillation ICD Code: I48.0 - Paroxysmal atrial fibrillation Diagnosis: Secondary Status: Resolved Brief History 87-year-old male with past medical history of hypertension, hyperlipidemia, coronary artery disease with prior CABG and PCI with ongoing daily angina, carotid artery stenosis with bilat CEA, PAD, prior tobacco abuse who presents to [facility] after a fall that occurred the evening of 09/24/17. He hit his head on a wooden walkaway. There was no LOC and mental status was normal afterwards. He did have a R forehead laceration and immediately developed bruising of his forehead, R orbit, right lower face. Steristrips were applied to laceration by son-in-law. This afternoon pt became more confused and had slurred speech. EVAC was called and he was felt to have some mild tongue deviation to the left. He had about 45 seconds of left sided facial twitching that resolved spontaneously.He had several additional episodes of this while I was assessing him in the ED. He is alert and able to follow commands during this, appears c/w simple partial seizure. CT brain demonstrates Right sided subdural hematoma. The maximal thickness is 1.4 cm. He is on ASA/Plavix but did not take them today. Not on anticoagulation. He has h/ o CAD with prior stent and CABG that is not amenable to further intervention. He has ongoing angina and uses NTG spray numerous times a day. He was complaining of chest pressure and requesting NTG. He now states chest pain is resolved after NTG patch and NTG SL. CBC/BMP: 10/04/17 0429 10/04/17 0429 Significant Findings Laboratory Tests Test 10/01/17 19:38 10/02/17 09:00 10/03/17 05:30 10/04/17 04:29 White Blood Count 11.6 TH/MM3 (4.0-11.0) 13.7 TH/MM3 (4.0-11.0) 13.0 TH/MM3 (4.0-11.0) Red Blood Count 4.01 MIL/MM3 (4.50-5.90) Hemoglobin 10.7 GM/DL (13.0-17.0) 12.2 GM/DL (13.0-17.0) 12.2 GM/DL (13.0-17.0) Hematocrit 32.7 % (39.0-51.0) 38.3 % (39.0-51.0) 37.4 % (39.0-51.0) Mean Corpuscular Hemoglobin 26.7 PG (27.0-34.0) 26.4 PG (27.0-34.0) 26.9 PG (27.0-34.0) Neutrophils (%) (Auto) 84.9 % (16.0-70.0) 86.4 % (16.0-70.0) 92.4 % (16.0-70.0) Lymphocytes (%) (Auto) 6.3 % (9.0-44.0) 4.6 % (9.0-44.0) 4.3 % (9.0-44.0) Monocytes (%) (Auto) 8.2 % (0.0-8.0) 8.3 % (0.0-8.0) Neutrophils # (Auto) 9.9 TH/MM3 (1.8-7.7) 11.9 TH/MM3 (1.8-7.7) 12.0 TH/MM3 (1.8-7.7) Lymphocytes # (Auto) 0.7 TH/MM3 (1.0-4.8) 0.6 TH/MM3 (1.0-4.8) 0.6 TH/MM3 (1.0-4.8) Blood Urea Nitrogen 23 MG/DL (7-18) 24 MG/DL (7-18) 29 MG/DL (7-18) Random Glucose 122 MG/DL (74-106) 140 MG/DL (74-106) 147 MG/DL (74-106) Albumin 2.6 GM/DL (3.4-5.0) 2.6 GM/DL (3.4-5.0) 2.5 GM/DL (3.4-5.0) Calcium Level 8.2 MG/DL (8.5-10.1) Alkaline Phosphatase 173 U/L (45-117) 184 U/L (45-117) 168 U/L (45-117) Aspartate Amino Transf (AST/SGOT) 151 U/L (15-37) 121 U/L (15-37) 68 U/L (15-37) Alanine Aminotransferase (ALT/SGPT) 180 U/L (12-78) 166 U/L (12-78) 127 U/L (12-78) Total Bilirubin 1.4 MG/DL (0.2-1.0) 1.3 MG/DL (0.2-1.0) 1.3 MG/DL (0.2-1.0) Estimat Glomerular Filtration Rate 72 ML/MIN (>89) 66 ML/MIN (>89) 75 ML/MIN (>89) Mean Corpuscular Hemoglobin Concent 31.9 % (32.0-36.0) Monocytes # (Auto) 1.1 TH/MM3 (0-0.9) Neutrophils % (Manual) 85 % (16-70) Lymphocytes % 3 % (9-44) Monocytes % 10 % (0-8) Neutrophils # (Manual) 11.9 TH/MM3 (1.8-7.7) Ovalocytes 1+ (NORMAL) Potassium Level 2.9 MEQ/L (3.5-5.1) Test 10/04/17 12:[address] brain demonstrates Right sided subdural hematoma. The maximal thickness is 1.4 cm. PE at Discharge GENERAL: Elderly male, more awake SKIN: Warm and dry. Ecchymosis overlying right forehead, right orbit, right cheek HEAD: Normocephalic. EYES: Pupils equal and round, 2 mm reactive. Subconjunctival hemorrhage of lateral bulbar conjunctiva of the right eye. ENT: No nasal bleeding or discharge. NECK: Trachea midline. No JVD. Airway widely patent. CARDIOVASCULAR: Atrial fibrillation rate controlled. RBBB on monitor RESPIRATORY: + ve accessory muscle use. Breath sounds equal bilaterally, basilar crackles and wheezing improved GASTROINTESTINAL: Abdomen soft, non-tender, nondistended. bowel sounds present. MUSCULOSKELETAL: Extremities without clubbing, cyanosis, or edema. Resolving ecchymosis over left anterior tibia. NEUROLOGICAL: Mild L facial droop. Moving all extremities. Following commands x4 Overall improved level of copiousness Transfer Summary 87-year-old male with past medical history of hypertension, hyperlipidemia, coronary artery disease with prior CABG and PCI with ongoing daily angina, carotid artery stenosis with bilat CEA, PAD, prior tobacco abuse who presents to [facility] after a fall that occurred the evening of 09/24/17. He hit his head on a wooden walkaway. There was no LOC and mental status was normal afterwards. He did have a R forehead laceration and immediately developed bruising of his forehead, R orbit, right lower face. Steristrips were applied to laceration by son-in-law. This afternoon pt became more confused and had slurred speech. EVAC was called and he was felt to have some mild tongue deviation to the left. He had about 45 seconds of left sided facial twitching that resolved spontaneously.He had several additional episodes of this while I was assessing him in the ED. He is alert and able to follow commands during this, appears c/w simple partial seizure. CT brain demonstrates Right sided subdural hematoma. The maximal thickness is 1.4 cm. He is on ASA/Plavix but did not take them today. Not on anticoagulation. He has h/ o CAD with prior stent and CABG that is not amenable to further intervention. He has ongoing angina and uses NTG spray numerous times a day. He was complaining of chest pressure and requesting NTG. He now states chest pain is resolved after NTG patch and NTG SL. 09/27: Chest pain has resolved. Lengthy discussion with his . Trop elevated , clearly NSTEMI. Well documented history of diffuse coronary artery disease. At this point he is not a candidate for anticoagulation or intervention due to acute subdural bleed. We will slow his heart rate with additional beta jennifer and try to ride this episode out. No perfect solutions but he is pain free now with heart rate control. 09/28: No chest pain for > 24 hours. More alert and conversant today. Will get PT to start working with him. 09/29: Agitated again last night. Did not respond to haloperidol, will try Geodon if recurs. Sleeping now. Receiving lopressor PO and IV to keep heart rate down. Episode SVT last night - family concerned because of recent enzyme spill. Again, inoperable diffuse CAD and chronic angina. 09/30: Placed on Precedex for agitation. Responds to Geodon. Episode of SVT overnight. Oriented to person and place. CT head 09/27: Prominent right subdural hemorrhage. Cleared by Dr. Head for ASA 81 mg day 10/01: Oriented to person and place. Intermittent agitation improving, off Precedex. Chest x-ray showed today shows left lower lobe infiltrate which may be chronic. CT of the head shows stable large right subdural hemorrhage with persistent 4 mm midline shift 10/02: More lethargic today, low grade fever. Hypotension receiving 1 L normal saline bolus. White count slightly increased chest x-ray showing infiltrates. Panculture Zosyn started 10/03: Lethargic, chest exam reveals bilateral wheezing. Received Lasix at about 2 AM today, additional 20 mg of Lasix ordered. Start IV Solu-Medrol 60 mg 1 and 40 every 12 along with Symbicort and scheduled DuoNeb. Continue Zosyn. Prognosis guarded, discussed with son -in -law Dr. Gonzales. Echo shows EF 50%, but with moderate MR, actual EF is most likely less likely 1/5: More awake, alert. Oriented 3. Chest x-ray unchanged breathing more comfortably less wheezing. Initially failed swallow, but second attempt passed. D/W Dr. Gonzales. Will transfer to [facility] today TREATMENT SUMMARY (SYSTEM SPEARS): NEURO: R subdural hematoma, maximum 1.4 cm, 2-3 mm shift -conservative management in consultation with neurosurgery Worsening encephalopathy-resolved, use Geodon when necessary Simple partial seizure-continue Keppra s/p Fall -PT RESP: Respiratory insufficiency/COPD exacerbation-continue nebulization tapering prednisone Probable HCAP-Continue Zosyn for total 7 days Incentive spirometry every hour awake, EzPAP q6 DuoNeb q6 scheduled and PRN Aggressive pulmonary toilet CV: NSTEMI-continue aspirin, Imdur, beta jennifer statin and zetia Hypotension-resolved Congestive heart failure-continue Lasix CAD with prior CABG and PTCA Atrial fibrillation rate controlled FEN/RENAL: BPH Urinary retention Patient had difficulty voiding. Howard placed. Continue Howard for now and plan bladder training at Rehab Proscar 5 mg po daily when able to take po. ID: [id number] Continue Zosyn total 7days UA negative. PROPH: SCDs for DVT prophylaxis. Pharmacologic DVT prophylaxis is contraindicated due to acute subdural hematoma. Hospital Course See transfer summary Pt Condition on Discharge: Stable Discharge Disposition: Rehab Inpatient Discharge Instructions DIET: Follow Instructions for: Pureed Diet Speech Therapy-Diet Recommends: Pureed Additional Diet Instructions: See speech therpay recommendation Activities you can perform: See Additionl Instruction Other Activity Instructions: Per PT recommendstion Additional Information See Med Rec Alejandro Mancilla MD Oct 04, 2017 13:55
[2017-10-04] MEDS ORDERED: ZIPR20 IM (14:05)
[2017-10-04] MEDS ORDERED: LACT10SO PO (14:05)
[2017-10-04] MEDS ORDERED: PIPE4INJ IV (14:05)
[2017-10-04] MEDS ORDERED: DOCU8.6T PO (14:05)
[2017-10-04] MEDS ORDERED: SENO8.6T5 PO ×2 (14:05→18:25)
[2017-10-04] MEDS ORDERED: MILKSUS PO (14:05)
[2017-10-04] MEDS ORDERED: ATEN25TA PO (14:05)
[2017-10-04] MEDS ORDERED: METO5INJ13 IV (14:05)
[2017-10-04] MEDS ORDERED: ISOS20TA PO (14:05)
[2017-10-04] MEDS ORDERED: SYMB80AE INH (14:05)
[2017-10-04] MEDS ORDERED: DULC10SU3 RECTAL (14:05)
[2017-10-04] MEDS ORDERED: MELA1TAB40 PO (14:05)
[2017-10-04] MEDS ORDERED: LEVE500 PO (14:05)
[2017-10-04] MEDS ORDERED: PROT40TA PO (14:40)
[2017-10-04] MEDS ORDERED: LIPI80TA PO (14:40)
[2017-10-04] MEDS ORDERED: FURO1TAB62 PO (14:40)
[2017-10-04] MEDS ORDERED: ONDA8TAB7 PO (18:25)
[2017-10-04] MEDS ORDERED: ALBU.5I NEB (18:25)
[2017-10-04] MEDS ORDERED: ZOFR4SOL PO (18:25)
[2017-10-04] MEDS ORDERED: ATENOLOL 25 MG TAB PO SCH (21:00)
[2017-10-05] MEDS ORDERED: predniSONE 20 MG TAB PO SCH (09:00)
[2017-10-07] MEDS ORDERED: FINA5TAB2 PO (11:53)
[2017-10-07] MEDS ORDERED: RANO500 PO (11:53)
[2017-10-07] MEDS ORDERED: ATOR80TA45 PO (11:53)
[2017-10-07] MEDS ORDERED: NITR0.4S SL (11:53)
[2017-10-07] MEDS ORDERED: FURO20TA PO (11:53)
[2017-10-07] MEDS ORDERED: CLON.1 PO (11:53)
[2017-10-07] MEDS ORDERED: EZET10 PO (11:53)
[2017-10-07] MEDS ORDERED: Albuterol-Ipratropium Neb NEB ×2 (11:53)
[2017-10-07] MEDS ORDERED: PERI PO (11:53)
[2017-10-07] MEDS ORDERED: PANT40TA3 PO (11:53)
[2017-10-07] MEDS ORDERED: PRED20 PO (11:53)
[2017-10-07] MEDS ORDERED: ONDA4TAB7 PO (11:53)
[2017-10-07] MEDS ORDERED: LEVE500 PO (11:53)
[2017-10-07] MEDS ORDERED: ECASA81 PO (11:53)
[2017-10-07] MEDS ORDERED: Budeson-Formot 160-4.5 Mcg Inh INH (11:53)
[2017-10-07] MEDS ORDERED: ISOS30TA3 PO (11:53)
[2017-10-07] MEDS ORDERED: ATEN50TA PO (11:53)
== END 2017-10-04 16:14 | DRG 85 ==
LOC: NEPE 20:44 → NEDA 21:41 → N03A 23:33
PROVIDERS: ADMIT Emergency Medicine; ATTEND Emergency Medicine
DX: S06.5X0A Traumatic subdural hemorrhage without loss of consciousness, initial encounter (principal); G93.40 Encephalopathy, unspecified; I21.A1 Myocardial infarction type 2; A41.9 Sepsis, unspecified organism; I47.2 Ventricular tachycardia; J18.9 Pneumonia, unspecified organism; I95.9 Hypotension, unspecified; I47.1 Supraventricular tachycardia; G40.89 Other seizures; J44.0 Chronic obstructive pulmonary disease with (acute) lower respiratory infection; J44.1 Chronic obstructive pulmonary disease with (acute) exacerbation; F05 Delirium due to known physiological condition; I11.0 Hypertensive heart disease with heart failure; D69.6 Thrombocytopenia, unspecified; I48.0 Paroxysmal atrial fibrillation; D64.9 Anemia, unspecified; S01.81XA Laceration without foreign body of other part of head, initial encounter; I50.9 Heart failure, unspecified; I34.0 Nonrheumatic mitral (valve) insufficiency; E78.5 Hyperlipidemia, unspecified; I25.118 Atherosclerotic heart disease of native coronary artery with other forms of angina pectoris; S00.83XA Contusion of other part of head, initial encounter; I73.9 Peripheral vascular disease, unspecified; K21.9 Gastro-esophageal reflux disease without esophagitis; M48.061 Spinal stenosis, lumbar region without neurogenic claudication; N40.1 Benign prostatic hyperplasia with lower urinary tract symptoms; R33.8 Other retention of urine; R47.81 Slurred speech; R26.81 Unsteadiness on feet; I45.10 Unspecified right bundle-branch block; I49.3 Ventricular premature depolarization; S05.11XA Contusion of eyeball and orbital tissues, right eye, initial encounter; W01.198A Fall on same level from slipping, tripping and stumbling with subsequent striking against other object, initial encounter; Y95 Nosocomial condition; Z79.82 Long term (current) use of aspirin; Z85.828 Personal history of other malignant neoplasm of skin; Z87.891 Personal history of nicotine dependence; Z95.1 Presence of aortocoronary bypass graft; Z95.5 Presence of coronary angioplasty implant and graft; Z79.02 Long term (current) use of antithrombotics/antiplatelets; Z88.5 Allergy status to narcotic agent; Z88.8 Allergy status to other drugs, medicaments and biological substances
CPT/HCPCS: 36600; 70450; 70486; 71010; 71045; 72125; 80048; 80053; 80076; 81001; 82435; 82550; 82565; 82805; 82947; 83735; 84100; 84132; 84295; 84484; 84520; 85007; 85025; 85027; 85384; 85610; 85730; 86850; 86900; 86901; 87040; 87086; 87641; 93005; 93306; 94150; 94640; 94664; 94667; 94668; 95819; 96365; C9113; J0131; J0690; J1630; J1940; J1953; J2060; J2405; J2543; J2920; J2930; J3010; J3475; J3480; J3486; J7030; P9047

== ENCOUNTER 2017-10-07 12:24 | Inpatient (IN) | payer MEDICARE, BC ==
[2017-10-07] VITALS (9 sets, daily range): BP systolic 108–110; BP diastolic 66–74; PULSE 105–148; RESP 16–30; TEMP 98.4–98.5; O2SAT 93–98
[~2017-10-07] VITALS: Ht 190.5 cm; Wt 72.8 kg
[~2017-10-07 12:24] MED LIST changes: +ALBU.5I NEB; +ASPI-516 CHEW; -ASPI1TAB69 PO; +ATEN25TA PO; +ATOR80TA45 PO; +Albuterol-Ipratropium Neb NEB; +Budeson-Formot 160-4.5 Mcg Inh INH; +CLON.1 PO; +DULC10SU3 RECTAL; +ECASA81 PO; +FINA5TAB2 PO; +FURO20TA PO; -IMDU60TA PO; +IPRASOL INH; +ISOS20TA PO; +ISOS30TA3 PO; +LACT10SO PO; +LEVE500 PO; +LIPI80TA PO; +MELA1TAB40 PO; +NITR0.4S SL; +ONDA4TAB7 PO; +PANT40TA3 PO; +PERI PO; +PIPE4INJ IV; -PLAV75TA29 PO; +PRED20 PO; +PROT40TA PO; +RANE1000 PO; +RANO500 PO; -ROSU40 PO; +SENO8.6T5 PO; +SYMB80AE INH; -TAMS5CAP PO; +ZIPR20 IM; +ZOFR4TAB IV
[2017-10-07] MEDS ORDERED: CHLORHEXIDINE GLUCONATE 2 % 1 PACK (2 CLOTHS) TOP PRN (13:00)
[2017-10-07] MEDS ORDERED: SODIUM CHLORIDE 0.9% FLUSH 10 ML FLUSH IV FLUSH PRN (13:00)
[2017-10-07] MEDS: RESP: ACETYLCYSTEINE 10% 30 ML NEB NEB SCH ×4 (13:00→23:36)
[2017-10-07] MEDS ORDERED: ACETAMINOPHEN 325 MG TAB PO PRN (13:00)
[2017-10-07] MEDS ORDERED: RESP: ALBUTEROL 2.5 MG/IPRATROPIUM 0.5 MG NEB (PRN) INH (13:00)
[2017-10-07] MEDS ORDERED: MISCELLANEOUS NURSING INFORMATION XX SCH (13:00)
[2017-10-07] MEDS ORDERED: RESP: ALBUTEROL 2.5 MG/3 ML NEB (PRN) INH (13:00)
--- NOTE | 2017-10-07 14:31 | HHI.HP ---
HPI Service Critical Care Medicine Primary Care Physician Ezekiel Toribio MD Admission Diagnosis Diagnosis: Chief Complaint: altered mental status Travel History International Travel<30 Days: No Contact w/Intl Traveler <30 Da: No Traveled to Known Affected Are: No Sepsis Criteria SIRS Criteria (2 or more): Heart rate over 90, WBC > 62383, < 4000 or > 10% bands Sepsis Criteria (SIRS+source): Infect source susp/known Criteria Outcome: Meets sepsis criteria History of Present Illness HPI Diagnosis: (1) Dysphagia Diagnosis: Secondary (2) HCAP (healthcare-associated pneumonia) Diagnosis: Principal (3) Impaired mobility and activities of daily living Diagnosis: Secondary (4) NSTEMI (non-ST elevated myocardial infarction) Diagnosis: Secondary (5) Closed TBI (traumatic brain injury) Diagnosis: Secondary (6) Elevated LFTs Diagnosis: Secondary (7) New onset a-fib Diagnosis: Principal (8) HLD (hyperlipidemia) Diagnosis: Secondary (9) HTN (hypertension) Diagnosis: Secondary (10) GERD (gastroesophageal reflux disease) Diagnosis: Secondary History of Present Illness Patient is an 87 year old male with PMHX of HTN, HLD, CAD with CABG in the past , Bilateral Carotid artery stenosis with Endarterectomy in the past who initially came to [facility] S/P fall and have incurred Subdural Hematoma. He was also found to have NSTEMI conservatively managed. His hospitalization was complicated with HCAP treated with IV Zosyn to continue until completed. He has on and off agitation in the in patient setting, treated with Haldol and geodon PRN. He was admitted to inpatient rehab [place] for comprehensive rehabilitation. Patient was noted to have chest pain on 10/05 and [facility] was called. Troponin slightly elevated 0.6, EKG showed AFIB RVR. He was given diltiazem and ASA. Patient was also agitated on 10/05 and was given Geodon. He subsequently received Seroquel/Xanax/Restoril on 10/06 for anxiety. He has become progressively more lethargic since yesterday(10/06) and this morning was minimally arousable. Chest x-ray and head CT were done. Head CT showed unchanged subdural hematoma compared to previous scans. Chest x-ray from 10/07 revealed complete opacification of left lung field most likely secondary to mucous plugging. I was contacted by Dr. Gonzales - patient's son-in-law who was concerned regarding his lethargy and left lung collapse. Patient was transferred from [facility] to the ICU on 10/07 after being accepted by me for admission. I evaluated the patient immediately following his arrival. At that time he was on 4 L nasal cannula and appeared comfortable and in no acute distress. He was drowsy though easily arousable and was following simple commands including coughing. He denied any shortness of breath or chest pain at the time. History was obtained by reviewing records and discussion with Dr. Gonzales and subsequently patient's daughter at bedside. ROS - General Review of Systems limited due to altered mental status PFSH Past Family Social History Allergies: Coded Allergies: oxycodone (Unverified Allergy, Severe, VOMITING, 05/14/17) zolpidem (Unverified Allergy, Severe, 09/26/17) ibuprofen (Verified Allergy, Mild, 09/27/17) Past Medical History HTN HLD CAD PAD Bilateral carotid artery stenosis Angina GERD Spinal stenosis BPH Cardiac arrest in the late 20s Past Surgical History CABG PCI Therapy [address] Cruz Right CEA Left CEA Cholecystectomy Bilateral hernia repair Reported Medications Reported Meds & Active Scripts Active Proscar (Finasteride) 5 Mg Tab 5 Mg PO DAILY Do not crush. Reported Senokot (Sennosides) 8.6 Mg Tab 8.6 Mg PO Q12HR PRN Albuterol Neb (Albuterol Sulfate) 2.5 Mg/0.5 Ml Neb 2.5 Mg NEB Q2HR NEB PRN Note: The Albuterol Sulfate Inhalation Solution is concentrated and must be diluted. Read complete instructions carefully before using. Protonix (Pantoprazole Sodium) 40 Mg Tab 40 Mg PO DAILY Lipitor (Atorvastatin Calcium) 80 Mg Tab 80 Mg PO HS Lasix (Furosemide) 20 Mg Tab 20 Mg PO DAILY Symbicort Inh (Budesonide/Formoterol Fumarate) 80-4.5 Mcg/Act Aero 2 Puff INH Q12HR Piperacil-Tazobact 4.5 gm Vial (Piperacillin Sodium/Tazobactam) 4.5 Gram Vial 4.5 G IV Q6HR Melatonin 1 Mg Tab.subl 5 Mg PO HS PRN Isosorbide Mononitrate 20 Mg Tab 60 Mg PO BID Take 2 doses 7 hours apart. Dulcolax Supp (Bisacodyl) 10 Mg Supp 10 Mg RECTAL DAILY PRN Atenolol 25 Mg Tab 25 Mg PO BID Geodon (Ziprasidone) 20 Mg Cap 20 Mg IM Q6HR PRN Keppra (Levetiracetam) 500 Mg Tab 500 Mg PO BID Lactulose Liq (Lactulose) 10 Gm/15 Ml Soln 30 Ml PO DAILY Duoneb (Ipratropium-Albuterol Neb) 0.5-2.5 Mg/3 Ml Neb 1 Nebule INH Q6HR NEB Duoneb (Ipratropium-Albuterol Neb) 0.5-2.5 Mg/3 Ml Neb 1 Nebule INH Q2HR PRN Prednisone 20 Mg Tab 20 Mg PO DAILY Zofran (Ondansetron HCl) 4 Mg Tab 4 Mg IV Q6HR PRN Ranexa ER 12 HR (Ranolazine) 1,000 Mg Tab 1,000 Mg PO BID Aspirin 81 Mg Chew 81 Mg CHEW DAILY Zetia (Ezetimibe) 10 Mg Tab 10 Mg PO DAILY Nitroglycerin Lingual [place] (Nitroglycerin) 400 Mcg/Act [place] 1 [place] SL DIRECTED PRN ONE SPRAY NEEDED FOR CHEST PAIN, MAY REPEAT EVERY FIVE MINUTES FOR A TOTAL OF 3 DOSES OR CALL 911 IF NO RELIEF Family History Father at the age 29 secondary to trauma Mother the age of 70 secondary to cancer Social History EtOH use quit 35 years ago Former smoker, smoked 1 pack per day 40 years, quit 20 years ago 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 SKIN: No rashes, ecchymoses or lesions. Cool and dry. HEAD: Atraumatic. Normocephalic. No temporal or scalp tenderness. EYES: Pupils equal round and reactive. Extraocular motions intact. No scleral icterus. No injection or drainage. ENT: Nose without bleeding, purulent drainage or septal hematoma. Throat without erythema, tonsillar hypertrophy or exudate. Uvula midline. Airway patent. NECK: Trachea midline. No JVD or lymphadenopathy. Supple, nontender, no meningeal signs. CARDIOVASCULAR: S1-S2 irregularly irregular, no gallop or murmur. RESPIRATORY: Air entry decreased oral left lung field, scattered rhonchi, no wheezing. GASTROINTESTINAL: Abdomen soft, non-tender, nondistended. No hepato-splenomegaly , or palpable masses. No guarding. MUSCULOSKELETAL: Extremities without clubbing, cyanosis, or edema. No joint tenderness, effusion, or edema noted. No calf tenderness. Negative Homans sign bilaterally. NEUROLOGICAL: Drowsy, arousable easily, follows commands. Speech appropriate but slow. Motor and sensory grossly within normal limits. Five out of 5 muscle strength in all muscle groups. Laboratory Laboratory Tests Test 10/07/17 06:48 10/07/17 08:50 White Blood Count 15.1 Red Blood Count 4.40 Hemoglobin 11.8 Hematocrit 36.4 Mean Corpuscular Volume 82.9 Mean Corpuscular Hemoglobin 26.8 Mean Corpuscular Hemoglobin Concent 32.4 Red Cell Distribution Width 16.9 Platelet Count 298 Mean Platelet Volume 7.9 Neutrophils (%) (Auto) 82.2 Lymphocytes (%) (Auto) 9.9 Monocytes (%) (Auto) 7.3 Eosinophils (%) (Auto) 0.2 Basophils (%) (Auto) 0.4 Neutrophils # (Auto) 12.4 Lymphocytes # (Auto) 1.5 Monocytes # (Auto) 1.1 Eosinophils # (Auto) 0.0 Basophils # (Auto) 0.1 CBC Comment AUTO DIFF Differential Total Cells Counted 100 Neutrophils % (Manual) 86 Band Neutrophils % 1 Lymphocytes % 7 Monocytes % 2 Neutrophils # (Manual) 13.7 Metamyelocytes 1 Myelocytes 3 Nucleated Red Blood Cells 3 Differential Comment FINAL DIFF MANUAL Platelet Estimate NORMAL Platelet Morphology Comment NORMAL Tear Drop Cells 1+ Ovalocytes 1+ Blood Urea Nitrogen 24 Creatinine 0.99 Random Glucose 120 Calcium Level 8.9 Sodium Level 146 Potassium Level 3.9 Chloride Level 107 Carbon Dioxide Level 32.4 Anion Gap 7 Estimat Glomerular Filtration Rate 72 Blood Gas Puncture Site RT RADIAL Blood Gas Patient Temperature 98.6 Blood Gas HCO3 32 Blood Gas Base Excess 6.5 Blood Gas Oxygen Saturation 91 Arterial Blood pH 7.35 Arterial Blood Partial Pressure CO2 59 Arterial Blood Partial Pressure O2 78 Arterial Blood Oxygen Content 14.9 Arterial Blood Carboxyhemoglobin 1.4 Arterial Blood Methemoglobin 1.4 Blood Gas Hemoglobin 11.6 Oxygen Delivery Device NASAL CANNULA Blood Gas Liter Flow 4 Result Diagram: 10/07/17 0648 10/07/17 0648 Imaging Last [address] 10/07/17 0000 Signed Impressions: Service Date/Time: Saturday, October 07, 2017 09:11 - CONCLUSION: Persistent right subdural hematoma with mass effect as described above. No significant change in mass effect. Misael Velasquez MD FACR Chest X-Ray 10/07/17 0000 Signed Impressions: Service Date/Time: Saturday, October 07, 2017 10:33 - CONCLUSION: Deterioration with new near-complete opacification left lung field Misael Velasquez MD FACR Chest X-Ray 10/06/17 0000 Signed Impressions: Service Date/Time: Friday, October 06, 2017 10:25 - CONCLUSION: Scattered stable patchiness throughout the lungs bilaterally. Marlon Mann MD Caprini VTE Risk Assessment Caprini VTE Risk Assessment Caprini VTE Risk Assessment: Mod/High Risk (score >= 2) VTE Pharm Contraindication: Hemorrhage Caprini Risk Assessment Model Point Value = 1 Point Value = 2 Point Value = 3 Point Value = 5 Age 41-60 Minor surgery BMI > 25 kg/m2 Swollen legs Varicose veins or History of unexplained or recurrent spontaneous Oral contraceptives or hormone replacement Sepsis (< 1 month) Serious lung disease, including pneumonia (< 1 month) Abnormal pulmonary function Acute myocardial infarction Congestive heart failure (< 1 month) History of inflammatory bowel disease Medical patient at bed rest Age 61-74 Arthroscopic surgery Major open surgery (> 45 min) Laparoscopic surgery (> 45 min) Malignancy Confined to bed (> 72 hours) Immobilizing plaster cast Central venous access Age >= 75 History of VTE Family history of VTE Factor V Leiden Prothrombin [id number] Lupus anticoagulant Anticardiolipin antibodies Elevated serum homocysteine Heparin-induced thrombocytopenia Other congenital or acquired thrombophilia Stroke (< 1 month) Elective arthroplasty Hip, pelvis, or leg fracture Acute spinal cord injury (< 1 month) Prophylaxis Regimen Total Risk Factor Score Risk Level Prophylaxis Regimen 0-1 Low Early ambulation 2 Moderate Order ONE of the following: *Sequential Compression Device (SCD) *Heparin 5000 units SQ BID 3-4 Higher Order ONE of the following medications: *Heparin 5000 units SQ TID *Enoxaparin/Lovenox 40 mg SQ daily (WT < 150 kg, CrCl > 30 mL/min) *Enoxaparin/Lovenox 30 mg SQ daily (WT < 150 kg, CrCl > 10-29 mL/min) *Enoxaparin/Lovenox 30 mg SQ BID (WT < 150 kg, CrCl > 30 mL/min) AND/OR *Sequential Compression Device (SCD) 5 or more Highest Order ONE of the following medications: *Heparin 5000 units SQ TID (Preferred with Epidurals) *Enoxaparin/Lovenox 40 mg SQ daily (WT < 150 kg, CrCl > 30 mL/min) *Enoxaparin/Lovenox 30 mg SQ daily (WT < 150 kg, CrCl > 10-29 mL/min) *Enoxaparin/Lovenox 30 mg SQ BID (WT < 150 kg, CrCl > 30 mL/min) AND *Sequential Compression Device (SCD) Assessment and Plan Assessment and Plan Assessment and Plan Assessment and Plan Assessment and Plan A/P Problem List: (1) Subdural hematoma, post-traumatic ICD Code: S06.5X9A - Traumatic subdural hemorrhage with loss of consciousness of unspecified duration, initial encounter Status: Acute (2) CAD (coronary artery disease) ICD Code: I25.10 - Atherosclerotic heart disease of [place] coronary artery without angina pectoris Status: Chronic (3) HTN (hypertension) ICD Code: I10 - Essential (primary) hypertension Status: Chronic (4) HLD (hyperlipidemia) ICD Code: E78.5 - Hyperlipidemia, unspecified Status: Chronic (5) Simple partial seizures ICD Code: G40.109 - Localization-related (focal) (partial) symptomatic epilepsy and epileptic syndromes with simple partial seizures, not intractable, without status epilepticus Status: Acute (6) PAD (peripheral artery disease) ICD Code: I73.9 - Peripheral vascular disease, unspecified Status: Chronic (7) Lumbar spinal stenosis ICD Code: M48.06 - Spinal stenosis of lumbar region Status: Acute (8) BPH (benign prostatic hypertrophy) with urinary obstruction ICD Code: N13.8 - Other obstructive and reflux uropathy; N40.1 - Benign prostatic hyperplasia with urinary obstruction Status: Acute (9) S/P CABG x 2 ICD Code: Z95.1 - Presence of aortocoronary bypass graft Status: Chronic (10) GERD (gastroesophageal reflux disease) ICD Code: K21.9 - Gastro-esophageal reflux disease without esophagitis Status: Chronic Assessment and Plan NEURO: R subdural hematoma, maximum 1.4 cm, 2-3 mm shift Encephalopathy Simple partial seizure s/p Fall Lumbar spinal stenosis Will increasing lethargy most likely secondary to combination off Xanax/ Restoril and Seroquel. Will hold off on Xanax and Restoril and use Seroquel if needed for agitation. Improving mentation. Minimize sedation Continue neuro checks Was on by mouth Keppra, will switch [id number] IV [id number] while NPO Repeat CT brain 10/07 shows Stable SDH Neurosurgery Dr. Grady, will reconsult if needed. RESP: Respiratory insufficiency COPD exacerbation Prior history of tobacco abuse Aspiration pneumonia/ HCAP Left lung atelectasis most likely secondary to mucous plugging Continue Zosyn On PO prednisone which will be continued. Incentive spirometry when more awake DuoNeb q6 scheduled and PRN. Starting Mucomyst nebulizer treatments every 4 hourly in view of mucus plugging with left lung collapse as well as chest PT Q4hrly. Aggressive pulmonary toilet Repeat chest x-ray on 10/08 and if no improvement and left lung collapse with intubated and performed bronchoscopy with BAL. CV: NSTEMI Congestive heart failure CAD with prior CABG and PTCA Atrial fibrillation rate controlled HTN Hyperlipidemia EF 50%, probably less with moderate MR Patient has chronic angina and habitual use of NTG spray. We will use Lopressor 2.5 mg IV every 6 hourly while nothing by mouth and subsequently resume by mouth metoprolol. Resume Imdur Po tomorrow. SL NTG as needed for chest pain. Resume Ranexa when tolerating PO Statin/Zetia [place] is Dr. Chavez ASA 81 mg day cleared by Dr. Head 09/30/17 GI: GERD h/o cholecystectomy, appendectomy h/o inguinal hernia repair NPO till improvement in neuro status. Diet per speech rec Continue PPI FEN/RENAL: BPH h/o Urinary retention Strict intake output, monitor and replete electrolytes, follow BUN/creatinine. Proscar 5 mg po daily when able to take po. ID: HCAP/ Aspiration pneumonia Sepsis Mild leukocytosis Continue Zosyn, follow cultures HEME: Mild chronic anemia Does not require transfusion at this time. He was not on any anticoagulant therapy. ENDO: Glucose is at target <185. PROPH: SCDs for DVT prophylaxis. Pharmacologic DVT prophylaxis is contraindicated due subdural hematoma till cleared by Neurosurgery. Protonix 40 mg IV daily for stress ulcer prophylaxis and history of GERD on PPI at home. ACCESS: Peripheral IV providing adequate access at this time Discussed at length with patient's family including Dr. gonzales and patient's daughter. Plan is to initiate nebulizer treatments Mucomyst and chest physical therapy to try to improve left lung atelectasis. If there is no improvement in his chest x-ray tomorrow will consider intubation with bronchoscopy and BAL. Problem Qualifiers (1) Closed TBI (traumatic brain injury): Qualified Codes: S06.9X0A - Unspecified intracranial injury without loss of consciousness, initial encounter (2) HTN (hypertension): Qualified Codes: I10 - Essential (primary) hypertension Jose Zabala MD Oct 07, 2017 14:28 Code Status Alternate code with intubation only Jose Zabala MD Oct 07, 2017 14:31
[2017-10-07] MEDS: PIPERACIL-TAZO 3.375 GM PREMIX 50 ML IV SCH ×2 (14:44→20:39)
[2017-10-07] MEDS: DEXT 5%-NACL 0.45% 1000 ML INJ 1,000 ML IV SCH (14:44)
[2017-10-07] MEDS ORDERED: BISACODYL 10 MG SUPP RECTAL PRN (14:45)
[2017-10-07] MEDS ORDERED: NITROGLYCERIN 400 MCG/SPRAY 4.9 GM BOTTLE SL PRN (14:45)
[2017-10-07] MEDS ORDERED: NITROGLYCERIN 0.4 MG SL 25 TABS/BTL SL PRN (14:45)
[2017-10-07] MEDS ORDERED: SENNOSIDES 8.6 MG TAB PO PRN (14:45)
[2017-10-07] MEDS: levETIRAcetam INJ 500 MG in SODIUM CHLORIDE 0.9% INJ 100 ML IV SCH ×2 (14:59→20:39)
[2017-10-07] MEDS ORDERED: MELATONIN 5 MG TAB PO PRN (15:00)
[2017-10-07] MEDS ORDERED: ONDANSETRON HCL 4 MG/2 ML VIAL IV PUSH PRN (15:00)
[2017-10-07] MEDS: METOPROLOL TARTRATE 5 MG/5 ML VIAL IV PUSH SCH ×2 (15:11→20:39)
[2017-10-07] MEDS: RESP: ALBUTEROL 2.5 MG/IPRATROPIUM 0.5 MG NEB (SCH) NEB ×3 (15:53→23:36)
[2017-10-07] MEDS: BUDESONIDE-FORMOTEROL 80/4.5 MCG INHALER INH SCH (20:39)
[2017-10-07] MEDS: CHLORHEXIDINE 0.12% (ORAL KIT) 15 ML CUP MT SCH (20:39)
[2017-10-07] MEDS: ATORVASTATIN 80 MG TAB PO SCH (20:40)
[2017-10-07] MEDS: SODIUM CHLORIDE 0.9% FLUSH 10 ML FLUSH IV FLUSH SCH (20:40)
[2017-10-07] MEDS ORDERED: [UNRECOGNIZED DRUG - OTHER] INH SCH (21:00)
[2017-10-07] MEDS ORDERED: SYMBICORT INH SCH (21:00)
[2017-10-07] MEDS ORDERED: ESMOLOL DRIP INJ PREMIX 250 ML IV PRN (22:00)
[2017-10-08] VITALS (18 sets, daily range): BP systolic 73–138; BP diastolic 47–70; PULSE 88–123; RESP 16–35; TEMP 97.7–100; O2SAT 94–100
[2017-10-08] MEDS: DEXT 5%-NACL 0.45% 1000 ML INJ 1,000 ML IV SCH ×2 (01:10→06:36)
[2017-10-08] MEDS: PIPERACIL-TAZO 3.375 GM PREMIX 50 ML IV SCH ×4 (02:40→20:40)
[2017-10-08] MEDS: METOPROLOL TARTRATE 5 MG/5 ML VIAL IV PUSH SCH ×2 (02:40→08:45)
[2017-10-08] MEDS: RESP: ACETYLCYSTEINE 10% 30 ML NEB NEB SCH ×5 (03:18→21:03)
[2017-10-08] MEDS: RESP: ALBUTEROL 2.5 MG/IPRATROPIUM 0.5 MG NEB (SCH) NEB ×5 (03:18→21:03)
[2017-10-08] MEDS: CHLORHEXIDINE GLUCONATE 2 % 1 PACK (2 CLOTHS) TOP SCH (03:24)
--- NOTE | 2017-10-08 04:02 | RADRPT ---
EXAM DATE/TIME: 10/08/2017 03:20 [facility] COMPARISON: CHEST SINGLE AP, October 07, 2017, 10:33. INDICATIONS : Respiratory distress. MEDICAL HISTORY : Hypertension. Cardiovascular disease. SURGICAL HISTORY : Carotid endarterectomy. CABG. Appendectomy ENCOUNTER: Subsequent ACUITY: 4 - 6 days PAIN SCORE: Non-responsive. LOCATION: Bilateral chest FINDINGS: The cardiac silhouette is normal in transverse diameter. Median sternotomy wires are present. There i s improving aeration of the left lung. There is prominence of the central pulmonary vasculature with indistinct vascular margins compatible with vascular congestion but no evidence of overt failure. CONCLUSION: 1. Cardiomegaly 2. Improving aeration of the left lung Melo Brown MD on October 08, 2017 at 3:54 Board Certified Radiologist. This report was verified electronically.
[2017-10-08] MEDS: ISOSORBIDE MONONITRATE 60 MG TAB PO SCH (04:42)
[2017-10-08] MEDS ORDERED: ETOMIDATE 40 MG/20 ML VIAL ONE (05:12)
[2017-10-08] MEDS ORDERED: MIDAZOLAM 100 MG/100 ML INJ 100 ML IV PRN ×2 (05:30→10:45)
[2017-10-08] MEDS ORDERED: fentaNYL DRIP 250 ML IV PRN (05:30)
[2017-10-08 05:33] LABS: AUTOMATED NEUTROPHIL # 11.3 TH/MM3 (1.8-7.7); BASOPHIL % 0.3 % (0.0-2.0); EOSINOPHIL # 0.2 TH/MM3 (0-0.4); EOSINOPHIL % 1.2 % (0.0-4.0); HEMATOCRIT 36.5 % (39.0-51.0); HEMOGLOBIN 11.6 GM/DL (13.0-17.0); LYMPH % 6.7 % (9.0-44.0); LYMPHOCYTE # 0.9 TH/MM3 (1.0-4.8); MEAN CELL VOLUME 83.7 FL (80.0-100.0); MEAN CORPUSCULAR HEMOGLOBIN 26.6 PG (27.0-34.0); MEAN CORPUSCULAR HGB CONC 31.9 % (32.0-36.0); MEAN PLATELET VOLUME 7.8 FL (7.0-11.0); MONO % 6.9 % (0.0-8.0); MONOCYTE # 0.9 TH/MM3 (0-0.9); NEUT % 84.9 % (16.0-70.0); PLATELET COUNT 250 TH/MM3 (150-450); RED BLOOD COUNT 4.36 MIL/MM3 (4.50-5.90); RED CELL DISTRIBUTION WIDTH 17.2 % (11.6-17.2); WHITE BLOOD COUNT 13.4 TH/MM3 (4.0-11.0)
--- NOTE | 2017-10-08 05:49 | PD.PROCEDR ---
Procedure Note Procedure Endotracheal Intubation A time-out was completed verifying correct patient, procedure, site, positioning , and special equipment if applicable. The patient was placed in a flat position. Sedation was obtained using Etomidate 20mg. The patient was easily ventilated using an ambu bag. The [employer]/ MAC 4 BLADE was used and inserted into the oropharynx at which time there was a Grade 1 view of the vocal cords. A 8-kyrgyz endotracheal tube was inserted and visualized going through the vocal cords. The stylette was removed. Colorimetric change was visualized on the CO2 meter. Breath sounds were heard in both lung kunz equally. The endotracheal tube was placed at 23 cm, measured at the teeth. A chest x-ray was ordered to assess for pneumothorax and verify endotrachealtube placement. Estimated Blood Loss: 0 The patient tolerated the procedure well and there were no complications. Suleman Gilmore MD Oct 08, 2017 5:49 am
[2017-10-08 05:57] LABS: ALBUMIN 2.2 GM/DL (3.4-5.0); ALT (GPT) 65 U/L (12-78); AST (GOT) 30 U/L (15-37); BICARBONATE 34.1 MEQ/L (21.0-32.0); BLOOD UREA NITROGEN 18 MG/DL (7-18); CALCIUM 8.4 MG/DL (8.5-10.1); CHLORIDE 106 MEQ/L (98-107); CREATININE 0.85 MG/DL (0.60-1.30); GLOMERULAR FILTRATION RATE 86 ML/MIN (>89); GLUCOSE,RANDOM 147 MG/DL (74-106); SODIUM (NA) 146 MEQ/L (136-145)
[2017-10-08 06:00] LABS: ALKALINE PHOSPHATASE 109 U/L (45-117); TOTAL BILIRUBIN ADULT 1.3 MG/DL (0.2-1.0); TOTAL PROTEIN 6.2 GM/DL (6.4-8.2)
[2017-10-08] MEDS ORDERED: ETOMIDATE 20 MG/10 ML VIAL IV PUSH ONE (06:30)
[2017-10-08] MEDS ORDERED: SUCCINYLCHOLINE CHLORIDE 100 MG/5 ML SYRINGE IV PUSH ONE (06:30)
[2017-10-08] MEDS ORDERED: MAGNESIUM SULFATE INJ 2 GM in SODIUM CHLORIDE 0.9% INJ 96 ML IV PRN (07:00)
[2017-10-08] MEDS ORDERED: SODIUM PHOSPHATE INJ 30 MMOL in SODIUM CHLOR 0.9% 250 ML INJ 240 ML IV PRN (07:00)
[2017-10-08] MEDS ORDERED: POTASSIUM CHLOR 40 MEQ PREMIX 100 ML IV PRN (07:00)
[2017-10-08] MEDS ORDERED: POTASSIUM PHOSPHATE INJ 30 MMOL in SODIUM CHLOR 0.9% 250 ML INJ 250 ML IV PRN (07:00)
[2017-10-08] MEDS ORDERED: POTASSIUM CHLOR 20 MEQ PREMIX 100 ML IV PRN ×2 (07:00)
[2017-10-08] MEDS ORDERED: MAGNESIUM SULFATE INJ 4 GM in SODIUM CHLORIDE 0.9% INJ 92 ML IV PRN (07:00)
[2017-10-08] MEDS ORDERED: MAGNESIUM OXIDE 400 MG TAB PO PRN (07:00)
[2017-10-08] MEDS ORDERED: POTASSIUM PHOSPHATE MONOBASIC 500 MG TAB PO/TUBE PRN (07:00)
[2017-10-08] MEDS ORDERED: DEXMEDETOMIDINE HCL 200 MCG/2 ML VIAL IV PUSH ONE (07:15)
[2017-10-08] MEDS: SODIUM CHLOR 0.9% 1000 ML INJ 1,000 ML IV SCH ×2 (07:15→20:53)
[2017-10-08] MEDS: CHLORHEXIDINE 0.12% (ORAL KIT) 15 ML CUP MT SCH ×2 (08:00→20:00)
[2017-10-08] MEDS ORDERED: VECURONIUM BROMIDE 10 MG VIAL ONE (08:39)
[2017-10-08] MEDS: ASPIRIN EC 81 MG TABEC PO SCH (09:00)
[2017-10-08] MEDS: EZETIMIBE 10 MG TAB PO SCH (09:00)
[2017-10-08] MEDS ORDERED: FINASTERIDE 5 MG TAB PO SCH (09:00)
[2017-10-08] MEDS ORDERED: ATENOLOL 25 MG TAB PO SCH (09:00)
[2017-10-08] MEDS: SODIUM CHLORIDE 0.9% FLUSH 10 ML FLUSH IV FLUSH SCH ×2 (09:00→21:00)
[2017-10-08] MEDS: BUDESONIDE-FORMOTEROL 80/4.5 MCG INHALER INH SCH ×2 (09:00→21:00)
[2017-10-08] MEDS: RANOLAZINE 500 MG EXTENDED RELEASE TAB PO SCH ×2 (09:00→21:27)
[2017-10-08] MEDS ORDERED: PANTOPRAZOLE SOD 40 MG DELAYED RELEASE TAB PO SCH (09:00)
[2017-10-08] MEDS: FINASTERIDE 5 MG TAB PO SCH (09:00)
--- NOTE | 2017-10-08 09:06 | RADRPT ---
EXAM DATE/TIME: 10/08/2017 07:59 [facility] COMPARISON: No previous studies available for comparison. INDICATIONS : Dobhoff placement. MEDICAL HISTORY : Hypertension. Cardiovascular disease. SURGICAL HISTORY : Carotid endarterectomy. CABG. Appendectomy ENCOUNTER: Subsequent ACUITY: 1 day PAIN SCORE: Non-responsive. LOCATION: abdomen FINDINGS: There is an ETT at the level of the clavicles. The Dobbhoff tube is coiled in the oropharynx. Diffuse interstitial prominence with left lower lung zone pleural-parenchymal disease. Air is seen throughou t the colon. No dilated loops of bowel are noted. No abnormal calcifications. Degenerative changes ar e noted throughout the spine. CONCLUSION: 1. Dobbhoff tube is coiled in the oropharynx. 2. Left lower lobe pleural-parenchymal disease. 3. Positive fluid balance. 4. Nonobstructive bowel gas pattern. Rancho Neville MD on October 08, 2017 at 9:02 Board Certified Radiologist. This report was verified electronically.
--- NOTE | 2017-10-08 09:15 | RADRPT ---
EXAM DATE/TIME: 10/08/2017 08:20 [facility] COMPARISON: ABDOMEN KUB ONLY, October 08, 2017, 7:59. INDICATIONS : Evaluate dobnoff tube after repositioning MEDICAL HISTORY : Hypertension. Cardiovascular disease. SURGICAL HISTORY : Carotid endarterectomy. Appendectomy. CABG. ENCOUNTER: Subsequent ACUITY: 4 - 6 days PAIN SCORE: Non-responsive. LOCATION: Bilateral abdomen FINDINGS: Interval repositioning of the Dobbhoff catheter now with tip in the fundus of the stomach. Air is not ed in multiple loops of nondistended small bowel in the midabdomen. Remainder of exam is unchanged. CONCLUSION: 1. Feeding-type Dobbhoff catheter tip now in the fundus of the stomach. Rancho Neville MD on October 08, 2017 at 9:06 Board Certified Radiologist. This report was verified electronically.
[2017-10-08] MEDS: fentaNYL DRIP 250 ML IV PRN (09:31)
--- NOTE | 2017-10-08 10:03 | PD.PROCEDR ---
Procedure Note Procedure Procedure: fiberoptic bronchoscopy for bronchoscopy/ BAL Indication: Pulmonary toilet and obtaining BAL for gm stain and C/s. Operators: Dr. Jose Zabala Informed consent obtained from family Anesthesia used Versed 4 mg IV, Rocuronium 10 mg IV for neuromuscular blockade. fentanyl IV infusion: Procedure: Patient was placed on 100% oxygen via ET tube/mechanical ventilator. After ensuring adequate sedation/analgesia/ neuromuscular blockade, fiberoptic bronchoscope was inserted via adapter on ET tube and advanced into the trachea upto the yanira. Mucosa appeared normal with no erythema. Subsequently bronchoscope was advanced into the right mainstem bronchus and right sided airways. Minimal secretions noted, no mucous plugs noted. Subsequently bronchoscope was withdrawn up to the yanira and inserted down the left-sided airways. Mucosa appeared normal. Minimal secretions suctioned out. No major mucous plugs noted. Specimen was collected for Gram stain and culture. Patient tolerated the procedure well with no immediate complications noted. Post procedure CXR ordered and was reviewed. Jose Zabala MD Oct 08, 2017 10:03
--- NOTE | 2017-10-08 10:05 | RADRPT ---
EXAM DATE/TIME: 10/08/2017 09:29 [facility] COMPARISON: CHEST SINGLE AP, October 08, 2017, 3:20. INDICATIONS : Patient with respiratory distress. Post bronchoscopy and intubation MEDICAL HISTORY : hypertension, cardiovascular disease SURGICAL HISTORY : Carotid endarterectomy. Appendectomy. CABG. ENCOUNTER: Subsequent ACUITY: 4 - 6 days PAIN SCORE: Non-responsive. LOCATION: Bilateral chest FINDINGS: A single AP portable erect view of the chest was obtained and demonstrates interval intubation with t he endotracheal tube tip proximally 3 cm above the yanira. The patient is again noted status post elena rnotomy. There is interval placement of a Dobbhoff type feeding tube with the tip projected over the proximal stomach. His course abnormal opacity remaining at the left lung base with blunting of left c ostophrenic angle. This is not significantly changed. There is mild patchy opacity at the right lung base. The heart size is at the upper limits of normal with no perihilar edema. Atherosclerotic change s are present in the aorta. There is no pneumothorax. CONCLUSION: 1. Interval intubation. 2. Interval placement of a Dobbhoff feeding tube with the tip projected over the proximal stomach. 3. Abnormal opacity remains at the left lung base with blunting of costophrenic angle. 4. Mild patchy opacity remains at the right lung base. Kumar Jones MD on October 08, 2017 at 10:00 Board Certified Radiologist. This report was verified electronically.
[2017-10-08] MEDS: predniSONE 20 MG TAB PO SCH (10:24)
--- NOTE | 2017-10-08 10:30 | HHI.CCPN ---
Subjective Remarks/Hospital Course 10/07: Patient is an 87 year old male with PMHX of HTN, HLD, CAD with CABG in the past, Bilateral Carotid artery stenosis with Endarterectomy in the past who initially came to [facility] S/P fall and have incurred Subdural Hematoma. He was also found to have NSTEMI conservatively managed. His hospitalization was complicated with HCAP treated with IV Zosyn to continue until completed. He has on and off agitation in the in patient setting, treated with Haldol and geodon PRN. He was admitted to inpatient rehab [facility] for comprehensive rehabilitation. Patient was noted to have chest pain on 10/05 and [facility] was called. Troponin slightly elevated 0.6, EKG showed AFIB RVR. He was given diltiazem and ASA. Patient was also agitated on 10/05 and was given Geodon. He subsequently received Seroquel/Xanax/Restoril on 10/06 for anxiety. He has become progressively more lethargic since yesterday(10/06) and this morning was minimally arousable. Chest x-ray and head CT were done. Head CT showed unchanged subdural hematoma compared to previous scans. Chest x-ray from 10/07 revealed complete opacification of left lung field most likely secondary to mucous plugging. I was contacted by Dr. Gonzales - patient's son-in-law who was concerned regarding his lethargy and left lung collapse. Patient was transferred from [facility] to the ICU on 10/07 after being accepted by me for admission. I evaluated the patient immediately following his arrival. At that time he was on 4 L nasal cannula and appeared comfortable and in no acute distress. He was drowsy though easily arousable and was following simple commands including coughing. He denied any shortness of breath or chest pain at the time. History was obtained by reviewing records and discussion with Dr. Gonzales and subsequently patient's daughter at bedside. 10/08: Patient was intubated early this morning and placed on mechanical ventilation for worsening respiratory status. Patient chest x-ray prior to intubation actually showed some improvement in left lung opacification with some aeration noted in left upper lobe. When I evaluated the patient he was sedated, orally intubated on mechanical ventilation. I subsequently performed a bronchoscopy with Bal. No major mucous plugging noted during bronchoscopy. Postprocedure chest x-ray revealed left lower lobe consolidation. Objective Vital Signs Date Time Temp Pulse Resp B/P (MAP) Pulse Ox O2 Delivery O2 Flow Rate FiO2 10/08/17 09:09 100 100 10/08/17 06:00 102 10/08/17 05:13 Venturi Mask 6.00 10/08/17 04:00 97.7 35 127/58 (81) Intake and Output 10/08/17 10/08/17 10/09/17 08:00 16:00 00:00 Intake Total 1050 ml Output Total 700 ml Balance 350 ml Result Diagram: 10/08/177 10/08/17426 Other Results Laboratory Tests Test 10/07/17 18:20 10/08/17 04:27 10/08/17 06:40 Nasal Screen MRSA (PCR) MRSA NOT DETECTED White Blood Count 13.4 TH/MM3 Red Blood Count 4.36 MIL/MM3 Hemoglobin 11.6 GM/DL Hematocrit 36.5 % Mean Corpuscular Volume 83.7 FL Mean Corpuscular Hemoglobin 26.6 PG Mean Corpuscular Hemoglobin Concent 31.9 % Red Cell Distribution Width 17.2 % Platelet Count 250 TH/MM3 Mean Platelet Volume 7.8 FL Neutrophils (%) (Auto) 84.9 % Lymphocytes (%) (Auto) 6.7 % Monocytes (%) (Auto) 6.9 % Eosinophils (%) (Auto) 1.2 % Basophils (%) (Auto) 0.3 % Neutrophils # (Auto) 11.3 TH/MM3 Lymphocytes # (Auto) 0.9 TH/MM3 Monocytes # (Auto) 0.9 TH/MM3 Eosinophils # (Auto) 0.2 TH/MM3 Basophils # (Auto) 0.0 TH/MM3 CBC Comment DIFF FINAL Differential Comment Blood Urea Nitrogen 18 MG/DL Creatinine 0.85 MG/DL Random Glucose 147 MG/DL Total Protein 6.2 GM/DL Albumin 2.2 GM/DL Calcium Level 8.4 MG/DL Alkaline Phosphatase 109 U/L Aspartate Amino Transf (AST/SGOT) 30 U/L Alanine Aminotransferase (ALT/SGPT) 65 U/L Total Bilirubin 1.3 MG/DL Sodium Level 146 MEQ/L Potassium Level 3.2 MEQ/L Chloride Level 106 MEQ/L Carbon Dioxide Level 34.1 MEQ/L Anion Gap 6 MEQ/L Estimat Glomerular Filtration Rate 86 ML/MIN Blood Gas Puncture Site RT RADIAL Blood Gas Patient Temperature 98.6 Blood Gas HCO3 31 mmol/L Blood Gas Base Excess 6.9 mmol/L Blood Gas Oxygen Saturation 96 % Arterial Blood pH 7.47 Arterial Blood Partial Pressure CO2 43 mmHg Arterial Blood Partial Pressure O2 120 mmHg Arterial Blood Oxygen Content 13.7 Vol % Arterial Blood Carboxyhemoglobin 1.6 % Arterial Blood Methemoglobin 1.1 % Blood Gas Hemoglobin 10.0 G/DL Oxygen Delivery Device VENTILATOR Blood Gas Ventilator Setting AC/16/550/PEEP 5 Blood Gas Inspired Oxygen 50 % Imaging Last 48 hours Impressions Chest X-Ray 10/08/17 0600 Signed Impressions: Service Date/Time: Sunday, October 08, 2017 03:20 - CONCLUSION: 1. Cardiomegaly 2. Improving aeration of the left lung Melo Brown MD Abdomen X-Ray 10/08/17 0000 Signed Impressions: Service Date/Time: Sunday, October 08, 2017 08:20 - CONCLUSION: 1. Feeding-type Dobbhoff catheter tip now in the fundus of the stomach. Rancho Neville MD Abdomen X-Ray 10/08/17 0000 Signed Impressions: Service Date/Time: Sunday, October 08, 2017 07:59 - CONCLUSION: 1. Dobbhoff tube is coiled in the oropharynx. 2. Left lower lobe pleural-parenchymal disease. 3. Positive fluid balance. 4. Nonobstructive bowel gas pattern. Rancho Neville MD Objective Remarks HEENT/ Neuro: Sedated, orally intubated, Pallor present, no icterus, tongue/ mucosa moist Neck: No JVD Chest/Pulm: on mech vent, air entry decreased over left base, scattered rhonchi , no wheezing or crackles CVS: S1-S2 regular, no murmur GI/abdomen: soft, nontender, bowel sounds sluggish Extremities: warm bilaterally, no edema A/P Assessment and Plan Assessment and Plan A/P Problem List: (1) Subdural hematoma, post-traumatic ICD Code: S06.5X9A - Traumatic subdural hemorrhage with loss of consciousness of unspecified duration, initial encounter Status: Acute (2) CAD (coronary artery disease) ICD Code: I25.10 - Atherosclerotic heart disease of [place] coronary artery without angina pectoris Status: Chronic (3) HTN (hypertension) ICD Code: I10 - Essential (primary) hypertension Status: Chronic (4) HLD (hyperlipidemia) ICD Code: E78.5 - Hyperlipidemia, unspecified Status: Chronic (5) Simple partial seizures ICD Code: G40.109 - Localization-related (focal) (partial) symptomatic epilepsy and epileptic syndromes with simple partial seizures, not intractable, without status epilepticus Status: Acute (6) PAD (peripheral artery disease) ICD Code: I73.9 - Peripheral vascular disease, unspecified Status: Chronic (7) Lumbar spinal stenosis ICD Code: M48.06 - Spinal stenosis of lumbar region Status: Acute (8) BPH (benign prostatic hypertrophy) with urinary obstruction ICD Code: N13.8 - Other obstructive and reflux uropathy; N40.1 - Benign prostatic hyperplasia with urinary obstruction Status: Acute (9) S/P CABG x 2 ICD Code: Z95.1 - Presence of aortocoronary bypass graft Status: Chronic (10) GERD (gastroesophageal reflux disease) ICD Code: K21.9 - Gastro-esophageal reflux disease without esophagitis Status: Chronic Assessment and Plan NEURO: R subdural hematoma, maximum 1.4 cm, 2-3 mm shift Encephalopathy Simple partial seizure s/p Fall Lumbar spinal stenosis Increasing lethargy most likely secondary to combination off Xanax/Restoril and Seroquel. Will hold off on Xanax and Restoril and use Seroquel if needed for agitation. Hold Versed gtt. Will use Precedex gtt. as needed for sedation. Fentanyl gtt to be titrated off. Daily sedation vacation Continue neuro checks Was on by mouth Keppra, switched to 500mg IV [id number] while NPO Repeat CT brain 10/07 shows Stable SDH Neurosurgery Dr. Grady, will reconsult if needed. RESP: Acute respiratory failure requiring mechanical ventilation COPD exacerbation Prior history of tobacco abuse Aspiration pneumonia/ HCAP Left lung atelectasis most likely secondary to mucous plugging Continue Zosyn On PO prednisone which will be continued. Incentive spirometry when more awake DuoNeb q6 scheduled and PRN. Continue Mucomyst nebulizer treatments every 4 hourly in view of mucus plugging with left lung collapse as well as chest PT Q4hrly. Aggressive pulmonary toilet Patient intubated on 10/18 and bronchoscopy with Bal performed which did not show mucous plugging however postprocedure chest x-ray shows persistent left lower lobe consolidation. CV: NSTEMI Congestive heart failure CAD with prior CABG and PTCA Atrial fibrillation rate controlled HTN Hyperlipidemia EF 50%, probably less with moderate MR Patient has chronic angina and habitual use of NTG spray. Hold beta jennifer and Imdur due to hypotension. SL NTG as needed for chest pain. Resume Ranexa when tolerating PO Statin/Zetia [place] [employer] Member is Dr. Chavez ASA 81 mg day cleared by Dr. Head 09/30/17 GI: GERD h/o cholecystectomy, appendectomy h/o inguinal hernia repair Inserted Dobbhoff, start tube feeds and advanced to goal as tolerated with Jevity 1.5. Continue PPI FEN/RENAL: BPH h/o Urinary retention Strict intake output, monitor and replete electrolytes, follow BUN/creatinine. Proscar 5 mg po daily when able to take po. ID: HCAP/ Aspiration pneumonia Sepsis Mild leukocytosis Continue Zosyn, follow cultures HEME: Mild chronic anemia Does not require transfusion at this time. He was not on any anticoagulant therapy. ENDO: Glucose is at target <185. PROPH: SCDs for DVT prophylaxis. Pharmacologic DVT prophylaxis is contraindicated due subdural hematoma till cleared by Neurosurgery. Protonix 40 mg IV daily for stress ulcer prophylaxis and history of GERD on PPI at home. ACCESS: Peripheral IV providing adequate access at this time 10/07 Discussed at length with patient's family including Dr. gonzales and patient's daughter. Plan is to initiate nebulizer treatments Mucomyst and chest physical therapy to try to improve left lung atelectasis. 10/08: D/w Dr. Gonzales - patient's son in law and updated him regarding current clinical status and plan of care he voiced understanding. Plan to continue mechanical ventilation today and initiate C Pap trials and hopefully attempt extubation in the next 24-48 hours if patient improves clinically. Condition critical Time spent on critical care excluding procedures 35 minutes Problem Qualifiers (1) Closed TBI (traumatic brain injury): Qualified Codes: S06.9X0A - Unspecified intracranial injury without loss of consciousness, initial encounter (2) HTN (hypertension): Qualified Codes: I10 - Essential (primary) hypertension Jose Zabala MD Oct 07, 2017 14:28 Jose Zabala MD Oct 08, 2017 10:30
[2017-10-08] MEDS: levETIRAcetam INJ 500 MG in SODIUM CHLORIDE 0.9% INJ 100 ML IV SCH ×2 (10:41→21:52)
[2017-10-08] MEDS: POTASSIUM CHLORIDE 20 MEQ PWD PACKET PEG SCH ×2 (11:30→15:30)
[2017-10-08] MEDS: PANTOPRAZOLE SODIUM 40 MG VIAL IV PUSH SCH (12:00)
[2017-10-08] MEDS ORDERED: DIGOXIN 0.5 MG/2 ML VIAL IV PUSH ONE (14:05)
[2017-10-08] MEDS ORDERED: FUROSEMIDE 20 MG/2 ML VIAL IV PUSH ONE (15:45)
[2017-10-08] MEDS: DEXMEDETOMIDINE INJ 200 MCG in SODIUM CHLORIDE 0.9% INJ 50 ML IV PRN ×2 (16:10→20:22)
[2017-10-08] MEDS: ATORVASTATIN 80 MG TAB PO SCH (21:14)
[2017-10-08] MEDS ORDERED: MIDAZOLAM HCL 2 MG/2 ML VIAL IV SCH (22:40)
[2017-10-08] MEDS ORDERED: MIDAZOLAM HCL 5 MG/ML VIAL (1 ML) ONE (22:40)
[2017-10-08] MEDS ORDERED: NOREPINEPHRINE 4 MG/D5W 250 ML IV PRN (23:15)
--- NOTE | 2017-10-08 23:43 | RADRPT ---
EXAM DATE/TIME: 10/08/2017 23:27 [facility] COMPARISON: CHEST SINGLE AP, October 08, 2017, 9:29. INDICATIONS : Central line placement. MEDICAL HISTORY : hypertension, cardiovascular disease SURGICAL HISTORY : Carotid endarterectomy. Appendectomy. CABG. ENCOUNTER: Subsequent ACUITY: 1 week PAIN SCORE: 0/10 LOCATION: Bilateral chest FINDINGS: The cardiac silhouette is enlarged in transverse diameter. There is left lower lobe atelectasis versu s pneumonia. A moderate size left sided effusion is present. Endotracheal tube is in good position ab ove the yanira. A right sided internal jugular vein catheter is in place without pneumothorax with it s tip in the superior vena cava. CONCLUSION: Uncomplicated line placement. No evidence of pneumothorax. Melo Brown MD on October 08, 2017 at 23:39 Board Certified Radiologist. This report was verified electronically.
[2017-10-09] VITALS (17 sets, daily range): BP systolic 105–157; BP diastolic 52–76; PULSE 82–114; RESP 14–20; TEMP 96.6–98.1; O2SAT 94–100
[2017-10-09] MEDS: RESP: ACETYLCYSTEINE 10% 30 ML NEB NEB SCH ×6 (00:26→23:29)
[2017-10-09] MEDS: RESP: ALBUTEROL 2.5 MG/IPRATROPIUM 0.5 MG NEB (SCH) NEB ×7 (00:26→23:29)
[2017-10-09] MEDS ORDERED: NOREPINEPHRINE INJ 4 MG in SODIUM CHLOR 0.9% 250 ML INJ 246 ML IV PRN (01:15)
[2017-10-09] MEDS: PIPERACIL-TAZO 3.375 GM PREMIX 50 ML IV SCH ×4 (02:11→19:57)
[2017-10-09] MEDS: CHLORHEXIDINE GLUCONATE 2 % 1 PACK (2 CLOTHS) TOP SCH (04:00)
[2017-10-09 05:20] LABS: AUTOMATED NEUTROPHIL # 11.7 TH/MM3 (1.8-7.7); BASOPHIL # 0.1 TH/MM3 (0-0.2); BASOPHIL % 0.6 % (0.0-2.0); EOSINOPHIL # 0.1 TH/MM3 (0-0.4); EOSINOPHIL % 0.8 % (0.0-4.0); HEMATOCRIT 31.1 % (39.0-51.0); LYMPH % 10.5 % (9.0-44.0); LYMPHOCYTE # 1.5 TH/MM3 (1.0-4.8); MEAN CELL VOLUME 82.4 FL (80.0-100.0); MEAN CORPUSCULAR HEMOGLOBIN 26.6 PG (27.0-34.0); MEAN CORPUSCULAR HGB CONC 32.3 % (32.0-36.0); MEAN PLATELET VOLUME 7.7 FL (7.0-11.0); MONO % 5.4 % (0.0-8.0); MONOCYTE # 0.8 TH/MM3 (0-0.9); NEUT % 82.7 % (16.0-70.0); PLATELET COUNT 217 TH/MM3 (150-450); RED BLOOD COUNT 3.78 MIL/MM3 (4.50-5.90); RED CELL DISTRIBUTION WIDTH 17.1 % (11.6-17.2); WHITE BLOOD COUNT 14.2 TH/MM3 (4.0-11.0)
--- NOTE | 2017-10-09 05:21 | PD.PROCEDR ---
Procedure Note Procedure Centerline placement A time-out was completed verifying correct patient, procedure, site, positioning , and special equipment if applicable. The patient was placed in a dependent position appropriate for central line placement based on the vein to be cannulated. The patients right neck was prepped and draped in sterile fashion. 1% Lidocaine was used to anesthetize the surrounding skin area. A triple lumen 9 -Malian Cordis catheter was introduced into the the internal jugular vein using the Seldinger technique and under ultrasound guidance. The catheter was threaded smoothly over the guide wire and appropriate blood return was obtained. Each lumen of the catheter was evacuated of air and flushed with sterile saline. The catheter was then sutured in place to the skin and a sterile dressing applied. Perfusion to the extremity distal to the point of catheter insertion was checked and found to be adequate. Estimated Blood Loss: 1ml The patient tolerated the procedure well and there were no complications. Suleman Gilmore MD Oct 09, 2017 05:21
[2017-10-09 05:42] LABS: ALKALINE PHOSPHATASE 95 U/L (45-117); ALT (GPT) 45 U/L (12-78); AST (GOT) 27 U/L (15-37); BICARBONATE 30.1 MEQ/L (21.0-32.0); BLOOD UREA NITROGEN 20 MG/DL (7-18); CALCIUM 7.5 MG/DL (8.5-10.1); CHLORIDE 114 MEQ/L (98-107); CREATININE 0.99 MG/DL (0.60-1.30); GLOMERULAR FILTRATION RATE 72 ML/MIN (>89); GLUCOSE,RANDOM 199 MG/DL (74-106); MAGNESIUM 1.9 MG/DL (1.5-2.5); SODIUM (NA) 149 MEQ/L (136-145); TOTAL BILIRUBIN ADULT 1.4 MG/DL (0.2-1.0); TOTAL PROTEIN 5.5 GM/DL (6.4-8.2)
[2017-10-09] MEDS: ISOSORBIDE MONONITRATE 60 MG TAB PO SCH (06:27)
[2017-10-09 07:52] LABS: BANDS 1 % (0-6); LYMPHOCYTES 2 % (9-44); METAMYELOCYTES 1 % (0-1); MONOCYTES 2 % (0-8); NEUTROPHIL # MANUAL DIFF 13.5 TH/MM3 (1.8-7.7); POLYS (SEG NEUTROPHILS) 93 % (16-70)
[2017-10-09 07:53] LABS: OVALOCYTES 1+ (NORMAL)
[2017-10-09 07:54] LABS: TEARDROP RBCS 1+ (NORMAL)
[2017-10-09] MEDS: CHLORHEXIDINE 0.12% (ORAL KIT) 15 ML CUP MT SCH ×2 (08:00→19:58)
--- NOTE | 2017-10-09 08:41 | HHI.CCPN ---
Subjective Remarks/Hospital Course 10/07: Patient is an 87 year old male with PMHX of HTN, HLD, CAD with CABG in the past, Bilateral Carotid artery stenosis with Endarterectomy in the past who initially came to [facility] S/P fall and have incurred Subdural Hematoma. He was also found to have NSTEMI conservatively managed. His hospitalization was complicated with HCAP treated with IV Zosyn to continue until completed. He has on and off agitation in the in patient setting, treated with Haldol and geodon PRN. He was admitted to inpatient rehab [place] for comprehensive rehabilitation. Patient was noted to have chest pain on 10/05 and [facility] was called. Troponin slightly elevated 0.6, EKG showed AFIB RVR. He was given diltiazem and ASA. Patient was also agitated on 10/05 and was given Geodon. He subsequently received Seroquel/Xanax/Restoril on 10/06 for anxiety. He has become progressively more lethargic since yesterday(10/06) and this morning was minimally arousable. Chest x-ray and head CT were done. Head CT showed unchanged subdural hematoma compared to previous scans. Chest x-ray from 10/07 revealed complete opacification of left lung field most likely secondary to mucous plugging. I was contacted by Dr. Gonzales - patient's son-in-law who was concerned regarding his lethargy and left lung collapse. Patient was transferred from [facility] to the ICU on 10/07 after being accepted by me for admission. I evaluated the patient immediately following his arrival. At that time he was on 4 L nasal cannula and appeared comfortable and in no acute distress. He was drowsy though easily arousable and was following simple commands including coughing. He denied any shortness of breath or chest pain at the time. History was obtained by reviewing records and discussion with Dr. Gonzales and subsequently patient's daughter at bedside. 10/08: Patient was intubated early this morning and placed on mechanical ventilation for worsening respiratory status. Patient chest x-ray prior to intubation actually showed some improvement in left lung opacification with some aeration noted in left upper lobe. When I evaluated the patient he was sedated, orally intubated on mechanical ventilation. I subsequently performed a bronchoscopy with Bal. No major mucous plugging noted during bronchoscopy. Postprocedure chest x-ray revealed left lower lobe consolidation/effusion. 10/09: Patient developed worsening hypotension last night and required central line placement. Started on Levophed for pressor support. Remains sedated, orally intubated on mechanical ventilation. On fentanyl 150 mics per minute. Tolerating tube feeds. Chest x-ray with moderate left pleural effusion. Scheduling CT-guided thoracentesis with IR. Objective Vital Signs Date Time Temp Pulse Resp B/P (MAP) Pulse Ox O2 Delivery O2 Flow Rate FiO2 10/09/17 06:00 108 10/09/17 04:00 96.6 16 120/56 (77) 100 10/09/17 04:00 30 10/08/17 19:30 Mechanical Ventilator 10/08/17 05:13 6.00 Intake and Output 10/09/17 10/09/17 10/10/17 08:00 16:00 00:00 Intake Total 1373 ml Output Total 400 ml Balance 973 ml Result Diagram: 10/09/17 0515 10/09/17 0515 Imaging Last 48 hours Impressions Chest X-Ray 10/08/17 0600 Signed Impressions: Service Date/Time: Sunday, October 08, 2017 03:20 - CONCLUSION: 1. Cardiomegaly 2. Improving aeration of the left lung Melo Brown MD Abdomen X-Ray 10/08/17 0000 Signed Impressions: Service Date/Time: Sunday, October 08, 2017 08:20 - CONCLUSION: 1. Feeding-type Dobbhoff catheter tip now in the fundus of the stomach. Rancho Nevlile MD Abdomen X-Ray 10/08/17 0000 Signed Impressions: Service Date/Time: Sunday, October 08, 2017 07:59 - CONCLUSION: 1. Dobbhoff tube is coiled in the oropharynx. 2. Left lower lobe pleural-parenchymal disease. 3. Positive fluid balance. 4. Nonobstructive bowel gas pattern. Rancho Neville MD Objective Remarks HEENT/ Neuro: Sedated, orally intubated, Pallor present, no icterus, tongue/ mucosa moist Neck: No JVD Chest/Pulm: on mech vent, air entry decreased over left base, scattered rhonchi , no wheezing or crackles CVS: S1-S2 irregularly irregular, no murmur GI/abdomen: soft, nontender, bowel sounds sluggish Extremities: warm bilaterally, trace edema A/P Assessment and Plan Assessment and Plan A/P Problem List: (1) Subdural hematoma, post-traumatic ICD Code: S06.5X9A - Traumatic subdural hemorrhage with loss of consciousness of unspecified duration, initial encounter Status: Acute (2) CAD (coronary artery disease) ICD Code: I25.10 - Atherosclerotic heart disease of [place] coronary artery without angina pectoris Status: Chronic (3) HTN (hypertension) ICD Code: I10 - Essential (primary) hypertension Status: Chronic (4) HLD (hyperlipidemia) ICD Code: E78.5 - Hyperlipidemia, unspecified Status: Chronic (5) Simple partial seizures ICD Code: G40.109 - Localization-related (focal) (partial) symptomatic epilepsy and epileptic syndromes with simple partial seizures, not intractable, without status epilepticus Status: Acute (6) PAD (peripheral artery disease) ICD Code: I73.9 - Peripheral vascular disease, unspecified Status: Chronic (7) Lumbar spinal stenosis ICD Code: M48.06 - Spinal stenosis of lumbar region Status: Acute (8) BPH (benign prostatic hypertrophy) with urinary obstruction ICD Code: N13.8 - Other obstructive and reflux uropathy; N40.1 - Benign prostatic hyperplasia with urinary obstruction Status: Acute (9) S/P CABG x 2 ICD Code: Z95.1 - Presence of aortocoronary bypass graft Status: Chronic (10) GERD (gastroesophageal reflux disease) ICD Code: K21.9 - Gastro-esophageal reflux disease without esophagitis Status: Chronic Assessment and Plan NEURO: R subdural hematoma, maximum 1.4 cm, 2-3 mm shift Encephalopathy Simple partial seizure s/p Fall Lumbar spinal stenosis Increasing lethargy most likely secondary to combination off Xanax/Restoril and Seroquel. Will hold off on Xanax and Restoril and use Seroquel if needed for agitation. Hold Versed gtt. Will use Precedex gtt. as needed for sedation. Fentanyl gtt resumed. Daily sedation vacation Continue neuro checks Was on by mouth Keppra, switched to 500mg IV [id number]. Repeat CT brain 10/07 shows Stable SDH Neurosurgery Dr. Grady, will reconsult if needed. RESP: Acute respiratory failure requiring mechanical ventilation COPD exacerbation Prior history of tobacco abuse Aspiration pneumonia/ HCAP Left lung atelectasis most likely secondary to mucous plugging Continue Zosyn On PO prednisone which will be continued. Incentive spirometry when more awake DuoNeb q6 scheduled and PRN. Continue Mucomyst nebulizer treatments every 4 hourly in view of mucus plugging with left lung collapse as well as chest PT Q4hrly. Aggressive pulmonary toilet Patient intubated on 10/18 and bronchoscopy with Bal performed which did not show mucous plugging however postprocedure chest x-ray shows persistent left lower lobe consolidation/ effusion. Will schedule for CT-guided thoracentesis with INR after discussion with family. CV: NSTEMI Congestive heart failure CAD with prior CABG and PTCA Atrial fibrillation rate controlled Hypotension h/o HTN Hyperlipidemia EF 50%, probably less with moderate MR Patient has chronic angina and habitual use of NTG spray. Hold beta jennifer and Imdur due to hypotension. Resume Ranexa if BP tolerates. Given digoxin 0.5 mg IV on 10/08, will continue digoxin 0.125 mg IV daily for rate control for A. fib in view of hypotension. Started on Levophed for pressor support. Add vasopressin 0.04 units per minute on 10/09. Received multiple fluid boluses in last 48 hours. Statin/Zetia Skid Wrapper is Dr. Chavez ASA 81 mg day cleared by Dr. Head 09/30/17 GI: GERD h/o cholecystectomy, appendectomy h/o inguinal hernia repair Continue tube feeds via dobhoff and advanced to goal as tolerated with Jevity 1.5. Continue PPI FEN/RENAL: BPH h/o Urinary retention Strict intake output, monitor and replete electrolytes, follow BUN/creatinine. Proscar 5 mg po daily when able to take po. ID: HCAP/ Aspiration pneumonia Sepsis Mild leukocytosis Continue Zosyn, follow cultures HEME: Mild chronic anemia Does not require transfusion at this time. He was not on any anticoagulant therapy. ENDO: Glucose is at target <185. PROPH: SCDs for DVT prophylaxis. Pharmacologic DVT prophylaxis is contraindicated due subdural hematoma till cleared by Neurosurgery. Protonix 40 mg IV daily for stress ulcer prophylaxis and history of GERD on PPI at home. ACCESS: Peripheral IV providing adequate access at this time 10/07 Discussed at length with patient's family including Dr. gonzales and patient's daughter. Plan is to initiate nebulizer treatments Mucomyst and chest physical therapy to try to improve left lung atelectasis. 10/08: D/w Dr. Gonzales - patient's son in law and updated him regarding current clinical status and plan of care he voiced understanding. Plan to continue mechanical ventilation and initiate C Pap trials and hopefully attempt extubation in the next 24-48 hours if patient improves clinically. 10/09: We'll consult palliative care to assist with deciding goals of therapy as patient appears to be doing poorly per discussion with Dr. gonzales yesterday. Condition critical Time spent on critical care excluding procedures 35 minutes Problem Qualifiers (1) Closed TBI (traumatic brain injury): Qualified Codes: S06.9X0A - Unspecified intracranial injury without loss of consciousness, initial encounter (2) HTN (hypertension): Qualified Codes: I10 - Essential (primary) hypertension Jose Zabala MD Oct 07, 2017 14:28 Jose Zabala MD Oct 09, 2017 08:41
[2017-10-09] MEDS: SODIUM CHLORIDE 0.9% FLUSH 10 ML FLUSH IV FLUSH SCH ×2 (08:59→19:57)
[2017-10-09] MEDS: PANTOPRAZOLE SODIUM 40 MG VIAL IV PUSH SCH (08:59)
[2017-10-09] MEDS: levETIRAcetam INJ 500 MG in SODIUM CHLORIDE 0.9% INJ 100 ML IV SCH ×2 (08:59→19:57)
[2017-10-09] MEDS: FINASTERIDE 5 MG TAB PO SCH (09:00)
[2017-10-09] MEDS: POTASSIUM CHLOR 40 MEQ PREMIX 100 ML IV PRN ×2 (09:00→13:55)
[2017-10-09] MEDS: EZETIMIBE 10 MG TAB PO SCH (09:00)
[2017-10-09] MEDS: predniSONE 20 MG TAB PO SCH (09:00)
[2017-10-09] MEDS: ASPIRIN EC 81 MG TABEC PO SCH (09:00)
[2017-10-09] MEDS: RANOLAZINE 500 MG EXTENDED RELEASE TAB PO SCH ×2 (09:00→19:56)
[2017-10-09] MEDS: BUDESONIDE-FORMOTEROL 80/4.5 MCG INHALER INH SCH ×2 (09:00→19:57)
[2017-10-09] MEDS: DIGOXIN 0.125 MG TAB PO SCH (09:00)
[2017-10-09] MEDS: SODIUM CHLOR 0.9% 1000 ML INJ 1,000 ML IV SCH ×2 (09:30→19:49)
[2017-10-09 09:49] LABS: INTERNATIONAL NORMALIZED RATIO 1.4 RATIO
[2017-10-09] MEDS ORDERED: VASOPRESSIN INJ 40 UNITS in DEXTROSE 5% IN WATER 100ML INJ 98 ML IV SCH ×2 (10:00)
[2017-10-09] MEDS: DEXMEDETOMIDINE INJ 200 MCG in SODIUM CHLORIDE 0.9% INJ 50 ML IV PRN ×4 (10:20→18:16)
--- NOTE | 2017-10-09 10:34 | RADRPT ---
EXAM DATE/TIME: 10/09/2017 09:35 [facility] COMPARISON: CHEST SINGLE AP, October 08, 2017, 23:27. CHEST SINGLE AP, October 08, 2017, 9:29. INDICATIONS : Left pleural effusion. MEDICAL HISTORY : Myocardial infarction. Arthritis. Angina. Valvular heart disease. Coronary artery disease. Hyperlip idemia. Afib. Chest pain. HTN. GERD. Obstructive BPH. Spinal stenosis. Skin cancer. SURGICAL HISTORY : Carotid endarterectomy. Cholecystectomy. Appendectomy. Bilateral cataract extraction with lens implan ts. CABG. Cardiac stent placement. TURP. Right ingunial hernia repair. ENCOUNTER: Initial ACUITY: 1 day PAIN SCORE: Nonresponsive. LOCATION: Left chest MEASUREMENTS: SKIN TO PARIETAL PLEURA: Inadequate fluid SKIN TO MAX SAFE DEPTH: Inadequate fluid ESTIMATED FLUID VOLUME: 70. 8 cc FLUID COMPOSITION: simple FINDINGS: No marking was performed. Small amount of fluid in the left pleural space. CONCLUSION: Small amount of fluid in the left pleural space, inadequate for therapeutic thoracentesis. This study is needed for diagnostic purposes left sided thoracentesis could be obtained. Tai Valencia MD on October 09, 2017 at 10:29 Board Certified Radiologist. This report was verified electronically.
[2017-10-09] MEDS: VASOPRESSIN INJ 40 UNITS in DEXTROSE 5% IN WATER 100ML INJ 98 ML IV SCH ×2 (11:25)
--- NOTE | 2017-10-09 11:55 | PD.CONS ---
Consult Service Palliative Care . Consult Requested By Dr. Jose F Zabala . Primary Care Physician Ezekiel Toribio MD . Reason for Consultation a. To assist with evaluation and management of symptoms including: dyspnea, pain, dysphagia, anxiety. b. To assist medical decision maker(s) with: better understanding of current medical conditions; weighing benefits/burdens of medical treatment options; making medical treatment decisions. . HPI History of Present Illness Mr. Alvarado is an 87 year old male with past medical history of hypertension, hyperlipidemia, CAD, PAD, GERD, bilateral carotid artery stenosis, angina, spinal stenosis, BPH and cardiac arrest in his late 20's. Patient was previously admitted to [facility] on 09/26/17 after a fall on , he hit his head on a wooden walkway. Following the fall he had no LOC or mental status changes. He had a right forehead laceration, bruising of right forehead, right orbit and right lower face. He became more confused with slurred speech throughout the day and [facility] was called. He had was found to have right subdural hematoma. Hospital course was complicated by new onset atrial fibrillation, NSTEMI, CHF episode of V. tach patient was seen by Dr. Vieyra ( cardiology), peak troponin was 11.5, echo EF 50%, he was treated medically with nitroglycerin, Ranexa, Imdur, Atenolol for rate control, Lasix for CHF, aspirin 81 mg this was cleared by neurosurgery. Dr. Grady was consulted and family elected conservative management. He was discharged to [facility] on 10/04/17. Patient was noted to have [facility] on 10[facility]05 [facility] Troponin slightly elevated 0.6, EKG showed Atrial fibrillation with RVR. He was agitated given Geodon. He subsequently received Seroquel/Xanax/Restoril on 10/06 for anxiety. He became progressively more lethargic, minimally arousable. On 10/07/17, head CT showed unchanged subdural hematoma compared to previous scans and chest x-ray revealed complete opacification of left lung field most likely secondary to mucous plugging. Patient was transferred on 10/07/17 from [facility] to ICU for lethargy. Upon arrival to ICU he was on 4 L nasal cannula. He was drowsy though easily arousable and was following simple commands including coughing. He denied any shortness of breath or chest pain at the time. Patient was intubated placed on mech vent and underwent bronchoscopy, no major mucous plugs noted. Sputum sent for Gram stain and culture, heavy growth normal respiratory failure. Chest xray small amount fluid in left pleural space, inadequate for therapeutic thoracentesis. Patient has also developed worsening hypotension, requiring pressor support with Levophed. On Fentanyl drip. Tolerating tube feedings. Palliative care was consulted to assist with goals of care conversations and symptom management. . Function/Cognitive Trajectory Mr. Alvarado has had ongoing trajectory of health and functional decline in the months prior to admission. He had decreased appetite. Was less ambulatory. Increased weakness. . Review of Systems ROS Limitations: Intubated Constitutional: COMPLAINS OF: Fatigue, Weight loss, Change in appetite ( decreased), Generalized weakness Respiratory: COMPLAINS OF: Cough, Sputum production, Shortness of breath Gastrointestinal: COMPLAINS OF: Difficulty Swallowing, Anorexia Hematologic/Lymphatics: COMPLAINS OF: Bruising (right forehead, orbit and face , extrmeities.) Neurologic: COMPLAINS OF: Poor Balance (recent fall) Other ROS: ROS per family and EMR review, pt sedated on vent. . 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 . Past Surgical History TURP x2 Dr. Peters Right CEA Left CEA cholecystectomy bilateral hernia repair . Reported Medications Reported Meds & Active Scripts Active Finasteride 5 Mg Tab 5 Mg PO DAILY 30 Days Do not crush. Prednisone 20 Mg Tab 20 Mg PO DAILY 30 Days Pantoprazole (Pantoprazole Sodium) 40 Mg Tab 40 Mg PO DAILY 30 Days Ondansetron Odt 4 Mg Tab 4 Mg PO Q4H PRN 30 Days Gnp Senna Plus 8.6-50 mg (Sennosides-Docusate Sodium) 8.6 Mg-50 Mg Tab 1 Tab PO BID 30 Days [Budeson-Formot 160-4.5 Mcg Inh] 60 PUFF Aero 2 Puff INH Q12HR 30 Days Furosemide 20 Mg Tab 20 Mg PO DAILY 30 Days Keppra (Levetiracetam) 500 Mg Tab 500 Mg PO Q12HR [address] (Aspirin) 81 Mg Tabdr 81 Mg PO DAILY 30 Days Atenolol 50 Mg Tab 25 Mg PO Q12HR 30 Days Nitrostat SL (Nitroglycerin) 0.4 Mg Subl 0.4 Mg SL Q5M PRN 30 Days Isosorbide Mononitrate ER (Isosorbide Mononitrate) 30 Mg Sylvia 30 Mg PO BID 30 Days Catapres (Clonidine) 0.1 Mg Tab 0.1 Mg PO Q6H PRN 30 Days Atorvastatin (Atorvastatin Calcium) 80 Mg Tab 80 Mg PO HS 30 Days Zetia (Ezetimibe) 10 Mg Tab 10 Mg PO DAILY 30 Days Ranexa ER 12 HR (Ranolazine) 500 Mg Tab 1,000 Mg PO Q12HR 30 Days [Albuterol-Ipratropium Neb] 1 AMPULE Nebu 1 Ampule NEB Q4HR NEB PRN 30 Days [Albuterol-Ipratropium Neb] 1 AMPULE Nebu 1 Ampule NEB QID NEB 30 Days Proscar (Finasteride) 5 Mg Tab 5 Mg PO DAILY Do not crush. Reported Senokot (Sennosides) 8.6 Mg Tab 8.6 Mg PO Q12HR PRN Albuterol Neb (Albuterol Sulfate) 2.5 Mg/0.5 Ml Neb 2.5 Mg NEB Q2HR NEB PRN Note: The Albuterol Sulfate Inhalation Solution is concentrated and must be diluted. Read complete instructions carefully before using. Protonix (Pantoprazole Sodium) 40 Mg Tab 40 Mg PO DAILY Lipitor (Atorvastatin Calcium) 80 Mg Tab 80 Mg PO HS Lasix (Furosemide) 20 Mg Tab 20 Mg PO DAILY Symbicort Inh (Budesonide/Formoterol Fumarate) 80-4.5 Mcg/Act Aero 2 Puff INH Q12HR Piperacil-Tazobact 4.5 gm Vial (Piperacillin Sodium/Tazobactam) 4.5 Gram Vial 4.5 G IV Q6HR 3 Days Melatonin 1 Mg Tab.subl 5 Mg PO HS PRN Isosorbide Mononitrate 20 Mg Tab 60 Mg PO BID Take 2 doses 7 hours apart. Dulcolax Supp (Bisacodyl) 10 Mg Supp 10 Mg RECTAL DAILY PRN Atenolol 25 Mg Tab 25 Mg PO BID Geodon (Ziprasidone) 20 Mg Cap 20 Mg IM Q6HR PRN Keppra (Levetiracetam) 500 Mg Tab 500 Mg PO BID Lactulose Liq (Lactulose) 10 Gm/15 Ml Soln 30 Ml PO DAILY Duoneb (Ipratropium-Albuterol Neb) 0.5-2.5 Mg/3 Ml Neb 1 Nebule INH Q6HR NEB Duoneb (Ipratropium-Albuterol Neb) 0.5-2.5 Mg/3 Ml Neb 1 Nebule INH Q2HR PRN Prednisone 20 Mg Tab 20 Mg PO DAILY Zofran (Ondansetron HCl) 4 Mg Tab 4 Mg IV Q6HR PRN Ranexa ER 12 HR (Ranolazine) 1,000 Mg Tab 1,000 Mg PO BID Aspirin 81 Mg Chew 81 Mg CHEW DAILY Zetia (Ezetimibe) 10 Mg Tab 10 Mg PO DAILY Nitroglycerin Lingual [place] (Nitroglycerin) 400 Mcg/Act [place] 1 [place] SL DIRECTED PRN ONE SPRAY NEEDED FOR CHEST PAIN, MAY REPEAT EVERY FIVE MINUTES FOR A TOTAL OF 3 DOSES OR CALL 911 IF NO RELIEF . Current Medications Medications (Trade) Dose Ordered Sig/Deann Route Start Time Stop Time Status Last Admin (NS Flush) 2 ml UNSCH PRN IV FLUSH 10/07/17 13:00 (NS Flush) 2 ml BID IV FLUSH 10/07/17 21:00 10/09/17 08:59 (Tylenol) 650 mg Q6H PRN PO 10/07/17 13:00 (Albuterol Neb) 2.5 mg Q2HR NEB PRN INH 10/07/17 13:00 (Peridex 0.12% Liq) 15 ml BID@08,20 MT 10/07/17 20:00 10/09/17 08:00 Miscellaneous Information 1 [id number] XX 10/07/17 13:00 10/07/17 13:00 (Chlorhexidine 2% Cloth) 3 pack Taper DAILY@04 TOP 10/08/17 04:00 10/04/18 03:59 (Chlorhexidine 2% Cloth) 3 pack UNSCH PRN TOP 10/07/17 13:00 (Mucomyst 10% Neb) 2 ml Q4HR NEB NEB 10/07/17 13:00 10/09/17 08:46 Piperacillin Sod/ Tazobactam Sod 50 ml @ 100 mls/hr Q6H IV 10/07/17 14:00 10/09/17 08:00 (Duoneb Neb) 1 ampule Q4HR NEB NEB 10/07/17 16:00 10/09/17 08:46 (Ecotrin Ec) 81 mg DAILY PO 10/08/17 09:00 (Tenormin) 25 mg BID PO 10/08/17 09:00 Future Hold (Lipitor) 80 mg HS PO 10/07/17 21:00 10/08/17 21:14 (Symbicort 80-4.5 Mcg Inh) 2 puff Q12HR INH 10/07/17 21:00 10/07/17 20:39 (Zetia) 10 mg DAILY PO 10/08/17 09:00 (Proscar) 5 mg DAILY PO 10/08/17 09:00 (Imdur) 60 mg DAILY@0700 PO 10/08/17 07:00 10/09/17 06:27 (Nitrolingual Sl [place]) 1 spray Q5M PRN SL 10/07/17 14:45 (Deltasone) 20 mg DAILY PO 10/08/17 09:00 10/09/17 09:00 (Senokot) 8.6 mg Q12HR PRN PO 10/07/17 14:45 (Melatonin) 5 mg HS PRN PO 10/07/17 15:00 (Zofran Inj) 4 mg Q6HR PRN IV PUSH 10/07/17 15:00 (Ranexa) 1,000 mg BID PO 10/08/17 09:00 10/08/17 21:27 Levetriacetam 500 mg/Sodium Chloride 105 ml @ 420 mls/hr Q12HR IV 10/07/17 15:00 10/09/17 08:59 Esmolol HCl/ Sodium Chloride 250 ml @ 20.85 mls/ hr TITRATE PRN IV 10/07/17 22:00 10/07/17 22:43 Potassium Chloride 100 ml @ 50 mls/hr Q2H PRN IV 10/08/17 07:00 10/09/17 09:00 Potassium Chloride 100 ml @ 50 mls/hr Q2H PRN IV 10/08/17 07:00 Potassium Chloride 100 ml @ 25 mls/hr UNSCH PRN IV 10/08/17 07:00 Potassium Chloride 100 ml @ 50 mls/hr Q2H PRN IV 10/08/17 07:00 Magnesium Sulfate 4 gm/Sodium Chloride 100 ml @ 50 mls/hr UNSCH PRN IV 10/08/17 07:00 (Mag-Ox) 800 mg UNSCH PRN PO 10/08/17 07:00 Magnesium Sulfate 2 gm/Sodium Chloride 100 ml @ 50 mls/hr UNSCH PRN IV 10/08/17 07:00 (K-Phos) 2,000 mg Q4H PRN PO 10/08/17 07:00 Sodium Phosphate 30 mmol/Sodium Chloride 250 ml @ 42 mls/hr UNSCH PRN IV 10/08/17 07:00 (K-Phos) 2,000 mg UNSCH PRN PO/TUBE 10/08/17 07:00 Potassium Phosphate 30 mmol/ Sodium Chloride 260 ml @ 42 mls/hr UNSCH PRN IV 10/08/17 07:00 Dexmedetomidine HCl 200 mcg/ Sodium Chloride 52 ml @ 3.61 mls/hr TITRATE PRN IV 10/08/17 07:15 10/09/17 10:20 Sodium Chloride 1,000 ml @ 84 mls/hr [id number] IV 10/08/17 07:15 10/08/17 20:53 Fentanyl Citrate 250 ml @ 5 mls/hr TITRATE PRN IV 10/08/17 10:45 10/08/17 09:31 Midazolam HCl 100 ml @ 2 mls/hr TITRATE PRN IV 10/08/17 10:45 (Protonix Inj) 40 mg DAILY IV PUSH 10/08/17 12:00 10/09/17 08:59 (Lanoxin) 0.125 mg DAILY PO 10/09/17 09:00 10/09/17 09:00 Norepinephrine Bitartrate 4 mg/ Sodium Chloride 250 ml @ 7.5 mls/hr TITRATE PRN IV 10/09/17 01:15 10/08/17 22:00 Vasopressin 40 units/Dextrose 100 ml @ 6 mls/hr [id number] IV 10/09/17 10:00 10/09/17 11:25 Family History Mother at age 70 of cancer. Father at age 29 from trauma. . 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 Has 2 sons and 1 daughter, Marcella (an [employer] A DRIVER) and ESTEBAN, Dr. Gonzales. Has 6 grandchildren and 7 great-grandchildren. 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 Never graduated high school. 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 . Spiritual/Cultural Factors Nondenominational oksana. visited on Saturday, declined visit at this time. . Living Will: Never completed Health Care Surrogate: Never completed Durable Power of Refrigeration Mechanic: Never completed Health Care Surrogate(s): Patient is incapacitated to make his own health care decisions, uncertain if he will regain capacity. According to [place] statutes, health care proxy decision making falls to his spouse. She is supported by her children and ESTEBAN. . Today's verbally stated goals: Patient is incapacitated to make his own health care decisions, uncertain if he will regain capacity. Family/friends goals: Desires continued aggressive care for now, short of NO CODE. Family has elected if medically extubated that patient WILL NOT be reintubated. Will transition to comfort measures if he fails extubation. . Ethical and Legal Issues Patient is incapacitated to make his own health care decisions, uncertain if he will regain capacity. According to [place] statutes, health care proxy decision making falls to his spouse. She is supported by her children and ESTEBAN. . Physical Exam Vital Signs Date Time Temp Pulse Resp B/P (MAP) Pulse Ox O2 Delivery O2 Flow Rate FiO2 10/09/17 11:25 111 87/56 10/09/17 08:47 97 30 10/09/17 06:00 108 10/09/17 04:00 96.6 100 16 120/56 (77) 100 10/09/17 04:00 30 10/09/17 04:00 100 10/09/17 03:56 97 30 10/09/17 02:01 88 10/09/17 00:28 100 30 10/09/17 00:00 96.7 82 16 105/56 (72) 100 10/09/17 00:00 82 1/10/18 00:00 35 10/08/17 22:00 88 10/08/17 22:00 101 74/52 10/08/17 21:45 106 76/47 (57) 10/08/17 21:30 103 73/50 (58) 10/08/17 21:04 100 35 10/08/17 20:00 35 10/08/17 20:00 98.7 94 16 99/55 (70) 100 10/08/17 20:00 94 10/08/17 19:30 Mechanical Ventilator 40 10/08/17 16:00 113 10/08/17 16:00 98.9 113 18 108/70 (83) 100 10/08/17 15:48 100 40 10/08/17 12:00 100.0 123 16 107/57 (74) 100 10/08/17 12:00 123 10/09/17 10/10/17 19:00 07:00 Intake Total 150 ml Balance 150 ml Intake IV Total 150 ml Exam CONSTITUTIONAL/GENERAL: This is an elderly, thin, frail appearing patient, sedated on mech vent. TUBES/LINES/DRAINS: Dobbhoff, ETT, right IJ central line, PIV right x 2, PIV left, wrist restraints, catheter,SCDs. SKIN: No jaundice, rashes, or lesions. Ecchymoses on upper extremities. No wounds seen anteriorly. Skin temperature appropriate. Not diaphoretic. HEAD: Right forehead, orbit and face ecchymosis in stages of healing, laceration healing right forehead. EYES: eyes closed. ENT: Unable to assess hearing. Dobbhoff in place, tolerating TF. Throat difficult to visualize due to tubes. NECK: Trachea midline. CARDIOVASCULAR: irregularly irregular. RESPIRATORY/CHEST: unlabored respirations on vent. Decreased breath sounds left , scattered rhonchi. GASTROINTESTINAL: Abdomen soft, nondistended. Bowel sounds sluggish. GENITOURINARY: Without palpable bladder distension. catheter in place. MUSCULOSKELETAL: Extremities with trace edema. LYMPHATICS: Not examined. NEUROLOGICAL: Sedated on mech vent. PSYCHIATRIC: Sedated. . Diagnostic Tests Laboratory Laboratory Tests Test 10/07/17 18:20 10/08/17 04:27 10/08/17 06:40 10/09/17 05:15 Nasal Screen MRSA (PCR) MRSA NOT DETECTED (NOT White Blood Count 13.4 TH/MM3 (4.0-11.0) 14.2 TH/MM3 (4.0-11.0) Red Blood Count 4.36 MIL/MM3 (4.50-5.90) 3.78 MIL/MM3 (4.50-5.90) Hemoglobin 11.6 GM/DL (13.0-17.0) 10.0 GM/DL (13.0-17.0) Hematocrit 36.5 % (39.0-51.0) 31.1 % (39.0-51.0) Mean Corpuscular Volume 83.7 FL (80.0-100.0) 82.4 FL (80.0-100.0) Mean Corpuscular Hemoglobin 26.6 PG (27.0-34.0) 26.6 PG (27.0-34.0) Mean Corpuscular Hemoglobin Concent 31.9 % (32.0-36.0) 32.3 % (32.0-36.0) Red Cell Distribution Width 17.2 % (11.6-17.2) 17.1 % (11.6-17.2) Platelet Count 250 TH/MM3 (150-450) 217 TH/MM3 (150-450) Mean Platelet Volume 7.8 FL (7.0-11.0) 7.7 FL (7.0-11.0) Neutrophils (%) (Auto) 84.9 % (16.0-70.0) 82.7 % (16.0-70.0) Lymphocytes (%) (Auto) 6.7 % (9.0-44.0) 10.5 % (9.0-44.0) Monocytes (%) (Auto) 6.9 % (0.0-8.0) 5.4 % (0.0-8.0) Eosinophils (%) (Auto) 1.2 % (0.0-4.0) 0.8 % (0.0-4.0) Basophils (%) (Auto) 0.3 % (0.0-2.0) 0.6 % (0.0-2.0) Neutrophils # (Auto) 11.3 TH/MM3 (1.8-7.7) 11.7 TH/MM3 (1.8-7.7) Lymphocytes # (Auto) 0.9 TH/MM3 (1.0-4.8) 1.5 TH/MM3 (1.0-4.8) Monocytes # (Auto) 0.9 TH/MM3 (0-0.9) 0.8 TH/MM3 (0-0.9) Eosinophils # (Auto) 0.2 TH/MM3 (0-0.4) 0.1 TH/MM3 (0-0.4) Basophils # (Auto) 0.0 TH/MM3 (0-0.2) 0.1 TH/MM3 (0-0.2) CBC Comment DIFF FINAL AUTO DIFF Differential Comment FINAL DIFF MANUAL Blood Urea Nitrogen 18 MG/DL (7-18) 20 MG/DL (7-18) Creatinine 0.85 MG/DL (0.60-1.30) 0.99 MG/DL (0.60-1.30) Random Glucose 147 MG/DL (74-106) 199 MG/DL (74-106) Total Protein 6.2 GM/DL (6.4-8.2) 5.5 GM/DL (6.4-8.2) Albumin 2.2 GM/DL (3.4-5.0) 2.0 GM/DL (3.4-5.0) Calcium Level 8.4 MG/DL (8.5-10.1) 7.5 MG/DL (8.5-10.1) Alkaline Phosphatase 109 U/L (45-117) 95 U/L (45-117) Aspartate Amino Transf (AST/SGOT) 30 U/L (15-37) 27 U/L (15-37) Alanine Aminotransferase (ALT/SGPT) 65 U/L (12-78) 45 U/L (12-78) Total Bilirubin 1.3 MG/DL (0.2-1.0) 1.4 MG/DL (0.2-1.0) Sodium Level 146 MEQ/L (136-145) 149 MEQ/L (136-145) Potassium Level 3.2 MEQ/L (3.5-5.1) 3.2 MEQ/L (3.5-5.1) Chloride Level 106 MEQ/L (98-107) 114 MEQ/L (98-107) Carbon Dioxide Level 34.1 MEQ/L (21.0-32.0) 30.1 MEQ/L (21.0-32.0) Anion Gap 6 MEQ/L (5-15) 5 MEQ/L (5-15) Estimat Glomerular Filtration Rate 86 ML/MIN (>89) 72 ML/MIN (>89) Blood Gas Puncture Site RT RADIAL Blood Gas Patient Temperature 98.6 Blood Gas HCO3 31 mmol/L (22-26) Blood Gas Base Excess 6.9 mmol/L (-2-2) Blood Gas Oxygen Saturation 96 % (90-100) Arterial Blood pH 7.47 (7.380-7.420) Arterial Blood Partial Pressure CO2 43 mmHg (38-42) Arterial Blood Partial Pressure O2 120 mmHg (61-120) Arterial Blood Oxygen Content 13.7 Vol % (12.0-20.0) Arterial Blood Carboxyhemoglobin 1.6 % (0-4) Arterial Blood Methemoglobin 1.1 % (0-2) Blood Gas Hemoglobin 10.0 G/DL (12.0-16.0) Oxygen Delivery Device VENTILATOR Blood Gas Ventilator Setting AC/16/550/PEEP 5 Blood Gas Inspired Oxygen 50 % Differential Total Cells Counted 100 Neutrophils % (Manual) 93 % (16-70) Band Neutrophils % 1 % (0-6) Lymphocytes % 2 % (9-44) Monocytes % 2 % (0-8) Eosinophils % 1 % (0-4) Neutrophils # (Manual) 13.5 TH/MM3 (1.8-7.7) Metamyelocytes 1 % (0-1) Platelet Estimate NORMAL (NORMAL) Platelet Morphology Comment NORMAL (NORMAL) Tear Drop Cells 1+ (NORMAL) Ovalocytes 1+ (NORMAL) Phosphorus Level 1.0 MG/DL (2.5-4.9) Magnesium Level 1.9 MG/DL (1.5-2.5) Test 10/09/17 09:30 Prothrombin Time 14.0 SEC (9.8-11.6) Prothromb Time International Ratio 1.4 RATIO Activated Partial Thromboplast Time 27.8 SEC (24.3-30.1) Result Diagram: 10/09/17 0515 10/09/17 0515 Microbiology Microbiology Date/Time Source Procedure Growth Status 10/08/17 09:00 Bronchial Washings Left Lower Lobe Acid Fast Stain Pending Received 10/08/17 09:00 Bronchial Washings Left Lower Lobe Mycobacterial Culture Pending Received 10/08/17 09:00 Bronchial Washings Left Lower Lobe Fungal Smear - Final RARE BUDDING YEAST CELLS Resulted 10/08/17 09:00 Bronchial Washings Left Lower Lobe Fungal Culture Pending Resulted 10/08/17 09:00 Bronchial Washings Left Lower Lobe Gram Stain - Final Resulted 10/08/17 09:00 Bronchial Washings Left Lower Lobe Bronchial Culture Pending Resulted 10/08/17 07:00 Sputum Endotracheal Gram Stain - Final Resulted 10/08/17 07:00 Sputum Endotracheal Sputum Culture Pending Resulted Imaging Last Impressions Chest Ultrasound 10/09/17 0000 Signed Impressions: Service Date/Time: Monday, October 09, 2017 09:35 - CONCLUSION: Small amount of fluid in the left pleural space, inadequate for therapeutic thoracentesis. This study is needed for diagnostic purposes left sided thoracentesis could be obtained. Tai Valencia MD Chest X-Ray 10/08/17 0600 Signed Impressions: Service Date/Time: Sunday, October 08, 2017 03:20 - CONCLUSION: 1. Cardiomegaly 2. Improving aeration of the left lung Melo Brown MD Abdomen X-Ray 10/08/17 0000 Signed Impressions: Service Date/Time: Sunday, October 08, 2017 08:20 - CONCLUSION: 1. Feeding-type Dobbhoff catheter tip now in the fundus of the stomach. Rancho Neville MD . Procedures * 10/09/16 - right IJ central line placed. * 10/08/16 - Intubated and bronchoscopy. . Patient/Family Conference Present at Family Conference: Dr. Zabala and Palliative care met with spouse (Nathalie), daughter (Marcella Goel ) and her (Dr. Gonzales). Also present Ruma Rust LCSW. . Family Conference Time (mins): 60 Family Conference Location: Consult Room Issues Discussed: * Palliative care role, purpose, approach * Additional medical, psychosocial, and spiritual history * Patients general health, functional status, and cognitive changes in the months leading up to the current hospitalization * Patient/family understanding of the current medical problems * Patient/family understanding of prognosis * Patients goals of care as best understood from advance directives and/or conversations and/or values * Current medical treatment options and benefits/burdens of those options * Likely scenarios comparing ongoing aggressive care with a transition to comfort measures only * Questions answered to the best of my ability * Palliative care contact information provided In summary, family desires continued aggressive care for now, short of NO CODE. Family has elected if medically extubated that patient WILL NOT be reintubated. Will transition to comfort measures if he fails extubation. . Assessment and Plan Disease Oriented Problem List: (1) Atrial fibrillation (2) Seizure (3) Subdural hematoma (4) HCAP (healthcare-associated pneumonia) (5) NSTEMI (non-ST elevated myocardial infarction) (6) CAD (coronary artery disease) (7) HTN (hypertension) (8) PAD (peripheral artery disease) (9) GERD (gastroesophageal reflux disease) Symptom Scale: (1) Pain 0-10 Scale: Unable to quantify Comment: On Fentanyl drip at 25mcg/hr. (2) Dyspnea Comment: On mech vent. (3) Dysphagia 0-10 Scale: Unable to quantify Comment: currently on mech vent. . (4) Anxiety 0-10 Scale: Unable to quantify Comment: Will restart Seroquel as family feels this has worked well for patient. Has had problems with oversedation. . Pertinent Non-Medical Issues Psychosocial: . Supported by 2 sons, daughter (Marcella) and her ( Dr. Gonzales). Spiritual: Nondenominational oksana. Legal:Patient is incapacitated to make his own health care decisions, uncertain if he will regain capacity. According to [place] statutes, health care proxy decision making falls to his spouse. She is supported by her children and ESTEBAN. Ethical issues impacting care: No known concerns at this time. . Important Contacts * Nathalie Alvarado, spouse: [phone] * Marcella Goel, daughter: [phone] . Prognosis Mr. Alvarado is an 87 year old male with recent trajectory of health, functional and nutritional decline over the past few months. He had a fall with subdural hematoma managed conservatively. He was in rehab and had likely aspiration due to underlying dysphagia. Now in ICU on mech vent requiring pressor support ( weaning off). He may be able to be medically extubated though is high risk for repeat aspiration, mucus plug, respiratory decline or even . Hospice appropriate if he fails medical extubation and goals are comfort oriented. . Code Status: No Code Plan * Patient is incapacitated to make his own health care decisions, uncertain if he will regain capacity. According to [place] statutes, health care proxy decision making falls to his spouse. She is supported by her children and ESTEBAN. * NO CODE - DO NOT reintubate if medically extubated. * Dr. Zabala and Palliative care met with spouse (Nathalie), daughter (Marcella Goel) and her (Dr. Gonzales). Desires continued aggressive care for now, short of NO CODE. Family has elected if medically extubated that patient WILL NOT be reintubated. Will transition to comfort measures if he fails extubation. * SYMPTOMS: Pain: due to recent fall, subdural hematoma, intubation, tubes, malnutrition and current bedbound status. On low dose Fentanyl drip. Dyspnea: on mech vent, may be medically extubate on 10/10/16. Anxiety: history of anxiety , Dr. Zabala plans to start Seroquel in effort to reduce anxiety prior to extubation. Dysphagia: on vent. Dobbhoff in place. No new medication recommendations at this time. Will monitor symptoms post extubation for further recommendations. * Palliative care number provided. * Palliative care will continue to follow to assist with symptom management and clarification of treatment goals as needed. . Thank you for the opportunity to participate in the care of Mr. Alvarado. Attestation To help prompt me to consider important information that might be impacting today's encounter and assessment, information from prior notes written by myself or my colleagues may have been "brought forward" into today's note. My signature on this note, however, is an attestation that I personally performed the exam, history, and/or decision-making noted today, and, unless otherwise indicated, the interactions with patient, family, and staff as well as the review of records all occurred today. I also attest that the listed assessment and stated plan reflect my best clinical judgment today based on the combination of historical information, prior notes, and today's exam/ interactions. When time spent is documented, it refers only to time spent today by the signer, or if indicated, combined time spent today by collaborating physician/nurse practitioner. Estephania Viveros Oct 09, 2017 11:55
[2017-10-09] MEDS ORDERED: QUEtiapine FUMARATE 25 MG TAB PO SCH (15:00)
[2017-10-09] MEDS: MICAFUNGIN INJ 100 MG in SODIUM CHLORIDE 0.9% INJ 100 ML IV SCH (16:08)
[2017-10-09] MEDS: fentaNYL DRIP 250 ML IV PRN (18:40)
[2017-10-09] MEDS: ATORVASTATIN 80 MG TAB PO SCH (19:56)
[2017-10-10] VITALS (14 sets, daily range): BP systolic 106–159; BP diastolic 60–90; PULSE 88–138; RESP 14–30; TEMP 97.8–98.9; O2SAT 94–100
[2017-10-10] MEDS: DEXMEDETOMIDINE INJ 1,000 MCG in SODIUM CHLOR 0.9% 250 ML INJ 240 ML IV PRN ×2 (00:36→11:51)
[2017-10-10] MEDS: PIPERACIL-TAZO 3.375 GM PREMIX 50 ML IV SCH ×4 (01:18→20:13)
[2017-10-10] MEDS: VASOPRESSIN INJ 40 UNITS in DEXTROSE 5% IN WATER 100ML INJ 98 ML IV SCH ×6 (02:40→22:12)
[2017-10-10] MEDS: RESP: ACETYLCYSTEINE 10% 30 ML NEB NEB SCH ×7 (03:40→23:31)
[2017-10-10] MEDS: RESP: ALBUTEROL 2.5 MG/IPRATROPIUM 0.5 MG NEB (SCH) NEB ×7 (03:42→23:30)
[2017-10-10] MEDS: CHLORHEXIDINE GLUCONATE 2 % 1 PACK (2 CLOTHS) TOP SCH (04:00)
[2017-10-10 04:23] LABS: AUTOMATED NEUTROPHIL # 8.7 TH/MM3 (1.8-7.7); BASOPHIL # 0.1 TH/MM3 (0-0.2); BASOPHIL % 0.9 % (0.0-2.0); EOSINOPHIL % 0.3 % (0.0-4.0); HEMOGLOBIN 9.4 GM/DL (13.0-17.0); LYMPH % 7.3 % (9.0-44.0); LYMPHOCYTE # 0.7 TH/MM3 (1.0-4.8); MEAN CORPUSCULAR HEMOGLOBIN 26.4 PG (27.0-34.0); MEAN CORPUSCULAR HGB CONC 31.4 % (32.0-36.0); MEAN PLATELET VOLUME 7.8 FL (7.0-11.0); MONOCYTE # 0.4 TH/MM3 (0-0.9); NEUT % 87.5 % (16.0-70.0); PLATELET COUNT 172 TH/MM3 (150-450); RED BLOOD COUNT 3.57 MIL/MM3 (4.50-5.90); RED CELL DISTRIBUTION WIDTH 17.6 % (11.6-17.2); WHITE BLOOD COUNT 9.9 TH/MM3 (4.0-11.0)
[2017-10-10 04:32] LABS: ALBUMIN 1.8 GM/DL (3.4-5.0); CALCIUM 7.2 MG/DL (8.5-10.1); CALCIUM-PROTEIN CORRECTED 8.1 MG/DL (8.5-10.1); CREATININE 0.96 MG/DL (0.60-1.30); MAGNESIUM 1.8 MG/DL (1.5-2.5); PHOSPHORUS 1.4 MG/DL (2.5-4.9); TOTAL BILIRUBIN ADULT 0.7 MG/DL (0.2-1.0); TOTAL PROTEIN 5.4 GM/DL (6.4-8.2)
[2017-10-10] MEDS: SODIUM CHLOR 0.9% 1000 ML INJ 1,000 ML IV SCH (06:07)
[2017-10-10] MEDS: ISOSORBIDE MONONITRATE 60 MG TAB PO SCH (06:07)
[2017-10-10] MEDS: CHLORHEXIDINE 0.12% (ORAL KIT) 15 ML CUP MT SCH ×2 (08:00→19:11)
--- NOTE | 2017-10-10 08:28 | HHI.CCPN ---
Subjective Remarks/Hospital Course 10/07: Patient is an 87 year old male with PMHX of HTN, HLD, CAD with CABG in the past, Bilateral Carotid artery stenosis with Endarterectomy in the past who initially came to [facility] S/P fall and have incurred Subdural Hematoma. He was also found to have NSTEMI conservatively managed. His hospitalization was complicated with HCAP treated with IV Zosyn to continue until completed. He has on and off agitation in the in patient setting, treated with Haldol and geodon PRN. He was admitted to inpatient rehab [place] for comprehensive rehabilitation. Patient was noted to have chest pain on 10/05 and [facility] was called. Troponin slightly elevated 0.6, EKG showed AFIB RVR. He was given diltiazem and ASA. Patient was also agitated on 10/05 and was given Geodon. He subsequently received Seroquel/Xanax/Restoril on 10/06 for anxiety. He has become progressively more lethargic since yesterday(10/06) and this morning was minimally arousable. Chest x-ray and head CT were done. Head CT showed unchanged subdural hematoma compared to previous scans. Chest x-ray from 10/07 revealed complete opacification of left lung field most likely secondary to mucous plugging. I was contacted by Dr. Gonzales - patient's son-in-law who was concerned regarding his lethargy and left lung collapse. Patient was transferred from [facility] to the ICU on 10/07 after being accepted by me for admission. I evaluated the patient immediately following his arrival. At that time he was on 4 L nasal cannula and appeared comfortable and in no acute distress. He was drowsy though easily arousable and was following simple commands including coughing. He denied any shortness of breath or chest pain at the time. History was obtained by reviewing records and discussion with Dr. Gonzales and subsequently patient's daughter at bedside. 10/08: Patient was intubated early this morning and placed on mechanical ventilation for worsening respiratory status. Patient chest x-ray prior to intubation actually showed some improvement in left lung opacification with some aeration noted in left upper lobe. When I evaluated the patient he was sedated, orally intubated on mechanical ventilation. I subsequently performed a bronchoscopy with Bal. No major mucous plugging noted during bronchoscopy. Postprocedure chest x-ray revealed left lower lobe consolidation/effusion. 10/09: Patient developed worsening hypotension last night and required central line placement. Started on Levophed for pressor support. Remains sedated, orally intubated on mechanical ventilation. On fentanyl 150 mics per minute. Tolerating tube feeds. Chest x-ray with moderate left pleural effusion. Scheduling CT-guided thoracentesis with IR. 10/10: Breathing comfortably on CPAP trials yesterday. Good drive today and will probably be extubated without event. Agitation may prove problematic however. We'll wait for family to arrive so all can be available for decision making re sedation after extubation.Left lung base consolidation has minimally parapneumonic fluid - tap not indicated. Objective Vital Signs Date Time Temp Pulse Resp B/P (MAP) Pulse Ox O2 Delivery O2 Flow Rate FiO2 10/10/17 08:11 30 10/10/17 07:58 96 10/10/17 06:07 69 131/74 10/10/17 04:00 98.1 16 10/09/17 19:00 Mechanical Ventilator 10/08/17 05:13 6.00 Intake and Output 10/10/17 10/10/17 10/11/17 08:00 16:00 00:00 Intake Total 588 ml Output Total 600 ml Balance -12 ml Result Diagram: 10/10/17 0400 10/10/17 0400 Imaging Last 48 hours Impressions Chest X-Ray 10/08/17 0600 Signed Impressions: Service Date/Time: Sunday, October 08, 2017 03:20 - CONCLUSION: 1. Cardiomegaly 2. Improving aeration of the left lung Melo Brown MD Abdomen X-Ray 10/08/17 0000 Signed Impressions: Service Date/Time: Sunday, October 08, 2017 08:20 - CONCLUSION: 1. Feeding-type Dobbhoff catheter tip now in the fundus of the stomach. Rancho Neville MD Abdomen X-Ray 10/08/17 0000 Signed Impressions: Service Date/Time: Sunday, October 08, 2017 07:59 - CONCLUSION: 1. Dobbhoff tube is coiled in the oropharynx. 2. Left lower lobe pleural-parenchymal disease. 3. Positive fluid balance. 4. Nonobstructive bowel gas pattern. Rancho Neville MD Objective Remarks HEENT/ Neuro: Sedated, pallor present, no icterus, tongue/ mucosa moist. Agitated when precedex weaned. Neck: Orally intubated. Chest/Pulm: on mech vent, air entry acceptable, decreased over left base, no wheezing or crackles CVS: S1-S2 irregularly irregular, no murmur. Neck veins full. GI/abdomen: soft, nontender, bowel sounds few. No guarding. Extremities: warm bilaterally, trace edema, well perfused. A/P Assessment and Plan Assessment and Plan A/P Problem List: (1) Subdural hematoma, post-traumatic ICD Code: S06.5X9A - Traumatic subdural hemorrhage with loss of consciousness of unspecified duration, initial encounter Status: Acute (2) CAD (coronary artery disease) ICD Code: I25.10 - Atherosclerotic heart disease of [place] coronary artery without angina pectoris Status: Chronic (3) HTN (hypertension) ICD Code: I10 - Essential (primary) hypertension Status: Chronic (4) HLD (hyperlipidemia) ICD Code: E78.5 - Hyperlipidemia, unspecified Status: Chronic (5) Simple partial seizures ICD Code: G40.109 - Localization-related (focal) (partial) symptomatic epilepsy and epileptic syndromes with simple partial seizures, not intractable, without status epilepticus Status: Acute (6) PAD (peripheral artery disease) ICD Code: I73.9 - Peripheral vascular disease, unspecified Status: Chronic (7) Lumbar spinal stenosis ICD Code: M48.06 - Spinal stenosis of lumbar region Status: Acute (8) BPH (benign prostatic hypertrophy) with urinary obstruction ICD Code: N13.8 - Other obstructive and reflux uropathy; N40.1 - Benign prostatic hyperplasia with urinary obstruction Status: Acute (9) S/P CABG x 2 ICD Code: Z95.1 - Presence of aortocoronary bypass graft Status: Chronic (10) GERD (gastroesophageal reflux disease) ICD Code: K21.9 - Gastro-esophageal reflux disease without esophagitis Status: Chronic Assessment and Plan NEURO: R subdural hematoma, maximum 1.4 cm, 2-3 mm shift Encephalopathy Simple partial seizure s/p Fall Lumbar spinal stenosis Increasing lethargy most likely secondary to combination off Xanax/Restoril and Seroquel. Will hold off on Xanax and Restoril and use Seroquel if needed for agitation. Hold Versed gtt. Will use Precedex gtt. as needed for sedation. Fentanyl gtt resumed. Daily sedation vacation Continue neuro checks Was on by mouth Keppra, switched to 500mg IV [id number]. Repeat CT brain 10/07 shows Stable SDH Neurosurgery Dr. Grady, will reconsult if needed. RESP: Acute respiratory failure requiring mechanical ventilation COPD exacerbation Prior history of tobacco abuse Aspiration pneumonia/ HCAP Left lung atelectasis most likely secondary to mucous plugging Continue Zosyn On PO prednisone which will be continued. Incentive spirometry when more awake DuoNeb q6 scheduled and PRN. Continue Mucomyst nebulizer treatments every 4 hourly in view of mucus plugging with left lung collapse as well as chest PT Q4hrly. Aggressive pulmonary toilet Patient intubated on 10/08 and bronchoscopy with Bal performed which did not show mucous plugging however postprocedure chest x-ray shows persistent left lower lobe consolidation/ effusion. CV: NSTEMI Congestive heart failure CAD with prior CABG and PTCA Atrial fibrillation rate controlled Hypotension h/o HTN Hyperlipidemia EF 50%, probably less with moderate MR Patient has chronic angina and habitual use of NTG spray. Hold beta jennifer and Imdur due to hypotension. Resume Ranexa if BP tolerates. Given digoxin 0.5 mg IV on 10/08, will continue digoxin 0.125 mg IV daily for rate control for A. fib in view of hypotension. Started on Levophed for pressor support. Add vasopressin 0.04 units per minute on 10/09. Received multiple fluid boluses in last 48 hours. Statin/Zetia Grinder Tender is Dr. Chavez ASA 81 mg day cleared by Dr. Head 09/30/17 GI: GERD h/o cholecystectomy, appendectomy h/o inguinal hernia repair Continue tube feeds via dobhoff and advanced to goal as tolerated with Jevity 1.5. Continue PPI FEN/RENAL: BPH h/o Urinary retention Strict intake output, monitor and replete electrolytes, follow BUN/creatinine. Proscar 5 mg po daily when able to take po. ID: HCAP/ Aspiration pneumonia Sepsis Mild leukocytosis Continue Zosyn, follow cultures HEME: Mild chronic anemia Does not require transfusion at this time. He was not on any anticoagulant therapy. ENDO: Glucose is at target <185. PROPH: SCDs for DVT prophylaxis. Pharmacologic DVT prophylaxis is contraindicated due subdural hematoma till cleared by Neurosurgery. Protonix 40 mg IV daily for stress ulcer prophylaxis and history of GERD on PPI at home. ACCESS: Peripheral IV providing adequate access at this time 10/07 Discussed at length with patient's family including Dr. gonzales and patient's daughter. Plan is to initiate nebulizer treatments Mucomyst and chest physical therapy to try to improve left lung atelectasis. 10/08: D/w Dr. Gonzales - patient's son in law and updated him regarding current clinical status and plan of care he voiced understanding. Plan to continue mechanical ventilation and initiate C Pap trials and hopefully attempt extubation in the next 24-48 hours if patient improves clinically. 10/09: We'll consult palliative care to assist with deciding goals of therapy as patient appears to be doing poorly per discussion with Dr. Gonzales yesterday. Overall impression: Numerous factors and ongoing problems probably preclude meaningful recovery of neurological function in this elderly man. Ideally we can extubate him and have the family decide what level of sedation they feel keeps him comfortable. Problem Qualifiers (1) Closed TBI (traumatic brain injury): Qualified Codes: S06.9X0A - Unspecified intracranial injury without loss of consciousness, initial encounter (2) HTN (hypertension): Qualified Codes: I10 - Essential (primary) hypertension Tra Hopper MD Oct 10, 2017 08:27
[2017-10-10] MEDS: EZETIMIBE 10 MG TAB PO SCH (08:35)
[2017-10-10] MEDS: predniSONE 20 MG TAB PO SCH (08:35)
[2017-10-10] MEDS: BUDESONIDE-FORMOTEROL 80/4.5 MCG INHALER INH SCH ×2 (08:36→21:00)
[2017-10-10] MEDS: PANTOPRAZOLE SODIUM 40 MG VIAL IV PUSH SCH (08:36)
[2017-10-10] MEDS: levETIRAcetam INJ 500 MG in SODIUM CHLORIDE 0.9% INJ 100 ML IV SCH ×2 (08:36→20:40)
[2017-10-10] MEDS: FINASTERIDE 5 MG TAB PO SCH (08:36)
[2017-10-10] MEDS: QUEtiapine FUMARATE 25 MG TAB PO SCH (08:36)
[2017-10-10] MEDS: SODIUM CHLORIDE 0.9% FLUSH 10 ML FLUSH IV FLUSH SCH ×2 (08:36→21:00)
[2017-10-10] MEDS: DIGOXIN 0.125 MG TAB PO SCH (08:36)
[2017-10-10] MEDS: RANOLAZINE 500 MG EXTENDED RELEASE TAB PO SCH ×2 (08:37→21:00)
[2017-10-10] MEDS: ASPIRIN EC 81 MG TABEC PO SCH (09:00)
[2017-10-10] MEDS: POTASSIUM PHOSPHATE MONOBASIC 500 MG TAB PO PRN ×2 (10:05→16:00)
[2017-10-10] MEDS: HYOSCYAMINE 0.5 MG/ML AMP IV PUSH PRN ×3 (14:40→22:18)
[2017-10-10] MEDS: MICAFUNGIN INJ 100 MG in SODIUM CHLORIDE 0.9% INJ 100 ML IV SCH (15:00)
--- NOTE | 2017-10-10 15:39 | HHI.HCPN ---
Reason for visit a. To assist with evaluation and management of symptoms including: dyspnea, pain, dysphagia, anxiety. b. To assist medical decision maker(s) with: better understanding of current medical conditions; weighing benefits/burdens of medical treatment options; making medical treatment decisions. . Subjective/Interval History Patient seen and examined in ICU. Discussed with nursing staff and Dr. Hopper. and daughter bedside. Patient on CPAP on arrival. Sedation has been discontinued, patient more alert follows simple commands. Does not really appear to be tracking. Does not nod yes or no to questions. WBC has normalized, 9.9. Sodium 152, albumin 1.8. Bronchial washings with rare budding yeast cells, on Micafungin. Patient was medically extubated during visit. Post extubation he remains tachypneic, oxygen saturation in the mid to upper 90s. Weak cough noted, orotracheal/pulmonary congestion noted. Required NT suctioning with minimal relief. Added Levsin order PRN secretion management. Appears intermittently anxious, on Seroquel. Family reluctant to use additional medication as they feel this is contributing to lethargy. . Family/friend interactions Met with , daughter and her . Family verbalizes desire for continued aggressive care at this time short of NO CODE. They do not want reintubation if patient fails. This time family is hopeful that patient will be able to communicate with them. Son-in-law, Pro indicates that family may be considering transition to hospice services/[facility] placement on 10/11/17. They are not yet ready to make this decision today. 4pm: Spoke with daughter and at bedside. They feel patient has been relatively comfortable. They remain hopeful he will wake up more, daughter wonders if lethargy is related to Seroquel. I advised patient may not wake up. Offered meds for comfort should patient develop respiratory distress/ anxiety. Family is open to low dose Morphine and Lorazepam to be ordered in case he has further decline. I advised I have reserved a bed at [facility] should they choose to transition to comfort with hospice tomorrow. Family verbalizes appreciation. . Advance Directives Living Will: Never completed Health Care Surrogate: Never completed Durable Power of Storeroom Keeper: Never completed Advance Directive Specifics Health Care Surrogate(s): Patient is incapacitated to make his own health care decisions, uncertain if he will regain capacity. According to [place] statutes, health care proxy decision making falls to his spouse. She is supported by her children and ESTEBAN. . Objective Vital Signs Date Time Temp Pulse Resp B/P (MAP) Pulse Ox O2 Delivery O2 Flow Rate FiO2 10/10/17 13:17 35 10/10/17 13:12 97 35 10/10/17 12:00 91 10/10/17 12:00 97.8 91 14 135/73 (93) 96 10/10/17 08:20 35 10/10/17 08:11 30 10/10/17 08:00 88 10/10/17 08:00 97.9 88 16 159/70 (99) 96 10/10/17 08:00 30 10/10/17 07:58 96 30 10/10/17 06:07 69 131/74 10/10/17 06:00 104 10/10/17 04:00 104 10/10/17 04:00 98.1 114 16 106/66 (79) 100 10/10/17 04:00 30 10/10/17 03:42 96 30 10/10/17 02:00 104 10/10/17 00:00 30 10/10/17 00:00 98.1 114 16 106/66 (79) 100 10/10/17 00:00 104 10/09/17 23:29 94 30 10/09/17 22:00 114 10/09/17 20:00 30 10/09/17 20:00 98.1 114 16 157/71 (99) 100 10/09/17 20:00 114 10/09/17 19:50 97 30 10/09/17 19:00 Mechanical Ventilator 30 10/09/17 18:04 97 30 10/09/17 18:00 30 10/09/17 16:00 97.8 84 20 107/52 (70) 96 10/09/17 16:00 84 Intake & Output 10/10/17 10/10/17 07:00 19:00 Intake Total 473 ml 515 ml Output Total 600 ml Balance -127 ml 515 ml Intake IV Total 515 ml Tube Feeding 473 ml Output Urine Total 600 ml # Bowel Movements 0 Physical Exam CONSTITUTIONAL/GENERAL: This is an elderly, thin, frail appearing patient, sedated on mech vent. TUBES/LINES/DRAINS: Dobbhoff, ETT, right IJ central line, PIV right x 2, PIV left, wrist restraints, catheter,SCDs. SKIN: No jaundice, rashes, or lesions. Ecchymoses on upper extremities. No wounds seen anteriorly. Skin temperature appropriate. Not diaphoretic. HEAD: Right forehead, orbit and face ecchymosis in stages of healing, laceration healing right forehead. EYES: eyes closed. ENT: Unable to assess hearing. Dobbhoff in place, tolerating TF. Throat difficult to visualize due to tubes. NECK: Trachea midline. CARDIOVASCULAR: irregularly irregular. RESPIRATORY/CHEST: unlabored respirations on vent. Decreased breath sounds left , scattered rhonchi. GASTROINTESTINAL: Abdomen soft, nondistended. Bowel sounds sluggish. GENITOURINARY: Without palpable bladder distension. catheter in place. MUSCULOSKELETAL: Extremities with trace edema. LYMPHATICS: Not examined. NEUROLOGICAL: Sedated on mech vent. PSYCHIATRIC: Sedated. . Diagnostic Tests Laboratory Laboratory Tests Test 10/07/17 18:20 10/08/17 04:27 10/08/17 06:40 10/09/17 05:15 Nasal Screen MRSA (PCR) MRSA NOT DETECTED (NOT White Blood Count 13.4 TH/MM3 (4.0-11.0) 14.2 TH/MM3 (4.0-11.0) Red Blood Count 4.36 MIL/MM3 (4.50-5.90) 3.78 MIL/MM3 (4.50-5.90) Hemoglobin 11.6 GM/DL (13.0-17.0) 10.0 GM/DL (13.0-17.0) Hematocrit 36.5 % (39.0-51.0) 31.1 % (39.0-51.0) Mean Corpuscular Volume 83.7 FL (80.0-100.0) 82.4 FL (80.0-100.0) Mean Corpuscular Hemoglobin 26.6 PG (27.0-34.0) 26.6 PG (27.0-34.0) Mean Corpuscular Hemoglobin Concent 31.9 % (32.0-36.0) 32.3 % (32.0-36.0) Red Cell Distribution Width 17.2 % (11.6-17.2) 17.1 % (11.6-17.2) Platelet Count 250 TH/MM3 (150-450) 217 TH/MM3 (150-450) Mean Platelet Volume 7.8 FL (7.0-11.0) 7.7 FL (7.0-11.0) Neutrophils (%) (Auto) 84.9 % (16.0-70.0) 82.7 % (16.0-70.0) Lymphocytes (%) (Auto) 6.7 % (9.0-44.0) 10.5 % (9.0-44.0) Monocytes (%) (Auto) 6.9 % (0.0-8.0) 5.4 % (0.0-8.0) Eosinophils (%) (Auto) 1.2 % (0.0-4.0) 0.8 % (0.0-4.0) Basophils (%) (Auto) 0.3 % (0.0-2.0) 0.6 % (0.0-2.0) Neutrophils # (Auto) 11.3 TH/MM3 (1.8-7.7) 11.7 TH/MM3 (1.8-7.7) Lymphocytes # (Auto) 0.9 TH/MM3 (1.0-4.8) 1.5 TH/MM3 (1.0-4.8) Monocytes # (Auto) 0.9 TH/MM3 (0-0.9) 0.8 TH/MM3 (0-0.9) Eosinophils # (Auto) 0.2 TH/MM3 (0-0.4) 0.1 TH/MM3 (0-0.4) Basophils # (Auto) 0.0 TH/MM3 (0-0.2) 0.1 TH/MM3 (0-0.2) CBC Comment DIFF FINAL AUTO DIFF Differential Comment FINAL DIFF MANUAL Blood Urea Nitrogen 18 MG/DL (7-18) 20 MG/DL (7-18) Creatinine 0.85 MG/DL (0.60-1.30) 0.99 MG/DL (0.60-1.30) Random Glucose 147 MG/DL (74-106) 199 MG/DL (74-106) Total Protein 6.2 GM/DL (6.4-8.2) 5.5 GM/DL (6.4-8.2) Albumin 2.2 GM/DL (3.4-5.0) 2.0 GM/DL (3.4-5.0) Calcium Level 8.4 MG/DL (8.5-10.1) 7.5 MG/DL (8.5-10.1) Alkaline Phosphatase 109 U/L (45-117) 95 U/L (45-117) Aspartate Amino Transf (AST/SGOT) 30 U/L (15-37) 27 U/L (15-37) Alanine Aminotransferase (ALT/SGPT) 65 U/L (12-78) 45 U/L (12-78) Total Bilirubin 1.3 MG/DL (0.2-1.0) 1.4 MG/DL (0.2-1.0) Sodium Level 146 MEQ/L (136-145) 149 MEQ/L (136-145) Potassium Level 3.2 MEQ/L (3.5-5.1) 3.2 MEQ/L (3.5-5.1) Chloride Level 106 MEQ/L (98-107) 114 MEQ/L (98-107) Carbon Dioxide Level 34.1 MEQ/L (21.0-32.0) 30.1 MEQ/L (21.0-32.0) Anion Gap 6 MEQ/L (5-15) 5 MEQ/L (5-15) Estimat Glomerular Filtration Rate 86 ML/MIN (>89) 72 ML/MIN (>89) Blood Gas Puncture Site RT RADIAL Blood Gas Patient Temperature 98.6 Blood Gas HCO3 31 mmol/L (22-26) Blood Gas Base Excess 6.9 mmol/L (-2-2) Blood Gas Oxygen Saturation 96 % (90-100) Arterial Blood pH 7.47 (7.380-7.420) Arterial Blood Partial Pressure CO2 43 mmHg (38-42) Arterial Blood Partial Pressure O2 120 mmHg (61-120) Arterial Blood Oxygen Content 13.7 Vol % (12.0-20.0) Arterial Blood Carboxyhemoglobin 1.6 % (0-4) Arterial Blood Methemoglobin 1.1 % (0-2) Blood Gas Hemoglobin 10.0 G/DL (12.0-16.0) Oxygen Delivery Device VENTILATOR Blood Gas Ventilator Setting AC/16/550/PEEP 5 Blood Gas Inspired Oxygen 50 % Differential Total Cells Counted 100 Neutrophils % (Manual) 93 % (16-70) Band Neutrophils % 1 % (0-6) Lymphocytes % 2 % (9-44) Monocytes % 2 % (0-8) Eosinophils % 1 % (0-4) Neutrophils # (Manual) 13.5 TH/MM3 (1.8-7.7) Metamyelocytes 1 % (0-1) Platelet Estimate NORMAL (NORMAL) Platelet Morphology Comment NORMAL (NORMAL) Tear Drop Cells 1+ (NORMAL) Ovalocytes 1+ (NORMAL) Phosphorus Level 1.0 MG/DL (2.5-4.9) Magnesium Level 1.9 MG/DL (1.5-2.5) Test 10/09/17 09:30 10/10/17 04:00 Prothrombin Time 14.0 SEC (9.8-11.6) Prothromb Time International Ratio 1.4 RATIO Activated Partial Thromboplast Time 27.8 SEC (24.3-30.1) White Blood Count 9.9 TH/MM3 (4.0-11.0) Red Blood Count 3.57 MIL/MM3 (4.50-5.90) Hemoglobin 9.4 GM/DL (13.0-17.0) Hematocrit 30.0 % (39.0-51.0) Mean Corpuscular Volume 84.0 FL (80.0-100.0) Mean Corpuscular Hemoglobin 26.4 PG (27.0-34.0) Mean Corpuscular Hemoglobin Concent 31.4 % (32.0-36.0) Red Cell Distribution Width 17.6 % (11.6-17.2) Platelet Count 172 TH/MM3 (150-450) Mean Platelet Volume 7.8 FL (7.0-11.0) Neutrophils (%) (Auto) 87.5 % (16.0-70.0) Lymphocytes (%) (Auto) 7.3 % (9.0-44.0) Monocytes (%) (Auto) 4.0 % (0.0-8.0) Eosinophils (%) (Auto) 0.3 % (0.0-4.0) Basophils (%) (Auto) 0.9 % (0.0-2.0) Neutrophils # (Auto) 8.7 TH/MM3 (1.8-7.7) Lymphocytes # (Auto) 0.7 TH/MM3 (1.0-4.8) Monocytes # (Auto) 0.4 TH/MM3 (0-0.9) Eosinophils # (Auto) 0.0 TH/MM3 (0-0.4) Basophils # (Auto) 0.1 TH/MM3 (0-0.2) CBC Comment DIFF FINAL Differential Comment Blood Urea Nitrogen 22 MG/DL (7-18) Creatinine 0.96 MG/DL (0.60-1.30) Random Glucose 263 MG/DL (74-106) Total Protein 5.4 GM/DL (6.4-8.2) Albumin 1.8 GM/DL (3.4-5.0) Calcium Level 7.2 MG/DL (8.5-10.1) Phosphorus Level 1.4 MG/DL (2.5-4.9) Magnesium Level 1.8 MG/DL (1.5-2.5) Alkaline Phosphatase 89 U/L (45-117) Aspartate Amino Transf (AST/SGOT) 18 U/L (15-37) Alanine Aminotransferase (ALT/SGPT) 35 U/L (12-78) Total Bilirubin 0.7 MG/DL (0.2-1.0) Sodium Level 152 MEQ/L (136-145) Potassium Level 4.4 MEQ/L (3.5-5.1) Chloride Level 119 MEQ/L (98-107) Carbon Dioxide Level 26.0 MEQ/L (21.0-32.0) Anion Gap 7 MEQ/L (5-15) Estimat Glomerular Filtration Rate 74 ML/MIN (>89) Protein Corrected Calcium 8.1 MG/DL (8.5-10.1) Result Diagram: 10/10/170 10/10/170 Microbiology Microbiology Date/Time Source Procedure Growth Status 10/08/17 09:00 Bronchial Washings Left Lower Lobe Acid Fast Stain - Final NO ACID FAST BACILLI SEEN Resulted 10/08/17 09:00 Bronchial Washings Left Lower Lobe Mycobacterial Culture Pending Resulted 10/08/17 09:00 Bronchial Washings Left Lower Lobe Fungal Smear - Final RARE BUDDING YEAST CELLS Resulted 10/08/17 09:00 Bronchial Washings Left Lower Lobe Fungal Culture Pending Resulted 10/08/17 09:00 Bronchial Washings Left Lower Lobe Gram Stain - Final Complete 10/08/17 09:00 Bronchial Washings Left Lower Lobe Bronchial Culture - Final HEAVY GROWTH NORMAL RESPIRATORY MIKALA Complete 10/08/17 07:00 Sputum Endotracheal Gram Stain - Final Complete 10/08/17 07:00 Sputum Endotracheal Sputum Culture - Final HEAVY GROWTH NORMAL RESPIRATORY MIKALA Complete Procedures * 10/09/16 - right IJ central line placed. * 10/08/16 - Intubated and bronchoscopy. . Assessment and Plan Disease Oriented Problem List: (1) Atrial fibrillation (2) Seizure (3) Subdural hematoma (4) HCAP (healthcare-associated pneumonia) (5) NSTEMI (non-ST elevated myocardial infarction) (6) CAD (coronary artery disease) (7) HTN (hypertension) (8) PAD (peripheral artery disease) (9) GERD (gastroesophageal reflux disease) Symptom Scale: (1) Pain 0-10 Scale: Unable to quantify (2) Dyspnea 0-10 Scale: Unable to quantify Comment: extubated 10/10/17 (3) Dysphagia 0-10 Scale: Unable to quantify Comment: Dobbhoff in place. . (4) Anxiety 0-10 Scale: Unable to quantify Comment: On Seroquel as family feels this has worked well for patient. Has had problems with oversedation, family reluctant to use additional meds. . Pertinent Non-Medical Issues Psychosocial: . Supported by 2 sons, daughter (Marcella) and her ( Dr. Gonzales). Spiritual: Hindu oksana. Legal:Patient is incapacitated to make his own health care decisions, uncertain if he will regain capacity. According to [place] statutes, health care proxy decision making falls to his spouse. She is supported by her children and ESTEBAN. Ethical issues impacting care: No known concerns at this time. . Important Contacts * Nathalie Alvarado, spouse: [phone] * Marcella Goel, daughter: [phone] . Prognosis Mr. Alvarado is an 87 year old male with recent trajectory of health, functional and nutritional decline over the past few months. He had a fall with subdural hematoma managed conservatively. He was in rehab and had likely aspiration due to underlying dysphagia. Now in ICU on [facility] vent requiring pressor support ( weaning off). He may be able to be medically extubated though is high risk for repeat aspiration, mucus plug, respiratory decline or even . Hospice appropriate if he fails medical extubation and goals are comfort oriented. . Code Status: No Code Plan * Patient is incapacitated to make his own health care decisions, uncertain if he will regain capacity. According to [place] statutes, health care proxy decision making falls to his spouse. She is supported by her children and ESTEBAN. * NO CODE - DO NOT reintubate if medically extubated. * 10/10/17 2pm -Dr. Hopper and Palliative care met with spouse (Nathalie), daughter (Marcella Goel) and her (Dr. Gonzales). Met with , daughter and her . Family verbalizes desire for continued aggressive care at this time short of NO CODE. They do not want reintubation if patient fails. This time family is hopeful that patient will be able to communicate with them. Son- in-law, Pro indicates that family may be considering transition to hospice services/[facility] placement on 10/11/17. They are not yet ready to make this decision today. * 4pm: Spoke with daughter and at bedside. They feel patient has been relatively comfortable. They remain hopeful he will wake up more, daughter wonders if lethargy is related to Seroquel. I advised patient may not wake up. Offered meds for comfort should patient develop respiratory distress/ anxiety. Family is open to low dose Morphine and Lorazepam to be ordered in case he has further decline. I advised I have reserved a bed at [facility] should they choose to transition to comfort with hospice tomorrow. Family verbalizes appreciation. Advised nursing staff to speak with family before using PRN morphine or Ativan. * Requested hospice bed be held for patient at [facility]. No beds available at this time, will be first on list when one opens. * SYMPTOMS: Pain: due to recent fall, subdural hematoma, intubation, tubes, malnutrition and current bedbound status. On low dose Fentanyl drip. Dyspnea: on mech vent, may be medically extubate on 10/10/16. Anxiety: history of anxiety , on Seroquel in effort to reduce anxiety prior to extubation. Dysphagia: Dobbhoff in place for meds. Secretions: Will add Levsin PRN secretions. Spoke with family added Morphine and Lorazepam, they agreed with low dose comfort meds. Family denies pt has oxycodone allergy. * Palliative care will continue to follow to assist with symptom management and clarification of treatment goals as needed. . Attestation To help prompt me to consider important information that might be impacting today's encounter and assessment, information from prior notes written by myself or my colleagues may have been "brought forward" into today's note. My signature on this note, however, is an attestation that I personally performed the exam, history, and/or decision-making noted today, and, unless otherwise indicated, the interactions with patient, family, and staff as well as the review of records all occurred today. I also attest that the listed assessment and stated plan reflect my best clinical judgment today based on the combination of historical information, prior notes, and today's exam/ interactions. When time spent is documented, it refers only to time spent today by the signer, or if indicated, combined time spent today by collaborating physician/nurse practitioner. Estephania Viveros Oct 10, 2017 15:39
[2017-10-10] MEDS ORDERED: MORPHINE SULFATE 2 MG/ML INJ IV PUSH PRN (16:30)
[2017-10-10] MEDS ORDERED: LORazepam 2 MG/ML VIAL IV PUSH PRN (16:30)
[2017-10-10] MEDS: ATORVASTATIN 80 MG TAB PO SCH (21:00)
[2017-10-10] MEDS: LORazepam 2 MG/ML VIAL IV PUSH PRN (22:19)
[2017-10-11] VITALS (7 sets, daily range): BP systolic 108–145; BP diastolic 63–92; PULSE 120–159; RESP 30–40; TEMP 98.8–100; O2SAT 92–99
[2017-10-11] MEDS: LORazepam 2 MG/ML VIAL IV PUSH PRN ×6 (00:54→12:08)
[2017-10-11] MEDS: PIPERACIL-TAZO 3.375 GM PREMIX 50 ML IV SCH ×2 (02:00→07:25)
[2017-10-11] MEDS: RESP: ACETYLCYSTEINE 10% 30 ML NEB NEB SCH ×3 (03:50→12:23)
[2017-10-11] MEDS: RESP: ALBUTEROL 2.5 MG/IPRATROPIUM 0.5 MG NEB (SCH) NEB ×3 (03:50→12:23)
[2017-10-11] MEDS: CHLORHEXIDINE GLUCONATE 2 % 1 PACK (2 CLOTHS) TOP SCH (03:56)
[2017-10-11 04:45] LABS: MAGNESIUM 1.9 MG/DL (1.5-2.5)
[2017-10-11] MEDS: ISOSORBIDE MONONITRATE 60 MG TAB PO SCH (05:50)
[2017-10-11] MEDS: HYOSCYAMINE 0.5 MG/ML AMP IV PUSH PRN ×2 (07:24→13:00)
[2017-10-11] MEDS: EZETIMIBE 10 MG TAB PO SCH (07:24)
[2017-10-11] MEDS: predniSONE 20 MG TAB PO SCH (07:24)
[2017-10-11] MEDS: FINASTERIDE 5 MG TAB PO SCH (07:25)
[2017-10-11] MEDS: PANTOPRAZOLE SODIUM 40 MG VIAL IV PUSH SCH (07:25)
[2017-10-11] MEDS: SODIUM CHLORIDE 0.9% FLUSH 10 ML FLUSH IV FLUSH SCH (07:25)
[2017-10-11] MEDS: ASPIRIN EC 81 MG TABEC PO SCH (07:25)
[2017-10-11] MEDS: RANOLAZINE 500 MG EXTENDED RELEASE TAB PO SCH (07:25)
[2017-10-11] MEDS: DIGOXIN 0.125 MG TAB PO SCH (07:25)
[2017-10-11] MEDS: CHLORHEXIDINE 0.12% (ORAL KIT) 15 ML CUP MT SCH (07:25)
--- NOTE | 2017-10-11 08:43 | HHI.CCPN ---
Subjective Remarks/Hospital Course 10/07: Patient is an 87 year old male with PMHX of HTN, HLD, CAD with CABG in the past, Bilateral Carotid artery stenosis with Endarterectomy in the past who initially came to [facility] S/P fall and have incurred Subdural Hematoma. He was also found to have NSTEMI conservatively managed. His hospitalization was complicated with HCAP treated with IV Zosyn to continue until completed. He has on and off agitation in the in patient setting, treated with Haldol and geodon PRN. He was admitted to inpatient rehab [facility] for comprehensive rehabilitation. Patient was noted to have chest pain on 10/05 and [facility] was called. Troponin slightly elevated 0.6, EKG showed AFIB RVR. He was given diltiazem and ASA. Patient was also agitated on 10/05 and was given Geodon. He subsequently received Seroquel/Xanax/Restoril on 10/06 for anxiety. He has become progressively more lethargic since yesterday(10/06) and this morning was minimally arousable. Chest x-ray and head CT were done. Head CT showed unchanged subdural hematoma compared to previous scans. Chest x-ray from 10/07 revealed complete opacification of left lung field most likely secondary to mucous plugging. I was contacted by Dr. Gonzales - patient's son-in-law who was concerned regarding his lethargy and left lung collapse. Patient was transferred from [facility] to the ICU on 10/07 after being accepted by me for admission. I evaluated the patient immediately following his arrival. At that time he was on 4 L nasal cannula and appeared comfortable and in no acute distress. He was drowsy though easily arousable and was following simple commands including coughing. He denied any shortness of breath or chest pain at the time. History was obtained by reviewing records and discussion with Dr. Gonzales and subsequently patient's daughter at bedside. 10/08: Patient was intubated early this morning and placed on mechanical ventilation for worsening respiratory status. Patient chest x-ray prior to intubation actually showed some improvement in left lung opacification with some aeration noted in left upper lobe. When I evaluated the patient he was sedated, orally intubated on mechanical ventilation. I subsequently performed a bronchoscopy with Bal. No major mucous plugging noted during bronchoscopy. Postprocedure chest x-ray revealed left lower lobe consolidation/effusion. 10/09: Patient developed worsening hypotension last night and required central line placement. Started on Levophed for pressor support. Remains sedated, orally intubated on mechanical ventilation. On fentanyl 150 mics per minute. Tolerating tube feeds. Chest x-ray with moderate left pleural effusion. Scheduling CT-guided thoracentesis with IR. 10/10: Breathing comfortably on CPAP trials yesterday. Good drive today and will probably be extubated without event. Agitation may prove problematic however. We'll wait for family to arrive so all can be available for decision making re sedation after extubation.Left lung base consolidation has minimally parapneumonic fluid - tap not indicated. 10/11: Mildly labored breathing this morning s/p extubation about 16 hours ago. Requiring suctioning but adequate gas exchange. Pain control and sedation appears good. Objective Vital Signs Date Time Temp Pulse Resp B/P (MAP) Pulse Ox O2 Delivery O2 Flow Rate FiO2 10/11/17 08:22 99 Nasal Cannula 3.00 10/11/17 06:00 140 10/11/17 04:00 99.8 33 145/92 (109) 10/10/17 13:17 35 Intake and Output 10/11/17 10/11/17 10/12/17 08:00 16:00 00:00 Intake Total 50 ml Output Total 600 ml Balance -550 ml Result Diagram: 10/10/17 0400 10/10/17 0400 Other Results Microbiology Date/Time Source Procedure Growth Status 10/08/17 09:00 Bronchial Washings Left Lower Lobe Gram Stain - Final Complete 10/08/17 09:00 Bronchial Washings Left Lower Lobe Bronchial Culture - Final HEAVY GROWTH NORMAL RESPIRATORY MIKALA Complete Imaging Last 48 hours Impressions Chest X-Ray 10/08/17 0600 Signed Impressions: Service Date/Time: Sunday, October 08, 2017 03:20 - CONCLUSION: 1. Cardiomegaly 2. Improving aeration of the left lung Melo Brown MD Abdomen X-Ray 10/08/17 0000 Signed Impressions: Service Date/Time: Sunday, October 08, 2017 08:20 - CONCLUSION: 1. Feeding-type Dobbhoff catheter tip now in the fundus of the stomach. Rancho Neville MD Abdomen X-Ray 10/08/17 0000 Signed Impressions: Service Date/Time: Sunday, October 08, 2017 07:59 - CONCLUSION: 1. Dobbhoff tube is coiled in the oropharynx. 2. Left lower lobe pleural-parenchymal disease. 3. Positive fluid balance. 4. Nonobstructive bowel gas pattern. Rancho Neville MD Objective Remarks HEENT/ Neuro: Mildly sedated, pallor present, no icterus, tongue / mucosa moist. Neck: Airway patent, some oral secretions, poor cough effort. Chest/Pulm: Few mobile secretions, good air movement. CVS: S1-S2 irregularly irregular, no murmur. Neck veins full. GI/abdomen: soft, nontender, bowel sounds few. No guarding. Extremities: warm bilaterally, trace edema, well perfused. A/P Assessment and Plan Assessment and Plan A/P Problem List: (1) Subdural hematoma, post-traumatic ICD Code: S06.5X9A - Traumatic subdural hemorrhage with loss of consciousness of unspecified duration, initial encounter Status: Acute (2) CAD (coronary artery disease) ICD Code: I25.10 - Atherosclerotic heart disease of knik coronary artery without angina pectoris Status: Chronic (3) HTN (hypertension) ICD Code: I10 - Essential (primary) hypertension Status: Chronic (4) HLD (hyperlipidemia) ICD Code: E78.5 - Hyperlipidemia, unspecified Status: Chronic (5) Simple partial seizures ICD Code: G40.109 - Localization-related (focal) (partial) symptomatic epilepsy and epileptic syndromes with simple partial seizures, not intractable, without status epilepticus Status: Acute (6) PAD (peripheral artery disease) ICD Code: I73.9 - Peripheral vascular disease, unspecified Status: Chronic (7) Lumbar spinal stenosis ICD Code: M48.06 - Spinal stenosis of lumbar region Status: Acute (8) BPH (benign prostatic hypertrophy) with urinary obstruction ICD Code: N13.8 - Other obstructive and reflux uropathy; N40.1 - Benign prostatic hyperplasia with urinary obstruction Status: Acute (9) S/P CABG x 2 ICD Code: Z95.1 - Presence of aortocoronary bypass graft Status: Chronic (10) GERD (gastroesophageal reflux disease) ICD Code: K21.9 - Gastro-esophageal reflux disease without esophagitis Status: Chronic Assessment and Plan NEURO: R subdural hematoma, maximum 1.4 cm, 2-3 mm shift Encephalopathy Simple partial seizure s/p Fall Lumbar spinal stenosis Increasing lethargy most likely secondary to combination off Xanax/Restoril and Seroquel. Will hold off on Xanax and Restoril and use Seroquel if needed for agitation. Hold Versed gtt. Will use Precedex gtt. as needed for sedation. Fentanyl gtt resumed. Daily sedation vacation Continue neuro checks Was on by mouth Keppra, switched to 500mg IV [id number]. Repeat CT brain 10/07 shows Stable SDH Neurosurgery Dr. Grady, will reconsult if needed. RESP: Acute respiratory failure requiring mechanical ventilation COPD exacerbation Prior history of tobacco abuse Aspiration pneumonia/ HCAP Left lung atelectasis most likely secondary to mucous plugging Continue Zosyn On PO prednisone which will be continued. Incentive spirometry when more awake DuoNeb q6 scheduled and PRN. Continue Mucomyst nebulizer treatments every 4 hourly in view of mucus plugging with left lung collapse as well as chest PT Q4hrly. Aggressive pulmonary toilet Patient intubated on 10/08 and bronchoscopy with Bal performed which did not show mucous plugging however postprocedure chest x-ray shows persistent left lower lobe consolidation/ effusion. Extubated 10/10. CV: NSTEMI Congestive heart failure CAD with prior CABG and PTCA Atrial fibrillation rate controlled Hypotension h/o HTN Hyperlipidemia EF 50%, probably less with moderate MR Patient has chronic angina and habitual use of NTG spray. Hold beta jennifer and Imdur due to hypotension. Resume Ranexa if BP tolerates. Given digoxin 0.5 mg IV on 10/08, will continue digoxin 0.125 mg IV daily for rate control for A. fib in view of hypotension. Started on Levophed for pressor support. Add vasopressin 0.04 units per minute on 10/09. Received multiple fluid boluses in last 48 hours. Statin/Zetia Cheese Specialist is Dr. Chavez ASA 81 mg day cleared by Dr. Head 09/30/17 GI: GERD h/o cholecystectomy, appendectomy h/o inguinal hernia repair Continue tube feeds via dobhoff and advanced to goal as tolerated with Jevity 1.5. Continue PPI DHT for meds. FEN/RENAL: BPH h/o Urinary retention Strict intake output, monitor and replete electrolytes, follow BUN/creatinine. Proscar 5 mg po daily when able to take po. ID: HCAP/ Aspiration pneumonia Sepsis Mild leukocytosis Continue Zosyn, follow cultures HEME: Mild chronic anemia Does not require transfusion at this time. He was not on any anticoagulant therapy. ENDO: Glucose is at target <185. Increased intolerance. PROPH: SCDs for DVT prophylaxis. Pharmacologic DVT prophylaxis is contraindicated due subdural hematoma till cleared by Neurosurgery. Protonix 40 mg IV daily for stress ulcer prophylaxis and history of GERD on PPI at home. ACCESS: Peripheral IV providing adequate access at this time 10/07 Discussed at length with patient's family including Dr. gonzales and patient's daughter. Plan is to initiate nebulizer treatments Mucomyst and chest physical therapy to try to improve left lung atelectasis. 10/08: D/w Dr. Gonzales - patient's son in law and updated him regarding current clinical status and plan of care he voiced understanding. Plan to continue mechanical ventilation and initiate C Pap trials and hopefully attempt extubation in the next 24-48 hours if patient improves clinically. 10/09: We'll consult palliative care to assist with deciding goals of therapy as patient appears to be doing poorly per discussion with Dr. Gonzales yesterday. Overall impression: Numerous factors and ongoing problems probably preclude recovery of neurological function in this elderly man but he does appear to recognize people and interact now that extubated. Hopefully we can arrange a safe transfer to the [facility] [place]. Problem Qualifiers (1) Closed TBI (traumatic brain injury): Qualified Codes: S06.9X0A - Unspecified intracranial injury without loss of consciousness, initial encounter (2) HTN (hypertension): Qualified Codes: I10 - Essential (primary) hypertension Tra Hopper MD Oct 11, 2017 08:43
[2017-10-11] MEDS: QUEtiapine FUMARATE 25 MG TAB PO SCH (09:36)
[2017-10-11] MEDS: levETIRAcetam INJ 500 MG in SODIUM CHLORIDE 0.9% INJ 100 ML IV SCH (09:36)
--- NOTE | 2017-10-11 10:50 | HHI.HCPN ---
Reason for visit a. To assist with evaluation and management of symptoms including: dyspnea, pain, dysphagia, anxiety. b. To assist medical decision maker(s) with: better understanding of current medical conditions; weighing benefits/burdens of medical treatment options; making medical treatment decisions. . Subjective/Interval History Patient seen and examined in ICU. Discussed with nursing staff and Dr. Hopper. No family at bedside. Awaiting their arrival for family meeting to further clarify goals. Patient on [place] oxygen. Tachypneic, tachycardic with shallow, agonal, labored respirations. Course breath sounds bilaterally. Some orotracheal secretions, less than prior. He is unresponsive, appears to be dying. . Family/friend interactions Family arrives to bedside, appropriately tearful. In speaking with Mrs. Alvarado she is ready to move patient to hospice care center in [facility]. Metal Bed Assembler offered, family desires software engineering associate manager visit, cosmetic counselor notified. Hospice consulted. . Advance Directives Living Will: Never completed Health Care Surrogate: Never completed Durable Power of Skinning Machine Feeder: Never completed Advance Directive Specifics Health Care Surrogate(s): Patient is incapacitated to make his own health care decisions, uncertain if he will regain capacity. According to [place] statutes, health care proxy decision making falls to his spouse. She is supported by her children and ESTEBAN. . Significant change in goals: NO CODE. Hospice consulted, plan to DC to [facility] when arrangements made. . Objective Vital Signs Date Time Temp Pulse Resp B/P (MAP) Pulse Ox O2 Delivery O2 Flow Rate FiO2 10/11/17 08:22 99 Nasal Cannula 3.00 10/11/17 08:00 96 Nasal Cannula 3.00 Humidified 10/11/17 08:00 100.0 159 34 108/70 (83) 96 10/11/17 08:00 159 10/11/17 06:00 140 10/11/17 04:00 140 10/11/17 04:00 99.8 140 33 145/92 (109) 97 10/11/17 02:00 134 10/11/17 00:00 98.8 148 30 140/63 (88) 94 10/11/17 00:00 148 10/10/17 23:31 98 Nasal Cannula 3.00 10/10/17 22:12 138 132/75 10/10/17 22:00 138 10/10/17 20:00 94 Nasal Cannula 4.00 10/10/17 20:00 98.9 138 25 131/90 (104) 96 10/10/17 20:00 138 10/10/17 19:00 96 Nasal Cannula 4.00 10/10/17 16:30 99 Nasal Cannula 4.00 10/10/17 16:00 98.8 130 30 107/60 (76) 96 10/10/17 16:00 130 10/10/17 13:40 94 Nasal Cannula 6 10/10/17 13:35 95 Nasal Cannula 6.00 10/10/17 13:17 35 10/10/17 13:12 97 35 10/10/17 12:00 91 10/10/17 12:00 97.8 91 14 135/73 (93) 96 Intake & Output 10/11/17 10/11/17 07:00 19:00 Intake Total 305 ml 150 ml Output Total 600 ml Balance -295 ml 150 ml Intake IV Total 305 ml 150 ml Tube Feeding 0 ml Output Urine Total 600 ml # Bowel Movements 0 Physical Exam CONSTITUTIONAL/GENERAL: This is an elderly, thin, frail appearing patient, unresponsive appears to be dying. TUBES/LINES/DRAINS: Dobbhoff, right IJ central line, PIV, catheter,SCDs. SKIN: Warm. HEAD: Right forehead, orbit and face ecchymosis in stages of healing, laceration healing right forehead. ENT: Dobbhoff clamped. CARDIOVASCULAR: irregularly irregular. RESPIRATORY/CHEST: Shallow, agonal respirations. Bilateral course breath sounds. GASTROINTESTINAL: Abdomen soft, nondistended. Bowel sounds hypoactive. GENITOURINARY: Without palpable bladder distension. catheter in place. MUSCULOSKELETAL: Extremities with trace edema. NEURO: unresponsive. . Diagnostic Tests Laboratory Laboratory Tests Test 10/09/17 05:15 10/09/17 09:30 10/10/17 04:00 10/11/17 03:35 White Blood Count 14.2 TH/MM3 (4.0-11.0) 9.9 TH/MM3 (4.0-11.0) Red Blood Count 3.78 MIL/MM3 (4.50-5.90) 3.57 MIL/MM3 (4.50-5.90) Hemoglobin 10.0 GM/DL (13.0-17.0) 9.4 GM/DL (13.0-17.0) Hematocrit 31.1 % (39.0-51.0) 30.0 % (39.0-51.0) Mean Corpuscular Volume 82.4 FL (80.0-100.0) 84.0 FL (80.0-100.0) Mean Corpuscular Hemoglobin 26.6 PG (27.0-34.0) 26.4 PG (27.0-34.0) Mean Corpuscular Hemoglobin Concent 32.3 % (32.0-36.0) 31.4 % (32.0-36.0) Red Cell Distribution Width 17.1 % (11.6-17.2) 17.6 % (11.6-17.2) Platelet Count 217 TH/MM3 (150-450) 172 TH/MM3 (150-450) Mean Platelet Volume 7.7 FL (7.0-11.0) 7.8 FL (7.0-11.0) Neutrophils (%) (Auto) 82.7 % (16.0-70.0) 87.5 % (16.0-70.0) Lymphocytes (%) (Auto) 10.5 % (9.0-44.0) 7.3 % (9.0-44.0) Monocytes (%) (Auto) 5.4 % (0.0-8.0) 4.0 % (0.0-8.0) Eosinophils (%) (Auto) 0.8 % (0.0-4.0) 0.3 % (0.0-4.0) Basophils (%) (Auto) 0.6 % (0.0-2.0) 0.9 % (0.0-2.0) Neutrophils # (Auto) 11.7 TH/MM3 (1.8-7.7) 8.7 TH/MM3 (1.8-7.7) Lymphocytes # (Auto) 1.5 TH/MM3 (1.0-4.8) 0.7 TH/MM3 (1.0-4.8) Monocytes # (Auto) 0.8 TH/MM3 (0-0.9) 0.4 TH/MM3 (0-0.9) Eosinophils # (Auto) 0.1 TH/MM3 (0-0.4) 0.0 TH/MM3 (0-0.4) Basophils # (Auto) 0.1 TH/MM3 (0-0.2) 0.1 TH/MM3 (0-0.2) CBC Comment AUTO DIFF DIFF FINAL Differential Total Cells Counted 100 Neutrophils % (Manual) 93 % (16-70) Band Neutrophils % 1 % (0-6) Lymphocytes % 2 % (9-44) Monocytes % 2 % (0-8) Eosinophils % 1 % (0-4) Neutrophils # (Manual) 13.5 TH/MM3 (1.8-7.7) Metamyelocytes 1 % (0-1) Differential Comment FINAL DIFF MANUAL Platelet Estimate NORMAL (NORMAL) Platelet Morphology Comment NORMAL (NORMAL) Tear Drop Cells 1+ (NORMAL) Ovalocytes 1+ (NORMAL) Blood Urea Nitrogen 20 MG/DL (7-18) 22 MG/DL (7-18) Creatinine 0.99 MG/DL (0.60-1.30) 0.96 MG/DL (0.60-1.30) Random Glucose 199 MG/DL (74-106) 263 MG/DL (74-106) Total Protein 5.5 GM/DL (6.4-8.2) 5.4 GM/DL (6.4-8.2) Albumin 2.0 GM/DL (3.4-5.0) 1.8 GM/DL (3.4-5.0) Calcium Level 7.5 MG/DL (8.5-10.1) 7.2 MG/DL (8.5-10.1) Phosphorus Level 1.0 MG/DL (2.5-4.9) 1.4 MG/DL (2.5-4.9) 3.0 MG/DL (2.5-4.9) Magnesium Level 1.9 MG/DL (1.5-2.5) 1.8 MG/DL (1.5-2.5) 1.9 MG/DL (1.5-2.5) Alkaline Phosphatase 95 U/L (45-117) 89 U/L (45-117) Aspartate Amino Transf (AST/SGOT) 27 U/L (15-37) 18 U/L (15-37) Alanine Aminotransferase (ALT/SGPT) 45 U/L (12-78) 35 U/L (12-78) Total Bilirubin 1.4 MG/DL (0.2-1.0) 0.7 MG/DL (0.2-1.0) Sodium Level 149 MEQ/L (136-145) 152 MEQ/L (136-145) Potassium Level 3.2 MEQ/L (3.5-5.1) 4.4 MEQ/L (3.5-5.1) Chloride Level 114 MEQ/L (98-107) 119 MEQ/L (98-107) Carbon Dioxide Level 30.1 MEQ/L (21.0-32.0) 26.0 MEQ/L (21.0-32.0) Anion Gap 5 MEQ/L (5-15) 7 MEQ/L (5-15) Estimat Glomerular Filtration Rate 72 ML/MIN (>89) 74 ML/MIN (>89) Prothrombin Time 14.0 SEC (9.8-11.6) Prothromb Time International Ratio 1.4 RATIO Activated Partial Thromboplast Time 27.8 SEC (24.3-30.1) Protein Corrected Calcium 8.1 MG/DL (8.5-10.1) Result Diagram: 10/10/17 0400 10/10/17 0400 Microbiology Microbiology Date/Time Source Procedure Growth Status 10/08/17 09:00 Bronchial Washings Left Lower Lobe Acid Fast Stain - Final NO ACID FAST BACILLI SEEN Resulted 10/08/17 09:00 Bronchial Washings Left Lower Lobe Mycobacterial Culture Pending Resulted Imaging Last Impressions Chest Ultrasound 10/09/17 0000 Signed Impressions: Service Date/Time: Monday, October 09, 2017 09:35 - CONCLUSION: Small amount of fluid in the left pleural space, inadequate for therapeutic thoracentesis. This study is needed for diagnostic purposes left sided thoracentesis could be obtained. Tai Valencia MD Chest X-Ray 10/08/17 0600 Signed Impressions: Service Date/Time: Sunday, October 08, 2017 03:20 - CONCLUSION: 1. Cardiomegaly 2. Improving aeration of the left lung Melo Brown MD Abdomen X-Ray 10/08/17 0000 Signed Impressions: Service Date/Time: Sunday, October 08, 2017 08:20 - CONCLUSION: 1. Feeding-type Dobbhoff catheter tip now in the fundus of the stomach. Rancho Neville MD Procedures * 1/10/17 - right IJ central line placed. * 10/08/16 - Intubated and bronchoscopy. . Assessment and Plan Disease Oriented Problem List: (1) Atrial fibrillation (2) Seizure (3) Subdural hematoma (4) HCAP (healthcare-associated pneumonia) (5) NSTEMI (non-ST elevated myocardial infarction) (6) CAD (coronary artery disease) (7) HTN (hypertension) (8) PAD (peripheral artery disease) (9) GERD (gastroesophageal reflux disease) Symptom Scale: (1) Pain 0-10 Scale: Unable to quantify (2) Dyspnea 0-10 Scale: Unable to quantify Comment: extubated 10/10/17 (3) Dysphagia 0-10 Scale: Unable to quantify Comment: Dobbhoff in place. . (4) Anxiety 0-10 Scale: Unable to quantify Comment: On Seroquel as family feels this has worked well for patient. Has had problems with oversedation, family reluctant to use additional meds. . Pertinent Non-Medical Issues Psychosocial: . Supported by 2 sons, daughter (Marcella) and her ( Dr. Gonzales). Spiritual: Sikh oksana. Legal:Patient is incapacitated to make his own health care decisions, uncertain if he will regain capacity. According to [place] statutes, health care proxy decision making falls to his spouse. She is supported by her children and ESTEBAN. Ethical issues impacting care: No known concerns at this time. . Important Contacts * Nathalie Alvarado, spouse: [phone] * Marcella Goel, daughter: [phone] . Prognosis Mr. Alvarado is an 87 year old male with recent trajectory of health, functional and nutritional decline over the past few months. He had a fall with subdural hematoma managed conservatively. He was in rehab and had likely aspiration due to underlying dysphagia. Now in ICU on [facility] vent requiring pressor support ( weaning off). He may be able to be medically extubated though is high risk for repeat aspiration, mucus plug, respiratory decline or even . Hospice appropriate if he fails medical extubation and goals are comfort oriented. . Code Status: No Code Plan * Patient is incapacitated to make his own health care decisions, uncertain if he will regain capacity. According to [place] statutes, health care proxy decision making falls to his spouse. She is supported by her children and ESTEBAN. * NO CODE - DO NOT reintubate if medically extubated. * Hospice consulted, plan to DC to [facility] when arrangements made. Family desires comfort measures and transfer to care center [facility]. * Discussed with nurse, Dr. Hopper, case management and hospice admissions. * SYMPTOMS: Pain: due to recent fall, subdural hematoma, intubation, tubes, malnutrition and current bedbound status. On low dose Fentanyl drip. Dyspnea: on mech vent, may be medically extubate on 10/10/16. Anxiety: history of anxiety , on Seroquel in effort to reduce anxiety prior to extubation. Dysphagia: Dobbhoff in place for meds. Secretions: Will add Levsin PRN secretions. Spoke with family added Morphine and Lorazepam, they agreed with low dose comfort meds. Family denies pt has oxycodone allergy. * Palliative care will continue to follow to assist with symptom management and clarification of treatment goals as needed. . Attestation To help prompt me to consider important information that might be impacting today's encounter and assessment, information from prior notes written by myself or my colleagues may have been "brought forward" into today's note. My signature on this note, however, is an attestation that I personally performed the exam, history, and/or decision-making noted today, and, unless otherwise indicated, the interactions with patient, family, and staff as well as the review of records all occurred today. I also attest that the listed assessment and stated plan reflect my best clinical judgment today based on the combination of historical information, prior notes, and today's exam/ interactions. When time spent is documented, it refers only to time spent today by the signer, or if indicated, combined time spent today by collaborating physician/nurse practitioner. Estephania Viveros Oct 11, 2017 10:49
--- NOTE | 2017-10-11 11:15 | HHI.DS ---
Discharge Summary Admission Date Oct 07, 2017 at 12:46 Discharge Date: Oct 11, 2017 Admitting Diagnosis Hypoxemic respiratory failure, pneumonia (1) HCAP (healthcare-associated pneumonia) ICD Code: J18.9 - Pneumonia, unspecified organism Diagnosis: Principal Status: Acute (2) Closed TBI (traumatic brain injury) ICD Code: S06.9X9A - Unspecified intracranial injury with loss of consciousness of unspecified duration, initial encounter Diagnosis: Principal Status: Acute (3) Subdural hematoma ICD Code: I62.00 - Nontraumatic subdural hemorrhage, unspecified (4) NSTEMI (non-ST elevated myocardial infarction) ICD Code: I21.4 - Non-ST elevation (NSTEMI) myocardial infarction Diagnosis: Principal Status: Acute (5) Dysphagia ICD Code: R13.10 - Dysphagia, unspecified Diagnosis: Secondary (6) New onset a-fib ICD Code: I48.91 - Unspecified atrial fibrillation Diagnosis: Secondary Status: Acute (7) Seizure ICD Code: R56.9 - Unspecified convulsions Diagnosis: Secondary Procedures Intubation and mechanical ventilation. Brief History HPI Diagnosis: (1) Dysphagia Diagnosis: Secondary (2) HCAP (healthcare-associated pneumonia) Diagnosis: Principal (3) Impaired mobility and activities of daily living Diagnosis: Secondary (4) NSTEMI (non-ST elevated myocardial infarction) Diagnosis: Secondary (5) Closed TBI (traumatic brain injury) Diagnosis: Secondary (6) Elevated LFTs Diagnosis: Secondary (7) New onset a-fib Diagnosis: Principal (8) HLD (hyperlipidemia) Diagnosis: Secondary (9) HTN (hypertension) Diagnosis: Secondary (10) GERD (gastroesophageal reflux disease) Diagnosis: Secondary History of Present Illness Patient is an 87 year old male with PMHX of HTN, HLD, CAD with CABG in the past , Bilateral Carotid artery stenosis with Endarterectomy in the past who initially came to [facility] S/P fall and have incurred Subdural Hematoma. He was also found to have NSTEMI conservatively managed. His hospitalization was complicated with HCAP treated with IV Zosyn to continue until completed. He has on and off agitation in the in patient setting, treated with Haldol and geodon PRN. He was admitted to inpatient rehab [facility] for comprehensive rehabilitation. Patient was noted to have chest pain on 10/05 and [facility]ICAT was called. Troponin slightly elevated 0.6, EKG showed AFIB RVR. He was given diltiazem and ASA. Patient was also agitated on 10/05 and was given Geodon. He subsequently received Seroquel/Xanax/Restoril on 10/06 for anxiety. He has become progressively more lethargic since yesterday(10/06) and this morning was minimally arousable. Chest x-ray and head CT were done. Head CT showed unchanged subdural hematoma compared to previous scans. Chest x-ray from 10/07 revealed complete opacification of left lung field most likely secondary to mucous plugging. I was contacted by Dr. Gonzales - patient's son-in-law who was concerned regarding his lethargy and left lung collapse. Patient was transferred from [facility] to the ICU on 10/07 after being accepted by me for admission. I evaluated the patient immediately following his arrival. At that time he was on 4 L nasal cannula and appeared comfortable and in no acute distress. He was drowsy though easily arousable and was following simple commands including coughing. He denied any shortness of breath or chest pain at the time. History was obtained by reviewing records and discussion with Dr. Gonzales and subsequently patient's daughter at bedside. ROS - General Review of Systems limited due to altered mental status PFSH Past Family Social History Allergies: Coded Allergies: oxycodone (Unverified Allergy, Severe, VOMITING, 05/14/17) zolpidem (Unverified Allergy, Severe, 09/26/17) ibuprofen (Verified Allergy, Mild, 09/27/17) Past Medical History HTN HLD CAD PAD Bilateral carotid artery stenosis Angina GERD Spinal stenosis BPH Cardiac arrest in the late 20s Past Surgical History CABG PCI Therapy [address] Cruz Right CEA Left CEA Cholecystectomy Bilateral hernia repair Reported Medications Reported Meds & Active Scripts Active Proscar (Finasteride) 5 Mg Tab 5 Mg PO DAILY Do not crush. Reported Senokot (Sennosides) 8.6 Mg Tab 8.6 Mg PO Q12HR PRN Albuterol Neb (Albuterol Sulfate) 2.5 Mg/0.5 Ml Neb 2.5 Mg NEB Q2HR NEB PRN Note: The Albuterol Sulfate Inhalation Solution is concentrated and must be diluted. Read complete instructions carefully before using. Protonix (Pantoprazole Sodium) 40 Mg Tab 40 Mg PO DAILY Lipitor (Atorvastatin Calcium) 80 Mg Tab 80 Mg PO HS Lasix (Furosemide) 20 Mg Tab 20 Mg PO DAILY Symbicort Inh (Budesonide/Formoterol Fumarate) 80-4.5 Mcg/Act Aero 2 Puff INH Q12HR Piperacil-Tazobact 4.5 gm Vial (Piperacillin Sodium/Tazobactam) 4.5 Gram Vial 4.5 G IV Q6HR Melatonin 1 Mg Tab.subl 5 Mg PO HS PRN Isosorbide Mononitrate 20 Mg Tab 60 Mg PO BID Take 2 doses 7 hours apart. Dulcolax Supp (Bisacodyl) 10 Mg Supp 10 Mg RECTAL DAILY PRN Atenolol 25 Mg Tab 25 Mg PO BID Geodon (Ziprasidone) 20 Mg Cap 20 Mg IM Q6HR PRN Keppra (Levetiracetam) 500 Mg Tab 500 Mg PO BID Lactulose Liq (Lactulose) 10 Gm/15 Ml Soln 30 Ml PO DAILY Duoneb (Ipratropium-Albuterol Neb) 0.5-2.5 Mg/3 Ml Neb 1 Nebule INH Q6HR NEB Duoneb (Ipratropium-Albuterol Neb) 0.5-2.5 Mg/3 Ml Neb 1 Nebule INH Q2HR PRN Prednisone 20 Mg Tab 20 Mg PO DAILY Zofran (Ondansetron HCl) 4 Mg Tab 4 Mg IV Q6HR PRN Ranexa ER 12 HR (Ranolazine) 1,000 Mg Tab 1,000 Mg PO BID Aspirin 81 Mg Chew 81 Mg CHEW DAILY Zetia (Ezetimibe) 10 Mg Tab 10 Mg PO DAILY Nitroglycerin Lingual Brainerd (Nitroglycerin) 400 Mcg/Act Brainerd [address] Brainerd SL DIRECTED PRN ONE SPRAY NEEDED FOR CHEST PAIN, MAY REPEAT EVERY FIVE MINUTES FOR A TOTAL OF 3 DOSES OR CALL 911 IF NO RELIEF Family History Father at the age 29 secondary to trauma Mother the age of 70 secondary to cancer Social History EtOH use quit 35 years ago Former smoker, smoked 1 pack per day 40 years, quit 20 years ago 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 SKIN: No rashes, ecchymoses or lesions. Cool and dry. HEAD: Atraumatic. Normocephalic. No temporal or scalp tenderness. EYES: Pupils equal round and reactive. Extraocular motions intact. No scleral icterus. No injection or drainage. ENT: Nose without bleeding, purulent drainage or septal hematoma. Throat without erythema, tonsillar hypertrophy or exudate. Uvula midline. Airway patent. NECK: Trachea midline. No JVD or lymphadenopathy. Supple, nontender, no meningeal signs. CARDIOVASCULAR: S1-S2 irregularly irregular, no gallop or murmur. RESPIRATORY: Air entry decreased oral left lung field, scattered rhonchi, no wheezing. GASTROINTESTINAL: Abdomen soft, non-tender, nondistended. No hepato-splenomegaly , or palpable masses. No guarding. MUSCULOSKELETAL: Extremities without clubbing, cyanosis, or edema. No joint tenderness, effusion, or edema noted. No calf tenderness. Negative Homans sign bilaterally. NEUROLOGICAL: Drowsy, arousable easily, follows commands. Speech appropriate but slow. Motor and sensory grossly within normal limits. Five out of 5 muscle strength in all muscle groups. Laboratory Laboratory Tests Test 10/07/17 06:48 10/07/17 08:50 White Blood Count 15.1 Red Blood Count 4.40 Hemoglobin 11.8 Hematocrit 36.4 Mean Corpuscular Volume 82.9 Mean Corpuscular Hemoglobin 26.8 Mean Corpuscular Hemoglobin Concent 32.4 Red Cell Distribution Width 16.9 Platelet Count 298 Mean Platelet Volume 7.9 Neutrophils (%) (Auto) 82.2 Lymphocytes (%) (Auto) 9.9 Monocytes (%) (Auto) 7.3 Eosinophils (%) (Auto) 0.2 Basophils (%) (Auto) 0.4 Neutrophils # (Auto) 12.4 Lymphocytes # (Auto) 1.5 Monocytes # (Auto) 1.1 Eosinophils # (Auto) 0.0 Basophils # (Auto) 0.1 CBC Comment AUTO DIFF Differential Total Cells Counted 100 Neutrophils % (Manual) 86 Band Neutrophils % 1 Lymphocytes % 7 Monocytes % 2 Neutrophils # (Manual) 13.7 Metamyelocytes 1 Myelocytes 3 Nucleated Red Blood Cells 3 Differential Comment FINAL DIFF MANUAL Platelet Estimate NORMAL Platelet Morphology Comment NORMAL Tear Drop Cells 1+ Ovalocytes 1+ Blood Urea Nitrogen 24 Creatinine 0.99 Random Glucose 120 Calcium Level 8.9 Sodium Level 146 Potassium Level 3.9 Chloride Level 107 Carbon Dioxide Level 32.4 Anion Gap 7 Estimat Glomerular Filtration Rate 72 Blood Gas Puncture Site RT RADIAL Blood Gas Patient Temperature 98.6 Blood Gas HCO3 32 Blood Gas Base Excess 6.5 Blood Gas Oxygen Saturation 91 Arterial Blood pH 7.35 Arterial Blood Partial Pressure CO2 59 Arterial Blood Partial Pressure O2 78 Arterial Blood Oxygen Content 14.9 Arterial Blood Carboxyhemoglobin 1.4 Arterial Blood Methemoglobin 1.4 Blood Gas Hemoglobin 11.6 Oxygen Delivery Device NASAL CANNULA Blood Gas Liter Flow 4 Result Diagram: 10/07/17 0648 10/07/17 0648 Imaging Last [address] 10/07/17 0000 Signed Impressions: Service Date/Time: Saturday, October 07, 2017 09:11 - CONCLUSION: Persistent right subdural hematoma with mass effect as described above. No significant change in mass effect. Misael Velasquez MD FACR Chest X-Ray 10/07/17 0000 Signed Impressions: Service Date/Time: Saturday, October 07, 2017 10:33 - CONCLUSION: Deterioration with new near-complete opacification left lung field Misael Velasquez MD FACR Chest X-Ray 10/06/17 0000 Signed Impressions: Service Date/Time: Friday, October 06, 2017 10:25 - CONCLUSION: Scattered stable patchiness throughout the lungs bilaterally. Marlon Mann MD [place] VTE Risk Assessment Caprini VTE Risk Assessment Caprini VTE Risk Assessment: Mod/High Risk (score >= 2) VTE Pharm Contraindication: Hemorrhage Caprini Risk Assessment Model Point Value = 1 Point Value = 2 Point Value = 3 Point Value = 5 Age 41-60 Minor surgery BMI > 25 kg/m2 Swollen legs Varicose veins or History of unexplained or recurrent spontaneous Oral contraceptives or hormone replacement Sepsis (< 1 month) Serious lung disease, including pneumonia (< 1 month) Abnormal pulmonary function Acute myocardial infarction Congestive heart failure (< 1 month) History of inflammatory bowel disease Medical patient at bed rest Age 61-74 Arthroscopic surgery Major open surgery (> 45 min) Laparoscopic surgery (> 45 min) Malignancy Confined to bed (> 72 hours) Immobilizing plaster cast Central venous access Age >= 75 History of VTE Family history of VTE Factor V Leiden Prothrombin [id number] Lupus anticoagulant Anticardiolipin antibodies Elevated serum homocysteine Heparin-induced thrombocytopenia Other congenital or acquired thrombophilia Stroke (< 1 month) Elective arthroplasty Hip, pelvis, or leg fracture Acute spinal cord injury (< 1 month) Prophylaxis Regimen Total Risk Factor Score Risk Level Prophylaxis Regimen 0-1 Low Early ambulation 2 Moderate Order ONE of the following: *Sequential Compression Device (SCD) *Heparin 5000 units SQ BID 3-4 Higher Order ONE of the following medications: *Heparin 5000 units SQ TID *Enoxaparin/Lovenox 40 mg SQ daily (WT < 150 kg, CrCl > 30 mL/min) *Enoxaparin/Lovenox 30 mg SQ daily (WT < 150 kg, CrCl > 10-29 mL/min) *Enoxaparin/Lovenox 30 mg SQ BID (WT < 150 kg, CrCl > 30 mL/min) AND/OR *Sequential Compression Device (SCD) 5 or more Highest Order ONE of the following medications: *Heparin 5000 units SQ TID (Preferred with Epidurals) *Enoxaparin/Lovenox 40 mg SQ daily (WT < 150 kg, CrCl > 30 mL/min) *Enoxaparin/Lovenox 30 mg SQ daily (WT < 150 kg, CrCl > 10-29 mL/min) *Enoxaparin/Lovenox 30 mg SQ BID (WT < 150 kg, CrCl > 30 mL/min) AND *Sequential Compression Device (SCD) CBC/BMP: 10/10/17 0400 10/10/17 0400 Significant Findings Laboratory Tests Test 10/09/17 05:15 10/09/17 09:30 10/10/17 04:00 10/11/17 03:35 White Blood Count 14.2 TH/MM3 (4.0-11.0) Red Blood Count 3.78 MIL/MM3 (4.50-5.90) 3.57 MIL/MM3 (4.50-5.90) Hemoglobin 10.0 GM/DL (13.0-17.0) 9.4 GM/DL (13.0-17.0) Hematocrit 31.1 % (39.0-51.0) 30.0 % (39.0-51.0) Mean Corpuscular Hemoglobin 26.6 PG (27.0-34.0) 26.4 PG (27.0-34.0) Neutrophils (%) (Auto) 82.7 % (16.0-70.0) 87.5 % (16.0-70.0) Neutrophils # (Auto) 11.7 TH/MM3 (1.8-7.7) 8.7 TH/MM3 (1.8-7.7) Neutrophils % (Manual) 93 % (16-70) Lymphocytes % 2 % (9-44) Neutrophils # (Manual) 13.5 TH/MM3 (1.8-7.7) Tear Drop Cells 1+ (NORMAL) Ovalocytes 1+ (NORMAL) Blood Urea Nitrogen 20 MG/DL (7-18) 22 MG/DL (7-18) Random Glucose 199 MG/DL (74-106) 263 MG/DL (74-106) Total Protein 5.5 GM/DL (6.4-8.2) 5.4 GM/DL (6.4-8.2) Albumin 2.0 GM/DL (3.4-5.0) 1.8 GM/DL (3.4-5.0) Calcium Level 7.5 MG/DL (8.5-10.1) 7.2 MG/DL (8.5-10.1) Phosphorus Level 1.0 MG/DL (2.5-4.9) 1.4 MG/DL (2.5-4.9) Total Bilirubin 1.4 MG/DL (0.2-1.0) Sodium Level 149 MEQ/L (136-145) 152 MEQ/L (136-145) Potassium Level 3.2 MEQ/L (3.5-5.1) Chloride Level 114 MEQ/L (98-107) 119 MEQ/L (98-107) Estimat Glomerular Filtration Rate 72 ML/MIN (>89) 74 ML/MIN (>89) Prothrombin Time 14.0 SEC (9.8-11.6) Mean Corpuscular Hemoglobin Concent 31.4 % (32.0-36.0) Red Cell Distribution Width 17.6 % (11.6-17.2) Lymphocytes (%) (Auto) 7.3 % (9.0-44.0) Lymphocytes # (Auto) 0.7 TH/MM3 (1.0-4.8) Protein Corrected Calcium 8.1 MG/DL (8.5-10.1) Imaging CXR: Pneumonia PE at Discharge Deteriorating. Transfer Summary Patient was extubated on 10/10 and with frequent suctioning was able to breathe with acceptable comfort. The following day it became apparent, not unexpectedly , that the patient was in considerable discomfort and would require additional sedation. Further, he has ongoing labored respiratory effort and will likely fail within the next several days. As discussed in detail with the family and Palliative Care service, the decision was continued to [facility] [place] Hospital Course 10/07: Patient is an 87 year old male with PMHX of HTN, HLD, CAD with CABG in the past, Bilateral Carotid artery stenosis with Endarterectomy in the past who initially came to [facility] S/P fall and have incurred Subdural Hematoma. He was also found to have NSTEMI conservatively managed. His hospitalization was complicated with HCAP treated with IV Zosyn to continue until completed. He has on and off agitation in the in patient setting, treated with Haldol and geodon PRN. He was admitted to inpatient rehab [facility] for comprehensive rehabilitation. Patient was noted to have chest pain on 10/05 and [facility]AT was called. Troponin slightly elevated 0.6, EKG showed AFIB RVR. He was given diltiazem and ASA. Patient was also agitated on 10/05 and was given Geodon. He subsequently received Seroquel/Xanax/Restoril on 10/06 for anxiety. He has become progressively more lethargic since yesterday(10/06) and this morning was minimally arousable. Chest x-ray and head CT were done. Head CT showed unchanged subdural hematoma compared to previous scans. Chest x-ray from 10/07 revealed complete opacification of left lung field most likely secondary to mucous plugging. I was contacted by Dr. Gonzales - patient's son-in-law who was concerned regarding his lethargy and left lung collapse. Patient was transferred from [facility] to the ICU on 10/07 after being accepted by me for admission. I evaluated the patient immediately following his arrival. At that time he was on 4 L nasal cannula and appeared comfortable and in no acute distress. He was drowsy though easily arousable and was following simple commands including coughing. He denied any shortness of breath or chest pain at the time. History was obtained by reviewing records and discussion with Dr. Gonzales and subsequently patient's daughter at bedside. 10/08: Patient was intubated early this morning and placed on mechanical ventilation for worsening respiratory status. Patient chest x-ray prior to intubation actually showed some improvement in left lung opacification with some aeration noted in left upper lobe. When I evaluated the patient he was sedated, orally intubated on mechanical ventilation. I subsequently performed a bronchoscopy with Bal. No major mucous plugging noted during bronchoscopy. Postprocedure chest x-ray revealed left lower lobe consolidation/effusion. 10/09: Patient developed worsening hypotension last night and required central line placement. Started on Levophed for pressor support. Remains sedated, orally intubated on mechanical ventilation. On fentanyl 150 mics per minute. Tolerating tube feeds. Chest x-ray with moderate left pleural effusion. Scheduling CT-guided thoracentesis with IR. 10/10: Breathing comfortably on CPAP trials yesterday. Good drive today and will probably be extubated without event. Agitation may prove problematic however. We'll wait for family to arrive so all can be available for decision making re sedation after extubation.Left lung base consolidation has minimally parapneumonic fluid - tap not indicated. 10/11: Mildly labored breathing this morning s/p extubation about 16 hours ago. Requiring suctioning but adequate gas exchange. Pain control and sedation appears good. Pt Condition on Discharge: Deteriorating Discharge Disposition: Hospice/Med Facility Discharge Instructions DIET: Follow Instructions for: On Tube Feeding Activities you can perform: Non Weight Bearing Tra Hopper MD Oct 11, 2017 11:15
== END 2017-10-11 13:17 | disposition hospice, inpatient (51) | DRG 166 ==
LOC: N03A 12:46
PROVIDERS: ADMIT Internal Medicine Critical Care Medicine; ATTEND Internal Medicine Critical Care Medicine
PROC: 0BH17EZ Insertion of Endotracheal Airway into Trachea, Via Natural or Artificial Opening (ICD-10-PCS; principal; 2017-10-08)
PROC: 0B9L8ZX Drainage of Left Lung, Via Natural or Artificial Opening Endoscopic, Diagnostic (ICD-10-PCS; 2017-10-08)
PROC: 5A1945Z Respiratory Ventilation, 24-96 Consecutive Hours (ICD-10-PCS; 2017-10-08)
PROC: 02HV33Z Insertion of Infusion Device into Superior Vena Cava, Percutaneous Approach (ICD-10-PCS; 2017-10-09)
PROC: B548ZZA Ultrasonography of Superior Vena Cava, Guidance (ICD-10-PCS; 2017-10-09)
DX: J69.0 Pneumonitis due to inhalation of food and vomit (principal); I21.4 Non-ST elevation (NSTEMI) myocardial infarction; J96.01 Acute respiratory failure with hypoxia; G93.40 Encephalopathy, unspecified; I11.0 Hypertensive heart disease with heart failure; I95.9 Hypotension, unspecified; R13.10 Dysphagia, unspecified; I50.9 Heart failure, unspecified; G40.109 Localization-related (focal) (partial) symptomatic epilepsy and epileptic syndromes with simple partial seizures, not intractable, without status epilepticus; J44.1 Chronic obstructive pulmonary disease with (acute) exacerbation; J18.9 Pneumonia, unspecified organism; Y95 Nosocomial condition; I48.91 Unspecified atrial fibrillation; I25.119 Atherosclerotic heart disease of native coronary artery with unspecified angina pectoris; Z95.1 Presence of aortocoronary bypass graft; E78.5 Hyperlipidemia, unspecified; K21.9 Gastro-esophageal reflux disease without esophagitis; Z51.5 Encounter for palliative care; Z66 Do not resuscitate; I73.9 Peripheral vascular disease, unspecified; M48.061 Spinal stenosis, lumbar region without neurogenic claudication; Z79.82 Long term (current) use of aspirin; Z87.891 Personal history of nicotine dependence
CPT/HCPCS: 31500; 36600; 71045; 74018; 76604; 76937; 80053; 82805; 83735; 84100; 85007; 85025; 85027; 85610; 85730; 87015; 87070; 87102; 87116; 87205; 87206; 87641; 94002; 94003; 94640; 94664; 94667; 94668; C9113; J0330; J1160; J1940; J1953; J1980; J2060; J2248; J2250; J2543; J3010; J3480; J7030; J7050; J7512; J7608